=== PATIENT | female | born 1970 | race Two or more races ===

== ENCOUNTER 2020-07-31 08:31 | Outpatient (REF) | payer BC, OTHER, SELFPAY ==
--- NOTE | 2020-07-31 | US_ITS ---
EXAMINATION: US ABDOMEN LIMITED CLINICAL INFORMATION: Elevated liver function tests. COMPARISON: Previous CT of the abdomen and pelvis most recent April 2020 TECHNIQUE: Real-time imaging of the right upper quadrant abdominal viscera. FINDINGS: PANCREAS: Normal. LIVER: Normal. The liver is normal in size. The liver contour is normal. Liver echotexture is increased. No focal hepatic lesion. There is no intrahepatic biliary duct dilatation seen. GALLBLADDER: The gallbladder has been removed. COMMON BILE DUCT: Normal in caliber measuring 0.5 cm in diameter. RIGHT KIDNEY: Normal. No hydronephrosis. No renal calculi or focal parenchymal lesions. The kidney measures 12.4 cm in maximum dimension. FREE FLUID: None. US/US abdomen limited IMPRESSION: Echogenic liver suggestive of fatty infiltration.
== END 2020-07-31 08:32 | disposition home or self-care (01) ==
LOC: HO.US 08:31
PROVIDERS: Visit Provider Nurse Practitioner Family
DX: R74.8 Abnormal levels of other serum enzymes (principal)
CPT/HCPCS: 76705

== ENCOUNTER 2020-09-25 10:46 | Outpatient (REF) | payer BC, OTHER, SELFPAY ==
--- NOTE | 2020-09-25 10:57 | XR_ITS ---
EXAMINATION: XR HAND, RIGHT CLINICAL INFORMATION: Pain COMPARISON: None TECHNIQUE: PA, lateral, and oblique views of the right hand. FINDINGS: The bones and soft tissues are normal. No fracture. Alignment is anatomic. Joint spaces are maintained. No erosions or soft tissue calcifications. XR/XR hand RT 2V IMPRESSION: Normal right hand.
== END 2020-09-25 10:47 | disposition home or self-care (01) ==
LOC: HO.XRAY 10:46
PROVIDERS: PCP Nurse Practitioner Family; Visit Provider Registered Nurse
DX: M79.644 Pain in right finger(s) (principal); M79.89 Other specified soft tissue disorders
CPT/HCPCS: 73120

== ENCOUNTER 2021-02-20 13:13 | Outpatient (REF) | payer OTHER, SELFPAY ==
--- NOTE | ~2021-02-20 | XR_ITS ---
EXAMINATION: XR ANKLE, LEFT CLINICAL INFORMATION: Effusion. Left ankle pain and swelling for 4 weeks. COMPARISON: None TECHNIQUE: AP, lateral, and mortise views of the left ankle. FINDINGS: There is no evidence of acute fracture or dislocation of the left ankle. Left ankle mortise intact. No left ankle effusion is appreciated. There is some soft tissue swelling seen about the dorsum of the ankle. Calcaneal spurs are seen sites of insertion of Achilles and plantar tendons. XR/XR ankle LT min 3V IMPRESSION: No significant bony abnormality of the left ankle identified. Calcaneal spurs. Soft tissue swelling.
--- NOTE | ~2021-02-20 | US_ITS ---
EXAMINATION: US VENOUS ULTRASOUND WITH DOPPLER LOWER EXTREMITY, LEFT CLINICAL INFORMATION: This is a 50-year-old female with left leg pain and swelling. COMPARISON: None TECHNIQUE: Ultrasound of the deep veins is performed from the hip to the calf with compression sonography and color and pulse Doppler assessment. Spectral analysis with color-flow imaging is performed. FINDINGS: There is normal venous compression and respiratory variation and augmented flow. The visualized common femoral vein, superficial femoral vein, profunda femoral vein, popliteal vein, and the trifurcation region shows no evidence of deep venous thrombosis. There is no significant popliteal fossa cyst. If the patient's symptoms persist, followup ultrasound in 5 days 7 days might be of value to exclude proximal propagation from a non-visualized calf vein. US/US venous duplex LE IMPRESSION: No DVT demonstrated in the left lower extremity.
[2021-02-20 14:27] LABS: Anion Gap 13 (12-20); Blood Urea Nitrogen 14 mg/dL (9-16); Calcium 10.1 mg/dL (8.4-10.2); Carbon Dioxide 28 mmol/L (22-29); Chloride 103 mmol/L (96-108); Estimated Glomerular Filt Rate > 60; Glucose Random 109 mg/dL (60-115); Potassium 4.6 mmol/L (3.3-5.1); Rheumatoid Factor < 15.0 IU/mL (<15.0); Sodium 139 mmol/L (135-145)
[2021-02-20 14:43] LABS: Erythrocyte Sedimentation Rate 36 MM/HR (0-20)
[2021-02-20 14:49] LABS: TSH reflex Free T4 1.95 uIU/mL (0.32-4.0)
[2021-02-22 21:26] LABS: Cyclic Citrullinated Peptide <16 UNITS
== END 2021-02-20 13:14 | disposition home or self-care (01) ==
LOC: HO.US 13:13
PROVIDERS: PCP Nurse Practitioner Family; Visit Provider Nurse Practitioner Family
DX: M25.472 Effusion, left ankle (principal); M79.605 Pain in left leg; M79.89 Other specified soft tissue disorders; M79.644 Pain in right finger(s)
CPT/HCPCS: 36415; 73610; 80048; 82550; 84443; 85652; 86140; 86200; 86431; 93971

== ENCOUNTER 2021-03-14 15:05 | Outpatient (REF) | payer OTHER, SELFPAY ==
--- NOTE | ~2021-03-14 | US_ITS ---
EXAMINATION: US EXTREMITY NONVASCULAR, ANKLE CLINICAL INFORMATION: Soft tissue swelling dorsum left ankle for multiple weeks. COMPARISON: Duplex ultrasound 02/20/2021 left lower extremity and ankle radiographs 02/20/2021. TECHNIQUE: Ultrasound of the ankle was performed. FINDINGS: No abnormality is seen. No masses are identified. No effusion is detected. No abnormal fluid collection seen. US/US extremity nonvascular IMPRESSION: No abnormality is seen.
== END 2021-03-14 15:06 | disposition home or self-care (01) ==
LOC: HO.US 15:05
PROVIDERS: PCP Nurse Practitioner Family; Visit Provider Nurse Practitioner Family
DX: M25.472 Effusion, left ankle (principal)
CPT/HCPCS: 76882

== ENCOUNTER 2021-04-29 11:30 | Emergency (ER) | payer OTHER, SELFPAY ==
[2021-04-29 12:07] VITALS: BP 135/78; PULSE 81; RESP 16; TEMP 36.1; O2SAT 100; BMI 38.2
--- NOTE | 2021-04-29 12:54 | ED_ITS ---
HPI - Nausea/Vomiting/Diarrhea General Chief complaint: Nausea/Vomiting/Diarrhea Stated complaint: diarrhea Time Seen by Provider: 04/29/21 12:42 Source: patient Mode of arrival: ambulatory Limitations: no limitations History of Present Illness HPI Narrative: patient with diarrhea for 2 weeks. No recent travel, no recent antibiotic use. Patient has a cholecystectomy in the past and BTL. She is not in Healthcare and is not exposed to Cdiff. No history of CDiff, no MRSA. MD elicited complaint: diarrhea Onset (ago): week(s) Description of diarrhea: watery Pain consistency: intermittent Quality: cramping Exacerbating factors: eating Associated symptoms: fever/chills and weakness Related Data Allergies Allergy/AdvReac Type Severity Reaction Status Date / Time No Known Allergies Allergy Unverified 06/21/20 17:24 [No Known Allergies*] Review of Systems Constitutional: Constitutional: Reports no additional constitutional complaint s Eyes: Eyes: Reports no additional eye complaints ENT: Denies dizziness Cardiovascular: Cardiovascular: Reports no additional cardiovascular complaints Respiratory: Respiratory: Reports as per HPI Gastrointestinal: Gastrointestinal: Reports no additional gastrointestinal complaints Genitourinary: Genitourinary: Reports no additional female genitourinary complaints Musculoskeletal: Musculoskeletal: Reports no additional musculoskeletal complaints Integumentary/Breasts: Skin/Breast: Denies rash Neurologic: Reports system reviewed and no additional complaints, except as documented, Denies dizziness and Denies Sensory deficit (Neuro) Psychiatric: Psychiatric: Denies anxiety [facility] Past Medical History Medical History Anemia HTN (hypertension) Migraine Social History Social History Advance Directives: No Advance Directives Information Provided: No Physical Exam Vital Signs: Vital Signs: Last Vital Signs Temp 97.9 F 04/29/21 15:08 Pulse 70 04/29/21 15:08 Resp 16 04/29/21 15:08 BP 119/68 04/29/21 15:08 Pulse Ox 100 04/29/21 15:08 Body Mass Index 38.2 Const: General: healthy appearing Nutritional Appearance: overweight Orientation/consciousness: oriented to person and patient oriented x3 Limitations: no limitations HENMT: Head: Yes normal to inspection Ears: external ears normal General nose exam: Normal external nose present Mouth: Normal oral and palatal mucosa present and oropharynx normal Throat: Yes posterior oropharynx normal Eyes: General: appearance normal, both eyes and all related structures Neck: Other: supple Neck: Yes normal visual inspection Chest: Chest palpation & inspection: normal inspection of the chest Resp: Auscultation: clear to auscultation bilaterally Cardio: Jugular venous distension: no JVD Rate: regular rate Rhythm: regular rhythm Heart sounds: S1 normal heart sound present and S2 normal heart sound present GI: Inspection: Yes normal to inspection Palpation (GI): Soft to palpation, nontender and No hepatosplenomegaly present Auscultation: normal bowel sounds : General: Yes no CVA tenderness Back/Spine/Pelvis: Back: no CVA tenderness Skin: General skin exam: no rashes or lesions noted Neuro: General: oriented to person and patient oriented x3 Cranial nerves: Yes CN's II-XII intact bilaterally Motor exam (neuro): 5/5 motor strength present throughout Sensory Exam: No Sensory deficit (Neuro) Extrem: General: Yes normal to inspection Psych: Appearance: grossly normal Course Reevaluation(s) Reevaluation #1: abdomen soft, no guarding or rebound. No diarrhea in ED despite taking orals will dc home with stool speciment slips Time: 18:03 MDM - Nausea/Vomiting/Diarrhea Lab Data Result diagrams: 04/29/21 13:38 04/29/21 13:38 Labs: Lab Results 04/29/21 04/29/21 04/29/21 Range/Units 13:38 13:38 16:17 WBC 7.4 (4.8-10.8) X10*3/uL RBC 4.00 L (4.20-5.50) X10*6/uL Hgb 11.6 L (12.0-16.0) g/dl Hct 35.9 L (37-47) % MCV 89.8 (80-98) fL MCH 29.0 (27.0-33.0) pg MCHC 32.3 (31.0-35.0) g/dl RDW 12.7 (11.0-16.0) % Plt Count 298 (160-400) X10*3/uL MPV 9.7 (9.4-12.3) fL Immature Gran % (Auto) 0.5 H (0.0-0.4) % Neut % (Auto) 63.1 (45-73) % Lymph % (Auto) 27.0 (20-40) % [place] % (Auto) 6.5 (2-11) % Eos % (Auto) 2.6 (0-4) % Baso % (Auto) 0.3 (0-2) % Lymph # (Auto) 2.0 (1.2-4.9) X10*3/uL [place] # (Auto) 0.5 (0.1-1.2) X10*3/uL Eos # (Auto) 0.2 (0.0-0.4) X10*3/uL Baso # (Auto) 0.0 (0.0-0.2) X10*3/uL Abs Immat Gran (auto) 0.04 H (0.00-0.03) X10*3/uL Absolute Neuts (auto) 4.7 (2.0-8.3) X10*3/uL Absolute Nucleated RBC 0.000 (0.0-0.012) X10*3/uL Nucleated RBC % (auto) 0.0 (0.0-0.2) /100WBC Sodium 139 (135-145) mmol/L Potassium 4.0 (3.3-5.1) mmol/L Chloride 105 (96-108) mmol/L Carbon Dioxide 26 (22-29) mmol/L Anion Gap 12 (12-20) BUN 13 (9-16) mg/dL Creatinine 0.85 (0.5-1.4) mg/dL Estim Creat Clear Calc 92.6 Estimated GFR > 60 Random Glucose 103 (60-115) mg/dL Calcium 9.3 D (8.4-10.2) mg/dL Total Bilirubin 0.3 (0.0-1.0) mg/dL Direct Bilirubin 0.2 (0.0-0.5) mg/dL AST 60 H (5-31) U/L ALT 137 H (0-31) U/L Alkaline Phosphatase 65 (39-117) U/L Total Protein 6.8 (6.5-8.0) g/dL Albumin 4.3 (3.5-5.0) g/dL Lipase 19 (8-78) U/L Urine Color YELLOW Urine Appearance CLEAR Urine pH 5.5 (5.0-8.0) Ur Specific [place] >= 1.030 H (1.005-1.025) Urine Protein NEG (NEG-TRACE) MG/DL Urine Glucose (UA) NEG (NEG) MG/DL Urine Ketones 5 (NEG) MG/DL Urine Blood NEG (NEG) Urine Nitrite NEG (NEG) Ur Leukocyte Esterase NEG (NEG) Discharge Plan Discharge Clinical Impression: Gastroenteritis Patient Disposition: Home, Self-Care Instructions: Gastroenteritis (ED)
[2021-04-29] MEDS: 0.9 % Sodium Chloride 1,000 ML 999 ML IVCONT ×2 (13:39→15:08)
[2021-04-29 13:42] LABS: MANUAL DIFF FLAG NO
[2021-04-29 13:48] LABS: Basophils Percent Auto 0.3 % (0-2); Eosinophils Absolute Auto 0.2 X10*3/uL (0.0-0.4); Eosinophils Percent Auto 2.6 % (0-4); Hematocrit 35.9 % (37-47); Hemoglobin 11.6 g/dl (12.0-16.0); Imm Gran Abs Auto 0.04 X10*3/uL (0.00-0.03); Imm Gran Pct Auto 0.5 % (0.0-0.4); Mean Corpuscular HGB Conc 32.3 g/dl (31.0-35.0); Mean Corpuscular Volume 89.8 fL (80-98); Mean Platelet Volume 9.7 fL (9.4-12.3); Monocytes Absolute Auto 0.5 X10*3/uL (0.1-1.2); Monocytes Percent Auto 6.5 % (2-11); Neutrophils Absolute Auto 4.7 X10*3/uL (2.0-8.3); Neutrophils Percent Auto 63.1 % (45-73); Platelet Count 298 X10*3/uL (160-400); Red Cell Distribution Width 12.7 % (11.0-16.0); White Blood Count 7.4 X10*3/uL (4.8-10.8)
[2021-04-29 14:25] LABS: Alanine Aminotransferase 137 U/L (0-31); Albumin Level 4.3 g/dL (3.5-5.0); Alkaline Phosphatase 65 U/L (39-117); Anion Gap 12 (12-20); Aspartate Amino Transferase 60 U/L (5-31); Bilirubin Direct 0.2 mg/dL (0.0-0.5); Bilirubin Total 0.3 mg/dL (0.0-1.0); Blood Urea Nitrogen 13 mg/dL (9-16); Calcium 9.3 mg/dL (8.4-10.2); Carbon Dioxide 26 mmol/L (22-29); Chloride 105 mmol/L (96-108); Creatinine Clr Calc Pharmacy 92.6; Estimated Glomerular Filt Rate > 60; Glucose Random 103 mg/dL (60-115); Lipase 19 U/L (8-78); Sodium 139 mmol/L (135-145); Total Protein 6.8 g/dL (6.5-8.0)
[2021-04-29 15:08] VITALS: BP 119/68; PULSE 70; RESP 16; TEMP 36.6; O2SAT 100
[2021-04-29 16:27] LABS: Glucose Urine UA NEG (NEG); Leukocyte Esterase Urine NEG (NEG); Nitrite Urine NEG (NEG); PH 5.5 (5.0-8.0); Specific Gravity - Urine >= 1.030 (1.005-1.025); Urine Blood NEG (NEG); Urine Ketones 5 MG/DL (NEG); Urine Protein NEG (NEG-TRACE)
[2021-04-29 16:28] LABS: Appearance Urine CLEAR; Color Urine YELLOW
[2021-04-29 18:14] VITALS: BP 112/67; PULSE 88; RESP 14; TEMP 36.8; O2SAT 100
[2021-04-29 19:28] LABS: CDiff Gene PCR NEGATIVE (Negative)
== END 2021-04-29 18:47 | disposition home or self-care (01) ==
PROVIDERS: Emergency Provider Emergency Medicine
DX: K52.9 Noninfective gastroenteritis and colitis, unspecified (principal); I10 Essential (primary) hypertension; Z90.49 Acquired absence of other specified parts of digestive tract
CPT/HCPCS: 36415; 80048; 80076; 81003; 83690; 85025; 87045; 87046; 87329; 87493; 96360; 96361; 99284

== ENCOUNTER 2021-08-07 16:18 | Emergency (ER) | payer MEDICAID, SELFPAY ==
[2021-08-07 16:27] VITALS: BP 142/75; PULSE 79; RESP 18; TEMP 36.6; O2SAT 100; BMI 38.2
--- NOTE | 2021-08-07 17:15 | ED_ITS ---
HPI - Back Pain/Injury General Chief Complaint: Extremity Injury, Lower Stated Complaint: left sided abd pain Time Seen by Provider: 08/07/21 17:06 Source: patient Mode of arrival: ambulatory Limitations: no limitations History of Present Illness HPI Narrative: Patient with history of chronic back pain overweight complaining of increasing low back pain radiating to left leg for last few weeks seen her PCP plan to see physical therapist no recent trauma no abdominal pain no nausea no vomiting taking Tylenol/Motrin for pain complaining for increased pain now Related Data Previous Rx's Medication Instructions Recorded cyclobenzaprine 10 mg tablet 10 mg PO Q8H #20 tab 08/07/21 oxycodone-acetaminophen 5 mg-325 1 tab PO Q6H PRN #20 tab 08/07/21 mg tablet (Percocet) Allergies Allergy/AdvReac Type Severity Reaction Status Date / Time No Known Allergies Allergy Unverified 06/21/20 17:24 [No Known Allergies*] Review of Systems Review of Systems: Yes all other systems are reviewed and are negative [facility] Past Medical History Medical History Anemia HTN (hypertension) Migraine Physical Exam Vital Signs: Vital Signs: Last Vital Signs Temp 98 F 08/07/21 16:27 Pulse 79 08/07/21 16:27 Resp 18 08/07/21 16:27 BP 142/75 H 08/07/21 16:27 Pulse Ox 100 08/07/21 16:27 Body Mass Index 38.2 Appearance: Alert. Oriented X3. No acute distress. Obese Eyes: No pallor or icterus ENT: Pharynx normal. Oral Mucosa moist Neck: Normal inspection. Neck supple. CVS: Normal heart rate and rhythm. Pulses normal. Respiratory: No respiratory distress. Equal air entry bilateral, no wheezing/rales/rhonchi Abdomen: Soft and nontender. Bowel sounds are present, no mass palpable, no CVA tenderness Skin: Skin warm and dry. Normal skin color. Normal skin turgor. Back: Diffuse tenderness lower spine SLR negative bilateral neurovascular intact Extremities: No lower extremity edema. No calf tenderness Neuro: Oriented X 3. No motor deficit. No sensory deficit Discharge Plan Discharge Clinical Impression: Low back pain radiating down leg Patient Disposition: Home, Self-Care Instructions: Back Pain (ED) Additional Instructions: Rest at home Take pain medication and muscle relaxants as advised Prescriptions: New cyclobenzaprine 10 mg tablet 10 mg PO Q8H Qty: 20 RF: 0 oxycodone-acetaminophen [Percocet] 5-325 mg tablet 1 tab PO Q6H PRN (Reason: pain) Qty: 20 RF: 0
[2021-08-07] MEDS: Ketorolac Tromethamine 60 MG/2 ML VIAL IM (17:47)
[2021-08-07] MEDS: oxyCODONE HCl Immed Release 5 MG TABLET PO (18:06)
== END 2021-08-07 18:11 | disposition home or self-care (01) ==
LOC: HO.ED 17:23
PROVIDERS: Emergency Provider Internal Medicine; PCP Nurse Practitioner Primary Care
DX: M54.50 Low back pain, unspecified (principal); I10 Essential (primary) hypertension
CPT/HCPCS: 96372; 99283; 99284; J1885

== ENCOUNTER 2021-08-21 14:50 | Outpatient (REF) | payer MEDICAID, SELFPAY ==
--- NOTE | ~2021-08-21 | MM_ITS ---
EXAMINATION: MM SCREENING DIGITAL BREAST TOMOSYNTHESIS, BILATERAL CLINICAL INFORMATION: Screening. Asymptomatic. The lifetime risk of breast cancer based on the Tyrer-Cuzick Model is 10%. COMPARISON: Mammography: 04/15/2016 (baseline) TECHNIQUE: Digital breast tomosynthesis is performed in both the craniocaudal and mediolateral oblique views along with computer-aided detection (CAD). Synthesized 2D images are generated from the tomosynthesis. FINDINGS: The breasts are heterogeneously dense, which may obscure small masses (ACR BI-RADS breast composition Category c). There are no significant masses, abnormal calcifications, or other abnormalities. Breast tissue composition borders on average fibroglandular. The axilla and skin contours are unremarkable. MM/MM tomosynthesis screening BI IMPRESSION: No mammographic evidence of malignancy. ASSESSMENT: BI-RADS 1: Negative RECOMMENDATION: Routine annual mammography screening. This patient's information was entered into a reminder system with a target due date for their next mammogram.
== END 2021-08-21 14:51 | disposition home or self-care (01) ==
LOC: HO.MAMMO 14:50
PROVIDERS: Visit Provider Nurse Practitioner Primary Care
DX: Z12.31 Encounter for screening mammogram for malignant neoplasm of breast (principal)
CPT/HCPCS: 77063; 77067

== ENCOUNTER 2021-09-25 10:00 | Outpatient (RCR) | payer MEDICAID, SELFPAY | END 2021-09-25 11:24 | disposition home or self-care (01) | LOC: HO.PT 10:00 | PROVIDERS: PCP Nurse Practitioner Family; Visit Provider Nurse Practitioner Family | DX: M54.50 Low back pain, unspecified (principal) | CPT/HCPCS: 97110; 97140; 97161 ==

== ENCOUNTER → 2021-09-30 13:19 | Outpatient (BNVA) | payer MEDICAID, SELFPAY | PROVIDERS: PCP Nurse Practitioner Primary Care; Visit Provider Surgery Vascular Surgery | DX: I83.11 Varicose veins of right lower extremity with inflammation (principal) | CPT/HCPCS: 99202 ==

== ENCOUNTER 2021-10-17 10:34 | Outpatient (REF) | payer MEDICAID, SELFPAY ==
--- NOTE | ~2021-10-17 | US_ITS ---
EXAMINATION: RIGHT AND LEFT LOWER EXTREMITY VENOUS ULTRASOUND (REFLUX EXAM) CLINICAL INDICATION: Varicose veins of right lower extremity with inflammation. COMPARISON: 02/20/2021 TECHNIQUE: Color flow triplex imaging and compression Doppler was performed to evaluate both the deep and the superficial systems bilaterally. To evaluate the superficial system, the examination was performed in the upright position. Color-flow Doppler ultrasound and compression ultrasound were utilized. In addition, maneuvers were utilized to demonstrate reflux. FINDINGS: 1. DEEP VENOUS ULTRASOUND OF THE RIGHT LOWER EXTREMITY: Respiratory variation, normal compression and augmented flow are noted in the right common femoral vein as well as the right popliteal vein and there is no evidence of deep venous thrombosis at these locations. There is no evidence of reflux in the deep system in either the common femoral vein or the popliteal vein. There is no evidence of a Gilliland's cyst. No popliteal artery aneurysm. 2. SUPERFICIAL ULTRASOUND WITH DOPPLER OF RIGHT LOWER EXTREMITY: The right great saphenous vein at the saphenofemoral junction measures 7 mm, at the midthigh 3 mm, gifox-mla-jwuw 3 mm, ixqgv-clz-cuxx 2 mm, at midcalf 2 mm and at the ankle measures 1 mm. There is reflux noted up to approximately 2.8 seconds at the level just below the knee and 3 seconds in the midcalf. The right small saphenous vein measures 4 mm and shows reflux in the midcalf up to 2.5 seconds. 3. DEEP VENOUS ULTRASOUND OF THE LEFT LOWER EXTREMITY: Respiratory variation, normal compression and augmented flow are noted in the left common femoral vein as well as the left popliteal vein and there is no evidence of deep venous thrombosis at these locations. There is no evidence of reflux in the deep system in either the common femoral vein or the popliteal vein. There is no evidence of a Gilliland's cyst. 4. SUPERFICIAL ULTRASOUND WITH DOPPLER OF LEFT LOWER EXTREMITY: Left great saphenous vein at the saphenofemoral junction measures 6 mm, at the midthigh 3 mm, lijfw-lku-xoeq 3 mm, dicmt-thp-lqsn 2 mm, at midcalf 2 mm and at the ankle measures 2 mm. There is no reflux demonstrated in the left great saphenous vein. The left small saphenous vein measures 3 mm and shows no reflux. US/US venous duplex LE BI IMPRESSION: 1. No evidence of reflux or thrombus in the common femoral veins or popliteal veins bilaterally. 2. No evidence of venous insufficiency within the left lower extremity. 3. There is reflux noted with venous insufficiency within the right lower extremity at the level just below the knee and within the midcalf. No insufficiency was identified at the saphenofemoral junction. There is also noted to be some insufficiency within the small saphenous vein within the midcalf. No varicosities larger than 3 mm were identified.
== END 2021-10-17 10:35 | disposition home or self-care (01) ==
LOC: HO.US 10:34
PROVIDERS: Visit Provider Surgery Vascular Surgery
DX: I83.11 Varicose veins of right lower extremity with inflammation (principal)
CPT/HCPCS: 93970

== ENCOUNTER → 2021-10-29 11:01 | Outpatient (BNVA) | payer MEDICAID, SELFPAY | PROVIDERS: PCP Nurse Practitioner Primary Care; Visit Provider Surgery Vascular Surgery | DX: I83.11 Varicose veins of right lower extremity with inflammation (principal) | CPT/HCPCS: 99212 ==

== ENCOUNTER → 2022-01-24 09:16 | Outpatient (BNVA) | payer MEDICAID, SELFPAY | PROVIDERS: PCP Nurse Practitioner Primary Care; Visit Provider Nurse Practitioner Family | DX: M54.16 Radiculopathy, lumbar region (principal); M47.816 Spondylosis without myelopathy or radiculopathy, lumbar region; Q76.49 Other congenital malformations of spine, not associated with scoliosis | CPT/HCPCS: 99202 ==

== ENCOUNTER 2022-02-06 15:45 | Outpatient (REF) | payer MEDICAID, SELFPAY ==
--- NOTE | ~2022-02-06 | MR_ITS ---
EXAMINATION: MR LUMBAR SPINE WITHOUT CONTRAST CLINICAL INFORMATION: 51-year-old with low back pain, left leg pain and left foot numbness. COMPARISON: None TECHNIQUE: MRI of the lumbar spine was obtained using routine sequences without contrast. FINDINGS: Coronal Alignment: Very slight lower lumbar levocurvature noted on the belt loop maker view, which is nonspecific and could be positional or related to muscle spasm. Sagittal Alignment: Normal. Lumbosacral Junction: Transitional anatomy with lowest lumbar-like segment labeled as L5, which is partially sacralized on the left. Vertebral Bodies: Normal height. Disc Spaces and Endplates: Lsyj-vl-qitpqcpn disc space height loss asymmetric to the right at L4-L5 with intradiscal degenerative signal changes and a Schmorl's node along the superior endplate of L5 with minor spondylosis. Otherwise intervertebral disc space heights are well-maintained. There is disc desiccation at L3-L4 with minor spondylosis. Spinal Canal: Mildly prominent epidural fat seen throughout the lumbar canal with slight ventral lateral distortion of the thecal sac at L3 and L4 and a relatively small thecal sac at L5-S1. Bone Marrow: There are type II degenerative marrow signal changes along the endplates posteriorly at L4-L5. There is a nonspecific T1 hypo-/T2 hyperintense focus in the L2 vertebral body adjacent to the superior endplate asymmetric to the right, which measures 1.3 cm and appears slightly lobulated or loculated. Retrospective review of the lumbar spine on a previous CT of the abdomen from 2018 reveals a findings suggesting that this is most likely a lipid poor benign vertebral hemangioma. Otherwise, bone marrow signal intensity appears unremarkable. Conus Medullaris: Terminates at L1. Morphology and signal is normal. Intradural Nerve Roots: Within normal limits. L5-S1: Transitional level. No significant disc bulge or herniation and no significant DJD, canal or neuroforaminal stenosis. L4-L5: Broad-based central extruded disc herniation with slight caudal migration, with flattening of the ventral dural sac superimposed on diffuse disc bulging asymmetric to the right with encroachment on the neural foramina, right more than left. Ligamentum flavum thickening with gqxg-lu-yzbuhwsf facet arthropathy noted, with marked crowding of the subarticular zones bilaterally encroaching on the traversing L5 nerve roots. Mild central spinal canal stenosis is noted. There is mild left and moderate right-sided neural foraminal narrowing without definite exiting neural impingement. Central radial annular fissure also noted at this level associated with the above-described disc herniation. L3-L4: Broad-based left subarticular to foraminal/extra foraminal disc protrusion noted and broad-based right foraminal/extra foraminal disc protrusion also noted, with rcje-br-veepjbgo bilateral neural foraminal stenosis, with mild encroachment on the exiting L3 nerve roots bilaterally. No significant spinal canal stenosis. L2-L3: Normal disc contour. No facet arthrosis, canal or neuroforaminal stenosis. L1-L2: Normal disc contour. No facet arthrosis, canal or neuroforaminal stenosis. Paraspinal/Retroperitoneal: The paravertebral soft tissues are unremarkable. MR/MR lumbar spine wo con IMPRESSION: 1. Discogenic degenerative changes primarily at L4-L5 and to a lesser degree at L3-L4 as described above with transitional lumbosacral anatomy. 2. Broad-based central extruded disc herniation at L4-L5 with diffuse disc bulging asymmetric to the right, with facet arthropathy and marked bilateral subarticular recess stenosis with probable impingement on the traversing L5 nerve roots bilaterally and mild central spinal canal stenosis. Moderate right and mild left-sided neural foraminal stenosis at this level. 3. Posterolateral disc protrusions noted bilaterally at L3-L4 with nimj-ie-tskvpblz bilateral neural foraminal compromise, with encroachment on the exiting L3 nerve roots bilaterally.
== END 2022-02-06 15:46 | disposition home or self-care (01) ==
LOC: HO.MRI 15:45
PROVIDERS: Visit Provider Nurse Practitioner Family
DX: M54.16 Radiculopathy, lumbar region (principal); Q76.49 Other congenital malformations of spine, not associated with scoliosis
CPT/HCPCS: 72148

== ENCOUNTER 2022-03-11 08:34 | Outpatient (REF) | payer MEDICAID, SELFPAY ==
--- NOTE | ~2022-03-11 | CT_ITS ---
EXAMINATION: CT ABDOMEN WITHOUT CONTRAST CLINICAL INFORMATION: Abdominal pain, flank pain. History of hydronephrosis. COMPARISON: Ultrasound abdomen 07/31/2020. TECHNIQUE: Contiguous axial thin section helical images of the abdomen were performed without contrast. The data set was reformatted in the coronal and sagittal planes and reviewed on an independent workstation. This CT examination was performed using dose optimization techniques as appropriate, variously including the following: *Automated exposure control *Adjustment of mA and/or kV according to patient size (this includes techniques or standardized protocols for targeted exams where dose is matched to indication/reason for exam; i.e. extremities or head) *Use of iterative reconstruction technique DLP: 455 mGy-cm FINDINGS: LUNG BASES: The lung bases are clear. The heart size is normal. LIVER, GALLBLADDER, BILIARY TREE: The liver is diffusely attenuated but normal size and hepatic contour. There is no focal lesion or intrahepatic ductal dilatation. The gallbladder has been surgically removed. PANCREAS: The pancreas is homogeneous in density, normal size and shape. No focal lesion seen. SPLEEN: The spleen is normal size and normal density. ADRENAL GLANDS AND KIDNEYS: The adrenal glands are symmetrical and normal. Both kidneys are normal size, shape and position. There are no radiopaque renal calculi or hydronephrosis. BOWEL LOOPS: There is scattered stool, gas and oral contrast seen throughout the colon without distention. Oral contrast-filled small bowel loops are normal caliber. LYMPH NODES: Normal. VASCULAR: Unremarkable. BONES: No lytic or sclerotic process seen. There is mild ventral spondylosis of lower dorsal spine. CT/CT abdomen wo con IMPRESSION: Diffuse hepatic steatosis without focal lesion. Cholecystectomy changes. No radiopaque urolith or hydroureteronephrosis. Fleischner guidelines were followed.
[2022-03-11] MEDS: Barium Sulfate Oral (Berry) 450 ML ORAL.SUSP 900 ML PO (10:27)
== END 2022-03-11 08:35 | disposition home or self-care (01) ==
LOC: HO.CT 08:34
PROVIDERS: Visit Provider Nurse Practitioner Primary Care
DX: R10.9 Unspecified abdominal pain (principal)
CPT/HCPCS: 74150

== ENCOUNTER → 2022-05-01 15:13 | Outpatient (REF) | payer MEDICAID, SELFPAY | LOC: HO.CARD 15:13 | PROVIDERS: Visit Provider Internal Medicine | DX: R07.2 Precordial pain (principal); R00.2 Palpitations; I10 Essential (primary) hypertension; E66.01 Morbid (severe) obesity due to excess calories | CPT/HCPCS: 93005; 99202 ==

== ENCOUNTER 2022-05-13 14:43 | Outpatient (REF) | payer MEDICAID, SELFPAY ==
[2022-05-14 15:12] LABS: H Pylori Breath Test Positive (Negative)
== END 2022-05-13 14:44 | disposition home or self-care (01) ==
LOC: HO.LNP 14:43
PROVIDERS: Visit Provider Nurse Practitioner Family
DX: K58.2 Mixed irritable bowel syndrome (principal); K21.9 Gastro-esophageal reflux disease without esophagitis
CPT/HCPCS: 83013; 99202; 99212

== ENCOUNTER 2022-06-11 06:16 | Outpatient (REF) | payer MEDICAID, SELFPAY ==
--- NOTE | ~2022-06-11 | FL_ITS ---
EXAMINATION: XR FLUOROSCOPY WITH IMAGES CLINICAL INFORMATION: M53.9 - Dorsopathy, unspecified COMPARISON: MR lumbar spine 02/06/2022 TECHNIQUE: Fluoroscopy performed by Dr. Jeffry Jean-Baptiste. Fluoroscopy time: 0.1 minutes. Cumulative Dose: 3.90 mGy. DAP: 0.432 Gy-cm2. Images: 2. FINDINGS: There is a spinal needle at the L4-L5 interlaminar space. Contrast is seen in the epidural space. No visible vascular communication. FL/FL guidance in treatment room IMPRESSION: Fluoroscopy for pain management procedure.
== END 2022-06-11 06:17 | disposition home or self-care (01) ==
LOC: HO.RADIR 06:16
PROVIDERS: Visit Provider Internal Medicine
DX: M54.16 Radiculopathy, lumbar region (principal); M53.9 Dorsopathy, unspecified
CPT/HCPCS: 62323; J1040

== ENCOUNTER → 2022-06-16 09:24 | Outpatient (REF) | payer MEDICAID, SELFPAY ==
--- NOTE | 2022-06-16 09:31 | CA_ITS ---
Acquisition Time: 2022-06-16 10:24:10 Total Exercise Time: 00:06:49 Test Indications: CHEST PAIN Medications: LISINOPRIL HCTZ PROPRANLOL Protocol: NEGRITO Max HR: 157 BPM 92% of Pred: 170 BPM Max BP: 140/080 mmHG Max Work Load: 8.2 METS Exercise stress test with exercise 6 min 49 sec of Negrito protocol, achieving 92% MPHR, with 1/10 mid chest pressure at baseline which increased to 2/10 with exercise, with mild sob, with rare PVC, with normotensive response to exercise, without EKG changes meeting criteria for ischemia. In later recovery there are mild T wave inversions V3-V6 which are different from baseline EKG. Her chest pressure returned to 1/10 with rest. Test reviewed with Dr Taylor. will order an exercise nuclear stress test for further evaluation. Referred By: Hector Hagen Overread By: CARLA DAVIES
--- NOTE | 2022-06-16 09:31 | ECG_ITS ---
Hook-up date: 2022-06-16 12:59:00 Duration: 23:32:00 Test Indications: PALPITATIONS Medications: [id number] QRS complexes 54 Ventricular ectopics which represent <1 % of total QRS comp. * Supraventricular ectopics which represent % of total QRS comp. * Paced QRS complexs which represent % of total QRS comp. VENTRICULAR ECTOPY 54 Isolated 0 Bigeminal Cycles 0 Couplets 0 Runs 0 Beats in Runs * Beats LONGEST at * BPM at :: -- * Beats FASTEST at * BPM at :: -- SUPRAVENTRICULAR ECTOPY * Isolated * Couplets * Runs * Beats in Runs * Beats LONGEST at * BPM at :: -- * Beats FASTEST at * BPM at :: -- HEART RATES 49 MIN at 04:10:30 2022-06-17 80 AVG 137 MAX at 13:00:14 2022-06-16 LONGEST RR 1.2640 secs at 04:10:27 2022-06-17 S-T LEVELS Channel 1 - 128 mm at 12:59:00 2022-06-16 - 128 mm at 12:59:00 2022-06-16 Channel 2 - 128 mm at 12:59:00 2022-06-16 - 128 mm at 12:59:00 2022-06-16 Channel 3 - 128 mm at 03:21:81 -- - 128 mm at 03:21:81 Underlying rhythm is sinus; Average ventricular rate 80/min; range 49-137/min; Very rare ventricular ectopy; No sustained arrhythmias; Patient diary not available for review. Referred By: Dean Parker Overread By: DEAN PARKER
== END ==
LOC: HO.CARD 09:24
PROVIDERS: Visit Provider Internal Medicine
DX: R07.2 Precordial pain (principal); R00.2 Palpitations
CPT/HCPCS: 93017; 93226

== ENCOUNTER → 2022-06-19 14:59 | Outpatient (REF) | payer MEDICAID, SELFPAY ==
--- NOTE | 2022-06-19 15:01 | CA_ITS ---
Transthoracic Echocardiogram Patient (Last, First, Middle): Alisha Proctor, Gender: Female Date of : 1970 Age: 51 Procedure Date: 06/19/2022 Procedure Type: Transthoracic Echocardiogram Location: OP Height: 162.56 cm Weight: 99.79 kg BSA: 2.04 m2 Heart Rate: bpm BP: 120 / 82 mmHg [place] Lead: TO Referring MD: Hector Hagen MD Process Inspector: Juve Taylor MD Symptoms: R07.2 - Precordial pain Study Quality: Technically Difficult/Contrast ECG Rhythm: Sinus Conclusions: - Essentially normal study Findings Procedure Information Contrast agent, definity, is being given per protocol without apparent complications. The quality of the study was technically difficult. Left Ventricle Normal left ventricular size, thickness, and systolic function. The visually estimated ejection fraction is between 60-65%. Spectral Doppler is indicative of a normal filling pattern. Right Ventricle Normal right ventricular cavity size and systolic function. Atria The left atrium is normal in size. Interatrial shunt cannot be excluded. The right atrium was not well visualized. Aortic Valve The aortic valve structure and function is likely normal. There is mild aortic valve stenosis. There is no aortic valve regurgitation. Mitral Valve Likely normal mitral valve structure and function. There is trace mitral valve regurgitation. There is no mitral valve stenosis. Pulmonic Valve The pulmonic valve was not well visualized. Tricuspid Valve Likely normal tricuspid valve structure and function. There is trace tricuspid valve regurgitation. The right ventricular systolic pressure is normal. The right ventricular systolic pressure is 34 mmHg. Normal right atrial pressure. There is no evidence of pulmonary hypertension. Great Vessels All visible segments of the aorta are normal in size. The pulmonary artery was not well visualized. Venous The inferior vena cava is normal in size and collapses greater than 50% with inspiration. Pericardium/Pleural There is no evidence of pericardial effusion. Prior Study Comparison No prior study available for comparison. Measurements 2D Linear Measurements IVSd: 0.91 0.6-0.9/0.6-1.0 cm LVIDd: 3.82 3.9-5.3/4.2-5.9 cm LVIDd Index: 1.87 2.4-3.2/2.2-3.1 cm/m2 LVIDs: 2.36 2.0-3.6 cm LVPWd: 0.87 0.7-1.1 cm LA Diam: 3.40 2.7-3.8/3.0-4.0 cm LAIDs Index: 1.67 1.5-2.3 cm/m2 LV Mass: 292.67 67-162/88-224 g LV Mass Index: 143.46 43-95/49-115 g/m2 LVOT Diam: 2.00 3.0+(-)1.3 cm 2D Systolic Function EF 4C: 55.60 >55% Mitral Valve MV Pk E: 0.68 MV PK A: 0.71 MV Decel Time: 166.00 E/A: 1.00 E'Lateral: 10.40 E'Medial: 5.66 E/E' Med: 12.00 E/E' Lat: 6.50 PHT: 49.00 MVA PHT: 4.49 Decel Burt: 4.08 Aortic Valve AoV Pk Adam: 1.54 AoV Mn Adam: 1.03 AoV VTI: 0.24 AoV Pk Grad: 9.00 Aov Mn Grad: 5.00 TYRESE Cont.VTI: 2.36 LVOT LVOT Pk Adam: 1.12 LVOT Mn Adam: 0.71 LVOT VTI: 0.18 LVOT Pk Grad: 5.00 LVOT Mn Grad: 2.00 LVOT Diam: 2.00 LVOT Area: 3.14 Diastolic Function MV Pk E: 0.68 MV Pk A: 0.71 E/A: 1.00 E'Medial: 5.66 E/E' Med: 12.00 E' Laterial: 10.40 E/E' Lat: 6.50 Right Ventricle TAPSE (mm): 16.50 TVS' Adam: 14.00 Tricuspid Valve TR Pk Adam: 2.54 TR Pk Grad: 26.00 RA Press: 8.00 RVSP: 34.00 Great Vessels Aorta Sinus of Valsalva: 3.16 2.0-3.[address] Ridge: 2.77 1.7-3.4 cm Updated in Other Vendor System with Status of Final Juve Taylor MD electronically signed on 06/19/2022 5:18:06 PM with status of Final
== END ==
LOC: HO.CARD 14:59
PROVIDERS: Visit Provider Internal Medicine
DX: R07.2 Precordial pain (principal)
CPT/HCPCS: 93306; Q9957

== ENCOUNTER → 2022-06-25 08:30 | Outpatient (REF) | payer MEDICAID, SELFPAY ==
--- NOTE | ~2022-06-25 | NM_ITS ---
Exercise Myocardial perfusion study Indication: Precordial chest pain abnormal EKG to evaluate for myocardial ischemia Technique: The patient was brought in for an exercise perfusion study on 06/25/2022. Patient performed exercise as per Sridhar protocol and was injected 35 mCi of sestamibi was given intravenously one target HR was achieved. Images were obtained using the SPECT gamma camera interlaced with the gating device. Images were obtained in supine position. Resting perfusion study was performed on 06/26/2022. Patient was administered 35 mCi of sestamibi intravenously at rest. Images were then obtained in supine position. Images obtained with and without CT attenuation. Total DLP 149 mGy-cm. Images were processed with the software and compared side to side in short axis, horizontal long axis and vertical long axis views. Findings: The stress perfusion study showed non attenuated images show normal uptake of radiotracer in all segments of LV myocardium. Attenuation corrected images show minimal thinning of the distal septum and anterior wall of the LV myocardium without any clear defect.. The gated study shows normal LV systolic function with calculated LVEF of greater than 70%. LV cavity is normal in size. The gated study shows normal systolic wall thickening and contraction of all segments. There is no transient ischemic dilation. Resting study shows nontender images show normal uptake of radiotracer in all segments of LV myocardium. Gating at rest reveals normal systolic wall motion with ejection fraction at 55%. The findings are consistent with likely normal myocardial perfusion. NM/NM theodore perf SPECT rest & str Impression: 1. Normal myocardial perfusion 2. Gated LVEF is 65% 3. Transient ischemic dilatation not present Stress EKG is equivocal for ischemia
--- NOTE | 2022-06-25 08:33 | CA_ITS ---
Acquisition Time: 2022-06-25 08:35:15 Total Exercise Time: 00:05:16 Test Indications: CHEST PAIN Medications: LISNOPRIL PROPRANOLOL HCTZ Protocol: NEGRITO Max HR: 153 BPM 90% of Pred: 170 BPM Max BP: 148/080 mmHG Max Work Load: 7.0 METS Exercise stress test with exercise 5 min 16 sec of Negrito protocol, achieving 90% MPHR, with mild sob, 4/10 left chest pressure, without arrythmia, with normotensive response to exercise, without EKG changes meeting criteria for ischemia. In recovery her chest pressure resolved after 3 min of rest. Nuclear images pending. Test reviewed with Dr Hagen Referred By: Nataly Huynh Overread By: NATAYL HUYNH
== END ==
LOC: HO.CARD 08:30
PROVIDERS: Visit Provider Nurse Practitioner Family
DX: R07.2 Precordial pain (principal); R94.31 Abnormal electrocardiogram [ECG] [EKG]
CPT/HCPCS: 78452; 93017; A9500

== ENCOUNTER → 2022-07-15 15:24 | Outpatient (BNVA) | payer MEDICAID, SELFPAY | PROVIDERS: PCP Nurse Practitioner Primary Care; Referring Provider Nurse Practitioner Primary Care; Visit Provider Nurse Practitioner Family | DX: Z01.818 Encounter for other preprocedural examination (principal); K59.00 Constipation, unspecified; K21.9 Gastro-esophageal reflux disease without esophagitis; A04.8 Other specified bacterial intestinal infections; K58.2 Mixed irritable bowel syndrome | CPT/HCPCS: 99212 ==

== ENCOUNTER → 2022-08-06 13:50 | Outpatient (BNVA) | payer MEDICAID, SELFPAY | PROVIDERS: PCP Nurse Practitioner Primary Care; Referring Provider Nurse Practitioner Primary Care; Visit Provider Nurse Practitioner Family | DX: R07.2 Precordial pain (principal); R00.2 Palpitations; I10 Essential (primary) hypertension; E66.9 Obesity, unspecified; Z68.37 Body mass index [BMI] 37.0-37.9, adult | CPT/HCPCS: 99212 ==

== ENCOUNTER → 2022-10-10 10:40 | Day surgery (SDC) | payer MEDICAID, SELFPAY ==
[2022-10-07 13:54] VITALS: BMI 37.9
--- NOTE | 2022-10-09 13:45 | P.CONAN_ITS ---
HPI - Anesthesia Eval Consult details Narrative: Cx'd DOS d/t fever 51yo F for Upper Endoscopy and Colonoscopy Cardiac testing (for atypical CP and htn) preop nml, routine cardiology f/u only [facility] Active Problems Active Problems: All Active Problems (Updated 07/25/22 @ 20:51 by Ceci Warren [facility]) Helicobacter pylori (H. pylori) (Acute) Abnormal ECG during exercise stress test (Acute) Primary hypertension (Acute) Morbid obesity (Acute) Heart palpitations (Acute) Precordial chest pain (Acute) Multilevel degenerative disc disease (Acute) Sacralization of lumbar vertebra (Acute) Spondylosis of lumbar spine (Acute) Lumbar radiculitis (Acute) Varicose veins of right lower extremity with inflammation (Acute) Past Medical History Medical History (Updated 07/25/22 @ 20:51 by Ceci Warren [facility]) Anemia Helicobacter pylori (H. pylori) HTN (hypertension) Migraine Morbid obesity Family History Family History Father Heart disease Mother Heart disease Surgical History Surgical History History of cholecystectomy Social History Social History Patient Tobacco Use Status: Former Tobacco user Use of substances other than those prescribed or required for medical reasons: Yes Substance Use Type Other:: smoking Substance Use Frequency: Weekly Are you DNR?: No Advance Directives: No Advance Directives Information Provided: Yes Meds Allergies Allergy/AdvReac Type Severity Reaction Status Date / Time No Known Allergies Allergy Verified 08/06/22 13:53 [No Known Allergies*] Home Medications Medication Instructions Recorded Confirmed Last Taken Type cholecalciferol (vitamin D3) 50 50 mcg PO QAM 01/24/22 05/01/22 Unknown History mcg (2,000 unit) tablet ferrous sulfate 325 mg (65 mg 325 mg PO 01/24/22 05/01/22 Unknown History iron) tablet (FeroSul) hydrochlorothiazide 12.5 mg tablet 12.5 mg PO QAM 01/24/22 05/01/22 Unknown History lisinopril 40 mg tablet 40 mg PO BEDTIME 01/24/22 05/01/22 Unknown History cetirizine 10 mg tablet 10 mg PO DAILY PRN 07/01/22 07/28/22 Unknown History fluticasone propionate 50 1 - 2 spray intranasal DAILY PRN 04/04/22 05/01/22 Unknown History mcg/actuation nasal spray,suspension nortriptyline 50 mg capsule 50 mg PO BEDTIME 04/04/22 05/01/22 Unknown History propranolol 80 mg tablet 80 mg PO .QD 05/01/22 05/01/22 Unknown History cyclobenzaprine 5 mg tablet 5 mg PO PRN pain 05/13/22 Unknown History lidocaine 5 % topical patch 0 patch topical 05/13/22 Unknown History (Lidoderm) Exam Exam Date and Time: October 09, 2022 1345 Height,Weight and Vital Signs: Height 5 ft 4 in Weight 100.199 kg Narrative Narrative: EKG 04/2022 sinus rhythm at 95/Min; nonspecific ST-T changes; normal GA/QTc ECHO 06/2022 Conclusions: - Essentially normal study ? ? NM theodore perf SPECT rest & str 06/2022 Impression: ? 1.? Normal myocardial perfusion 2.? Gated LVEF is 65% 3. Transient ischemic dilatation not present ? Stress EKG is equivocal for ischemia Assessment and Plan Assessment Anesthesia Assessment: Chart Reviewed
--- NOTE | 2022-10-10 11:23 | MHC.SHP ---
Pre-Procedural Eval Section A Date of Service: 10/11/22 The patient is an INPATIENT: No The History & Physical has been completed within 30 days and I have reviewed it.: No Section B Chief Complaint: reflux disease,screening Details of Present Illness: screen, GERD, H Pylori infection Relevant Family History (Specify if Yes): No Relevant Social History: Tobacco Use ( former smoker) Present Medications: see Short Stay Collaborative assessment Medical History: Significant History (Anemia Helicobacter pylori (H. pylori) HTN (hypertension) Migraine Morbid obesity) History of Previous Operations: Relevant previous surgery/procedure and date(s) (History of cholecystectomy) Allergies: Allergies Allergy/AdvReac Type Severity Reaction Status Date / Time No Known Allergies Allergy Verified 08/06/22 13:53 [No Known Allergies*] Plan Diagnosis/Plan: Change (procedure was cancelled by anesthesia due to fever of a 100 F, cough and sore throat) I have reviewed the history and physical and performed a pertinent physical examination on my patient. No changes have occurred unless specified. Time Spent With Patient Time: Total time managing care of this patient today ____ minutes.
--- NOTE | 2022-10-10 11:34 | PC.NURSE ---
md. Huertas and md. Pacheco to bedside with interpreter for the deaf Jony and discussion was had with patient to cancel her procedure today re-symptoms 100.2 temp and headache, etc... patient confirmed understanding left short Stay and ambulated to meet with .
== END ==
PROVIDERS: PCP Nurse Practitioner Primary Care; Visit Provider Internal Medicine Gastroenterology
DX: Z12.11 Encounter for screening for malignant neoplasm of colon (principal); Z53.09 Procedure and treatment not carried out because of other contraindication; R50.9 Fever, unspecified; R51.9 Headache, unspecified

== ENCOUNTER 2022-12-22 09:54 | Day surgery (SDC) | payer MEDICAID, SELFPAY ==
[2022-12-17 09:10] VITALS: BMI 37.9
--- NOTE | 2022-12-19 12:55 | P.CONAN_ITS ---
Documented by User: Karly Leslie NP 12/19/22 12:56 HPI - Anesthesia Eval Consult details Narrative: 52yo F for Upper Endoscopy and Colonoscopy Cardiac testing (for atypical CP and htn) preop nml, routine cardiology f/u only [facility] Active Problems Active Problems: All Active Problems (Updated 07/25/22 @ 20:51 by Ceci Warren [facility]) Varicose veins of right lower extremity with inflammation (Acute) Lumbar radiculitis (Acute) Spondylosis of lumbar spine (Acute) Sacralization of lumbar vertebra (Acute) Multilevel degenerative disc disease (Acute) Precordial chest pain (Acute) Heart palpitations (Acute) Primary hypertension (Acute) Abnormal ECG during exercise stress test (Acute) Helicobacter pylori (H. pylori) (Acute) Morbid obesity (Acute) Past Medical History Medical History (Updated 07/25/22 @ 20:51 by Ceci Warren [facility]) Anemia Helicobacter pylori (H. pylori) HTN (hypertension) Migraine Morbid obesity Family History Family History Father Heart disease Mother Heart disease Surgical History Surgical History (Updated 12/17/22 @ 09:12 by Cherry Douglas RN) History of cholecystectomy Hx of cystoscopy Hx of hysterectomy Social History Social History Patient Tobacco Use Status: Former Tobacco user Use of substances other than those prescribed or required for medical reasons: No Are you DNR?: No Advance Directives: No Advance Directives Information Provided: Yes Recently lost weight without trying: No How much weight loss: 14-23 pounds Nutrition Risks: No Nutritional Risk Meds Allergies Allergy/AdvReac Type Severity Reaction Status Date / Time No Known Allergies Allergy Verified 08/06/22 13:53 [No Known Allergies*] Home Medications Medication Instructions Recorded Confirmed Last Taken Type cholecalciferol (vitamin D3) 50 50 mcg PO QAM 01/24/22 12/17/22 Unknown History mcg (2,000 unit) tablet ferrous sulfate 325 mg (65 mg 325 mg PO DAILY 01/24/22 12/17/22 Unknown History iron) tablet (FeroSul) hydrochlorothiazide 12.5 mg tablet 12.5 mg PO QAM 01/24/22 12/17/22 Unknown History lisinopril 40 mg tablet 40 mg PO BEDTIME 01/24/22 12/17/22 Unknown History cetirizine 10 mg tablet 10 mg PO DAILY PRN Allergy Symptoms 04/04/22 12/17/22 Unknown History fluticasone propionate 50 1 - 2 spray intranasal DAILY PRN 04/04/22 12/17/22 Unknown History mcg/actuation nasal Nasal Congestion spray,suspension nortriptyline 50 mg capsule 50 mg PO BEDTIME 04/04/22 12/17/22 Unknown History propranolol 80 mg tablet 80 mg PO DAILY 05/01/22 12/17/22 12/22/22 History cyclobenzaprine 5 mg tablet 5 mg PO TID PRN pain 05/13/22 12/17/22 Unknown History lidocaine 5 % topical patch 1 patch topical DAILY 05/13/22 12/17/22 Unknown History (Lidoderm) Exam Exam Date and Time: December 19, 2022 1255 Height,Weight and Vital Signs: Height 5 ft 4 in Weight 100.244 kg Assessment and Plan Assessment Anesthesia Assessment: Chart Reviewed Documented by User: Reva Blanco MD 12/22/22 12:09 HPI - Anesthesia Eval Consult details Narrative: 52yo F for Upper Endoscopy and Colonoscopy screening Cardiac testing (for atypical CP and htn) preop nml, routine cardiology f/u only [facility] Past Medical History Medical History (Updated 07/25/22 @ 20:51 by LIDIA Forbes-) Anemia Helicobacter pylori (H. pylori) HTN (hypertension) Migraine Morbid obesity Family History Family History Father Heart disease Mother Heart disease Family history of problems with anesthesia: No Surgical History Surgical History (Updated 12/17/22 @ 09:12 by Cherry Douglas RN) History of cholecystectomy Hx of cystoscopy Hx of hysterectomy History of Problems with Anesthesia: No Social History Social History Patient Tobacco Use Status: Former Tobacco user Use of substances other than those prescribed or required for medical reasons: No Are you DNR?: No Advance Directives: No Advance Directives Information Provided: Yes Recently lost weight without trying: No How much weight loss: 14-23 pounds Nutrition Risks: No Nutritional Risk Meds Allergies Allergy/AdvReac Type Severity Reaction Status Date / Time No Known Allergies Allergy Verified 08/06/22 13:53 [No Known Allergies*] Home Medications Medication Instructions Recorded Confirmed Last Taken Type cholecalciferol (vitamin D3) 50 50 mcg PO QAM 01/24/22 12/17/22 Unknown History mcg (2,000 unit) tablet ferrous sulfate 325 mg (65 mg 325 mg PO DAILY 01/24/22 12/17/22 Unknown History iron) tablet (FeroSul) hydrochlorothiazide 12.5 mg tablet 12.5 mg PO QAM 01/24/22 12/17/22 Unknown History lisinopril 40 mg tablet 40 mg PO BEDTIME 01/24/22 12/17/22 Unknown History cetirizine 10 mg tablet 10 mg PO DAILY PRN Allergy Symptoms 04/04/22 12/17/22 Unknown History fluticasone propionate 50 1 - 2 spray intranasal DAILY PRN 04/04/22 12/17/22 Unknown History mcg/actuation nasal Nasal Congestion spray,suspension nortriptyline 50 mg capsule 50 mg PO BEDTIME 04/04/22 12/17/22 Unknown History propranolol 80 mg tablet 80 mg PO DAILY 05/01/22 12/17/22 12/22/22 History cyclobenzaprine 5 mg tablet 5 mg PO TID PRN pain 05/13/22 12/17/22 Unknown History lidocaine 5 % topical patch 1 patch topical DAILY 05/13/22 12/17/22 Unknown History (Lidoderm) Exam Airway Mallampati Class: II TM Dist: >3cm Neck ROM: Full Loose/Missing/Broken Teeth: Yes and Lower (M) Heart: rr Lungs: tcta Assessment and Plan Final Anesthetic Review Family History of Problems with Anesthesia: No History of Problems with Anesthesia: No NPO: Yes ASA Class: II Final Preanesthetic Review: No Changes in Pt Med Stat, Meds/Allgs Chart Reviewed, Consent Obtained/Reviewed and Anes Risks/Benef Reviewed Patient Risk: Low Procedure Risk: Low Anesthetic Plan Anesthetic Plan: MAC: Disposition: Standard PACU
[2022-12-22 10:43] VITALS: BMI 36.8
[2022-12-22 10:48] VITALS: BP 122/67; PULSE 86; RESP 16; TEMP 36.3; O2SAT 98
[2022-12-22] MEDS: Lactated Ringers 1,000 ML 100 ML IVCONT (11:11)
--- NOTE | 2022-12-22 11:17 | MHC.SHP ---
Pre-Procedural Eval Section A Date of Service: 12/22/22 The patient is an INPATIENT: No The History & Physical has been completed within 30 days and I have reviewed it.: No Section B Chief Complaint: reflux disease,screening Details of Present Illness: screening, GERD Relevant Family History (Specify if Yes): No Relevant Social History: Tobacco Use ( former smoker) Present Medications: see Short Stay Collaborative assessment Medical History: Significant History (Anemia Helicobacter pylori (H. pylori) HTN (hypertension) Migraine Morbid obesity) History of Previous Operations: Relevant previous surgery/procedure and date(s) ( status post cholecystectomy, history of hysterectomy) Allergies: Allergies Allergy/AdvReac Type Severity Reaction Status Date / Time No Known Allergies Allergy Verified 08/06/22 13:53 [No Known Allergies*] Review of Systems Sugical H&P ROS: Negative: Constitution, Cardiovascular and Respiratory and Yes, Specify: Gastrointestinal (GERD) Exam Surgical H&P Exam: Normal: Heart, Normal: Lungs, Normal: Extremities and Normal: Abdomen Plan Diagnosis/Plan: Unchanged I have reviewed the history and physical and performed a pertinent physical examination on my patient. No changes have occurred unless specified. Time Spent With Patient Time: Total time managing care of this patient today ____ minutes.
--- NOTE | 2022-12-22 11:26 | P.BOP_ITS ---
Brief Operative Note Date of Service: 12/22/22 Pre-op diagnosis: colon cancer screening (1st colonoscopy) GERD Post-op diagnosis: other ( gastritis, gastric ulcer, GERD, colon polyps, diverticulosis, hemorrhoids) Procedure: FLEXIBLE TRANSORAL UPPER GASTROINTESTINAL ENDOSCOPY WITH BIOPSIES AND COLONOSCOPY TILL CECUM WITH BIOPSIES AND SNARE POLYPECTOMY Surgeon: Kuldeep Pacheco MD Anesthesia: MAC Was an Passenger Locomotive Engineer used for this Procedure?: Yes Passenger Locomotive Engineer: Treva Alberto Estimated blood loss (mL): 1 Pathology: other ( A: small bowel to rule out celiac B: Gastric antrum R/O H: pylori C: gastric ulcer / nodule BXS D: colon polyp transverse colon ER sigmoid colon polyp) Condition: stable Disposition: PACU
--- NOTE | 2022-12-22 11:27 | W.PM.OPN ---
Operative Note Operative Note Date of Service: 12/22/22 Narrative: Pre-op diagnosis: colon cancer screening (1st colonoscopy) GERD Post-op diagnosis:?other ( gastritis, gastric ulcer, GERD, colon polyps, diverticulosis, hemorrhoids) Surgeon: Kuldeep Pacheco MD Anesthesia:?MAC FLEXIBLE TRANSORAL UPPER GASTROINTESTINAL ENDOSCOPY WITH BIOPSIES AND COLONOSCOPY TILL CECUM WITH BIOPSIES AND SNARE POLYPECTOMY UPPER ENDOSCOPY Consent: Indications for the procedure and potential complications of bleeding, perforation, reaction to medications and missed diagnosis were discussed with the patient with the help of a [place] speech language pathology assistant and informed consent was obtained. Instrument: Olympus GIF H 190 mid size upper endoscope Monitoring: Vital signs and clinical assessment, continuous EKG monitoring, Pulse oximetry, Carbon Dioxide monitoring and blood pressure monitoring were done throughout the procedure. Procedure: The patient was placed in the left lateral decubitis position and pre-procedure medications were administered and a bite block was placed. The endoscope was inserted into the mouth and advanced under direct vision to the third part of duodenum. A careful inspection was made as the upper endoscope was withdrawn including a retroflexed examination of the proximal stomach; Findings and interventions are described below. Findings: Larynx: Normal Esophagus: GE junction at 35 cms. No esophagitis or Collado's. Stomach: A 3 cms x 4 cms area of friable and nodular appearing mucosa covered with white exudate in the gastric body along the greater curvature - multiple biopsies were obtained. Moderate gastric erythema. Biopsies were obtained. Grade 2 flap valve on retroflexed examination of the cardia. Duodenum: Normal bulb and descending duodenum. Biopsies were obtained from 3rd part of duodenum to check for celiac sprue. Intervention: Biopsies as noted above COLONOSCOPY PROCEDURE NOTE Consent: Indications for the procedure and potential complications of bleeding, perforation, reaction to medications and missed diagnosis were discussed with the patient and informed consent was obtained. Instrument: Olympus PCF H 190 L variable stiffness pediatric colonoscope Monitoring: Vital signs and clinical assessment, intermittent blood pressure monitoring, continuous EKG monitoring, Pulse oximetry and Carbon Dioxide monitoring were done throughout the procedure. Colon withdrawl time was 25 minutes. Procedure: The patient was placed in the left lateral decubitis position and pre-procedure medications were administered. After a digital rectal examination of the ano-rectum, the video colonoscope was inserted into the rectum and advanced through the colon to the cecum. The colonoscope was slowly withdrawn in a retrograde panoramic fashion and the colon mucosa was carefully examined including a retroflexed view of the rectum. Findings and interventions are described below. Procedure Difficulty: : Without difficulty Findings: Terminal Ileum: Not evaluated Cecum: Normal Ascending Colon: Normal Transverse Colon: Two 5-6 diminutive appearing polyps - removed with a cold biopsy Descending Colon: moderate diverticulosis Sigmoid Colon: A 10 mm sessile polyp at 18 cms - removed with a hot snare. Moderate diverticulosis Rectum: Normal Ano-rectum: Moderate internal hemorrhoids Colon preparation: Good after some irrigation Impression and Post Procedure Diagnosis: Endoscopy Findings: STOMACH: A 3 cms x 4 cms area of friable and nodular appearing mucosa covered with white exudate in the gastric body along the greater curvature - multiple biopsies were obtained. Moderate gastric erythema. Biopsies were obtained. DUODENUM: Normal - biopsied to check for celiac sprue Colonoscopy Findings: Three small to medium sized polyps removed Moderate diverticulosis seen in the left colon Moderate hemorrhoids on retroflexed exam. Plan: Await pathology results Continue Pantoprazole 40 mg daily. Patient has an appointment on 01/05/23 in the GI Clinic with Ceci Warren FNP-BC. Repeat Colonoscopy interval based on path results - in 3-5 years if polyps are adenomatous and 10 years if polyps are hyperplastic. Above findings were reviewed with the patient and PUD, colon polyps and diverticulosis handouts were given in the discharge area Of note - pt denied use of aspirin or NSAIDS.
[2022-12-22 12:33] VITALS: BP 86/51; PULSE 70; RESP 16; TEMP 36.1; O2SAT 95
[2022-12-22 12:48] VITALS: BP 106/61; PULSE 70; RESP 16; O2SAT 99
[2022-12-22 13:01] VITALS: BP 108/54; PULSE 69; RESP 16; O2SAT 99
[2022-12-22 13:15] VITALS: BP 106/60; PULSE 69; RESP 16; TEMP 36.2; O2SAT 100
== END 2022-12-22 13:32 | disposition home or self-care (01) ==
PROVIDERS: PCP Nurse Practitioner Primary Care; Visit Provider Internal Medicine Gastroenterology
PROC: (CPT 45385; principal; 2022-12-22 11:00)
DX: Z12.11 Encounter for screening for malignant neoplasm of colon (principal); D12.3 Benign neoplasm of transverse colon; D12.5 Benign neoplasm of sigmoid colon; K57.30 Diverticulosis of large intestine without perforation or abscess without bleeding; K64.8 Other hemorrhoids; K58.2 Mixed irritable bowel syndrome; K21.9 Gastro-esophageal reflux disease without esophagitis; K29.50 Unspecified chronic gastritis without bleeding; A04.8 Other specified bacterial intestinal infections; K25.9 Gastric ulcer, unspecified as acute or chronic, without hemorrhage or perforation; D64.9 Anemia, unspecified; I10 Essential (primary) hypertension; G43.909 Migraine, unspecified, not intractable, without status migrainosus; E66.01 Morbid (severe) obesity due to excess calories; Z68.37 Body mass index [BMI] 37.0-37.9, adult; Z79.51 Long term (current) use of inhaled steroids; Z79.899 Other long term (current) drug therapy; Z87.891 Personal history of nicotine dependence; Z90.49 Acquired absence of other specified parts of digestive tract
CPT/HCPCS: 45385; 45380; 43239; 88305; 88342

== ENCOUNTER → 2023-01-05 13:21 | Outpatient (BNVA) | payer MEDICAID, SELFPAY | PROVIDERS: PCP Nurse Practitioner Primary Care; Visit Provider Nurse Practitioner Family | DX: K21.9 Gastro-esophageal reflux disease without esophagitis (principal); K58.2 Mixed irritable bowel syndrome; D36.9 Benign neoplasm, unspecified site; Z98.890 Other specified postprocedural states | CPT/HCPCS: 99212 ==

== ENCOUNTER → 2023-02-10 13:38 | Outpatient (BNVA) | payer MEDICAID, SELFPAY | PROVIDERS: PCP Nurse Practitioner Primary Care; Visit Provider Nurse Practitioner Family | DX: K21.9 Gastro-esophageal reflux disease without esophagitis (principal); K59.01 Slow transit constipation; K58.1 Irritable bowel syndrome with constipation; Z90.49 Acquired absence of other specified parts of digestive tract | CPT/HCPCS: 99212 ==

== ENCOUNTER 2023-05-26 13:59 | Outpatient (REF) | payer MEDICAID, SELFPAY ==
[2023-05-26 15:32] LABS: Hematocrit 38.7 % (37.0-47.0); Hemoglobin 12.3 g/dl (12.0-16.0); Mean Corpuscular HGB Conc 31.8 g/dl (31.0-35.0); Mean Corpuscular Hemoglobin 28.5 pg (27.0-33.0); Mean Corpuscular Volume 89.6 fL (80.0-98.0); Mean Platelet Volume 10.1 fL (9.4-12.3); Platelet Count 335 X10*3/uL (160-400); Red Blood Count 4.32 X10*6/uL (4.20-5.50); Red Cell Distribution Width 12.8 % (11.0-16.0); White Blood Count 9.4 X10*3/uL (4.8-10.8)
[2023-05-26 15:38] LABS: INTERNATIONAL NORM RATIO 0.9 (0.9-1.1); Prothrombin Time 11.4 SEC (11.1-13.3)
[2023-05-26 17:09] LABS: Alanine Aminotransferase 198 U/L (0-31); Albumin Level 4.5 g/dL (3.5-5.0); Alkaline Phosphatase 106 U/L (39-117); Aspartate Amino Transferase 101 U/L (5-31); Bilirubin Direct 0.1 mg/dL (0.0-0.5); Bilirubin Total 0.3 mg/dL (0.0-1.0); Total Protein 7.6 g/dL (6.5-8.0)
== END 2023-05-26 14:00 | disposition home or self-care (01) ==
LOC: HO.LAB 13:59
PROVIDERS: PCP Nurse Practitioner Primary Care; Visit Provider Nurse Practitioner Family
DX: K21.9 Gastro-esophageal reflux disease without esophagitis (principal); R10.9 Unspecified abdominal pain; R74.8 Abnormal levels of other serum enzymes; R74.01 Elevation of levels of liver transaminase levels; K59.01 Slow transit constipation; K58.2 Mixed irritable bowel syndrome
CPT/HCPCS: 36415; 80076; 85027; 85610; 99214

== ENCOUNTER 2023-05-26 13:59 | Outpatient (AMB) | payer MEDICAID, SELFPAY ==
[2023-05-26 14:15] VITALS: BP 132/79; PULSE 101; BMI 38.2
--- NOTE | 2023-05-26 14:15 | A.OFFVIS_ITS ---
Intake Vital Signs 05/26/23 14:15 Height 5 ft 4 in Weight 222 lb 10.67 oz BMI 38.2 BP 132/79 Blood Pressure Location Lt brachial Position Sitting Pulse 101 H Intake Visit Reasons: r/s from april appointment Intake Note: Alisha presents in office as a est.patient for a f/u pt r/s appt from April PT CC: pt reports having diarrhea, bloating, abdominal pain , some rectal bleeding( haemorrhoids) pt denies any other GI Issues Restoration Officer Required: Yes Restoration Officer Language: Iraqi Accompanied by: Self / Same As Patient Allergies No Known Allergies [No Known Allergies*] Allergy (Verified 05/26/23 14:15) HPI r/s from april appointment HPI Details LAST VISIT: GERD (gastroesophageal reflux disease) Continue current therapy with pantoprazole and famotidine. Discussed with patient avoiding dietary triggers and like I snacking. Staying upright for minimal 3 hours after meals discussed with patient. IBS (irritable bowel syndrome) Patient reports postprandial abdominal bloating specially with food like wheat certain fruits like apples, milk. Discussed low FODMAP diet. List of food to avoid as well as list of food recommended given to patient. Constipation History of constipation. Will have patient start Linzess, await for PA. Patient will call us if Linzess will not be effective. I will start her on 145 mcg to begin with. I will see patient 2 months, sooner on as needed basis. Patient is agreeable to this plan and verbalizes understanding of instructions. She was given the opportunity to ask questions and all questions answered. ? Thank you for allowing me to participate in her care Plan Medications New linaclotide (Linzess) 145 mcg PO DAILY 90 caps 3RF K59.04 TODAY'S VISIT Patient is here today for follow-up. Patient reports that she started taking Linzess and had severe diarrhea. Patient states that the diarrhea was so severe that she had to stop week after started taking the medication. Patient reports rectal bleed with diarrhea. Patient has started taking Citrucel and reports that her stools are better. Patient is taking Senokot on as needed basis. Patient reports that her symptoms of acid reflux are suppressed with pantoprazole. Patient states that she is taking famotidine at bedtime. Patient reports occasional postprandial abdominal bloating. Patient states that she will get random bruising on her arms and her hands. Patient states that she was told that she has a inflamed liver history of elevated liver enzymes. No known family history of liver disease PFS Medical History (Updated 05/26/23 @ 15:19 by Ceci Warren [facility]) Anemia Helicobacter pylori (H. pylori) HTN (hypertension) Migraine Morbid obesity Transaminitis Surgical History History of cholecystectomy History of esophagogastroduodenoscopy (EGD) Hx of colonoscopy Hx of cystoscopy Hx of hysterectomy Family History Father Heart disease Mother Heart disease Social History Patient Tobacco Use Status: Former Tobacco user Review of Systems Const Denies weight gain and Denies weight loss ENT Reports no additional complaints, Denies dysphagia and Denies odynophagia Card Reports no additional complaints Resp Reports no additional complaints GI Denies abdominal pain, Denies belching, Denies melena, Denies bloating, Denies dysphagia, Denies excessive flatus, Denies dyspepsia, Denies heartburn, Denies diarrhea, Reports loose stools, Denies nausea, Denies odynophagia and Denies vomiting Reports no additional complaints Musc Reports no additional complaints Neuro Reports no additional complaints Psych Reports no additional complaints Endo Reports no additional complaints Physical Exam Vital Signs: Last Vital Signs Pulse 101 H 05/26/23 14:15 BP 132/79 05/26/23 14:15 BMI result Body Mass Index 38.2 Const General: healthy appearing, no acute distress and well developed Nutritional Appearance: obese Orientation/consciousness: patient oriented x3 HEENT Head: Yes normal to inspection, Yes normocephalic and Yes atraumatic Face and sinus: Yes normal facial exam Mouth: Normal oral and palatal mucosa present Throat: Yes posterior oropharynx normal, Yes tonsils normal and Yes uvula midline Eyes General: appearance normal, both eyes and all related structures Neck Neck: Yes normal visual inspection, Yes full ROM and Yes trachea midline Thyroid: Thyroid normal Resp Effort & Inspection: normal respiratory effort, able to speak in complete sentences, no tracheal deviation and symmetric chest movement Auscultation: clear to auscultation bilaterally Cardio Rate: regular rate Heart sounds: S1 normal heart sound present and S2 normal heart sound present GI Inspection: Yes normal to inspection, No distended and Yes obesity Palpation (GI): Soft to palpation, not firm, nontender and No hepatosplenomegaly present Auscultation: normal bowel sounds General: Yes no CVA tenderness Back/Spine/Pelvis Back: no CVA tenderness Skin General skin exam: elasticity normal, turgor normal and dry skin Neuro General: patient oriented x3 Psych Appearance: grossly normal Mental Status: mental status grossly normal Speech and movement: Normal speech and movement present Affect: normal affect Assessment & Plan Assessment & Plan (1) GERD (gastroesophageal reflux disease): Code(s): K21.9 - Gastro-esophageal reflux disease without esophagitis Qualifiers: Esophagitis presence: esophagitis presence not specified Qualified Code(s): K21.9 - Gastro-esophageal reflux disease without esophagitis Plan: Continue pantoprazole every morning half an hour before breakfast and famotidine at bedtime. History of gastric ulcer found on upper endoscopy in December. Patient will go for upper endoscopy to re-evaluate (2) IBS (irritable bowel syndrome): Code(s): K58.9 - Irritable bowel syndrome without diarrhea Qualifiers: Irritable bowel syndrome type: with both diarrhea and constipation Qualified Code(s): K58.2 - Mixed irritable bowel syndrome Plan: Continue avoiding dietary triggers. Patient was encouraged to increase fluid intake and activity to promote better bowel motility. Low FODMAP diet discussed with patient. (3) Constipation: Code(s): K59.00 - Constipation, unspecified Qualifiers: Constipation type: slow transit constipation Qualified Code(s): K59.01 - Slow transit constipation Plan: Continue Citrucel in the morning and Senokot at bedtime. (4) Transaminitis: Code(s): R74.01 - Elevation of levels of liver transaminase levels Plan: History of elevated liver enzymes. Will repeat blood work today. Patient will be sent for ultrasound. I will see her after upper endoscopy, sooner on as needed basis. Patient is agreeable to this plan and verbalizes understanding of instructions. She was given the opportunity to ask questions and all questions answered. Thank you for allowing me to participate in her care Orders: Orders Liver Panel Today R10.9 - Unspecified abdominal pain US abdomen limited Today R79.89 - Other specified abnormal findings of blood chemistry Complete Blood Count no Diff Today K21.9 - Gastro-esophageal reflux disease without esophagitis Prothrombin Time INR Today R74.8 - Abnormal levels of other serum enzymes Medications: Discontinued linaclotide (Linzess) Discontinued Reason: Patient no longer taking 145 mcg PO DAILY 90 caps 3RF K59.04 - Chronic idiopathic constipation Coding Level of Care Code Est Pt Level 4 (40581) Diagnoses GERD (gastroesophageal reflux disease) K21.9 Esophagitis presence: esophagitis presence not specified IBS (irritable bowel syndrome) K58.2 Irritable bowel syndrome type: with both diarrhea and constipation Constipation K59.01 Constipation type: slow transit constipation Transaminitis R74.01 Time Spent (min) 35 Comment 20 minutes spent with patient and additional 15 minutes spent reviewing her records
== END 2023-05-26 15:12 | disposition home or self-care (01) ==
PROVIDERS: PCP Nurse Practitioner Primary Care; Visit Provider Nurse Practitioner Family
DX: K21.9 Gastro-esophageal reflux disease without esophagitis (principal); K58.2 Mixed irritable bowel syndrome; K59.01 Slow transit constipation; R74.01 Elevation of levels of liver transaminase levels
CPT/HCPCS: 99214

== ENCOUNTER 2023-06-02 11:59 | Outpatient (REF) | payer MEDICAID, SELFPAY ==
[2023-06-02 14:11] LABS: Estimated Average Glucose 111 mg/dL; Hemoglobin A1c % 5.5 % (<6.0)
[2023-06-02 14:31] LABS: Iron 85 mcg/dL (30-160); Percent Iron Saturation 32 % (15-50); Total Iron Binding Capacity 268 mcg/dL (228-428); Unsaturated Iron Binding 183 ug/dL
[2023-06-02 15:34] LABS: Gamma Glutamyl Transpeptidase 165 U/L (7-33)
[2023-06-02 15:47] LABS: Ferritin 1950 ng/mL (10-250)
[2023-06-03 08:14] LABS: HBS Num1 323.38 mIU/mL (0-7.99); HIV AB/AG Nonreactive (Nonreactive); HIV Num 1 0.05 S/CO (0.00-0.99); Hepatitis A Antibody IgM 0.25 Index (0-0.79); Hepatitis B Core Antibody Nonreactive (Nonreactive); Hepatitis B Surface Antigen Negative (Negative); ~HepC Num1 0.05 S/CO (0.00-0.79); ~Hepatitis A Antibody IgM Nonreactive (Nonreactive); ~Hepatitis B Surface Antibody REACTIVE (Nonreactive); ~Hepatitis C Antibody Nonreactive (Nonreactive)
[2023-06-04 12:58] LABS: Alpha Fetoprotein 2.8 ng/mL
[2023-06-05 00:43] LABS: Alpha 1 Anti-trypsin 152 mg/dL (83-199); Ceruloplasmin 36 mg/dL (18-53)
[2023-06-05 11:29] LABS: Mitochondrial Antibodies NEGATIVE (NEGATIVE)
[2023-06-07 22:53] LABS: Smooth Muscle Antibody <20 U (<20)
[2023-06-08 14:20] LABS: Liver Kidney Microsomal Ab <=20.0 U (<=20.0)
== END 2023-06-02 12:00 | disposition home or self-care (01) ==
LOC: HO.LAB 11:59
PROVIDERS: Visit Provider Nurse Practitioner Family
DX: R79.89 Other specified abnormal findings of blood chemistry (principal); R74.8 Abnormal levels of other serum enzymes; R74.01 Elevation of levels of liver transaminase levels; D64.9 Anemia, unspecified; E11.9 Type 2 diabetes mellitus without complications; Z86.19 Personal history of other infectious and parasitic diseases
CPT/HCPCS: 36415; 82103; 82105; 82390; 82728; 82977; 83036; 83540; 86015; 86255; 86256; 86376; 86704; 86706; 86709; 86803; 87340; 87389

== ENCOUNTER 2023-06-05 13:42 | Outpatient (REF) | payer MEDICAID, SELFPAY | END 2023-06-05 13:43 | disposition home or self-care (01) | LOC: HO.LAB 13:42 | PROVIDERS: PCP Nurse Practitioner Primary Care; Visit Provider Nurse Practitioner Family | DX: R79.89 Other specified abnormal findings of blood chemistry (principal) | CPT/HCPCS: 36415; 81256 ==

== ENCOUNTER 2023-06-18 08:23 | Outpatient (REF) | payer MEDICAID, SELFPAY ==
--- NOTE | ~2023-06-18 | US_ITS ---
EXAMINATION: US ABDOMEN LIMITED CLINICAL INFORMATION: Other specified abnormal findings of blood chemistry. COMPARISON: CT abdomen 03/11/2022. Ultrasound abdomen limited 07/31/2020. Renal ultrasound 04/02/2018. TECHNIQUE: Real-time imaging of the right upper quadrant abdominal viscera. FINDINGS: Region the pancreas is within normal limits. Distal body and tail are not seen. No free fluid in the area. The liver is overall increased echogenicity. The entire liver is not seen due to decreased penetrability of the beam. No obvious ductal dilatation. Status post cholecystectomy. Common duct is 6 mm within normal limits. The right kidney is 12.3 cm. No hydronephrosis or stone is seen. US/US abdomen limited IMPRESSION: Liver is overall increased echogenicity. The entire liver is not adequately imaged. Findings may well be consistent with fatty change. No free fluid is seen. Patient is status post cholecystectomy.
== END 2023-06-18 08:24 | disposition home or self-care (01) ==
LOC: HO.US 08:23
PROVIDERS: PCP Nurse Practitioner Primary Care; Visit Provider Nurse Practitioner Family
DX: R79.89 Other specified abnormal findings of blood chemistry (principal)
CPT/HCPCS: 76705

== ENCOUNTER 2023-06-22 15:15 | Emergency (ER) | payer MEDICAID, SELFPAY ==
--- NOTE | ~2023-06-22 | CT_ITS ---
EXAMINATION: CT ABDOMEN AND PELVIS WITHOUT CONTRAST CLINICAL INFORMATION: Right flank pain, hematuria COMPARISON: CT abdomen 03/11/2022 TECHNIQUE: Multidetector volumetric imaging was performed from the superior aspect of the liver through the pubic symphysis. Sagittal and coronal reformatted images were obtained on the technologist's workstation. This CT examination was performed using dose optimization techniques as appropriate, variously including the following: *Automated exposure control *Adjustment of mA and/or kV according to patient size (this includes techniques or standardized protocols for targeted exams where dose is matched to indication/reason for exam; i.e. extremities or head) *Use of iterative reconstruction technique DLP: 961 mGy-cm FINDINGS: LUNG BASES: Mild bibasilar dependent changes. No pleural effusion. LIVER, GALLBLADDER, AND BILIARY TREE: Diffuse low-attenuation liver suggesting hepatic steatosis. No focal lesions. No biliary duct dilatation. Status postcholecystectomy. CBD caliber is within normal limits, status postcholecystectomy. PANCREAS: Unremarkable. No acute inflammatory changes seen. SPLEEN: Unremarkable. ADRENAL GLANDS: Unremarkable. KIDNEYS AND URETERS: The kidneys are normal in size, shape, and attenuation. No hydronephrosis, hydroureter. No radiopaque calculi are seen in the kidneys or ureter. No perinephric stranding. BLADDER: Unremarkable. No radiopaque calculi in the bladder. GASTROINTESTINAL TRACT: No evidence of small or large bowel obstruction. Stomach is nondistended. No colonic wall thickening or pericolonic inflammatory changes seen. The visualized appendix appears unremarkable. The distal tip extends to the region of the adnexa, and is partially obscured.. No free fluid. No free air. ABDOMINAL WALL: No significant hernia is appreciated. LYMPH NODES: No adenopathy seen. VASCULAR: Normal caliber aorta. PELVIC VISCERA: The uterus is not clearly identified, correlate with surgical history. There is a 3.7 cm fluid density cyst in the left side of the pelvis, which could reflect an adnexal cyst versus ovarian cyst. Correlate with surgical history. OSSEOUS STRUCTURES: Multilevel degenerative changes spine. CT/CT abdomen pelvis wo IV con IMPRESSION: No evidence of radiopaque renal or ureteral calculi. No evidence of hydronephrosis. Hepatic steatosis. Status postcholecystectomy. Visualized appendix appears unremarkable. The distal tip is obscured by the right adnexal structures. Uterus is not identified. Left adnexal 3.7 cm fluid attenuation cystic focus, which could represent an adnexal cyst versus ovarian cyst. Recommend further characterization with follow-up ultrasound. Fleischner guidelines were followed.
[2023-06-22 16:09] VITALS: BP 132/80; PULSE 96; RESP 18; TEMP 37.2; O2SAT 98; BMI 37.8
--- NOTE | 2023-06-22 16:09 | ED.GENADULT ---
HPI - General Adult General Chief complaint: Urogenital-Female Stated complaint: fever, nausea Time Seen by Provider: 06/22/23 20:43 Source: patient Mode of arrival: ambulatory Limitations: no limitations History of Present Illness HPI narrative: Patient comes to the emergency room complaining of right lower quadrant pain, hematuria and dysuria. Patient states she has been symptomatic for 3 days. Patient denies nausea vomiting or diarrhea, no fever or chills. Related Data Home Medications Medication Instructions Recorded Confirmed cholecalciferol (vitamin D3) 50 50 mcg PO QAM 01/24/22 12/17/22 mcg (2,000 unit) tablet ferrous sulfate 325 mg (65 mg 325 mg PO DAILY 01/24/22 12/17/22 iron) tablet (FeroSul) hydrochlorothiazide 12.5 mg tablet 12.5 mg PO QAM 01/24/22 12/17/22 lisinopril 40 mg tablet 40 mg PO BEDTIME 01/24/22 12/17/22 cetirizine 10 mg tablet 10 mg PO DAILY PRN Allergy Symptoms 04/04/22 12/17/22 fluticasone propionate 50 1 - 2 spray intranasal DAILY PRN 04/04/22 12/17/22 mcg/actuation nasal Nasal Congestion spray,suspension nortriptyline 50 mg capsule 50 mg PO BEDTIME 04/04/22 12/17/22 propranolol 80 mg tablet 80 mg PO DAILY 05/01/22 12/17/22 cyclobenzaprine 5 mg tablet 5 mg PO TID PRN pain 05/13/22 12/17/22 lidocaine 5 % topical patch 1 patch topical DAILY 05/13/22 12/17/22 (Lidoderm) Previous Rx's Medication Instructions Recorded tizanidine 2 mg tablet 2 mg PO BID PRN muscle spasticity 04/04/22 #28 tabs methylcellulose (laxative) 500 mg 500 mg PO DAILY #90 tabs 07/15/22 tablet (Citrucel) docusate sodium 100 mg capsule 100 mg PO BEDTIME #90 caps 01/05/23 famotidine 40 mg tablet 40 mg PO BEDTIME #90 tabs 01/05/23 pantoprazole 40 mg tablet,delayed 40 mg PO DAILY #90 tabs 01/05/23 release sennosides 8.6 mg tablet (Natural 8.6 mg PO BEDTIME constipation #90 01/05/23 Senna Laxative) tabs levofloxacin 500 mg tablet 500 mg PO DAILY #9 tabs 06/22/23 phenazopyridine 100 mg tablet 100 mg PO TID 6 doses #6 tabs 06/22/23 Allergies Allergy/AdvReac Type Severity Reaction Status Date / Time No Known Allergies Allergy Verified 06/22/23 16:09 [No Known Allergies*] Review of Systems Review of Systems: Constitutional : No Weight loss, No Fever, No Chills, No Night Sweats, No Fatigue, No Malaise ENT/Mouth : No Hearing loss, No Ear Pain, No Nasal Congestion, No Sinus Pain, No Hoarseness, No sore throat, No Rhinorrhea, No Swallowing Difficulty Eyes: No Eye Pain, No Swelling, No Redness, No Foreign Body, No Discharge, No Vision Changes Cardiovascular : No Chest Pain, No SOB, No Dyspnea on Exertion, No Orthopnea, No Edema, No Palpitations Respiratory : No Cough, No Sputum, No Wheezing, No Smoke Exposure, No Dyspnea Gastrointestinal : No Nausea, No Vomiting, No Diarrhea, No Constipation, No abdominal Pain, No Hematochezia, No Melena Genitourinary : Complaining of dysuria, frequency and hematuria, No Urinary Incontinence, No Urgency, complaining of right-sided Flank Pain, No Urinary Flow Changes, No Hesitancy Musculoskeletal : No joint pain, No Myalgias, No Joint Swelling Skin : No Skin Lesions, No rash Neuro : No Weakness, No Numbness, No Paresthesias, No Loss of Consciousness, No Dizziness, No Headache Psych : No Anxiety/Panic, No Depression, No SI/HI/AH/VH, No Social Issues, Heme/Lymph: No Bruising, No Bleeding,No Lymphadenopathy Endocrine : No Polyuria, No Polydipsia, No Temperature Intolerance [facility] Past Medical History Medical History (Updated 06/22/23 @ 20:55 by Sandra Raman MD) Transaminitis Helicobacter pylori (H. pylori) Morbid obesity Migraine Anemia HTN (hypertension) Surgical History History of esophagogastroduodenoscopy (EGD) Hx of colonoscopy Hx of cystoscopy Hx of hysterectomy History of cholecystectomy Family History Family History Father Heart disease Mother Heart disease Social History Social History Alcohol intake: never Patient Tobacco Use Status: Former Tobacco user Smoked in Last 30 Days: No Use of substances other than those prescribed or required for medical reasons: No Advance Directives: No Advance Directives Information Provided: Yes Physical Exam ED Vital Signs: Vital Signs - 24 hr 06/22/23 16:09 06/22/23 20:05 Temperature 99.0 F 97.3 F Pulse Rate 96 89 Respiratory Rate 18 17 Blood Pressure 132/80 109/69 Pulse Oximetry 98 99 Oxygen Delivery Method Room Air Room Air BMI result Body Mass Index 37.8 Const Other: Appearance: Alert. Oriented X3. No acute distress. Eyes: Pupils equal, round and reactive to light. ENT: Pharynx normal. Neck: Normal inspection. Neck supple. No lymph nodes noted. No crepitus CVS: Normal heart rate and rhythm. Pulses normal. Normal S1 and S2 Respiratory: No respiratory distress. Breath sounds normal. No Wheezing. No rales Abdomen: Soft and nontender. No rigidity. No distention. no significant pain on palpation, no CVA tenderness Skin: Skin warm and dry. Normal skin color. Normal skin turgor. Extremities: No lower extremity edema. No Lacerations. No Rash Neuro: Oriented X 3. No motor deficit. No sensory deficit. Moving all extremities. No slurred speech. CN 2 through 12 grossly intact Psych: calm, cooperative, normal affect Course Course Course Narrative: RME - 52 yo Yoruba speaking female with hx cholecystectomy, H. pylori, HTN, migraines, anemia who presents to the ER for evaluation of right sided abdominal pain, nausea, and low grade fever that started 3 days ago. She developed in her urine yesterday. No history of kidney stones. Plan: lab workup, UA, CT scan abd/pelvis Medical Decision Making Medical Decision Making [facility] Narrative: -my interpretation of CT scan: No ureterolithiasis -my interpretation of labs: White blood cell count 13, elevated to UTI, chemistry unremarkable, patient does have a UTI -clinically, given that the patient is that she has flank pain on the right, patient has pyelonephritis. Sepsis and suspected. -patient was given the 1st dose of Levaquin in the emergency room. -if findings with the patient, patient has left ovarian cyst, patient does not have any symptoms, patient instructed to follow-up with her primary care physician. Differential Diagnosis Differential Diagnoses: The differential diagnosis associated with the presentation includes (UTI, pyelonephritis, urolithiasis, renal colic) Admission/Observation Consideration of admission/observation: Escalation of care including admission/observation considered (When patient arrived, complaining of flank pain and dysuria, admission was considered) Lab Data MDM Lab Attestation statement: I reviewed the patient's lab results. 06/22/23 16:49 06/22/23 16:49 Labs: Lab Results 06/22/23 06/22/23 Range/Units 16:49 20:01 WBC 13.0 H (4.8-10.8) X10*3/uL RBC 4.61 (4.20-5.50) X10*6/uL Hgb 13.1 (12.0-16.0) g/dl Hct 40.9 (37.0-47.0) % MCV 88.7 (80.0-98.0) fL MCH 28.4 (27.0-33.0) pg MCHC 32.0 (31.0-35.0) g/dl RDW 12.7 (11.0-16.0) % Plt Count 377 (160-400) X10*3/uL MPV 10.3 (9.4-12.3) fL Immature Gran % (Auto) 0.6 H (0.0-0.4) % Neut % (Auto) 68.1 (45-73) % Lymph % (Auto) 23.1 (20-40) % [place] % (Auto) 5.5 (2-11) % Eos % (Auto) 2.2 (0-4) % Baso % (Auto) 0.5 (0-2) % Lymph # (Auto) 3.0 (1.2-4.9) X10*3/uL [place] # (Auto) 0.7 (0.1-1.2) X10*3/uL Eos # (Auto) 0.3 (0.0-0.4) X10*3/uL Baso # (Auto) 0.1 (0.0-0.2) X10*3/uL Abs Immat Gran (auto) 0.08 H (0.00-0.03) X10*3/uL Absolute Neuts (auto) 8.9 H (2.0-8.3) x10*3/uL Absolute Nucleated RBC 0.000 (0.0-0.012) X10*3/uL Nucleated RBC % (auto) 0.0 (0.0-0.2) /100WBC Sodium 137 (135-145) mmol/L Potassium 4.5 (3.3-5.1) mmol/L Chloride 101 (96-108) mmol/L Carbon Dioxide 26 (22-29) mmol/L Anion Gap 15 (12-20) BUN 15 (9-16) mg/dL Creatinine 0.91 (0.5-1.4) mg/dL Estim Creat Clear Calc 84.0 Estimated GFR > 60 Random Glucose 110 (60-115) mg/dL Calcium 10.8 H D (8.4-10.2) mg/dL Magnesium 2.2 (1.6-2.6) mg/dL Total Bilirubin 0.5 (0.0-1.0) mg/dL Direct Bilirubin 0.2 (0.0-0.5) mg/dL AST 49 H (5-31) U/L ALT 144 H (0-31) U/L Alkaline Phosphatase 111 (39-117) U/L Total Protein 8.2 H (6.5-8.0) g/dL Albumin 4.6 (3.5-5.0) g/dL Urine Color Yellow Urine Appearance Cloudy Urine pH 5.5 (5.0-9.0) Ur Specific [place] >= 1.030 H (1.005-1.025) Urine Protein 100 (2+) H (Neg-Trace) mg/dL Urine Glucose (UA) Negative (Negative) mg/dL Urine Ketones 15 (Negative) mg/dL Urine Blood Moderate (2+) H (Negative) Urine Nitrite Positive H (Negative) Ur Leukocyte Esterase Moderate (2+) H (Negative) Urine RBC 6-10 H (0-2) /HPF Urine WBC >50 H (0-5) /HPF Ur Squamous Epith Cells 3-5 (0-2) /HPF Urine Bacteria 4+ (None Seen) Hyaline Casts 3-5 (0-2) /LPF Independent Interpretation I performed an independent interpretation of an: CT Scan Radiology Impression Discussion of test interpretation with radiology: I have reviewed the radiologist's reading. Radiologist Impression: FINDINGS: LUNG BASES: Mild bibasilar dependent changes. No pleural effusion. LIVER, GALLBLADDER, AND BILIARY TREE: Diffuse low-attenuation liver suggesting hepatic steatosis. No focal lesions. No biliary duct dilatation. Status postcholecystectomy. CBD caliber is within normal limits, status postcholecystectomy. PANCREAS: Unremarkable. No acute inflammatory changes seen. SPLEEN: Unremarkable. ADRENAL GLANDS: Unremarkable. KIDNEYS AND URETERS: The kidneys are normal in size, shape, and attenuation. No hydronephrosis, hydroureter. No radiopaque calculi are seen in the kidneys or ureter. No perinephric stranding. BLADDER: Unremarkable. No radiopaque calculi in the bladder. GASTROINTESTINAL TRACT: No evidence of small or large bowel obstruction. Stomach is nondistended. No colonic wall thickening or pericolonic inflammatory changes seen. The visualized appendix appears unremarkable. The distal tip extends to the region of the adnexa, and is partially obscured.. No free fluid. No free air. ABDOMINAL WALL: No significant hernia is appreciated. LYMPH NODES: No adenopathy seen. VASCULAR: Normal caliber aorta. PELVIC VISCERA: The uterus is not clearly identified, correlate with surgical history. There is a 3.7 cm fluid density cyst in the left side of the pelvis, which could reflect an adnexal cyst versus ovarian cyst. Correlate with surgical history. OSSEOUS STRUCTURES: Multilevel degenerative changes spine. CT/CT abdomen pelvis wo IV con IMPRESSION: No evidence of radiopaque renal or ureteral calculi. No evidence of hydronephrosis. Hepatic steatosis. Status postcholecystectomy. Visualized appendix appears unremarkable. The distal tip is obscured by the right adnexal structures. Uterus is not identified. Left adnexal 3.7 cm fluid attenuation cystic focus, which could represent an adnexal cyst versus ovarian cyst. Recommend further characterization with follow-up ultrasound. Fleischner guidelines were followed. Critical Care Time Critical Care Time Critical Care Time: Yes Total Critical Care Time: 60 Attestation: I have personally provided critical care time. Time includes review of lab data, radiology results, discussion with consultants, and monitoring for potential decompensation. Intervention performed as documented. Discharge Plan Discharge Clinical Impression: Pyelonephritis Patient Disposition: Home, Self-Care Instructions: Kidney Infection (ED) Additional Instructions: One of her medications will make the urine looked very orange/red. Once you stop taking the medication, the color of your urine will become normal again. Please follow-up with your primary care physician tomorrow. If you have any worsening or new symptoms, please return to the emergency room or call 911 Prescriptions: New levofloxacin 500 mg tablet 500 mg PO DAILY Qty: 9 0RF phenazopyridine 100 mg tablet 100 mg PO TID Qty: 6 0RF No Action cholecalciferol (vitamin D3) 50 mcg (2,000 unit) tablet 50 mcg PO QAM hydrochlorothiazide 12.5 mg tablet 12.5 mg PO QAM lisinopril 40 mg tablet 40 mg PO BEDTIME ferrous sulfate [FeroSul] 325 mg (65 mg iron) tablet 325 mg PO DAILY propranolol 80 mg tablet 80 mg PO DAILY cyclobenzaprine 5 mg tablet 5 mg PO TID PRN (Reason: pain) lidocaine [Lidoderm] 5 % adhesive patch,medicated 1 patch topical DAILY nortriptyline 50 mg capsule 50 mg PO BEDTIME fluticasone propionate 50 mcg/actuation spray,suspension 1 - 2 spray intranasal DAILY PRN (Reason: Nasal Congestion) cetirizine 10 mg tablet 10 mg PO DAILY PRN (Reason: Allergy Symptoms) tizanidine 2 mg tablet 2 mg PO BID PRN (Reason: muscle spasticity) Qty: 28 0RF Citrucel 500 mg tablet 500 mg PO DAILY Qty: 90 2RF Rx Instructions: take it with full glass of water docusate sodium 100 mg capsule 100 mg PO BEDTIME Qty: 90 3RF sennosides [Natural Senna Laxative] 8.6 mg tablet 8.6 mg PO BEDTIME Qty: 90 3RF pantoprazole 40 mg tablet,delayed release (DR/EC) 40 mg PO DAILY Qty: 90 2RF Rx Instructions: take one tablet half an hour before breakfast famotidine 40 mg tablet 40 mg PO BEDTIME Qty: 90 3RF
[2023-06-22 16:59] LABS: MANUAL DIFF FLAG NO
[2023-06-22 17:12] LABS: Basophils Absolute Auto 0.1 X10*3/uL (0.0-0.2); Basophils Percent Auto 0.5 % (0-2); Eosinophils Absolute Auto 0.3 X10*3/uL (0.0-0.4); Eosinophils Percent Auto 2.2 % (0-4); Hematocrit 40.9 % (37.0-47.0); Hemoglobin 13.1 g/dl (12.0-16.0); Imm Gran Abs Auto 0.08 X10*3/uL (0.00-0.03); Imm Gran Pct Auto 0.6 % (0.0-0.4); Lymphocytes Percent Auto 23.1 % (20-40); Mean Corpuscular Hemoglobin 28.4 pg (27.0-33.0); Mean Corpuscular Volume 88.7 fL (80.0-98.0); Mean Platelet Volume 10.3 fL (9.4-12.3); Monocytes Absolute Auto 0.7 X10*3/uL (0.1-1.2); Monocytes Percent Auto 5.5 % (2-11); Neutrophils Absolute Auto 8.9 x10*3/uL (2.0-8.3); Neutrophils Percent Auto 68.1 % (45-73); Platelet Count 377 X10*3/uL (160-400); Red Blood Count 4.61 X10*6/uL (4.20-5.50); Red Cell Distribution Width 12.7 % (11.0-16.0)
[2023-06-22 17:22] LABS: Alanine Aminotransferase 144 U/L (0-31); Albumin Level 4.6 g/dL (3.5-5.0); Alkaline Phosphatase 111 U/L (39-117); Anion Gap 15 (12-20); Aspartate Amino Transferase 49 U/L (5-31); Bilirubin Direct 0.2 mg/dL (0.0-0.5); Bilirubin Total 0.5 mg/dL (0.0-1.0); Blood Urea Nitrogen 15 mg/dL (9-16); Calcium 10.8 mg/dL (8.4-10.2); Carbon Dioxide 26 mmol/L (22-29); Chloride 101 mmol/L (96-108); Estimated Glomerular Filt Rate > 60; Glucose Random 110 mg/dL (60-115); Magnesium 2.2 mg/dL (1.6-2.6); Potassium 4.5 mmol/L (3.3-5.1); Sodium 137 mmol/L (135-145); Total Protein 8.2 g/dL (6.5-8.0)
[2023-06-22 20:05] VITALS: BP 109/69; PULSE 89; RESP 17; TEMP 36.3; O2SAT 99
[2023-06-22 20:12] LABS: Appearance Urine Cloudy; Color Urine Yellow; Glucose Urine UA Negative (Negative); Leukocyte Esterase Urine Moderate (2+) (Negative); Nitrite Urine Positive (Negative); PH 5.5 (5.0-9.0); Specific Gravity - Urine >= 1.030 (1.005-1.025); UMIC TRIGGER UACC YES; Urine Blood Moderate (2+) (Negative); Urine Ketones 15 mg/dL (Negative); Urine Protein 100 (2+) mg/dL (Neg-Trace)
[2023-06-22 20:22] LABS: Bacteria Urine 4+ (None Seen); UACC Culture Trigger YES; WBC Urine >50 /HPF (0-5)
[2023-06-22] MEDS: Phenazopyridine HCL 100 MG TABLET PO (21:09)
[2023-06-22] MEDS: levoFLOXacin 500 MG TABLET PO (21:09)
== END 2023-06-22 21:12 | disposition home or self-care (01) ==
PROVIDERS: Physician Assistant; Emergency Provider Emergency Medicine
DX: N12 Tubulo-interstitial nephritis, not specified as acute or chronic (principal); R50.9 Fever, unspecified; R10.31 Right lower quadrant pain; R11.2 Nausea with vomiting, unspecified; Z79.899 Other long term (current) drug therapy
CPT/HCPCS: 36415; 74176; 80048; 80076; 81001; 83735; 85025; 87086; 87088; 87186; 99284

== ENCOUNTER 2023-08-14 09:53 | Day surgery (SDC) | payer MEDICAID, SELFPAY ==
[2023-08-12 15:05] VITALS: BMI 38.2
--- NOTE | 2023-08-13 12:11 | P.CONAN_ITS ---
Documented by User: Karly Leslie NP 08/13/23 12:14 HPI - Anesthesia Eval Consult details Narrative: 52yo F for Upper Endoscopy PMFSH Active Problems Active Problems: All Active Problems (Updated 06/23/23 @ 00:01 by Background Cheikh) Transaminitis (Acute) Varicose veins of right lower extremity with inflammation (Acute) Lumbar radiculitis (Acute) Spondylosis of lumbar spine (Acute) Sacralization of lumbar vertebra (Acute) Multilevel degenerative disc disease (Acute) Precordial chest pain (Acute) Heart palpitations (Acute) Primary hypertension (Acute) Abnormal ECG during exercise stress test (Acute) Helicobacter pylori (H. pylori) (Acute) Morbid obesity (Acute) Past Medical History Medical History (Updated 06/23/23 @ 00:01 by Background Cheikh) Transaminitis Helicobacter pylori (H. pylori) Morbid obesity Migraine Anemia HTN (hypertension) Family History Family History Father Heart disease Mother Heart disease Family history of problems with anesthesia: No Surgical History Surgical History History of esophagogastroduodenoscopy (EGD) Hx of colonoscopy Hx of cystoscopy Hx of hysterectomy History of cholecystectomy History of Problems with Anesthesia: No Social History Social History Alcohol intake: never Patient Tobacco Use Status: Former Tobacco user Advance Directives: No Advance Directives Information Provided: Yes Meds Allergies Allergy/AdvReac Type Severity Reaction Status Date / Time No Known Allergies Allergy Verified 06/22/23 16:09 [No Known Allergies*] Home Medications Medication Instructions Recorded Confirmed Last Taken Type cholecalciferol (vitamin D3) 50 50 mcg PO QAM 01/24/22 12/17/22 08/14/23 09:00 History mcg (2,000 unit) tablet ferrous sulfate 325 mg (65 mg 325 mg PO DAILY 01/24/22 12/17/22 08/14/23 09:00 History iron) tablet (FeroSul) hydrochlorothiazide 12.5 mg tablet 12.5 mg PO QAM 01/24/22 12/17/22 Unknown History lisinopril 40 mg tablet 40 mg PO BEDTIME 01/24/22 12/17/22 08/13/23 09:00 History cetirizine 10 mg tablet 10 mg PO DAILY PRN Allergy Symptoms 04/04/22 12/17/22 Unknown History fluticasone propionate 50 1 - 2 spray intranasal DAILY PRN 04/04/22 12/17/22 Unknown History mcg/actuation nasal Nasal Congestion spray,suspension nortriptyline 50 mg capsule 50 mg PO BEDTIME 04/04/22 12/17/22 Unknown History propranolol 80 mg tablet 80 mg PO DAILY 05/01/22 12/17/22 08/14/23 09:00 History cyclobenzaprine 5 mg tablet 5 mg PO TID PRN pain 05/13/22 12/17/22 Unknown History lidocaine 5 % topical patch 1 patch topical DAILY 05/13/22 12/17/22 Unknown History (Lidoderm) Exam Exam Date and Time: August 13, 2023 1211 Height,Weight and Vital Signs: Height 5 ft 4 in Weight 101 kg Pertinent Lab Results Pertinent Lab Results: Laboratory Tests 06/22/23 16:49 WBC 13.0 H Hgb 13.1 Hct 40.9 Plt Count 377 Sodium 137 Potassium 4.5 Chloride 101 Carbon Dioxide 26 BUN 15 Creatinine 0.91 Narrative Narrative: ECHO 2021 Conclusions: - Essentially normal study NM theodore perf SPECT rest & str 2021 Impression: 1. Normal myocardial perfusion 2. Gated LVEF is 65% 3. Transient ischemic dilatation not present Stress EKG is equivocal for ischemia US abdomen limited 06/2023 IMPRESSION: Liver is overall increased echogenicity. The entire liver is not adequately imaged. Findings may well be consistent with fatty change. No free fluid is seen. Patient is status post cholecystectomy. Assessment and Plan Assessment Anesthesia Assessment: Chart Reviewed Final Anesthetic Review Family History of Problems with Anesthesia: No History of Problems with Anesthesia: No Documented by User: Jaycee Huertas MD 08/14/23 10:47 [facility] Past Medical History Medical History (Updated 06/23/23 @ 00:01 by Charmaine Salamanca) Transaminitis Helicobacter pylori (H. pylori) Morbid obesity Migraine Anemia HTN (hypertension) Family History Family History Father Heart disease Mother Heart disease Surgical History Surgical History History of esophagogastroduodenoscopy (EGD) Hx of colonoscopy Hx of cystoscopy Hx of hysterectomy History of cholecystectomy Social History Social History Alcohol intake: never Patient Tobacco Use Status: Former Tobacco user Advance Directives: No Advance Directives Information Provided: Yes Meds Allergies Allergy/AdvReac Type Severity Reaction Status Date / Time No Known Allergies Allergy Verified 06/22/23 16:09 [No Known Allergies*] Home Medications Medication Instructions Recorded Confirmed Last Taken Type cholecalciferol (vitamin D3) 50 50 mcg PO QAM 01/24/22 12/17/22 08/14/23 09:00 History mcg (2,000 unit) tablet ferrous sulfate 325 mg (65 mg 325 mg PO DAILY 01/24/22 12/17/22 08/14/23 09:00 History iron) tablet (FeroSul) hydrochlorothiazide 12.5 mg tablet 12.5 mg PO QAM 01/24/22 12/17/22 Unknown History lisinopril 40 mg tablet 40 mg PO BEDTIME 01/24/22 12/17/22 08/13/23 09:00 History cetirizine 10 mg tablet 10 mg PO DAILY PRN Allergy Symptoms 04/04/22 12/17/22 Unknown History fluticasone propionate 50 1 - 2 spray intranasal DAILY PRN 04/04/22 12/17/22 Unknown History mcg/actuation nasal Nasal Congestion spray,suspension nortriptyline 50 mg capsule 50 mg PO BEDTIME 04/04/22 12/17/22 Unknown History propranolol 80 mg tablet 80 mg PO DAILY 05/01/22 12/17/22 08/14/23 09:00 History cyclobenzaprine 5 mg tablet 5 mg PO TID PRN pain 05/13/22 12/17/22 Unknown History lidocaine 5 % topical patch 1 patch topical DAILY 05/13/22 12/17/22 Unknown History (Lidoderm) Exam Airway Mallampati Class: II TM Dist: >3cm Neck ROM: Full Heart: rrr Lungs: cta Assessment and Plan Assessment Anesthesia Assessment: Anesthesia Plan Discussed Final Anesthetic Review NPO: Yes ASA Class: III Final Preanesthetic Review: No Changes in Pt Med Stat, Meds/Allgs Chart Reviewed and Consent Obtained/Reviewed Patient Risk: Intermediate Procedure Risk: Intermediate Anesthetic Plan Anesthetic Plan: MAC: Disposition: Standard PACU
--- NOTE | 2023-08-14 10:17 | MHC.SHP ---
Pre-Procedural Eval Section A Date of Service: 08/14/23 The patient is an INPATIENT: No The History & Physical has been completed within 30 days and I have reviewed it.: No Section B Chief Complaint: GERD, abdominal bloating Relevant Family History (Specify if Yes): No Relevant Social History: Tobacco Use (former smoker) Present Medications: see Short Stay Collaborative assessment Medical History: Significant History (Anemia Helicobacter pylori (H. pylori) HTN (hypertension) Migraine Morbid obesity Transaminitis) History of Previous Operations: Relevant previous surgery/procedure and date(s) (History of cholecystectomy History of esophagogastroduodenoscopy (EGD) Hx of colonoscopy Hx of cystoscopy Hx of hysterectomy) Allergies: Allergies Allergy/AdvReac Type Severity Reaction Status Date / Time No Known Allergies Allergy Verified 06/22/23 16:09 [No Known Allergies*] Review of Systems Sugical H&P ROS: Negative: Constitution, Cardiovascular, Respiratory and Gastrointestinal Exam Surgical H&P Exam: Normal: Heart, Normal: Lungs, Normal: Extremities and Normal: Abdomen Plan Diagnosis/Plan: Unchanged I have reviewed the history and physical and performed a pertinent physical examination on my patient. No changes have occurred unless specified. Time Spent With Patient Time: Total time managing care of this patient today ____ minutes.
[2023-08-14 10:40] VITALS: BP 125/80; PULSE 62; RESP 20; TEMP 36.4; O2SAT 97
[2023-08-14] MEDS: Lactated Ringers 1,000 ML 100 ML IVCONT (11:01)
--- NOTE | 2023-08-14 11:03 | W.PM.OPN ---
Operative Note Operative Note Date of Service: 08/14/23 Narrative: FLEXIBLE TRANSORAL UPPER GASTROINTESTINAL ENDOSCOPY WITH BIOPSIES Pre-op diagnosis: GERD, post prandial abdominal bloating Post-op diagnosis: GERD, Gastritis Endoscopist:? Kuldeep Pacheco MD Anesthesia:?MAC Consent: Indications for the procedure and potential complications of bleeding, perforation, reaction to medications and missed diagnosis were discussed with the patient and informed consent was obtained. Instrument: Olympus GIF H 190 mid size upper endoscope Monitoring: Vital signs and clinical assessment, continuous EKG monitoring, Pulse oximetry, Carbon Dioxide monitoring and blood pressure monitoring were done throughout the procedure. Procedure: The patient was placed in the left lateral decubitis position and pre-procedure medications were administered and a bite block was placed. The endoscope was inserted into the mouth and advanced under direct vision to the third part of duodenum. A careful inspection was made as the upper endoscope was withdrawn including a retroflexed examination of the proximal stomach; Findings and interventions are described below. Findings: Larynx: Normal Esophagus: GE junction at 35 cms. No esophagitis or Collado's. Stomach: A 6 cms x 4 cms area of friable and nodular appearing mucosa covered with white exudate in the gastric body along the greater curvature - multiple biopsies were obtained. Moderate gastric erythema. Grade 2 flap valve on retroflexed examination of the cardia. Duodenum: Normal bulb and descending duodenum. Intervention: Biopsies as noted above Impression and Post Procedure Diagnosis: Endoscopy Findings: STOMACH: A 6 cms x 4 cms area of friable and nodular appearing mucosa covered with white exudate in the gastric body along the greater curvature Plan: Await pathology results Patient has an appointment on 08/25/23 in the GI Clinic with Ceci Warren FNP-BC. Above findings were reviewed with the patient and Peptic Ulcer Disease handout was given in the discharge area. Patient was advised to increase Pantoprazole to 40 mg twice daily. BIOPSIES SHOWED: Gastric ulcer, biopsy: Superficial fragments of hyperplastic gastric mucosa with minimal chronic active gastritis and pigmented crystalline material in the lamina propria consistent with inorganic (non-heme) iron; negative for H pylori, intestinal metaplasia and dysplasia. Comment: The inorganic iron may be causing the mucosal injury or exacerbating an existing process. Switching the patient to an alternative iron preparation may be therapeutic
[2023-08-14 11:31] VITALS: BP 90/40; PULSE 66; RESP 16; TEMP 36.2; O2SAT 93
[2023-08-14 11:46] VITALS: BP 107/56; PULSE 61; RESP 16; O2SAT 99
[2023-08-14 12:00] VITALS: BP 113/60; PULSE 62; RESP 16; O2SAT 99
[2023-08-14 12:15] VITALS: BP 123/64; PULSE 58; RESP 18; TEMP 36.1; O2SAT 100
== END 2023-08-14 12:45 | disposition home or self-care (01) ==
PROVIDERS: PCP Nurse Practitioner Primary Care; Visit Provider Internal Medicine Gastroenterology
PROC: 0DJ08ZZ Inspection of Upper Intestinal Tract, Via Natural or Artificial Opening Endoscopic (ICD-10-PCS; CPT 43235; principal; 2023-08-14 12:00)
DX: K25.9 Gastric ulcer, unspecified as acute or chronic, without hemorrhage or perforation (principal); K29.50 Unspecified chronic gastritis without bleeding; K21.9 Gastro-esophageal reflux disease without esophagitis; K58.2 Mixed irritable bowel syndrome; K59.01 Slow transit constipation; R74.01 Elevation of levels of liver transaminase levels; I10 Essential (primary) hypertension; D64.9 Anemia, unspecified; E66.9 Obesity, unspecified; Z68.38 Body mass index [BMI] 38.0-38.9, adult; Z90.710 Acquired absence of both cervix and uterus; Z90.49 Acquired absence of other specified parts of digestive tract; Z87.891 Personal history of nicotine dependence; Z79.899 Other long term (current) drug therapy
CPT/HCPCS: 43239; 88305; 88313; 88342; J2250; J2704

== ENCOUNTER → 2023-08-14 09:53 | Outpatient (BNV) | payer MEDICAID, SELFPAY | PROVIDERS: PCP Nurse Practitioner Primary Care; Visit Provider Internal Medicine Gastroenterology | DX: K21.9 Gastro-esophageal reflux disease without esophagitis (principal); K29.70 Gastritis, unspecified, without bleeding | CPT/HCPCS: 99499 ==

== ENCOUNTER 2023-08-20 14:24 | Outpatient (AMB) | payer MEDICAID, SELFPAY ==
[2023-08-20 14:32] VITALS: BP 100/70; PULSE 74; O2SAT 100; BMI 38.8
--- NOTE | 2023-08-20 14:32 | HO.NEPHOV ---
HPI HPI Comments History of Present Illness Details Middle aged woman is here for follow up for HTN PFSH Medical History Transaminitis Helicobacter pylori (H. pylori) Morbid obesity Migraine Anemia HTN (hypertension) Surgical History History of esophagogastroduodenoscopy (EGD) Hx of colonoscopy Hx of cystoscopy Hx of hysterectomy History of cholecystectomy Family History Father Heart disease Mother Heart disease Social History Alcohol intake: never Patient Tobacco Use Status: Former Tobacco user Vital Signs 08/20/23 14:32 Height 5 ft 4 in Weight 226 lb 2 oz BMI 38.8 BP 100/70 Blood Pressure Location Lt brachial Position Sitting Pulse 74 Pulse Source Pulse Oximeter Pulse Oximetry (%) 100 Oxygen Delivery Method Room Air Intake Medication List - Last Reconciled 08/20/23 by Jonah Victoria MD acetaminophen (Tylenol) 650 mg PO Q6H PRN cetirizine 10 mg PO DAILY PRN cholecalciferol (vitamin D3) 50 mcg PO QAM cyclobenzaprine 5 mg PO TID PRN docusate sodium 100 mg PO BEDTIME famotidine 40 mg PO BEDTIME ferrous sulfate (FeroSul) 325 mg PO DAILY fluticasone propionate 50 mcg/actuation 1 - 2 sprays intranasal DAILY PRN levofloxacin 500 mg PO DAILY lidocaine 5% (Lidoderm) 1 patch topical DAILY lisinopril 40 mg PO BEDTIME methylcellulose (laxative) (Citrucel) 500 mg PO DAILY nortriptyline 50 mg PO BEDTIME pantoprazole 40 mg PO DAILY phenazopyridine 100 mg PO TID 6 doses propranolol 80 mg PO DAILY sennosides (Natural Senna Laxative) 8.6 mg PO BEDTIME tizanidine 2 mg PO BID PRN Physical Exam Vital Signs: Last Vital Signs Pulse 74 08/20/23 14:32 BP 100/70 08/20/23 14:32 Pulse Ox 100 08/20/23 14:32 Oxygen Delivery Method Room Air 08/20/23 14:32 BMI result Body Mass Index 38.8 Results Reviewed Results Reviewed: Results reviewed Serum creatinine 0.9 No significant proteinuria Assessment & Plan Assessment & Plan (1) Primary hypertension: Code(s): I10 - Essential (primary) hypertension Plan 52-year-old woman with well-controlled hypertension. Renal function normal. No significant proteinuria. Goal is to maintain blood pressures in 130/80 Continue with current dose of lisinopril Increase to stay on low-sodium diet. No changes were made. Coding Level of Care Code Est Pt Level 3 (47023) Diagnoses Primary hypertension I10
== END 2023-08-20 15:00 | disposition home or self-care (01) ==
PROVIDERS: PCP Nurse Practitioner Primary Care; Visit Provider Internal Medicine Hypertension Specialist
DX: I10 Essential (primary) hypertension (principal)
CPT/HCPCS: 99213

== ENCOUNTER → 2023-08-20 14:24 | Outpatient (BNVA) | payer MEDICAID, SELFPAY | PROVIDERS: PCP Nurse Practitioner Primary Care; Visit Provider Internal Medicine Hypertension Specialist | DX: I10 Essential (primary) hypertension (principal) | CPT/HCPCS: 99212 ==

== ENCOUNTER 2023-08-25 12:26 | Outpatient (AMB) | payer MEDICAID, SELFPAY ==
--- NOTE | 2023-08-25 12:37 | A.OFFVIS_ITS ---
Intake Vital Signs 08/25/23 12:39 Height 5 ft 4 in Weight 224 lb 13.944 oz BMI 38.6 BP 135/80 Blood Pressure Location Rt brachial Position Sitting Pulse 67 Intake Visit Reasons: S/p egd Junior Intake Note: Alisha presents in the office as a follow up EGD. CC: She states that she gets pains in the stomach every day. She states when she eats is when they get the worst and it happens at night sometimes. Allergies No Known Allergies [No Known Allergies*] Allergy (Verified 08/25/23 12:39) HPI S/p egd Junior HPI Details LAST VISIT GERD (gastroesophageal reflux disease) Continue pantoprazole every morning half an hour before breakfast and famotidine at bedtime. History of gastric ulcer found on upper endoscopy in December. Patient will go for upper endoscopy to re-evaluate IBS (irritable bowel syndrome) Continue avoiding dietary triggers. Patient was encouraged to increase fluid intake and activity to promote better bowel motility. Low FODMAP diet discussed with patient. Constipation Continue Citrucel in the morning and Senokot at bedtime. Transaminitis History of elevated liver enzymes. Will repeat blood work today. Patient will be sent for ultrasound. I will see her after upper endoscopy, sooner on as needed basis. Patient is agreeable to this plan and verbalizes understanding of instructions. She was given the opportunity to ask questions and all questions answered. ? Thank you for allowing me to participate in her care Plan Orders Orders Liver Panel Today R10.9 - Unspecified abdominal pain US abdomen limited Today R79.89 - Other specified abnormal findings of blood chemistry Complete Blood Count no Diff Today K21.9 - Gastro-esophageal reflux disease without esophagitis Prothrombin Time INR Today R74.8 - Abnormal levels of other serum enzymes Medications Discontinued linaclotide (Linzess) Discontinued Reason: Patient no longer taking 145 mcg PO DAILY 90 caps 3RF K59.04 - Chronic idiopathic constipation UPPER ENDOSCOPY: Findings: Larynx: Normal Esophagus: GE junction at 35 cms. No esophagitis or Collado's. Stomach: A 6 cms x 4 cms area of friable and nodular appearing mucosa covered with white exudate in the gastric body along the greater curvature - multiple biopsies were obtained. Moderate gastric erythema. Grade 2 flap valve on retroflexed examination of the cardia. Duodenum: Normal bulb and descending duodenum. Intervention: Biopsies as noted above Impression and Post Procedure Diagnosis: Plan: Above findings were reviewed with the patient and Peptic Ulcer Disease handout was given in the discharge area. Patient was advised to increase Pantoprazole to 40 mg twice daily PATHOLOGY Diagnosis Gastric ulcer, biopsy: Superficial fragments of hyperplastic gastric mucosa with minimal chronic active gastritis and pigmented crystalline material in the lamina propria consistent with inorganic (non-heme) iron; negative for H pylori, intestinal metaplasia and dysplasia. Comment: The inorganic iron may be causing the mucosal injury or exacerbating an existing process. Switching the patient to an alternative iron preparation may be therapeutic TODAY'S VISIT Patient is here today for follow-up and to discuss upper endoscopy results. Patient denies any adverse effects from the procedure or anesthesia. Patient reports that she continues to have postprandial epigastric discomfort specially after eating. Patient reports that she has been taking her pantoprazole every morning and famotidine at night time. Patient states that her symptoms are worse in the evening. Patient denies eating late at night. Tried changing her diet. Denies any nausea or vomiting. Upper endoscopy results discussed with patient as mentioned above. Biopsy results reviewed and discussed with patient as well. Patient reports that she is moving her bowels well, takes Colace and senna. Denies melena, hematochezia, unintentional weight loss or ribbon like stools. [facility] Medical History (Updated 09/18/23 @ 20:17 by Ceci Warren, [facility]) Helicobacter pylori (H. pylori) Transaminitis Morbid obesity Migraine Anemia HTN (hypertension) Surgical History History of esophagogastroduodenoscopy (EGD) Hx of colonoscopy Hx of cystoscopy Hx of hysterectomy History of cholecystectomy Family History Father Heart disease Mother Heart disease Social History Alcohol intake: never Patient Tobacco Use Status: Former Tobacco user Review of Systems Const Denies weight gain and Denies weight loss ENT Reports no additional complaints, Denies dysphagia and Denies odynophagia Card Reports no additional complaints Resp Reports no additional complaints GI Reports abdominal pain (Epigastric), Denies belching, Denies melena, Denies bloating, Denies change in bowel habits, Denies dysphagia, Denies excessive flatus, Reports dyspepsia, Reports heartburn, Denies diarrhea, Denies loose stools, Denies nausea, Denies odynophagia and Denies vomiting Reports no additional complaints Musc Reports no additional complaints Neuro Reports no additional complaints Psych Reports no additional complaints Endo Reports no additional complaints Physical Exam Vital Signs: Last Vital Signs Pulse 67 08/25/23 12:39 BP 135/80 08/25/23 12:39 BMI result Body Mass Index 38.6 Const General: healthy appearing, no acute distress and well developed Nutritional Appearance: obese Orientation/consciousness: patient oriented x3 HEENT Head: Yes normal to inspection, Yes normocephalic and Yes atraumatic Neck Neck: Yes normal visual inspection, Yes full ROM and Yes trachea midline Resp Effort & Inspection: normal respiratory effort, able to speak in complete sentences, no tracheal deviation and symmetric chest movement Auscultation: clear to auscultation bilaterally Cardio Rate: regular rate GI Inspection: Yes normal to inspection, No distended and Yes obesity Palpation (GI): Soft to palpation, not firm, nontender and No hepatosplenomegaly present Auscultation: normal bowel sounds General: Yes no CVA tenderness Back/Spine/Pelvis Back: no CVA tenderness Skin General skin exam: elasticity normal, turgor normal and dry skin Neuro General: patient oriented x3 Psych Appearance: grossly normal Mental Status: mental status grossly normal Assessment & Plan Assessment & Plan (1) Transaminitis: Code(s): R74.01 - Elevation of levels of liver transaminase levels (2) GERD (gastroesophageal reflux disease): Code(s): K21.9 - Gastro-esophageal reflux disease without esophagitis Qualifiers: Esophagitis presence: without esophagitis Qualified Code(s): K21.9 - Gastro-esophageal reflux disease without esophagitis (3) IBS (irritable bowel syndrome): Code(s): K58.9 - Irritable bowel syndrome without diarrhea Qualifiers: Irritable bowel syndrome type: without diarrhea Qualified Code(s): K58.9 - Irritable bowel syndrome without diarrhea (4) Constipation: Code(s): K59.00 - Constipation, unspecified Qualifiers: Constipation type: slow transit constipation Qualified Code(s): K59.01 - Slow transit constipation (5) Gastritis: Code(s): K29.70 - Gastritis, unspecified, without bleeding Qualifiers: Gastritis type: superficial Chronicity: chronic Gastritis bleeding: without bleeding Qualified Code(s): K29.30 - Chronic superficial gastritis without bleeding Plan Will increase pantoprazole to twice a day. Patient postop famotidine at night time and will start her on sucralfate. Patient was also encouraged to avoid dietary triggers and take night snacking. Staying upright for minimum 3 hours after meals discussed with patient. Continue taking senna and Colace to help her with moving her bowels. Patient was also encouraged to increase fluid intake and activity to promote better bowel motility. Patient was encouraged to try to lose weight. Patient is not taking iron any longer. I will see patient in 2 months, sooner on as needed basis. Patient is agreeable to this plan and verbalizes understanding of instructions. She was given the opportunity to ask questions and all questions answered. Thank you for allowing me to participate in her care Medications: New sucralfate 1 g PO BEDTIME 30 tabs 4RF R19.7 - Diarrhea, unspecified Changed From pantoprazole take one tablet half an hour before breakfast 40 mg PO DAILY 90 tabs 2RF K21.9 - Gastro-esophageal reflux disease without esophagitis To pantoprazole take one tablet half an hour before breakfast 40 mg PO BID 180 tabs 2RF K21.9 - Gastro-esophageal reflux disease without esophagitis Discontinued famotidine Discontinued Reason: Doctor's Order 40 mg PO BEDTIME 90 tabs 3RF K21.9 - Gastro-esophageal reflux disease without esophagitis Coding Level of Care Code Est Pt Level 3 (70586) Diagnoses Transaminitis R74.01 Gastroesophageal reflux disease without esophagitis K21.9 Esophagitis presence: without esophagitis Irritable bowel syndrome without diarrhea K58.9 Irritable bowel syndrome type: without diarrhea Slow transit constipation K59.01 Constipation type: slow transit constipation Chronic superficial gastritis without bleeding K29.30 Gastritis type: superficial Chronicity: chronic Gastritis bleeding: without bleeding Time Spent (min) 30 Comment 20 minutes spent with patient and additional 10 minutes spent reviewing her records
[2023-08-25 12:39] VITALS: BP 135/80; PULSE 67; BMI 38.6
== END 2023-08-25 13:08 | disposition home or self-care (01) ==
PROVIDERS: PCP Nurse Practitioner Primary Care; Visit Provider Nurse Practitioner Family
DX: R74.01 Elevation of levels of liver transaminase levels (principal); K21.9 Gastro-esophageal reflux disease without esophagitis; K58.9 Irritable bowel syndrome, unspecified; K59.01 Slow transit constipation; K29.30 Chronic superficial gastritis without bleeding
CPT/HCPCS: 99213

== ENCOUNTER → 2023-08-25 12:26 | Outpatient (BNVA) | payer MEDICAID, SELFPAY | PROVIDERS: PCP Nurse Practitioner Primary Care; Visit Provider Nurse Practitioner Family | DX: R74.01 Elevation of levels of liver transaminase levels (principal); K21.9 Gastro-esophageal reflux disease without esophagitis; K58.9 Irritable bowel syndrome, unspecified; K59.01 Slow transit constipation; K29.30 Chronic superficial gastritis without bleeding | CPT/HCPCS: 99212 ==

== ENCOUNTER 2023-09-30 11:34 | Outpatient (REF) | payer MEDICAID, SELFPAY ==
[2023-09-30 14:18] LABS: Estimated Average Glucose 114 mg/dL; Hemoglobin A1c % 5.6 % (<6.0)
[2023-09-30 14:56] LABS: Creatinine Urine 135.31 mg/dL; Microalbum/Creatinine Ratio Ur 5.9 ug/mg cr (<30)
[2023-09-30 16:12] LABS: Cholesterol 287 mg/dL (<200); HDL Cholesterol 52 mg/dL (>40); LDL Cholesterol Calculated 203 mg/dL (<100); Triglycerides 164 mg/dL (<150)
== END 2023-09-30 11:35 | disposition home or self-care (01) ==
LOC: HO.HHCL 11:34
PROVIDERS: Visit Provider Nurse Practitioner Primary Care
DX: I10 Essential (primary) hypertension (principal); R74.8 Abnormal levels of other serum enzymes; Z13.220 Encounter for screening for lipoid disorders
CPT/HCPCS: 36415; 80061; 82043; 82570; 83036

== ENCOUNTER 2023-10-21 12:53 | Outpatient (AMB) | payer MEDICAID, SELFPAY ==
--- NOTE | 2023-10-21 13:05 | A.OFFVIS_ITS ---
Intake Vital Signs 10/21/23 13:06 Height 5 ft 4 in Weight 220 lb 7.396 oz BMI 37.8 BP 110/73 Blood Pressure Location Lt brachial Position Sitting Pulse 84 Intake Visit Reasons: 2 mnth follow up Intake Note: Alisha presents in the office as a 2 month follow up. CC: She is not having any concerns at this time. Popped Corn Oven Attendant Required: No Allergies No Known Allergies [No Known Allergies*] Allergy (Verified 10/21/23 13:07) HPI 2 mnth follow up HPI Details LAST VISIT: Transaminitis GERD (gastroesophageal reflux disease) IBS (irritable bowel syndrome) Constipation Gastritis Plan Will increase pantoprazole to twice a day. Patient postop famotidine at night time and will start her on sucralfate. Patient was also encouraged to avoid dietary triggers and take night snacking. Staying upright for minimum 3 hours after meals discussed with patient. Continue taking senna and Colace to help her with moving her bowels. Patient was also encouraged to increase fluid intake and activity to promote better bowel motility. Patient was encouraged to try to lose weight. Patient is not taking iron any longer. I will see patient in 2 months, sooner on as needed basis. Patient is agreeable to this plan and verbalizes understanding of instructions. She was given the opportunity to ask questions and all questions answered. ? Thank you for allowing me to participate in her care Medications New sucralfate 1 g PO BEDTIME 30 tabs 4RF R19.7 Changed Changed From pantoprazole take one tablet half an hour before breakfast 40 mg PO DAILY 90 tabs 2RF K21.9 Changed To pantoprazole take one tablet half an hour before breakfast 40 mg PO BID 180 tabs 2RF K21.9 Discontinued famotidine Discontinued Reason: Doctor's Order 40 mg PO BEDTIME 90 tabs 3RF K21.9 TODAY'S VISIT Patient is here today for follow-up. Patient reports that she has been feeling better. Patient is taking pantoprazole twice a day and occasionally sucralfate at bedtime. Her symptoms are suppressed for the most part. Patient reports that she has been taking Colace and senna. She takes [id number] fiber supplement. Denies any dyspepsia, dysphagia or odynophagia. Denies any melena, hematochezia, unintentional weight loss or ribbon like stools. Patient reports that she has not lost any weight. Denies any abdominal pain or discomfort. Denies any GI concerning symptoms. History of transaminitis. Patient admits to be eating sometimes late at night. Patient admits to be eating food that are high in fat and calories. [facility] Medical History Helicobacter pylori (H. pylori) Transaminitis Morbid obesity Migraine Anemia HTN (hypertension) Surgical History History of esophagogastroduodenoscopy (EGD) Hx of colonoscopy Hx of cystoscopy Hx of hysterectomy History of cholecystectomy Family History Father Heart disease Mother Heart disease Social History Alcohol intake: never Patient Tobacco Use Status: Former Tobacco user Review of Systems Const Denies weight gain and Denies weight loss ENT Reports no additional complaints, Denies dysphagia and Denies odynophagia Card Reports no additional complaints Resp Reports no additional complaints GI Denies abdominal pain, Denies belching, Denies melena, Denies bloating, Denies change in bowel habits, Denies dysphagia, Denies excessive flatus, Denies dyspepsia, Reports heartburn, Denies diarrhea, Denies loose stools, Denies nausea, Denies odynophagia and Denies vomiting Reports no additional complaints Musc Reports no additional complaints Neuro Reports no additional complaints Psych Reports no additional complaints Endo Reports no additional complaints Physical Exam Vital Signs: Last Vital Signs Pulse 84 10/21/23 13:06 BP 110/73 10/21/23 13:06 BMI result Body Mass Index 37.8 Const General: healthy appearing, no acute distress and well developed Nutritional Appearance: well nourished Orientation/consciousness: patient oriented x3 Resp Effort & Inspection: normal respiratory effort, able to speak in complete sentences, no tracheal deviation and symmetric chest movement Auscultation: clear to auscultation bilaterally Cardio Rate: regular rate GI Inspection: Yes normal to inspection and No distended Palpation (GI): Soft to palpation, not firm, nontender and No hepatosplenomegaly present Auscultation: normal bowel sounds General: Yes no CVA tenderness Back/Spine/Pelvis Back: no CVA tenderness Skin General skin exam: elasticity normal, turgor normal and dry skin Neuro General: patient oriented x3 Psych Appearance: grossly normal Mental Status: mental status grossly normal Assessment & Plan Assessment & Plan (1) Transaminitis: Code(s): R74.01 - Elevation of levels of liver transaminase levels (2) GERD (gastroesophageal reflux disease): Code(s): K21.9 - Gastro-esophageal reflux disease without esophagitis Qualifiers: Esophagitis presence: esophagitis presence not specified Qualified Code(s): K21.9 - Gastro-esophageal reflux disease without esophagitis (3) IBS (irritable bowel syndrome): Code(s): K58.9 - Irritable bowel syndrome without diarrhea Qualifiers: Irritable bowel syndrome type: without diarrhea Qualified Code(s): K58.9 - Irritable bowel syndrome without diarrhea (4) Constipation: Code(s): K59.00 - Constipation, unspecified Qualifiers: Constipation type: slow transit constipation Qualified Code(s): K59.01 - Slow transit constipation (5) Gastritis: Code(s): K29.70 - Gastritis, unspecified, without bleeding Qualifiers: Gastritis type: superficial Chronicity: chronic Gastritis bleeding: without bleeding Qualified Code(s): K29.30 - Chronic 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 Patient was encouraged to eat smaller meals and more often. Avoid definite eating late at night. Staying upright for minimum 3 hours after meals discussed with patient. Patient will increase fluid intake and activity to promote better bowel motility. Weight loss encouraged as well. Try low fat food. Staying away from fat and high-protein diet encouraged. Increase Senokot 2 tablets at bedtime. Continue stool softeners. Will send patient to check liver panel, check liver fibrosis panel. I will see patient in 8 weeks, sooner on as needed basis. Patient is agreeable to this plan and verbalizes understanding of instructions. She was given the opportunity to ask questions and all questions answered. Thank you for allowing me to participate in her care Orders: Orders Liver Fibrosis Pnl Today R74.8 - Abnormal levels of other serum enzymes Liver Panel Today R74.01 - Elevation of levels of liver transaminase levels Medications: Changed From sennosides (Natural Senna Laxative) 8.6 mg PO BEDTIME 90 tabs 3RF constipation K59.00 - Constipation, unspecified To sennosides (Natural Senna Laxative) 17.2 mg (2 x 8.6 mg) PO BEDTIME 180 tabs 3RF constipation K59.00 - Constipation, unspecified Coding Level of Care Code Est Pt Level 4 (03511) Diagnoses Transaminitis R74.01 Gastroesophageal reflux disease, unspecified whether esophagitis present K21.9 Esophagitis presence: esophagitis presence not specified Irritable bowel syndrome without diarrhea K58.9 Irritable bowel syndrome type: without diarrhea Slow transit constipation K59.01 Constipation type: slow transit constipation Chronic superficial gastritis without bleeding K29.30 Gastritis type: superficial Chronicity: chronic Gastritis bleeding: without bleeding Time Spent (min) 35 Comment 20 minutes spent with patient and additional 15 minutes spent reviewing her records
[2023-10-21 13:06] VITALS: BP 110/73; PULSE 84; BMI 37.8
== END 2023-10-21 13:48 | disposition home or self-care (01) ==
PROVIDERS: PCP Nurse Practitioner Primary Care; Visit Provider Nurse Practitioner Family
DX: R74.01 Elevation of levels of liver transaminase levels (principal); K21.9 Gastro-esophageal reflux disease without esophagitis; K58.9 Irritable bowel syndrome, unspecified; K59.01 Slow transit constipation; K29.30 Chronic superficial gastritis without bleeding
CPT/HCPCS: 99214

== ENCOUNTER 2023-10-21 12:53 | Outpatient (REF) | payer MEDICAID, SELFPAY ==
[2023-10-21 14:42] LABS: Alanine Aminotransferase 147 U/L (0-31); Albumin Level 4.5 g/dL (3.5-5.0); Alkaline Phosphatase 117 U/L (39-117); Aspartate Amino Transferase 74 U/L (5-31); Bilirubin Direct 0.1 mg/dL (0.0-0.5); Bilirubin Total 0.4 mg/dL (0.0-1.0); Total Protein 7.9 g/dL (6.5-8.0)
[2023-10-28 09:39] LABS: FIB-ALT 131 U/L (6-29); FIB-Alpha-2-Macroglobulin 173 mg/dL (106-279); FIB-Apolipoprotein A1 156 mg/dL (101-198); FIB-GGT 64 U/L (3-70); FIB-Haptoglobin 312 mg/dL (43-212); FIB-Total Bilirubin 0.4 mg/dL (0.2-1.2); Liver Fibrosis Stage F0; Nec Inflam Act Grade A2-A3
== END 2023-10-21 12:54 | disposition home or self-care (01) ==
LOC: HO.LAB 12:53
PROVIDERS: PCP Nurse Practitioner Primary Care; Visit Provider Nurse Practitioner Family
DX: R74.8 Abnormal levels of other serum enzymes (principal); K21.9 Gastro-esophageal reflux disease without esophagitis; K58.1 Irritable bowel syndrome with constipation; K29.30 Chronic superficial gastritis without bleeding; K59.01 Slow transit constipation; R74.01 Elevation of levels of liver transaminase levels
CPT/HCPCS: 36415; 80076; 81596; 99212

== ENCOUNTER 2023-11-11 13:03 | Outpatient (REF) | payer MEDICAID, SELFPAY ==
[2023-11-11 14:47] LABS: MANUAL DIFF FLAG NO
[2023-11-11 15:11] LABS: Appearance Urine Clear; Color Urine Yellow; Glucose Urine UA Negative (Negative); Leukocyte Esterase Urine Negative (Negative); Nitrite Urine Negative (Negative); PH 5.5 (5.0-9.0); Specific Gravity - Urine >= 1.030 (1.005-1.025); Urine Blood Negative (Negative); Urine Ketones Negative (Negative); Urine Protein Negative (Neg-Trace)
[2023-11-11 15:13] LABS: Basophils Percent Auto 0.5 % (0-2); Eosinophils Absolute Auto 0.3 X10*3/uL (0.0-0.4); Eosinophils Percent Auto 3.5 % (0-4); Hematocrit 38.2 % (37.0-47.0); Hemoglobin 12.3 g/dl (12.0-16.0); Imm Gran Abs Auto 0.07 X10*3/uL (0.00-0.03); Imm Gran Pct Auto 0.8 % (0.0-0.4); Lymphocytes Absolute Auto 2.6 X10*3/uL (1.2-4.9); Lymphocytes Percent Auto 30.1 % (20-40); Mean Corpuscular HGB Conc 32.2 g/dl (31.0-35.0); Mean Corpuscular Hemoglobin 27.9 pg (27.0-33.0); Mean Corpuscular Volume 86.6 fL (80.0-98.0); Mean Platelet Volume 10.4 fL (9.4-12.3); Monocytes Absolute Auto 0.6 X10*3/uL (0.1-1.2); Monocytes Percent Auto 6.8 % (2-11); Neutrophils Percent Auto 58.3 % (45-73); Platelet Count 318 X10*3/uL (160-400); Red Blood Count 4.41 X10*6/uL (4.20-5.50); Red Cell Distribution Width 13.2 % (11.0-16.0); White Blood Count 8.5 X10*3/uL (4.8-10.8)
[2023-11-11 15:15] LABS: Prothrombin Time 11.8 SEC (11.1-13.3)
[2023-11-11 15:45] LABS: Alanine Aminotransferase 124 U/L (0-31); Albumin Level 4.5 g/dL (3.5-5.0); Alkaline Phosphatase 122 U/L (39-117); Anion Gap 11 (12-20); Aspartate Amino Transferase 56 U/L (5-31); Bilirubin Direct 0.2 mg/dL (0.0-0.5); Bilirubin Total 0.4 mg/dL (0.0-1.0); Blood Urea Nitrogen 19 mg/dL (9-16); Calcium 9.9 mg/dL (8.4-10.2); Carbon Dioxide 29 mmol/L (22-29); Chloride 103 mmol/L (96-108); Estimated Glomerular Filt Rate > 60; Glucose Random 95 mg/dL (60-115); Potassium 3.5 mmol/L (3.3-5.1); Sodium 139 mmol/L (135-145); Total Protein 7.6 g/dL (6.5-8.0)
[2023-11-11 15:45] LABS: Creatinine Urine 145.71 mg/dL; Protein/Creatinine Ratio, Ur 0.08 (<0.2); Total Protein Urine Random 11 mg/dL (<12)
[2023-11-12 08:09] LABS: HBS Num1 263.35 mIU/mL (0-7.99); HBsAGNum1 0.51 S/CO (0.00-0.99); Hepatitis B Core Antibody Nonreactive (Nonreactive); Hepatitis B Surface Antigen Negative (Negative); ~Hepatitis B Surface Antibody REACTIVE (Nonreactive)
[2023-11-12 11:47] LABS: Complement C3 146 mg/dL (83-193)
[2023-11-12 18:24] LABS: Anti DNA DS Antibody <1 IU/mL; Anti Glomerular Basement Memb <1.0 AI; Myeloperoxidase Antibody <1.0 AI; Proteinase 3 PR3 Antibodies <1.0 AI
[2023-11-13 15:08] LABS: IgA 184 mg/dL (47-310); IgG 1006 mg/dL (600-1640); IgM 138 mg/dL (50-300)
[2023-11-15 10:04] LABS: Anti Nuclear Antibody Screen NEGATIVE (NEGATIVE)
[2023-11-21 20:39] LABS: Phospholipase A2 IgG ELISA <4 RU/mL; Phospholipase A2 IgG IFA NEGATIVE (NEGATIVE)
== END 2023-11-11 13:04 | disposition home or self-care (01) ==
LOC: HO.LAB 13:03
PROVIDERS: PCP Nurse Practitioner Primary Care; Visit Provider Internal Medicine Nephrology
DX: I10 Essential (primary) hypertension (principal); R80.9 Proteinuria, unspecified; R25.2 Cramp and spasm; R74.01 Elevation of levels of liver transaminase levels; E78.2 Mixed hyperlipidemia
CPT/HCPCS: 36415; 80048; 80076; 81003; 82570; 82784; 83520; 84156; 85025; 85610; 86021; 86038; 86160; 86225; 86255; 86334; 86704; 86706; 87340; 99212

== ENCOUNTER 2023-11-11 13:03 | Outpatient (AMB) | payer MEDICAID, SELFPAY ==
--- NOTE | 2023-11-11 13:31 | HO.NEPHOV ---
HPI HPI Comments History of Present Illness Details I had the privilege of seeing Alisha in follow-up for hypertension with a history of questionable proteinuria and microscopic hematuria. She is 52 years of age who has no H/O diabetes mellitus but has history of hypertension for long time. She denies history of retinopathy, neuropathy or LVH . She does not have any nausea, vomiting, diarrhea, shortness of breath, proximal nocturnal dyspnea, orthopnea, pedal edema, hematuria, renal stones, coronary artery disease, congestive heart failure, carotid stenosis, peripheral arterial disease, renal artery stenosis, new bone or back pain. She never had any history of high serum calcium. She denies any history of hepatitis or HIV. She does not get any recurrent sore throat, epistaxis, hemoptysis, photosensitivity, skin rashes. She has no sensorineural hearing deficits. Her renal functions are normal [facility] Medical History (Updated 11/12/23 @ 13:22 by Jimmy Castañeda MD) Helicobacter pylori (H. pylori) Transaminitis Morbid obesity Migraine Anemia HTN (hypertension) Surgical History History of esophagogastroduodenoscopy (EGD) Hx of colonoscopy Hx of cystoscopy Hx of hysterectomy History of cholecystectomy Family History Father Heart disease Mother Heart disease Social History Alcohol intake: never Patient Tobacco Use Status: Former Tobacco user Vital Signs 11/11/23 13:32 Height 5 ft 4 in Weight 222 lb 4 oz BMI 38.1 BP 110/72 Blood Pressure Location Lt brachial Position Sitting Pulse 82 Pulse Source Pulse Oximeter Pulse Oximetry (%) 98 Oxygen Delivery Method Room Air Physical Exam Vital Signs: Last Vital Signs Pulse 82 11/11/23 13:32 BP 110/72 11/11/23 13:32 Pulse Ox 98 11/11/23 13:32 Oxygen Delivery Method Room Air 11/11/23 13:32 BMI result Body Mass Index 38.1 Const General: comfortable and no acute distress Orientation/consciousness: patient oriented x3 HEENT Head: Yes normocephalic Mouth: Normal oral and palatal mucosa present Eyes EOM: EOMs intact bilaterally Neck Neck: Yes supple Resp Auscultation: clear to auscultation bilaterally Cardio Jugular venous distension: no JVD Rate: regular rate GI Palpation (GI): Soft to palpation Auscultation: normal bowel sounds General: Yes no CVA tenderness Back/Spine/Pelvis Back: no CVA tenderness Skin General skin exam: no rashes or lesions noted Neuro General: patient oriented x3 and moves all extremities Extrem General: Yes no pedal edema Assessment & Plan Assessment & Plan (1) HTN (hypertension): Code(s): I10 - Essential (primary) hypertension Qualifiers: Hypertension type: primary hypertension Qualified Code(s): I10 - Essential (primary) hypertension Plan Receipt has longstanding hypertension. She is on propranolol and lisinopril. She needs to lose weight. She has history of questionable microscopic hematuria and proteinuria. I have ordered 24 urine for protein, urine protein creatinine ratio as well as urinalysis along with further workup. If she has intermittent microscopic hematuria as well as proteinuria, she may be having IgA nephropathy. If she has proteinuria, she will need renal biopsy. Otherwise she clearly needs to lose some significant weight. I did change any medications at this visit but spent most of the time discussing about etiologies, investigations and management strategies. All questions answered follow-up given Orders: Orders Protein Creatinine Ratio, Ur 11/11/23 I10 - Essential (primary) hypertension, R80.9 - Proteinuria, unspecified Protein, 24 Hr Urine Group 11/11/23 I10 - Essential (primary) hypertension, R80.9 - Proteinuria, unspecified UA and rflx microscopic 11/11/23 I10 - Essential (primary) hypertension, R80.9 - Proteinuria, unspecified Immunofixation Pnl, Serum 11/11/23 I10 - Essential (primary) hypertension, R80.9 - Proteinuria, unspecified Anti DNA DS Antibody 11/11/23 I10 - Essential (primary) hypertension, R80.9 - Proteinuria, unspecified Phospholipase A2 Receptor Pnl 11/11/23 I10 - Essential (primary) hypertension, R80.9 - Proteinuria, unspecified Hepatitis B Surface Antigen 11/11/23 I10 - Essential (primary) hypertension, R80.9 - Proteinuria, unspecified Hepatitis B Core Antibody 11/11/23 I10 - Essential (primary) hypertension, R80.9 - Proteinuria, unspecified Complete Blood Count Auto Diff 11/11/23 I10 - Essential (primary) hypertension, R80.9 - Proteinuria, unspecified Prothrombin Time INR 11/11/23 I10 - Essential (primary) hypertension, R80.9 - Proteinuria, unspecified ISABELLA Reflex Titer and Pattern 11/11/23 I10 - Essential (primary) hypertension, R80.9 - Proteinuria, unspecified Myeloperoxidase Antibody 11/11/23 I10 - Essential (primary) hypertension, R80.9 - Proteinuria, unspecified Proteinase 3 PR3 Antibodies 11/11/23 I10 - Essential (primary) hypertension, R80.9 - Proteinuria, unspecified Anti Glomerular Basement Memb 11/11/23 I10 - Essential (primary) hypertension, R80.9 - Proteinuria, unspecified Complement C3 11/11/23 I10 - Essential (primary) hypertension, R80.9 - Proteinuria, unspecified Complement C4 11/11/23 I10 - Essential (primary) hypertension, R80.9 - Proteinuria, unspecified Hepatitis B Surface Antibody 11/11/23 I10 - Essential (primary) hypertension, R80.9 - Proteinuria, unspecified Coding Level of Care Code Est Pt Level 4 (65338) Diagnoses Primary hypertension I10 Hypertension type: primary hypertension Results Reviewed Nephrology Results: Hgb 12.3 g/dl (12.0-16.0) 11/11/23 WBC 8.5 X10*3/uL (4.8-10.8) 11/11/23 Plt Count 318 X10*3/uL (160-400) 11/11/23 Sodium 139 mmol/L (135-145) 11/11/23 Potassium 3.5 mmol/L (3.3-5.1) 11/11/23 Chloride 103 mmol/L (96-108) 11/11/23 Carbon Dioxide 29 mmol/L (22-29) 11/11/23 BUN 19 mg/dL (9-16) H 11/11/23 Creatinine 0.83 mg/dL (0.5-1.4) 11/11/23 Calcium 9.9 mg/dL (8.4-10.2) 11/11/23 Urine Protein Negative mg/dL (Neg-Trace) 11/11/23 Urine Creatinine 145.71 mg/dL 11/11/23 Protein/Creatinin Ratio 0.08 (<0.2) 11/11/23
[2023-11-11 13:32] VITALS: BP 110/72; PULSE 82; O2SAT 98; BMI 38.1
== END 2023-11-11 14:07 | disposition home or self-care (01) ==
PROVIDERS: PCP Nurse Practitioner Primary Care; Referring Provider Nurse Practitioner Primary Care; Visit Provider Internal Medicine Nephrology
DX: I10 Essential (primary) hypertension (principal)
CPT/HCPCS: 99214

== ENCOUNTER 2023-11-13 13:50 | Outpatient (REF) | payer MEDICAID, SELFPAY ==
--- NOTE | ~2023-11-13 | US_ITS ---
EXAMINATION: US PELVIS COMPLETE CLINICAL INFORMATION: Left ovarian cyst COMPARISON: CT abdomen pelvis 06/22/2023, 10/26/2017 TECHNIQUE: Transabdominal and transvaginal imaging was performed. FINDINGS: Status post supracervical hysterectomy. Nabothian cyst in the cervical stump. The right ovary measures 2.2 x 0.8 x 1.7 cm for a volume of 1.6 mL. The left measures 6.3 x 4.2 x 3.9 cm for a volume of 62.3 mL. The right ovary is remarkable for a 1.3 cm benign simple cyst, no follow-up imaging recommended. The left ovary is remarkable for a 4.2 cm probable cyst, previously 4.2 cm in 2018. There is no pelvic free fluid. US/US pelvic and transvaginal IMPRESSION: 1. Status post supracervical hysterectomy. 2. The left ovary is remarkable for a 4.2 cm nonneoplastic cyst or benign cystic neoplasm able from 2018. Recommend gynecology consult with follow-up imaging if clinically warranted.. 3. The right ovary is remarkable for a 1.3 cm benign simple cyst, no follow-up imaging recommended.
[2023-11-13 15:13] LABS: Creatinine, mg/dL 102.73; Protein mg/dL < 7 mg/dL
[2023-11-13 15:40] LABS: Creatinine, 24Hr Urine 1.8 G/Day (1.0-2.0); Protein 24 Hr Urine < 124 mg/Day (<150); Total Volume 24 Hour Urine 1775 mL
== END 2023-11-13 13:51 | disposition home or self-care (01) ==
LOC: HO.US 13:50
PROVIDERS: Internal Medicine Nephrology; PCP Nurse Practitioner Primary Care; Visit Provider Nurse Practitioner Primary Care
DX: N83.202 Unspecified ovarian cyst, left side (principal); I10 Essential (primary) hypertension; R80.9 Proteinuria, unspecified
CPT/HCPCS: 76830; 76856; 84156

== ENCOUNTER 2023-11-16 13:38 | Outpatient (REF) | payer MEDICAID, SELFPAY ==
--- NOTE | ~2023-11-16 | MM_ITS ---
EXAMINATION: MM SCREENING DIGITAL BREAST TOMOSYNTHESIS, BILATERAL CLINICAL INFORMATION: Screening. Asymptomatic. COMPARISON: Mammography: This study is compared with prior exams dating back to 2016. TECHNIQUE: Digital breast tomosynthesis is performed in both the craniocaudal and mediolateral oblique views along with computer-aided detection (CAD). Synthesized 2D images are generated from the tomosynthesis. FINDINGS: There are scattered areas of fibroglandular density (ACR BI-RADS breast composition Category b). There are no significant masses, abnormal calcifications, or other abnormalities. MM/MM tomosynthesis screening BI IMPRESSION: No mammographic evidence of malignancy. ASSESSMENT: BI-RADS BI-RADS 1 - Negative RECOMMENDATION: Routine annual mammography screening. 1 year F/U This examination should not preclude the clinical evaluation of a suspicious palpable abnormality. This patient's information was entered into a reminder system with a target due date for their next mammogram.
== END 2023-11-16 13:39 | disposition home or self-care (01) ==
LOC: HO.MAMMO 13:38
PROVIDERS: PCP Nurse Practitioner Primary Care; Visit Provider Nurse Practitioner Primary Care
DX: Z12.31 Encounter for screening mammogram for malignant neoplasm of breast (principal)
CPT/HCPCS: 77063; 77067

== ENCOUNTER → 2023-11-16 14:00 | Outpatient (BNV) | payer MEDICAID, SELFPAY | PROVIDERS: PCP Nurse Practitioner Primary Care; Visit Provider Radiology Diagnostic Radiology | DX: Z12.31 Encounter for screening mammogram for malignant neoplasm of breast (principal) | CPT/HCPCS: 77063; 77067 ==

== ENCOUNTER 2023-12-09 13:52 | Outpatient (AMB) | payer MEDICAID, SELFPAY ==
--- NOTE | 2023-12-09 13:36 | HO.NEPHOV_ITS ---
HPI HPI Comments History of Present Illness Details I had the privilege of seeing Alisha in follow-up for hypertension. She is 52 years of age who has no H/O diabetes mellitus but has history of hypertension for long time. She denies history of retinopathy, neuropathy or LVH . She does not have any nausea, vomiting, diarrhea, shortness of breath, proximal nocturnal dyspnea, orthopnea, pedal edema, hematuria, renal stones, coronary artery disease, congestive heart failure, carotid stenosis, peripheral arterial disease, renal artery stenosis, new bone or back pain. She never had any history of high serum calcium. She denies any history of hepatitis or HIV. She does not get any recurrent sore throat, epistaxis, hemoptysis, photosensitivity, skin rashes. She has no sensorineural hearing deficits. Her renal functions are normal [facility] Medical History (Updated 11/12/23 @ 13:22 by Jimmy Castañeda MD) Helicobacter pylori (H. pylori) Transaminitis Morbid obesity Migraine Anemia HTN (hypertension) Surgical History History of esophagogastroduodenoscopy (EGD) Hx of colonoscopy Hx of cystoscopy Hx of hysterectomy History of cholecystectomy Family History Father Heart disease Mother Heart disease Social History Alcohol intake: never Patient Tobacco Use Status: Former Tobacco user Vital Signs 12/09/23 13:57 Height 5 ft 4 in Weight 225 lb 2 oz BMI 38.6 BP 102/64 Blood Pressure Location Rt brachial Position Sitting Pulse 71 Pulse Source Pulse Oximeter Pulse Oximetry (%) 100 Oxygen Delivery Method Room Air Physical Exam Const General: comfortable and no acute distress Orientation/consciousness: patient oriented x3 HEENT Head: Yes normocephalic Mouth: Normal oral and palatal mucosa present Eyes EOM: EOMs intact bilaterally Neck Neck: Yes supple Resp Auscultation: clear to auscultation bilaterally Cardio Jugular venous distension: no JVD Rate: regular rate GI Palpation (GI): Soft to palpation Auscultation: normal bowel sounds General: Yes no CVA tenderness Back/Spine/Pelvis Back: no CVA tenderness Skin General skin exam: no rashes or lesions noted Neuro General: patient oriented x3 and moves all extremities Extrem General: Yes no pedal edema Assessment & Plan Assessment & Plan (1) HTN (hypertension): Code(s): I10 - Essential (primary) hypertension Qualifiers: Hypertension type: primary hypertension Qualified Code(s): I10 - Essential (primary) hypertension Plan Receipt has longstanding hypertension. She is on propranolol and lisinopril. She needs to lose weight. She has no microscopic hematuria and proteinuria. Her 24 urine for protein, urine protein creatinine ratio as well as urinalysis were normal. She clearly needs to lose some significant weight. I did change any medications at this visit but spent most of the time discussing about etiologies, investigations and management strategies. All questions answered follow-up given Orders: Orders Electrolytes Today I10 - Essential (primary) hypertension Blood Urea Nitrogen Today I10 - Essential (primary) hypertension Creatinine Today I10 - Essential (primary) hypertension Protein Creatinine Ratio, Ur Today I10 - Essential (primary) hypertension UA and rflx microscopic Today I10 - Essential (primary) hypertension Coding Level of Care Code Est Pt Level 3 (81077) Diagnoses Primary hypertension I10 Hypertension type: primary hypertension Results Reviewed Nephrology Results: Hgb 12.3 g/dl (12.0-16.0) 11/11/23 WBC 8.5 X10*3/uL (4.8-10.8) 11/11/23 Plt Count 318 X10*3/uL (160-400) 11/11/23 Sodium 139 mmol/L (135-145) 11/11/23 Potassium 3.5 mmol/L (3.3-5.1) 11/11/23 Chloride 103 mmol/L (96-108) 11/11/23 Carbon Dioxide 29 mmol/L (22-29) 11/11/23 BUN 19 mg/dL (9-16) H 11/11/23 Creatinine 0.83 mg/dL (0.5-1.4) 11/11/23 Calcium 9.9 mg/dL (8.4-10.2) 11/11/23 Urine Protein Negative mg/dL (Neg-Trace) 11/11/23 Urine Creatinine 145.71 mg/dL 11/11/23 Protein/Creatinin Ratio 0.08 (<0.2) 11/11/23
[2023-12-09 13:57] VITALS: BP 102/64; PULSE 71; O2SAT 100; BMI 38.6
== END 2023-12-09 14:09 | disposition home or self-care (01) ==
PROVIDERS: PCP Nurse Practitioner Primary Care; Visit Provider Internal Medicine Nephrology
DX: I10 Essential (primary) hypertension (principal)
CPT/HCPCS: 99213

== ENCOUNTER → 2023-12-09 13:52 | Outpatient (BNVA) | payer MEDICAID, SELFPAY | PROVIDERS: PCP Nurse Practitioner Primary Care; Visit Provider Internal Medicine Nephrology | DX: I10 Essential (primary) hypertension (principal) | CPT/HCPCS: 99212 ==

== ENCOUNTER 2024-02-11 16:12 | Outpatient (REF) | payer MEDICAID, SELFPAY ==
[2024-02-11 16:32] LABS: Appearance Urine Cloudy; Color Urine Yellow; Glucose Urine UA Negative (Negative); Leukocyte Esterase Urine Negative (Negative); Nitrite Urine Negative (Negative); PH 5.5 (5.0-9.0); Specific Gravity - Urine >= 1.030 (1.005-1.025); Urine Blood Negative (Negative); Urine Ketones Negative (Negative); Urine Protein Negative (Neg-Trace)
[2024-02-11 16:39] LABS: Bacteria Urine 2+ (None Seen); Hyaline Casts Urine 0-2 /LPF (0-2); RBC Urine 0-2 /HPF (0-2); Squamous Epithelial Cell Urine >20 /HPF (0-2); WBC Urine 0-5 /HPF (0-5)
== END 2024-02-11 16:13 | disposition home or self-care (01) ==
LOC: HO.HHCLNP 16:12
PROVIDERS: Visit Provider Nurse Practitioner Primary Care
DX: R10.30 Lower abdominal pain, unspecified (principal)
CPT/HCPCS: 81001

== ENCOUNTER 2024-08-12 14:39 | Outpatient (AMB) | payer MEDICAID, SELFPAY ==
--- NOTE | 2024-08-12 15:05 | HO.NEPHOV_ITS ---
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 She is 53 years of age who has no H/O diabetes mellitus but has history of hypertension for long time. She denies history of retinopathy, neuropathy or LVH . She does not have any nausea, vomiting, diarrhea, shortness of breath, proximal nocturnal dyspnea, orthopnea, pedal edema, hematuria, renal stones, coronary artery disease, congestive heart failure, carotid stenosis, peripheral arterial disease, renal artery stenosis, new bone or back pain. She never had any history of high serum calcium. She denies any history of hepatitis or HIV. She does not get any recurrent sore throat, epistaxis, hemoptysis, photosensitivity, skin rashes. She has no sensorineural hearing deficits. Her renal functions are normal . She feels she has intermittent breathing difficulty without any specific complaint. [facility] Medical History (Updated 08/12/24 @ 15:30 by Jimmy Castañeda MD) Helicobacter pylori (H. pylori) Transaminitis Morbid obesity Migraine Anemia HTN (hypertension) Surgical History History of esophagogastroduodenoscopy (EGD) Hx of colonoscopy Hx of cystoscopy Hx of hysterectomy History of cholecystectomy Family History Father Heart disease Mother Heart disease Social History Alcohol intake: never Patient Tobacco Use Status: Former Tobacco user Review of Systems Const All systems reviewed & are unremarkable except as noted in HPI and below Physical Exam Vital Signs: Last Vital Signs Pulse 91 08/12/24 15:08 BP 110/80 08/12/24 15:08 Pulse Ox 99 08/12/24 15:08 Oxygen Delivery Method Room Air 08/12/24 15:08 BMI result Body Mass Index 39.5 Const General: comfortable and no acute distress Orientation/consciousness: patient oriented x3 HEENT Head: Yes normocephalic Mouth: Normal oral and palatal mucosa present Eyes EOM: EOMs intact bilaterally Neck Neck: Yes supple Resp Auscultation: clear to auscultation bilaterally Cardio Jugular venous distension: no JVD Rate: regular rate GI Palpation (GI): Soft to palpation Auscultation: normal bowel sounds General: Yes no CVA tenderness Back/Spine/Pelvis Back: no CVA tenderness Skin General skin exam: no rashes or lesions noted Neuro General: patient oriented x3 and moves all extremities Extrem General: Yes no pedal edema Results Reviewed Nephrology Results: Hgb 12.3 g/dl (12.0-16.0) 11/11/23 WBC 8.5 X10*3/uL (4.8-10.8) 11/11/23 Plt Count 318 X10*3/uL (160-400) 11/11/23 Sodium 139 mmol/L (135-145) 11/11/23 Potassium 3.5 mmol/L (3.3-5.1) 11/11/23 Chloride 103 mmol/L (96-108) 11/11/23 Carbon Dioxide 29 mmol/L (22-29) 11/11/23 BUN 19 mg/dL (9-16) H 11/11/23 Creatinine 0.83 mg/dL (0.5-1.4) 11/11/23 Calcium 9.9 mg/dL (8.4-10.2) 11/11/23 Urine Protein Negative mg/dL (Neg-Trace) 02/11/24 Urine Creatinine 145.71 mg/dL 11/11/23 Protein/Creatinin Ratio 0.08 (<0.2) 11/11/23 Assessment & Plan Assessment & Plan (1) HTN (hypertension): Code(s): I10 - Essential (primary) hypertension Category: Medical Qualifiers: Hypertension type: primary hypertension Qualified Code(s): I10 - Essential (primary) hypertension Plan: Alisha has longstanding hypertension. She is on propranolol and lisinopril. She needs to lose weight. She has no microscopic hematuria and proteinuria. Her 24 urine for protein, urine protein creatinine ratio as well as urinalysis were normal. She clearly needs to lose some significant weight. I did not change any medications. Referred her to [facility] for pulmonary evaluation. All questions answered .follow-up given Orders: Referrals Pulmonology Referral I10 - Essential (primary) hypertension, R06.02 - Shortness of breath Coding Level of Care Code Est Pt Level 4 (84049) Diagnoses Primary hypertension I10 Hypertension type: primary hypertension
[2024-08-12 15:08] VITALS: BP 110/80; PULSE 91; O2SAT 99; BMI 39.5
== END 2024-08-12 15:35 | disposition home or self-care (01) ==
PROVIDERS: PCP Nurse Practitioner Primary Care; Visit Provider Internal Medicine Nephrology
DX: I10 Essential (primary) hypertension (principal)
CPT/HCPCS: 99214

== ENCOUNTER → 2024-08-12 14:39 | Outpatient (BNVA) | payer MEDICAID, SELFPAY | PROVIDERS: PCP Nurse Practitioner Primary Care; Visit Provider Internal Medicine Nephrology | DX: I10 Essential (primary) hypertension (principal) | CPT/HCPCS: 99212 ==

== ENCOUNTER 2024-08-18 16:47 | Emergency (ER) | payer MEDICAID, SELFPAY ==
--- NOTE | ~2024-08-18 | XR_ITS ---
EXAMINATION: XR CHEST CLINICAL INFORMATION: Palpitations COMPARISON: 06/01/2018 TECHNIQUE: Frontal view of the chest was obtained. FINDINGS: No significant abnormality is noted involving the heart, lungs, mediastinum, bony thorax or soft tissues. XR/XR chest 1V IMPRESSION: Unremarkable examination. Electronically signed by: Reinaldo Joshua MD 08/18/2024 06:07 PM [facility]
--- NOTE | ~2024-08-18 | CT_ITS ---
EXAMINATION: CTA CHEST CLINICAL INFORMATION: Shortness of breath, tachycardia, dyspnea, elevated heart rate EXAMINATION: CT ANGIOGRAM OF THE CHEST WITH AND WITHOUT CONTRAST (CT PULMONARY ANGIOGRAM FOR PE) CLINICAL INFORMATION: shortness of breath, tachycardia COMPARISON: Chest radiograph 06/01/2018 TECHNIQUE: Prior to contrast administration, noncontrast localization images were obtained. Subsequently, multidetector volumetric imaging was performed from the thoracic inlet to the pubic symphysis through the chest, abdomen, and pelvis following the administration of 85 mL Omnipaque 350 intravenous contrast. No contrast reaction reported Sagittal, coronal, and MIP oblique sagittal (through the chest only) reformatted images were obtained on the CT workstation, uploaded to PACS, and reviewed. This CT examination was performed using dose optimization techniques as appropriate, variously including the following: *Automated exposure control *Adjustment of mA and/or kV according to patient size (this includes techniques or standardized protocols for targeted exams where dose is matched to indication/reason for exam; i.e. extremities or head) *Use of iterative reconstruction technique Total exam dose-length product: 369 mGy-cm FINDINGS: QUALITY OF STUDY/CONTRAST BOLUS: Satisfactory. PULMONARY ARTERIES: No central or segmental pulmonary emboli. CORONARY ARTERY CALCIUM: None seen THORACIC AORTA: No aneurysm or dissection. LUNG: No focal consolidation, nodules or masses. PLEURA: No pleural effusion or pneumothorax. MEDIASTINUM: Normal heart size. No pericardial effusion. No hilar or mediastinal lymphadenopathy. No evidence of septal bowing or right heart strain. CHEST WALL/AXILLA: No axillary or internal mammary lymphadenopathy. OSSEOUS STRUCTURES: No acute or suspicious osseous abnormality. VISUALIZED ABDOMEN: No significant findings in the upper abdomen. Surgical clips are present in the gallbladder fossa. CT/CT angio chest PE protocol IMPRESSION: No evidence of pulmonary emboli. VTE: negative. Fleischner guidelines were followed. Electronically signed by: Reinaldo Joshua MD 08/18/2024 11:18 PM [facility]
[2024-08-18 16:51] VITALS: BP 151/85; PULSE 138; RESP 20; TEMP 36.3; O2SAT 100; BMI 37.8
--- NOTE | 2024-08-18 16:53 | ED_ITS ---
HPI - Arrhythmia/Palpitations General Chief Complaint: Chest Pain Stated Complaint: ? 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 She reports associated chest tightness with taking a deep breath pain She denies any fevers, chills. She reports that she was on propranolol for tachycardia. She states that her primary doctor moved out of the area and her new primary would not feel it stating they could not see it in the records. ? Denies any history of DVT, recent plane travel. She denies any sick contacts pain The patient does endorse a headache She has no legs while Related Data Home Medications ?Medication ?Instructions ?Recorded ?Confirmed cholecalciferol (vitamin D3) 50 50 mcg PO QAM 01/24/22 08/20/23 mcg (2,000 unit) tablet lisinopril 40 mg tablet 40 mg PO BEDTIME 01/24/22 08/20/23 cetirizine 10 mg tablet 10 mg PO DAILY PRN Allergy Symptoms 04/04/22 08/20/23 fluticasone propionate 50 1 - 2 spray intranasal DAILY PRN 04/04/22 08/20/23 mcg/actuation nasal Nasal Congestion spray,suspension nortriptyline 50 mg capsule 50 mg PO BEDTIME 04/04/22 08/20/23 propranolol 80 mg tablet 80 mg PO DAILY 05/01/22 08/20/23 cyclobenzaprine 5 mg tablet 5 mg PO TID PRN pain 05/13/22 08/20/23 lidocaine 5 % topical patch 1 patch topical DAILY 05/13/22 08/20/23 (Lidoderm) acetaminophen 325 mg capsule 650 mg PO Q6H PRN 08/20/23 08/20/23 (Tylenol) ferrous sulfate 325 mg (65 mg 325 mg PO 08/12/24 iron) tablet (FeroSul) Previous Rx's ?Medication ?Instructions ?Recorded tizanidine 2 mg tablet 2 mg PO BID PRN muscle spasticity 04/04/22 #28 tabs methylcellulose (laxative) 500 mg 500 mg PO DAILY #90 tabs 07/15/22 tablet (Citrucel) pantoprazole 40 mg tablet,delayed 40 mg PO BID #180 tabs 08/25/23 release sennosides 8.6 mg tablet (Natural 17.2 mg (2 x 8.6 mg) PO BEDTIME 10/21/23 Senna Laxative) constipation #180 tabs docusate sodium 100 mg capsule 100 mg PO BEDTIME #90 caps 02/11/24 sucralfate 1 gram tablet 1 g PO BEDTIME #30 tabs 05/31/24 propranolol 80 mg tablet 80 mg PO BID #60 tabs 08/18/24 Allergies Allergy/AdvReac Type Severity Reaction Status Date / Time No Known Allergies Allergy Verified 08/18/24 16:53 [No Known Allergies*] Review of Systems 2 Constitutional: Constitutional: Denies body ache(s), Denies chills, Denies fever(s) and Reports headache(s) Eyes: Eyes: Denies blurry vision ENT: Denies vertigo, Denies dizziness, Denies dry mouth and Reports headache(s) Cardiovascular: Cardiovascular: Reports chest pain, Denies syncope, Reports rapid heart rate, Reports palpitations and Reports dyspnea Respiratory: Respiratory: Denies cough and Reports dyspnea Gastrointestinal: Gastrointestinal: Denies abdominal pain, Denies nausea and Denies vomiting Musculoskeletal: Musculoskeletal: Denies back pain Integumentary/Breasts: Skin/Breast: Denies rash Neurologic: Denies vertigo, Denies dizziness, Denies syncope and Reports headache(s) Psychiatric: Psychiatric: Denies anxiety Endocrine: Endocrine: Reports palpitations [facility], [facility] Past Medical History Medical History (Updated 08/18/24 @ 23:25 by Garry Mills) Helicobacter pylori (H. pylori) Transaminitis Morbid obesity Migraine Anemia HTN (hypertension) Surgical History History of esophagogastroduodenoscopy (EGD) Hx of colonoscopy Hx of cystoscopy Hx of hysterectomy History of cholecystectomy Family History Family History Father Heart disease Mother Heart disease Social History Social History Alcohol intake: never Patient Tobacco Use Status: Former Tobacco user Smoked in Last 30 Days: No Use of substances other than those prescribed or required for medical reasons: No Advance Directives: No Advance Directives Information Provided: Yes Patient : No Physical Exam 2 Vital Signs: Vital Signs: Last Vital Signs Temp 98.6 F 08/18/24 21:46 Pulse 130 H 08/18/24 21:46 Resp 17 08/18/24 21:46 BP 110/63 08/18/24 21:46 Pulse Ox 100 08/18/24 21:46 O2 Del Method Room Air 08/18/24 21:46 BMI result Body Mass Index 37.8 Const: General: healthy appearing, comfortable, no acute distress, alert and awake Nutritional Appearance: well nourished Orientation/consciousness: p atient oriented x3 HEENT: Head: Yes normocephalic and Yes atraumatic Eyes: Eyelids: Yes eyelids normal Conjunctivae: conjunctivae normal S clerae: sclerae normal Corneas: corneas normal Pupils: Equal, round and reactive pupils present EOM: EOMs intact bilaterally Neck: Neck: Yes full ROM Resp: Effort & Inspection: normal respiratory effort, able to speak in complete sentences, no audible wheezes and not labored Auscultation: clear to auscultation bilaterally Cardio: Rate: tachycardic Rhythm: regular rhythm GI: Inspection: No distended Palpation (GI): Soft to palpation, not firm, nontender, no guarding and not rigid Skin: General skin exam: elasticity normal Neuro: General: patient oriented x3 Cranial nerves: Yes Equal, round and reactive pupils present and Yes Bilaterally intact EOM present Cognition (Neuro): normal cognition Course Course Course Narrative: This is a Rapid Medical Exam performed in triage by Ronit Guardado PA-C. Full HPI, ROS and PE to be performed by primary ED provider. 53-year-old female with past medical history migraines, anemia, HTN, obesity, presenting to the ED c/o palpitations, chest pressure, headache, and increased nerves/shaky x yesterday. Admits to issue at pharmacy with Propanolol & has not taken x3 days PE: Tachycardic to 140, talking in complete sentences. No respiratory distress Plan: EKG, labs, CXR, viral studies Medications Administered Discontinued Medications Generic Name Dose Route Start Last Admin Trade Name Freq PRN Reason Stop Dose Admin Iohexol 75 ml 08/18/24 23:00 08/18/24 23:01 Iohexol 350 Mg/Ml 100 Ml Infus..Btl IV 08/18/24 23:01 75 ml ONCE ONE Administration Medical Decision Making Medical Decision Making [facility] Narrative: 53-year-old female with past medical history as documented above presents for evaluation of multiple complaints including palpitations, shortness of breath, chest tightness and headache. Her heart rate is 130, unclear etiology at this time. She is not hypoxic or hypotensive. She is afebrile, no suspicion for sepsis at this time. The patient's labs have no significant acute abnormalities. She has no leukocytosis or left shift history is show a transaminitis which is chronic. The patient does have an elevated glucose of 174. There is no elevated anion gap and her CO2 is within normal limits. No evidence of DKA. Troponin, BNP are within normal limits. For CT angiography to rule out PE given the patient's marked tachycardia even while lying still Differential Diagnosis Differential Diagnoses: The differential diagnosis associated with the presentation includes Sinus tachycardia Dehydration KRYSTLE PE Arrhythmia AFib Lab Data [facility] Lab Attestation statement: I reviewed the patient's lab results. See above 08/18/24 17:07 08/18/24 17:08 Labs: Lab Results 08/18/24 08/18/24 Range/Units 17:07 17:08 WBC 10.7 (4.8-10.8) X10*3/uL RBC 4.42 (4.20-5.50) X10*6/uL Hgb 12.6 (12.0-16.0) g/dl Hct 38.5 (37.0-47.0) % MCV 87.1 (80.0-98.0) fL MCH 28.5 (27.0-33.0) pg MCHC 32.7 (31.0-35.0) g/dl RDW 13.1 (11.0-16.0) % Plt Count 358 (160-400) X10*3/uL MPV 10.0 (9.4-12.3) fL Immature Gran % (Auto) 0.6 H (0.0-0.4) % Neut % (Auto) 57.5 (45-73) % Lymph % (Auto) 34.3 (20-40) % Ferry % (Auto) 4.9 (2-11) % Eos % (Auto) 2.2 (0-4) % Baso % (Auto) 0.5 (0-2) % Lymph # (Auto) 3.7 (1.2-4.9) X10*3/uL Ferry # (Auto) 0.5 (0.1-1.2) X10*3/uL Eos # (Auto) 0.2 (0.0-0.4) X10*3/uL Baso # (Auto) 0.1 (0.0-0.2) X10*3/uL Abs Immat Gran (auto) 0.06 H (0.00-0.03) X10*3/uL Absolute Neuts (auto) 6.1 (2.0-8.3) x10*3/uL Absolute Nucleated RBC 0.000 (0.0-0.012) X10*3/uL Nucleated RBC % (auto) 0.0 (0.0-0.2) /100WBC PT 11.5 (10.9-12.4) SEC INR 1.0 (0.9-1.1) Sodium 137 (135-145) mmol/L Potassium 3.4 (3.3-5.1) mmol/L Chloride 99 (96-108) mmol/L Carbon Dioxide 28 (22-29) mmol/L Anion Gap 13 (12-20) BUN 17 H (9-16) mg/dL Creatinine 0.92 (0.5-1.4) mg/dL Estim Creat Clear Calc 82.1 Estimated GFR > 60 Random Glucose 174 H (60-115) mg/dL Calcium 9.9 (8.4-10.2) mg/dL Magnesium 1.9 (1.6-2.6) mg/dL Total Bilirubin 0.4 (0.0-1.0) mg/dL Direct Bilirubin 0.2 (0.0-0.5) mg/dL AST 56 H (5-31) U/L ALT 163 H (0-31) U/L Alkaline Phosphatase 135 H (39-117) U/L Troponin I High Sens < 2.7 (<3.5-17.0) ng/L B-Natriuretic Peptide < 10 (<100) pg/mL Total Protein 7.7 (6.5-8.0) g/dL Albumin 4.6 (3.5-5.0) g/dL TSH 1.52 (0.32-4.0) uIU/mL Influenza Type A (PCR) NEGATIVE (Negative) Influenza Type B (PCR) NEGATIVE (Negative) RSV RNA Qual (PCR) NEGATIVE (Negative) SARS-CoV-2 RNA (RT-PCR) NEGATIVE (Negative) Independent Interpretation I performed an independent interpretation of an: EKG Interpretation: Sinus tachycardia with a rate of [address] segment elevation IN, nondiagnostic EKG Radiology Impression Discussion of test interpretation with radiology: I have reviewed the radiologist's reading. Radiologist Impression: FINDINGS: QUALITY OF STUDY/CONTRAST BOLUS: Satisfactory. PULMONARY ARTERIES: No central or segmental pulmonary emboli. CORONARY ARTERY CALCIUM: None seen THORACIC AORTA: No aneurysm or dissection. LUNG: No focal consolidation, nodules or masses. PLEURA: No pleural effusion or pneumothorax. MEDIASTINUM: Normal heart size. No pericardial effusion. No hilar or mediastinal lymphadenopathy. No evidence of septal bowing or right heart strain. CHEST WALL/AXILLA: No axillary or internal mammary lymphadenopathy. OSSEOUS STRUCTURES: No acute or suspicious osseous abnormality. VISUALIZED ABDOMEN: No significant findings in the upper abdomen. Surgical clips are present in the gallbladder fossa. CT/CT angio chest PE protocol IMPRESSION: No evidence of pulmonary emboli. VTE: negative. Fleischner guidelines were followed. Electronically signed by: Reinaldo Joshua MD 08/18/2024 11:18 PM [facility] Discharge Plan Discharge Clinical Impression: Tachycardia Patient Disposition: Home, Self-Care Instructions: Tachycardia (ED) Additional Instructions: Your workup in the ER today was reassuring. This includes your blood work, EKG, CT scan of your chest. Your palpitations are likely related to your heart rate being fast which is likely due to not being on your propranolol. I gave you a dose of propranolol and I will refill your prescription Follow-up with your chain maker Return for new or worsening symptoms Prescriptions: New propranolol 80 mg tablet 80 mg PO BID Qty: 60 0RF No Action docusate sodium 100 mg capsule 100 mg PO BEDTIME Qty: 90 3RF sucralfate 1 gram tablet 1 g PO BEDTIME Qty: 30 4RF cholecalciferol (vitamin D3) 50 mcg (2,000 unit) tablet 50 mcg PO QAM lisinopril 40 mg tablet 40 mg PO BEDTIME propranolol 80 mg tablet 80 mg PO DAILY cyclobenzaprine 5 mg tablet 5 mg PO TID PRN (Reason: pain) lidocaine [Lidoderm] 5 % adhesive patch,medicated 1 patch topical DAILY nortriptyline 50 mg capsule 50 mg PO BEDTIME fluticasone propionate 50 mcg/actuation spray,suspension 1 - 2 spray intranasal DAILY PRN (Reason: Nasal Congestion) cetirizine 10 mg tablet 10 mg PO DAILY PRN (Reason: Allergy Symptoms) tizanidine 2 mg tablet 2 mg PO BID PRN (Reason: muscle spasticity) Qty: 28 0RF Citrucel 500 mg tablet 500 mg PO DAILY Qty: 90 2RF Rx Instructions: take it with full glass of water pantoprazole 40 mg tablet,delayed release (DR/EC) 40 mg PO BID Qty: 180 2RF Rx Instructions: take one tablet half an hour before breakfast acetaminophen [Tylenol] 325 mg capsule 650 mg PO Q6H PRN sennosides [Natural Senna Laxative] 8.6 mg tablet 17.2 mg PO BEDTIME Qty: 180 3RF ferrous sulfate [FeroSul] 325 mg (65 mg iron) tablet 325 mg PO Print Language: Japanese
[2024-08-18 17:13] LABS: MANUAL DIFF FLAG NO
[2024-08-18 17:26] LABS: Prothrombin Time 11.5 SEC (10.9-12.4)
[2024-08-18 17:27] LABS: Basophils Absolute Auto 0.1 X10*3/uL (0.0-0.2); Basophils Percent Auto 0.5 % (0-2); Eosinophils Absolute Auto 0.2 X10*3/uL (0.0-0.4); Eosinophils Percent Auto 2.2 % (0-4); Hematocrit 38.5 % (37.0-47.0); Hemoglobin 12.6 g/dl (12.0-16.0); Imm Gran Abs Auto 0.06 X10*3/uL (0.00-0.03); Imm Gran Pct Auto 0.6 % (0.0-0.4); Lymphocytes Absolute Auto 3.7 X10*3/uL (1.2-4.9); Lymphocytes Percent Auto 34.3 % (20-40); Mean Corpuscular HGB Conc 32.7 g/dl (31.0-35.0); Mean Corpuscular Hemoglobin 28.5 pg (27.0-33.0); Mean Corpuscular Volume 87.1 fL (80.0-98.0); Monocytes Absolute Auto 0.5 X10*3/uL (0.1-1.2); Monocytes Percent Auto 4.9 % (2-11); Neutrophils Absolute Auto 6.1 x10*3/uL (2.0-8.3); Neutrophils Percent Auto 57.5 % (45-73); Platelet Count 358 X10*3/uL (160-400); Red Blood Count 4.42 X10*6/uL (4.20-5.50); Red Cell Distribution Width 13.1 % (11.0-16.0); White Blood Count 10.7 X10*3/uL (4.8-10.8)
[2024-08-18 17:45] LABS: B Type Natriuretic Peptide < 10 pg/mL (<100)
[2024-08-18 17:47] LABS: Alanine Aminotransferase 163 U/L (0-31); Albumin Level 4.6 g/dL (3.5-5.0); Alkaline Phosphatase 135 U/L (39-117); Anion Gap 13 (12-20); Aspartate Amino Transferase 56 U/L (5-31); Bilirubin Direct 0.2 mg/dL (0.0-0.5); Bilirubin Total 0.4 mg/dL (0.0-1.0); Blood Urea Nitrogen 17 mg/dL (9-16); Calcium 9.9 mg/dL (8.4-10.2); Carbon Dioxide 28 mmol/L (22-29); Chloride 99 mmol/L (96-108); Creatinine Clr Calc Pharmacy 82.1; Estimated Glomerular Filt Rate > 60; Glucose Random 174 mg/dL (60-115); Magnesium 1.9 mg/dL (1.6-2.6); Potassium 3.4 mmol/L (3.3-5.1); Sodium 137 mmol/L (135-145); Total Protein 7.7 g/dL (6.5-8.0)
[2024-08-18 17:51] LABS: Troponin-I High Sensitivity < 2.7 ng/L (<3.5-17.0)
[2024-08-18 17:52] LABS: Influenza A PCR NEGATIVE (Negative); Influenza B PCR NEGATIVE (Negative); Resp Syncy Virus RNA Qual PCR NEGATIVE (Negative); SARS COV2 PCR INHOUSE NEGATIVE (Negative)
[2024-08-18 18:02] LABS: TSH reflex Free T4 1.52 uIU/mL (0.32-4.0)
[2024-08-18 19:53] VITALS: BP 131/76; PULSE 136; RESP 25; TEMP 36.9; O2SAT 100
[2024-08-18 21:46] VITALS: BP 110/63; PULSE 130; RESP 17; TEMP 37; O2SAT 100
[2024-08-18] MEDS: iohexoL 350 MG/ML 100 ML INFUS..BTL 75 ML IV (23:01)
[2024-08-18 23:54] VITALS: BP 110/63; PULSE 125
[2024-08-18] MEDS: Propranolol HCL 40 MG TABLET 80 MG PO (23:54)
[2024-08-19 00:06] VITALS: BP 110/63; PULSE 125; RESP 16; TEMP 37; O2SAT 100
== END 2024-08-19 00:07 | disposition home or self-care (01) ==
PROVIDERS: Physician Assistant; Emergency Provider Emergency Medicine; PCP Nurse Practitioner Primary Care
DX: R00.0 Tachycardia, unspecified (principal); I49.9 Cardiac arrhythmia, unspecified; R51.9 Headache, unspecified; I10 Essential (primary) hypertension; R06.02 Shortness of breath; Z79.899 Other long term (current) drug therapy; Z03.818 Encounter for observation for suspected exposure to other biological agents ruled out
CPT/HCPCS: 0241U; 36415; 71045; 71275; 80048; 80076; 83735; 83880; 84443; 84484; 85025; 85610; 99284; Q9967

== ENCOUNTER 2024-08-29 09:01 | Outpatient (AMB) | payer MEDICAID, SELFPAY ==
--- NOTE | 2024-08-29 09:02 | MHC.OFFVIS ---
Vital Signs 08/29/24 09:03 Height 5 ft 4 in Weight 230 lb 6.129 oz BMI 39.5 BP 112/78 Blood Pressure Location Lt brachial Position Sitting Pulse 76 Pulse Source Pulse Oximeter Pulse Oximetry (%) 98 Oxygen Delivery Method Room Air Intake Visit Reasons: Shortness of breath Allergies No Known Allergies [No Known Allergies*] Allergy (Verified 08/29/24 09:09) HPI HPI Shortness of breath: Details: Alisha is a pleasant 53 year old female, never smoker, with underlying HTN and anemia. She was referred for pulmonary evaluation by nephrology. She reports worsening dyspnea on exertion over the last three months, occasionally at rest. She also reports a dry cough with moderate exertion. Denies BLE edema or orthopnea. She denies wheezing or chest tightness. She denies h/o asthma. She endorses seasonal allergies, using zyrtec PRN and nasal spray with good effect. She also reports paroxsymal nocturnal dyspnea, insomnia, nonrestorative sleep, and daytime fatigue. Denies prior sleep study. She denies any occupational exposures. She is unsure of any pertinent family history. She reports second hand smoke exposure. [facility] Medical History (Updated 08/29/24 @ 09:28 by Sandra Stone NP) Helicobacter pylori (H. pylori) Transaminitis Morbid obesity Migraine Anemia HTN (hypertension) Surgical History History of esophagogastroduodenoscopy (EGD) Hx of colonoscopy Hx of cystoscopy Hx of hysterectomy History of cholecystectomy Family History Father Heart disease Mother Heart disease Social History Alcohol intake: never Patient Tobacco Use Status: Never used Tobacco Review of Systems Const Denies chills, Denies excessive sweating, Denies fever(s), Denies headache(s) and Denies night sweats Eyes Denies dry eyes, Denies irritation and Denies itchy eyes ENT Reports Normal hearing present, Denies headache(s), Denies nasal congestion, Denies nasal discharge, Denies post nasal drip and Denies sore throat Card Denies chest pain, Denies chest pain at rest, Denies chest pain with activity, Denies claudication, Denies leg edema and Denies orthopnea Resp Denies chest congestion, Denies excessive phlegm production, Denies pain on inspiration, Denies pain with cough, Denies stridor and Denies wheezing Musc Denies myalgias Neuro Reports Normal hearing present and Denies headache(s) Endo Denies excessive sweating Angel/Lymph Denies lymphadenopathy Aller/Immun Denies itchy eyes, Denies seasonal rhinorrhea and Denies wheezing Physical Exam Const General: cooperative, healthy appearing, comfortable, no acute distress, well developed and alert Nutritional Appearance: obese Orientation/consciousness: patient oriented x3 Limitations: no limitations HEENT Head: Yes normal to inspection, Yes normocephalic and Yes atraumatic Ears: hearing grossly normal bilaterally and external ears normal Eyes General: appearance normal, both eyes and all related structures Eyelids: Yes eyelids normal Sclerae: sclerae normal EOM: EOMs intact bilaterally Neck Neck: Yes normal visual inspection and Yes no lymphadenopathy Lymphatic: no lymphadenopathy noted Chest Chest palpation & inspection: normal inspection of the chest Resp Effort & Inspection: normal respiratory effort, able to speak in complete sentences, no audible wheezes, no cough, no stridor, not tachypneic, no tripod positioning and no use of accessory muscles Auscultation: clear to auscultation bilaterally Cardio Jugular venous distension: no JVD Rate: regular rate Rhythm: regular rhythm Skin Other: warm, dry General skin exam: no rashes or lesions noted Neuro General: patient oriented x3 Cranial nerves: Yes Normal hearing present Cognition (Neuro): normal cognition Gait exam (Neuro): Normal gait present Extrem General: Yes normal to inspection, Yes capillary refill normal, Yes no clubbing, cyanosis or edema and Yes no pedal edema Psych Appearance: grossly normal and well kempt Speech and movement: Normal speech and movement present and Clear speech present Affect: normal affect Attitude: cooperative Thought process: Normal thought process present Thought content: Normal thought content present Insight: Good insight present (Psych) Judgement: Good judgement present (Psych) Results Reviewed Results Reviewed: [address] [address] [address] Scan Report Signed Patient: Alisha Proctor MR#: [id number] : 1970 Acct:[id number] Age/Sex: 53 / F ADM Date: 08/18/24 Loc: HO.ED Attending Dr: Ordering Physician: Garry Mills Date of Service: 08/18/24 Procedure(s): CT angio chest PE protocol Accession Number(s): [id number] cc: Garry Mills; MYESHA TRACY NP~ EXAMINATION: CTA CHEST CLINICAL INFORMATION: Shortness of breath, tachycardia, dyspnea, elevated heart rate EXAMINATION: CT ANGIOGRAM OF THE CHEST WITH AND WITHOUT CONTRAST (CT PULMONARY ANGIOGRAM FOR PE) CLINICAL INFORMATION: shortness of breath, tachycardia COMPARISON: Chest radiograph 06/01/2018 TECHNIQUE: Prior to contrast administration, noncontrast localization images were obtained. Subsequently, multidetector volumetric imaging was performed from the thoracic inlet to the pubic symphysis through the chest, abdomen, and pelvis following the administration of 85 mL Omnipaque 350 intravenous contrast. No contrast reaction reported Sagittal, coronal, and MIP oblique sagittal (through the chest only) reformatted images were obtained on the CT workstation, uploaded to PACS, and reviewed. This CT examination was performed using dose optimization techniques as appropriate, variously including the following: *Automated exposure control *Adjustment of mA and/or kV according to patient size (this includes techniques or standardized protocols for targeted exams where dose is matched to indication/reason for exam; i.e. extremities or head) *Use of iterative reconstruction technique Total exam dose-length product: 369 mGy-cm FINDINGS: QUALITY OF STUDY/CONTRAST BOLUS: Satisfactory. PULMONARY ARTERIES: No central or segmental pulmonary emboli. CORONARY ARTERY CALCIUM: None seen THORACIC AORTA: No aneurysm or dissection. LUNG: No focal consolidation, nodules or masses. PLEURA: No pleural effusion or pneumothorax. MEDIASTINUM: Normal heart size. No pericardial effusion. No hilar or mediastinal lymphadenopathy. No evidence of septal bowing or right heart strain. CHEST WALL/AXILLA: No axillary or internal mammary lymphadenopathy. OSSEOUS STRUCTURES: No acute or suspicious osseous abnormality. VISUALIZED ABDOMEN: No significant findings in the upper abdomen. Surgical clips are present in the gallbladder fossa. CT/CT angio chest PE protocol IMPRESSION: No evidence of pulmonary emboli. VTE: negative. Fleischner guidelines were followed. Electronically signed by: Reinaldo Joshua MD 08/18/2024 11:18 PM [facility] Dictated By: Reinaldo Joshua MD Signed By: <Electronically signed by Reinaldo Joshua MD in OV> 08/18/248 DD/ 06 TD/TT: 08/18/242306 Railway Head Tender: ADEN Assessment & Plan Assessment & Plan (1) Shortness of breath: Code(s): R06.02 - Shortness of breath Category: Medical (2) Paroxysmal nocturnal dyspnea: Code(s): R06.00 - Dyspnea, unspecified Category: Medical (3) Non-restorative sleep: Code(s): G47.8 - Other sleep disorders Category: Medical Plan Alisha was referred for pulmonary evaluation for ongoing dyspnea. She has a h/o anemia, however last labs WNL. Recent CTA unremarkable. Will send for PFT to assess for an obstructive component contributing to symptoms. She did have an echo in 2021 which revealed LVEF 60-65% and RVSP 34. If PFT unremarkable, would consider repeating echo to assess for pulmonary hypertension. Patient also with symptoms suggestive of АНДРЕЙ, will send for home sleeo study. All questions were answered and patient is in agreement of plan. Will follow up to review results or sooner if needed. Orders: Orders RT home sleep study Today G47.8 - Other sleep disorders, R06.00 - Dyspnea, unspecified PFT pulmonary function test Today R06.02 - Shortness of breath Coding Level of Care Code New Pt Level 4 (43623) Diagnoses Shortness of breath R06.02 Paroxysmal nocturnal dyspnea R06.00 Non-restorative sleep G47.8
[2024-08-29 09:03] VITALS: BP 112/78; PULSE 76; O2SAT 98; BMI 39.5
== END 2024-08-29 09:28 | disposition home or self-care (01) ==
PROVIDERS: PCP Nurse Practitioner Primary Care; Referring Provider Internal Medicine Nephrology; Visit Provider Nurse Practitioner Family
DX: R06.02 Shortness of breath (principal); G47.8 Other sleep disorders
CPT/HCPCS: 99214

== ENCOUNTER → 2024-08-29 09:01 | Outpatient (BNVA) | payer MEDICAID, SELFPAY | PROVIDERS: PCP Nurse Practitioner Primary Care; Referring Provider Internal Medicine Nephrology; Visit Provider Nurse Practitioner Family | DX: R06.00 Dyspnea, unspecified (principal); R06.02 Shortness of breath; I10 Essential (primary) hypertension; G47.8 Other sleep disorders | CPT/HCPCS: 99212 ==

== ENCOUNTER 2024-10-18 13:57 | Outpatient (REF) | payer MEDICAID, SELFPAY ==
--- NOTE | 2024-10-18 14:05 | PFT_ITS ---
Flows: FEV1: 113 % of predicted at 3.03 L FVC: 101 % of predicted at 3.42 L FEV1/FVC: 89 % Bronchodilator response: Absent Volumes: Total lung capacity: 91 % of predicted at 4.71 L Residual volume: 82 % of predicted at 1.29 L Slow vital capacity: 94 % of predicted at 3.43 L Expiratory reserve volume: 0 % of predicted at 0 L Diffusion capacity: Normal Impression: No obstructive or restrictive ventilatory defect. No bronchodilator response. Decreased expiratory reserve volume suggests extrathoracic restriction likely secondary to abdominal obesity. MTDD
== END 2024-10-18 13:58 | disposition home or self-care (01) ==
LOC: HO.RESP 13:57
PROVIDERS: PCP Nurse Practitioner Primary Care; Visit Provider Nurse Practitioner Family
DX: R06.02 Shortness of breath (principal); R06.00 Dyspnea, unspecified; G47.8 Other sleep disorders; G47.33 Obstructive sleep apnea (adult) (pediatric)
CPT/HCPCS: 94010; 94640; 94727; 94729; 95806

== ENCOUNTER → 2024-10-18 14:05 | Outpatient (BNV) | payer MEDICAID, SELFPAY | PROVIDERS: PCP Nurse Practitioner Primary Care; Visit Provider Internal Medicine Pulmonary Disease | DX: R06.02 Shortness of breath (principal) | CPT/HCPCS: 94060; 94727; 94729 ==

== ENCOUNTER 2024-12-07 14:28 | Outpatient (REF) | payer MEDICAID, SELFPAY ==
[2024-12-07 15:55] LABS: Anion Gap 11 (12-20); Blood Urea Nitrogen 12 mg/dL (9-16); Carbon Dioxide 28 mmol/L (22-29); Chloride 109 mmol/L (96-108); Estimated Glomerular Filt Rate > 60; Potassium 4.4 mmol/L (3.3-5.1); Sodium 144 mmol/L (135-145)
--- OUTSIDE RECORDS SUMMARY | 2024-12-07 18:17 | XMS_ITS | Encounter Summary ---
Author Organization [employer] Address [address] [facility] [address] [place] [address] Care Team Providers Care Business Account Manager Name Role Phone Kathy Jang Primary Care Provider [phone] Reason for Visit * Reason Onset Date Comments Med Refill 10/01/2023 Encounter Details Date Type Department Care Team ([facility] st Contact Info) Description 10/01/2023 Refill [facility] [address] [place] [address] Kathy Jang ANP [address] [place] [address] Seasonal allergies Social History Tobacco Use Types Packs/Day Years Used Date Smoking Tobacco: Never Smokeless Tobacco: Never Alcohol Use Standard Drinks/Week Comments Not Currently 0 (1 standard drink = 0.6 oz pur e alcohol) Depression Answer Date Recorded Patient Health Questionnaire-9 Score 0 06/25/2023 Housing Stability Answer Date Recorded What is your housing situation today? I have dina mccormick 08/10/[address] you li ve. Do you have problems with any of the following? None of the above 08/10/2023 Food Insecurity Answer Date Recorded Within the past 12 months, y ou worried that your food would run out before you got money to buy more: Never True 08/10/2023 Within the past 12 months,th e food you bought just didn't last and you didn't have enough money to get more: Never True 03/2023 Transportation Answer Date Recorded In the past 12 months, has l ack of transportation kept you from medical appts, meetings, work or from getting things needed for daily living? No 08/10/2023 Utilities Answer Date Recorded In the past 12 months, has t he electric, gas, oil or water company threatened to shut off services in your home? No 08/10/2023 Depression Answer Date Recorded Patient Health Questionnaire-2 Score 0 06/25/2023 Comments Unknown Sex and Gender Information Value Date Recorded Sex Assigned at Female 08/04/2022 10:18 AM EDT Legal Sex Female 10:18 AM EDT Gender Identity Female 06/23/2023 3:55 PM EDT Sexual Orientation Choose not to disclose 2021 10:18 AM EDT documented as of this encounter Plan of Treatment Upcoming Encounters Date Type Department Care Team (Late st Contact Info) Description 12/20/2024 2:15 PM EDT Office Visit [facility] [address] [place] [id number] Kathy Jang ANP [address] [place] [address] documented as of this encounter Visit Diagnoses Diagnosis Seasonal allergies Allergic rhinitis, cause unspecified documented in this encounter Additional Health Concerns Assessment Noted Time PHQ-9 Depression Total Score: 0 06/25/20 23 2:19 PM EDT documented as of this encounter Care Teams Business Account Manager Relationship Specialty Start Date End Date Kathy Jang ANP [address] [place] [id number] PCP - General Family Medicine 05/29/21 documented as of this encounter
--- OUTSIDE RECORDS SUMMARY | 2024-12-07 18:17 | XMS_ITS | Encounter Summary ---
Author Organization [employer] Address [address] [place] [address] Care Team Providers Care Tassel Snipper Name Role Phone Kathy Jang Primary Care Provider [phone] Reason for Visit * Reason Onset Date Comments Med Refill 09/01/2023 Encounter Details Date Type Department Care Team (Late st Contact Info) Description 09/01/2023 Refill [facility] [address] [place] [address] Kathy Jang ANP [address] [place] [address] Iron deficiency anemia, unspecified iron deficiency anemia type Social History Tobacco Use Types Packs/Day Years [...] Description 12/20/2024 2:15 PM EDT Office Visit [facility] [address] [place] [address] Kathy Jang ANP [address] [place] [address] documented as of this encounter Visit Diagnoses Diagnosis Iron deficiency anemia, unspecified iron deficiency anemia type documented in this encounter Additional Health Concerns Assessment Noted Time PHQ-9 Depression Total Score: 0 06/25/20 23 2:19 PM EDT documented as of this encounter Care Teams Tassel Snipper Relationship Specialty Start Date End Date Kathy Jang ANP [address] [place] [id number] PCP - General Family Medicine 05/29/21 documented as of this encounter
--- OUTSIDE RECORDS SUMMARY | 2024-12-07 18:17 | XMS_ITS | Encounter Summary ---
Author Organization [employer] Address [address] 7t [place] [address] Care Team Providers Care Holter Technician Name Role Phone Kathy Jang Primary Care Provider [phone] Reason for Visit * Reason Onset Date Comments Med Refill 10/01/2023 Encounter Details Date Type Department Care Team (Late st Contact Info) Description 10/01/2023 Refill [facility] [address] [place] [address] Kathy Jang ANP [address] [place] [address] Iron deficiency anemia, unspecified iron deficiency anemia [...] Description 12/20/2024 2:15 PM EDT Office Visit [facility] [address] [place] [address] Kathy Jang ANP [address] [place] [address] documented as of this encounter Visit Diagnoses Diagnosis Iron deficiency anemia, unspecified iron deficiency anemia type documented in this encounter Additional Health Concerns Assessment Noted Time PHQ-9 Depression Total Score: 0 06/25/20 23 2:19 PM EDT documented as of this encounter Care Teams Holter Technician Relationship Specialty Start Date End Date Kathy Jang ANP [address] [place] [phone] PCP - General Family Medicine 05/29/21 documented as of this encounter
--- OUTSIDE RECORDS SUMMARY | 2024-12-07 18:17 | XMS_ITS | Clinical Summary ---
Author Organization [facility] Address [address] [place] [address] Care Team Providers Care Barrel Cooper Name Role Phone Misael Napier SQL SERVER ARCHITECT-C Primary Care Provider Unavailable Allergies No known active allergies Medications ergocalciferol (VITAMIN D-2) 1.25 MG (61686 UT) capsule Take 1 capsule by mouth [...] Additional history exists Insurance [place] Care Teams Barrel Cooper Relationship Specialty Start Date End Date Misael Napier FNP-C PCP - General Nurse Practitioner 02/13/21
--- OUTSIDE RECORDS SUMMARY | 2024-12-07 18:17 | XMS_ITS | Encounter Summary ---
Author Organization [facility] [facility] Address [address] [place] [address] 7t [place] [address] Care Team Providers Care Health And Safety Manager Name Role Phone Kathy Jang Primary Care Provider [phone] Encounter Details Date Type Department Care Team (Late st Contact Info) Description 01/02/2023 Orders Only [facility] MED & PEDS [address] [place] [address] Alyson Bautista LPN Social History Tobacco Use Types Packs/Day Years Used Date Smoking Tobacco: Never Assessed Comments Unknown Sex and Gender Information Value [...] Description 12/20/2024 2:15 PM EDT Office Visit [facility] MEDICINE [address] [place] [address] Kathy Jang ANP [address] [place] [address] documented as of this encounter Visit Diagnoses Not on filedocumented in this encounter Care Teams Health And Safety Manager Relationship Specialty Start Date End Date Kathy Jang ANP [address] [place] [address] PCP - General Family Medicine 05/29/21 documented as of this encounter
--- OUTSIDE RECORDS SUMMARY | 2024-12-07 18:17 | XMS_ITS | Clinical Summary ---
Author Organization [employer] Address [address] [place] [address] 7t [place] [address] Care Team Providers Care Brand Representative Name Role Phone Myesha Tracy SURINDER Primary Care Provider [phone] Allergies Active Allergy Reactions Criticality Noted Date Comments Hydrocodone 01/27/2019 Other reaction(s): nausea, blurry vision, headache Medications hydroCHLOROthiazi de (HYDRODiuril) 12.5 MG tabletIndications :Benign essential HTN TAKE 1 TABLET BY MOUTH EVERY MORNING 90 tablet 3 4 Active cholecalciferol (Vitamin D-3) 50 MCG (1999 UT) tabletIndications :Vitamin D deficiency TAKE 1 TABLET BY MOUTH EVERY MORNING 90 tablet 3 4 Active lidocaine (Lidoderm) 5 % patchIndications: Rib pain Apply 1 patch topically Once per day. APPLY 1 PATCH TOPICALLY TO SKIN, LEAVE ON FOR 12 HOURS AND OFF FOR 12 HOURS DIRECTED, as needed for pain 30 patch 5 4 Active cetirizine (ZyrTEC) 10 MG tabletIndications :Seasonal allergies TAKE 1 TABLET BY MOUTH EVERY DAY NEEDED FOR ALLERGIES 90 tablet 1 4 Active ferrous sulfate (FeroSul) 325 (65 Fe) MG tabletIndications :Iron deficiency anemia, unspecified iron deficiency anemia type Take 1 tablet (325 mg) by mouth Once daily. 90 tablet 4 Active lisinopril 40 MG tabletIndications :Essential hypertension Take 1 tablet (40 mg) by mouth Once daily. 90 tablet 4 Active Active Problems Problem Noted Date Diagnosed Date Status post hysterectomy 11/06/2023 Overview (11/06/2023): D/t fibroma BARKER (nonalcoholic steatohepatitis) 11/06/2023 High cholesterol 11/06/2023 Overview (02/11/2024): Images from the original note were not included. Seen by endo at [facility] 12/21/23 (sent d/t very elevated LDL in context of elevated LFTs, not a candidate for statin). 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 07/23/2015 Mixed anxiety and depressive disorder 07/23/2015 Visual impairment 07/23/2015 Encounters Date Type Department Care Team Description 09/19/2024 3:00 PM EST Office Visit [facility] [address] [place] [address] Myesha Tracy ANP Diarrhea, unspecified type (Primary Dx); Encounter for immunization; BARKER (nonalcoholic steatohepatitis); Essential hypertension 09/19/2024 Travel 09/09/2024 Patient Outreach [facility] [address] [place] [phone] Myesha Tracy ANP Pre-visit Planning ([facility] screening was completed on 05/31/2024) from Last 3 Months Immunizations Name Administration Dates Next Due Hep A, Adult 06/05/2021,10/01/2015 Hep B, adult 09/04/2016,11/30/2015,10/01/2015 INFLUENZA INJECTABLE QUADRIV ALANT CCIIV4 MDCK Multi-dose vial 07/22/2019 Influenza Injectable Quadriv alant Preservative Free IIV4 MDCK 09/30/2023,07/13/2020 Influenza injectable quadriv alent IIV4 with preservative 08/05/2018,09/16/2017,09/04/2016,2014 Influenza injectable quadriv alent preservative free 09/23/2021,07/21/2019 Influenza, IIV3, injectable 08/10/2014 Influenza, seasonal, injecta ble, preservative free 09/19/2024 Pfizer Covid-19 Vaccine 12+ 08/12/2024, Tdap 07/23/2015 Zoster, Recombinant 05/09/2022,02/13/2022 Social History Tobacco Use Types Packs/Day Years Used Date Smoking Tobacco: Never Passive Smoke Exposure: Never Smokeless Tobacco: Never Tobacco Cessation:Counseling Given: Not Answered Alcohol Use Standard Drinks/Week Comments Not Currently 0 (1 standard drink = 0.6 oz pur e alcohol) Depression Answer Date Recorded Patient Health Questionnaire-9 Score 11 09/19/2024 Patient Health Questionnaire-9 Score 11 09/19/2024 Last PHQ-9: Questionnaire Data Not on file 1 11/20/2023 Housing Stability Answer Date Recorded What is [...] from getting things needed for daily living? Yes, it has kept me from medical appointments or getting medications. 05/31/2024 Utilities Answer Date Recorded In the past 12 months, has t he electric, gas, oil or water company threatened to shut off services in your home? No 08/10/2023 Depression Answer Date Recorded Patient Health Questionnaire-2 Score 3 09/19/2024 Internet Access Answer Date Recorded Internet Access Q1 Yes 06/06/2024 Internet Access Q2 Not on file 06/06/2024 Comments Unknown Sex and Gender Information Value Date Recorded Sex Assigned at Female 08/04/2022 10:18 AM EDT Legal Sex Female 10:18 AM EDT Gender Identity Female 06/23/2023 3:55 PM EDT Sexual Orientation Choose not to disclose 2021 10:18 AM EDT Last Filed Vital Signs Vital Sign Reading Time Taken Comments Blood Pressure 138/66 09/19/2024 3:06 PM EST Pulse 91 09/19/2024 3:06 PM EST Temperature 36.3 ??C (97.4 ??F) 09/19/2024 3:06 PM ES T Respiratory Rate 14 09/19/2024 3:06 PM EST Oxygen Saturation 99% 09/19/2024 3:06 PM EST Inhaled Oxygen Concentration - - Weight 104 kg (228 lb 9.6 oz) 09/19/2024 3:06 PM EST Height 162.6 cm (5' 4 ) 02/11/2024 1:09 PM EDT Body Mass Index 39.24 02/11/2024 1:09 PM EDT Plan of Treatment Upcoming Encounters Date Type Department Care Team (Late st Contact Info) Description 12/20/2024 2:15 PM EDT Office Visit [facility] [address] [place], [place] [phone] Myesha Tracy ANP [address] [place], [place] [phone] Health Maintenance Due Date Last Done Comments CT Colonography 1971 FIT DNA/Cologuard 1971 FIT 1971 FOBT 1970 HIV Screening 1970 Sigmoidoscopy 1970 Family Planning (PISQ) 12/09/1986 Hepatitis C Screening 12/09/1989 Pap Smear 12/09/1992 Cervical Cancer Screening 12/09/2001 HPV/Cotest 12/09/2001 Pneumococcal Vaccine: 50+ Years (1 of 1 - PCV) 12/09/2021 Depression Monitoring (PHQ-9) 03/20/2025 09/19/2024, 09/19/2024 SDOH Screening 05/31/2025 05/31/2024 DTaP/Tdap/Td Vaccines (2 - Td or Tdap) 07/23/2025 07/23/2015 Alcohol/Substance Use Screening 09/19/2025 09/19/2024 Depression Screening 09/19/2025 09/19/2024, 09/19/20 24 Tobacco Screening 09/19/2025 09/19/2024 Mammogram 11/16/2025 11/16/2023, 08/21/2021 Colonoscopy 12/22/2025 12/22/2022 Colorectal Cancer Screening 12/22/2025 Lipid Panel 09/30/2028 09/30/2023, 06/15/2020 RSV Patients and Patients Aged 60 years or older (1 - 1-dose 75+ series) 12/09/2046 Hepatitis B Vaccines Completed 09/04/2016, 11/30/2015, 10/01/2015 Hepatitis A Vaccines Completed 06/05/2021, 10/01/20 15 Zoster Vaccines Completed 05/09/2022, 02/13/2022 COVID-19 Vaccine Completed 08/12/2024, 11/2023, 05/09/2022, Additional history exists Influenza Vaccine Completed 09/19/2024, , 09/23/2021, Additional history exists HIB Vaccines Aged Out No longer eligi ble based on patient's age to complete this topic HPV Vaccines Aged Out No longer eligi ble based on patient's age to complete this topic IPV Vaccines Aged Out No longer eligi ble based on patient's age to complete this topic Meningococcal Vaccine Aged Out No chey gaby eligible based on patient's age to complete this topic RSV under 20 months Aged Out No longe r eligible based on patient's age to complete this topic Rotavirus Vaccines Aged Out No longer eligible based on patient's age to complete this topic Procedures Procedure Name Priority Date/Time Associated Diagnosis Comments CREATININE, SERUM Routine 12/07/2024 3:1 7 PM EST UREA NITROGEN (BUN) Routine 12/07/2024 3 :17 PM EST ELECTROLYTE PANEL Routine 12/07/2024 3:1 7 PM EST BI MAMMOGRAM SCREENING TOMOSYNTHESIS BILATERAL Routine 11/16/2023 2:00 PM EST LIPID PANEL, STANDARD Routine 09/30/2023 11:56 AM EST Screening, lipid HM COLONOSCOPY Routine 12/22/2022 from Last 3 Months or Most Recently Relevant to Health Maintenance Results * Creatinine, Serum (12/07/2024 3:17 PM EST) Creatinine, Serum 0.77 0.5 - 1.4 mg/dL [facility] Estimated Glomerular Filt Rate >60 [facility] Comment:Chronic Kidney Disea se: Estimated GFR < 60 mL/min/1.73s2Sturkc Kidney Disease: Estimated GFR < 15 mL/min/1.73m2 12/07/2024 3:17 PM EST 12/07/2024 3:17 PM EST Generic External Data Provider LAB BLOOD ORDERAB LES Final Result Performing Organization Address [facility]/ZIP Co de Phone Number [facility] [address] [place] [phone] * BUN (Blood Urea Nitrogen) (12/07/2024 3:17 PM EST) Urea Nitrogen (BUN) 12 9 - 16 mg/dL [facility] 12/07/2024 3:17 PM EST 12/07/2024 3:17 PM EST Generic External Data Provider LAB BLOOD ORDERAB LES Final Result Performing Organization Address City[facility]/ZIP Co de Phone Number [facility] [address] [place] [phone] * (ABNORMAL) Electrolyte Panel (12/07/2024 3:17 PM EST) Sodium 144 135 - 145 mmol/L [facility] Potassium 4.4 3.3 - 5.1 mmol/L [facility] Chloride 109(H) 96 - 108 mmol/L [facility] Carbon Dioxide 28 22 - 29 mmol/L [facility] Anion Gap 11(L) 12 - 20 [facility] 12/07/2024 3:17 PM EST 12/07/2024 3:17 PM EST us Generic External Data Provider LAB BLOOD ORDERAB LES Final Result [facility] [address] [place] [address] [phone] * BI Mammogram Screening Tomosynthesis Bilateral (11/16/2023 2:00 PM EST) Anatomical Region Laterality Modality Breast Bilateral Mammography 11/16/2023 2:00 PM EST Narrative 12/03/2023 7:55 PM EST ? [facility] ? [address] ?[place] [address] ? Mammography Report ? Signed ? Patient: Jack Caqumeredith,Alisha ?MR#: ?? [id number] ? : 1970 ?Acct:[id number] ? Age/Sex: 52 / F ?ADM Date: 11/16/23 ? Loc: HO.MAMMO ? Attending Dr: Myesha Tracy CANDY CATCHER ? Ordering Physician: MYESHA TRACY NP ?Results: 1Negative ? Date of Service: 11/16/23 ?Follow Up: 1 Year From Orig ?? inal Mammogram ? Procedure(s): MM tomosynthesis screening BI ?? Accession Number(s): [id number] ? cc: ROSSANA,MYESHA GIL ? EXAMINATION: ?? MM SCREENING DIGITAL BREAST TOMOSYNTHESIS, BILATERAL ? CLINICAL INFORMATION: ? Screening. Asymptomatic. ? COMPARISON: ?? Mammography: This study is compared with prior exams dating back to ?? 2015. ? TECHNIQUE: ?? Digital breast tomosynthesis is performed in both the craniocaudal and ?? mediolateral oblique views along with computer-aided detection (CAD). ?? Synthesized 2D images are generated from the tomosynthesis. ? FINDINGS: ?? There are scattered areas of fibroglandular density (ACR BI-RADS breast ?? composition Category b). ? There are no significant masses, abnormal calcifications, or other ?? abnormalities. ? MM/MM tomosynthesis screening BI ?? IMPRESSION: ?? No mammographic evidence of malignancy. ? ASSESSMENT: ? BI-RADS BI-RADS 1 - Negative ? RECOMMENDATION: ?? Routine annual mammography screening. ? 1 year F/U ? This examination should not preclude the clinical evaluation of a ?? suspicious palpable abnormality. ? This patient's information was entered into a reminder system with a ?? target due date for their next mammogram. ? Dictated By: ?Cherrie Paez MD ? Signed By: ?<Electronically signed by Cherrie Paez MD in OV> ? 12/03/23 1951 ? DD/ 1400 ? TD/TT: ? Wire Lather: ? Procedure Note Donchinoter, Image - 12/03/2023 [facility] [address] [place] [address] Mammography Report Signed Patient: Alisha Proctor#: [id number] : 1970Acct:[id number] Age/Sex: 52 / FADM Date: 11/16/23 Loc: [facility] Attending Dr: Myesha Tracy NP Ordering Physician: MYESHA TRACYesults: 1Negative Date of Service: 11/16/23Follow Up: 1 Year From Orig inal Mammogram Procedure(s): MM tomosynthesis screening BI Accession Number(s): [id number] cc: TRACY,MYESHA CANDY CATCHER EXAMINATION: MM SCREENING DIGITAL BREAST TOMOSYNTHESIS, BILATERAL CLINICAL INFORMATION: Screening. Asymptomatic. COMPARISON: Mammography: This study is compared with prior exams dating back to 2016. TECHNIQUE: Digital breast tomosynthesis is performed in both the craniocaudal and mediolateral oblique views along with computer-aided detection (CAD). Synthesized 2D images are generated from the tomosynthesis. FINDINGS: There are scattered areas of fibroglandular density (ACR BI-RADS breast composition Category b). There are no significant masses, abnormal calcifications, or other abnormalities. MM/MM tomosynthesis screening BI IMPRESSION: No mammographic evidence of malignancy. ASSESSMENT: BI-RADS BI-RADS 1 - Negative RECOMMENDATION: Routine annual mammography screening. 1 year F/U This examination should not preclude the clinical evaluation of a suspicious palpable abnormality. This patient's information was entered into a reminder system with a target due date for their next mammogram. Dictated By: Cherrie Paez MD Signed By: <Electronically signed by Cherrie Paez MD in OV> 12/03/231950 DD/ 1400 TD/TT: Wire Lather: Myesha Tracy ANP IMG BI PROCEDURES Final Result * (ABNORMAL) Lipid Panel, Standard (09/30/2023 11:56 AM EST) Triglycerides 164(H) <150 mg/dL [facility] Comment:Desirable Triglyceri de: less than 150 mg/dLBorderline High Triglyceride 150-199 mg/dLHigh Triglyceride: 200-499 mg/dLVery High Triglyceride: greater than or equal to 5OO mg/dL Cholesterol 287(H) <200 mg/dL [facility] Comment:Desirable Cholestero l: less than 200 mg/dLBorderline High Cholesterol: 200-239 mg/dLHigh Cholesterol: greater than 239 mg/dL LDL Cholesterol Calculated 203(H) <100 mg/dL [facility] Comment:Desirable LDL: less than 100 mg/dLNear Optimal/Above Optimal LDL: 110- 129 mg/dLBorderline High LDL: 130-159 mg/dLHigh LDL: 160-189 mg/dLVery High LDL: greater than or equal to 190 mg/dL HDL Cholesterol 52 >40 mg/dL [facility] Comment:Desirable HDL: great er than 40 mg/dL Note: This HDL assay may give artificially low results in patients with liver disease. Blood Venous blood specimen / Unknown 09/30/2023 11:56 AM EST 09/30/2023 1:39 PM EST us Myesha CADENA LAB BLOOD ORDERABLES Final Resul t [facility] [address] [place] [phone] * (ABNORMAL) Colonoscopy (12/22/2022) Colonoscopy Abnormal(A ) Normal us Kuldeep Pacheco MD HEALTH MAINTENANCE Final Result from Last 3 Months or Most Recently Relevant to Health Maintenance [place] [address] [place] [address] [id number] [facility] Care Teams Brand Representative Relationship Specialty Start Date End Date Myesha Tracy ANP [address] [place] [address] PCP - General Family Medicine 05/29/21
--- OUTSIDE RECORDS SUMMARY | 2024-12-07 18:17 | XMS_ITS | Encounter Summary ---
Author Organization [employer] Address [address] [facility] 7t [place] [address] Care Team Providers Care Sr Technical Sales Consultant Name Role Phone Kathy Jang Primary Care Provider [phone] Reason for Visit * Reason Onset Date Comments Med Refill 10/27/2023 Encounter Details Date Type Department Care Team ([facility] st Contact Info) Description 10/27/2023 Refill [facility] [address] [place] [address] Kathy Jang ANP [address] [place] [address] Vitamin D deficiency; Seasonal allergies Social History Tobacco Use Types [...] 12/20/2024 2:15 PM EDT Office Visit [facility] [address] [place] [phone] Kathy Jang ANP [address] [place] [address] documented as of this encounter Visit Diagnoses Diagnosis Vitamin D deficiency Seasonal allergies Allergic rhinitis, cause unspecified documented in this encounter Additional Health Concerns Assessment Noted Time PHQ-9 Depression Total Score: 0 06/25/20 23 2:19 PM EDT documented as of this encounter Care Teams Sr Technical Sales Consultant Relationship Specialty Start Date End Date Kathy Jang ANP [address] [place] [phone] PCP - General Family Medicine 05/29/21 documented as of this encounter
--- OUTSIDE RECORDS SUMMARY | 2024-12-07 18:17 | XMS_ITS | Encounter Summary ---
Author Organization [employer] [facility] Address [address] [place] [address] 7t [place] [address] Care Team Providers Care Tool Analyst Name Role Phone Kathy Jang Primary Care Provider [phone] Encounter Details Date Type Department Care Team (Late st Contact Info) Description 11/04/2022 Orders Only [facility] [address] [place] [address] Alyson Bautista LPN Social History Tobacco Use [...] Description 12/20/2024 2:15 PM EDT Office Visit [facility] [address] [place] [address] Kathy Jang ANP [address] [place] [address] documented as of this encounter Visit Diagnoses Not on filedocumented in this encounter Care Teams Tool Analyst Relationship Specialty Start Date End Date Kathy Jang ANP [address] [place] [address] PCP - General Family Medicine 05/29/21 documented as of this encounter
--- OUTSIDE RECORDS SUMMARY | 2024-12-07 18:17 | XMS_ITS | Encounter Summary ---
Author Organization [employer] Address [address] [facility] 7t [place] [address] Care Team Providers Care Payroll Accounting Manager Name Role Phone Kathy Jang Primary Care Provider Reason for Visit * Reason Onset Date Comments Med Refill 09/01/2023 Encounter Details Date Type Department Care Team ([facility] st Contact Info) Description 09/01/2023 Refill [facility] [address] [place] [address] Kathy Jang ANP [address] [place] [address] Seasonal allergies Social History Tobacco Use Types [...] Description 12/20/2024 2:15 PM EDT Office Visit [facility] [address] [place] [phone] Kathy Jang ANP [address] [place] [address] documented as of this encounter Visit Diagnoses Diagnosis Seasonal allergies Allergic rhinitis, cause unspecified documented in this encounter Additional Health Concerns Assessment Noted Time PHQ-9 Depression Total Score: 0 06/25/20 23 2:19 PM EDT documented as of this encounter Care Teams Payroll Accounting Manager Relationship Specialty Start Date End Date Kathy Jang ANP [address] [place] [phone] PCP - General Family Medicine 05/29/21 documented as of this encounter
--- OUTSIDE RECORDS SUMMARY | 2024-12-07 18:17 | XMS_ITS | Encounter Summary ---
Author Organization [facility] Address [address] [place] [address] [address]t [place] [address] Care Team Providers Care Assurance Sourcing Manager Name Role Phone Kathy Jang Primary Care Provider [phone] Encounter Details Date Type Department Care Team (Late st Contact Info) Description 12/01/2022 Orders Only [facility]ED[facility] [address] [place] [address] Alyson Bautista LPN Social History Tobacco Use [...] Description 12/20/2024 2:15 PM EDT Office Visit [facility] [address] [place] [address] Kathy Jang ANP [address] [place] [address] documented as of this encounter Visit Diagnoses Not on filedocumented in this encounter Care Teams Assurance Sourcing Manager Relationship Specialty Start Date End Date Kathy Jang ANP [address] [place] [address] PCP - General Family Medicine 05/29/21 documented as of this encounter
== END 2024-12-07 14:29 | disposition home or self-care (01) ==
LOC: HO.LAB 14:28
PROVIDERS: PCP Nurse Practitioner Primary Care; Visit Provider Internal Medicine Nephrology
DX: I10 Essential (primary) hypertension (principal); R30.0 Dysuria
CPT/HCPCS: 36415; 80051; 82565; 84520; 87086; 99212

== ENCOUNTER 2024-12-07 14:28 | Outpatient (AMB) | payer MEDICAID, SELFPAY ==
--- NOTE | 2024-12-07 14:31 | HO.NEPHOV ---
Vital Signs 12/07/24 14:35 Height 5 ft 4 in Weight 224 lb 6 oz BMI 38.5 BP 124/70 Blood Pressure Location Rt brachial Position Sitting Pulse 79 Pulse Source Pulse Oximeter Pulse Oximetry (%) 98 Oxygen Delivery Method Room Air Intake Visit Reasons: Per MD 3 mo fu-Conf Tumbler Dyeing Machine Operator Required: Yes Tumbler Dyeing Machine Operator Language: Grass Cutter Services: Tumbler Dyeing Machine Operator Present Tumbler Dyeing Machine Operator Name: Riley [id number] Accompanied by: Self / Same As Patient Allergies No Known Allergies [No Known Allergies*] Allergy (Verified 12/07/24 14:32) HPI Comments Details: Alisha was seen in follow-up for hypertension. She is 53 years of age who has no H/O diabetes mellitus but has history of hypertension for long time. She denies history of retinopathy, neuropathy or LVH . She does not have any nausea, vomiting, diarrhea, shortness of breath, proximal nocturnal dyspnea, orthopnea, pedal edema, hematuria, renal stones, coronary artery disease, congestive heart failure, carotid stenosis, peripheral arterial disease, renal artery stenosis, new bone or back pain. She never had any history of high serum calcium. She denies any history of hepatitis or HIV. She does not get any recurrent sore throat, epistaxis, hemoptysis, photosensitivity, skin rashes. She has no sensorineural hearing deficits. Her renal functions are normal . She has been having intermittent fever with occasional nausea and intermittent urinary symptoms. [facility] Medical History (Updated 12/07/24 @ 14:42 by Jimmy Castañeda MD) Helicobacter pylori (H. pylori) Transaminitis Morbid obesity Migraine Anemia HTN (hypertension) Surgical History History of esophagogastroduodenoscopy (EGD) Hx of colonoscopy Hx of cystoscopy Hx of hysterectomy History of cholecystectomy Family History Father Heart disease Mother Heart disease Social History Alcohol intake: never Patient Tobacco Use Status: Never used Tobacco Review of Systems Const All systems reviewed & are unremarkable except as noted in HPI and below Physical Exam Vital Signs: Last Vital Signs Pulse 79 12/07/24 14:35 BP 124/70 12/07/24 14:35 Pulse Ox 98 12/07/24 14:35 Oxygen Delivery Method Room Air 12/07/24 14:35 BMI result Body Mass Index 38.5 Const General: comfortable and no acute distress Orientation/consciousness: patient oriented x3 HEENT Head: Yes normocephalic Mouth: Normal oral and palatal mucosa present Eyes EOM: EOMs intact bilaterally Neck Neck: Yes supple Resp Auscultation: clear to auscultation bilaterally Cardio Jugular venous distension: no JVD Rate: regular rate GI Palpation (GI): Soft to palpation Auscultation: normal bowel sounds General: Yes no CVA tenderness Back/Spine/Pelvis Back: no CVA tenderness Skin General skin exam: no rashes or lesions noted Neuro General: patient oriented x3 and moves all extremities Extrem General: Yes no pedal edema Results Reviewed Nephrology Results: Hgb 12.6 g/dl (12.0-16.0) 08/18/24 WBC 10.7 X10*3/uL (4.8-10.8) 08/18/24 Plt Count 358 X10*3/uL (160-400) 08/18/24 Sodium 137 mmol/L (135-145) 08/18/24 Potassium 3.4 mmol/L (3.3-5.1) 08/18/24 Chloride 99 mmol/L (96-108) 08/18/24 Carbon Dioxide 28 mmol/L (22-29) 08/18/24 BUN 17 mg/dL (9-16) H 08/18/24 Creatinine 0.92 mg/dL (0.5-1.4) 08/18/24 Calcium 9.9 mg/dL (8.4-10.2) 08/18/24 Urine Protein Negative mg/dL (Neg-Trace) 02/11/24 Assessment & Plan Assessment & Plan (1) HTN (hypertension): Code(s): I10 - Essential (primary) hypertension Category: Medical Qualifiers: Hypertension type: primary hypertension Qualified Code(s): I10 - Essential (primary) hypertension (2) Dysuria: Code(s): R30.0 - Dysuria Category: Medical Plan Alisha has longstanding hypertension. She is on propranolol and lisinopril. She has no microscopic hematuria and proteinuria. Her 24 urine for protein, urine protein creatinine ratio as well as urinalysis were normal. She clearly needs to lose some significant weight. I ordered urine for culture today but did not change any medications. All questions answered .follow-up given Orders: Orders Creatinine Today I10 - Essential (primary) hypertension, R30.0 - Dysuria Electrolytes Today I10 - Essential (primary) hypertension, R30.0 - Dysuria Blood Urea Nitrogen Today I10 - Essential (primary) hypertension, R30.0 - Dysuria Urine Culture Today I10 - Essential (primary) hypertension, R30.0 - Dysuria Coding Level of Care Code Est Pt Level 4 (33713) Diagnoses Primary hypertension I10 Hypertension type: primary hypertension Dysuria R30.0
[2024-12-07 14:35] VITALS: BP 124/70; PULSE 79; O2SAT 98; BMI 38.5
--- OUTSIDE RECORDS SUMMARY | 2024-12-07 17:26 | XMS_ITS | Clinical Summary ---
Author Organization [facility] Facility Address [address] [place] [id number] Care Team Providers Care Human Performance Technologist Name Role Phone Misael Napier LODE MINER BLASTING-C Primary Care Provider Unavailable Allergies No known active allergies Medications ergocalciferol (VITAMIN D-2) 1.25 MG (14576 UT) capsule Take 1 capsule by mouth 1 (one) time each day Active ferrous sulfate 325 (65 Fe) MG EC tablet Take 1 tablet by mouth 1 (one) time each day Active Ibuprofen 200 MG capsule Take 1 capsule by mouth 1 (one) time each day Active lisinopril (PRINIVIL,ZESTR IL) 20 MG tablet Take 1 tablet by mouth 1 (one) time each day Active naproxen (NAPROSYN) 500 MG tablet Take 1 tablet by mouth 1 (one) time each day Active SUMAtriptan (Imitrex) 25 MG tablet Take 1 tablet (25 mg total) by mouth 2 (two) times a day 60 tablet 5 11/26/2020 Active hydroCHLOROthia zide (HYDRODIURIL) 12.5 MG tablet Take 12.5 mg by mouth 1 (one) time each day Active acetaminophen (TYLENOL) 500 MG tablet Take by mouth every 6 (six) hours if needed for mild pain Active cetirizine (ZyrTEC) 10 MG tablet Take 10 mg by mouth 1 (one) time each day Active propranolol (INDERAL) 80 MG tablet TAKE 1 TABLET BY MOUTH TWICE DAILY IN THE MORNING AND AT BEDTIME 120 tablet 3 10/08/2023 Active nortriptyline (PAMELOR) 50 MG capsule TAKE 1 CAPSULE BY MOUTH AT BEDTIME 30 capsule 5 03/10/2024 Active Active Problems Problem Noted Date Diagnosed Date Blood in urine 02/12/2021 Essential hypertension 02/12/2021 Insomnia 02/12/2021 Migraine 02/12/2021 Proteinuria 02/12/2021 Family History Medical History Relation Comments Cancer Father brain Heart disease Father Hypertension Father Cancer Mother Heart disease Mother Hypertension Mother Relation Status Comments Father Mother Alive Social History Tobacco Use Types Packs/Day Years Used Date Smoking Tobacco: Never Smokeless Tobacco: Never Alcohol Use Standard Drinks/Week Comments No 0 (1 standard drink = 0.6 oz pur e alcohol) Comments Unknown Sex and Gender Information Value Date Recorded Sex Assigned at Not on file Legal Sex Female 4:56 PM EST Gender Identity Not on file Sexual Orientation Not on file Last Filed Vital Signs Vital Sign Reading Time Taken Comments Blood Pressure 122/70 02/13/2021 4:01 PM EDT Pulse 75 02/13/2021 4:01 PM EDT Temperature - - Respiratory Rate - - Oxygen Saturation 99% 02/13/2021 4:01 PM EDT Inhaled Oxygen Concentration - - Weight 103 kg (227 lb 12.8 oz) 02/13/2021 4:01 P M EDT Height 162.6 cm (5' 4 ) 10/21/2019 12:00 PM EST Body Mass Index 39.1 10/21/2019 12:00 PM EST Plan of Treatment Health Maintenance Due Date Last Done Comments Breast Cancer Screening 1970 Pneumococcal Vaccine: Pediat rics (0 to 5 Years) and At-Risk Patients (6 to 64 Years) (1 of 2 - PCV) 12/09/1977 Hepatitis B Vaccine (1 of 3 - 19+ 3-dose series) 12/09/1990 09/04/2016, 11/30/2015, 10/01/2015 Colorectal Cancer Screening: Annual FOBT 12/09/2020 Colorectal Cancer Screening: Colonoscopy 12/09/2020 Colorectal Cancer Screening: Sigmoidoscopy 12/09/2020 Influenza Vaccine Completed 09/19/2024, , 09/23/2021, Additional history exists Insurance [place]ICAID [place]ID [place] Care Teams Human Performance Technologist Relationship Specialty Start Date End Date Misael Napier FNP-C PCP - General Nurse Practitioner 02/13/21
== END 2024-12-07 14:49 | disposition home or self-care (01) ==
PROVIDERS: PCP Nurse Practitioner Primary Care; Visit Provider Internal Medicine Nephrology
DX: I10 Essential (primary) hypertension (principal); R30.0 Dysuria
CPT/HCPCS: 99214

== ENCOUNTER 2024-12-08 13:24 | Outpatient (REF) | payer MEDICAID, SELFPAY ==
--- NOTE | ~2024-12-08 | XR_ITS ---
EXAMINATION: XR KNEE, RIGHT CLINICAL INFORMATION: bilateral knee pain COMPARISON: None available. TECHNIQUE: Three views of the right knee. FINDINGS: There is mild loss of medial and patellofemoral compartment joint space. No periarticular spurring. No acute fracture, dislocation, loose bodies or joint effusion. XR/XR knee RT 3V IMPRESSION: Mild DJD medial and patellofemoral compartment. Electronically signed by: Shubham Macedo MD 12/08/2024 02:16 PM ASHLEY
--- NOTE | ~2024-12-08 | XR_ITS ---
EXAMINATION: XR HAND, RIGHT CLINICAL INFORMATION: tenderness right mcp ring finger COMPARISON: None available. TECHNIQUE: PA, lateral, and oblique views of the right hand. FINDINGS: There is mild loss of PIP and DIP joint space with periarticular spurring. There is no visible acute fracture or dislocation. No juxta-articular osteopenia The soft tissues are normal. XR/XR hand RT min 3V IMPRESSION: Mild osteoarthritic changes of PIP and DIP joint suspected. Electronically signed by: Shubham Macedo MD 12/08/2024 02:14 PM ASHLEY
--- NOTE | ~2024-12-08 | XR_ITS ---
EXAMINATION: XR KNEE, LEFT CLINICAL INFORMATION: bilateral knee pain COMPARISON: None available. TECHNIQUE: 3 views of the left knee. FINDINGS: No fracture or joint effusion. Alignment is anatomic. Joint spaces are maintained. No abnormal soft tissue calcification. XR/XR knee LT 3V IMPRESSION: Unremarkable left knee. Electronically signed by: Shubham Macedo MD 12/08/2024 02:13 PM [facility]
--- OUTSIDE RECORDS SUMMARY | 2024-12-08 16:17 | XMS_ITS | Encounter Summary ---
Author Organization [employer] Address [address] [facility] 7t [place] [address] Care Team Providers Care Nutrition Services Assistant Name Role Phone Kathy Jang Primary Care Provider [phone] Reason for Visit * Reason Onset Date Comments Med Refill 12/08/2024 Encounter Details Date Type Department Care Team ([facility] st Contact Info) Description 12/08/2024 Refill [facility] [address] [place] [address] Kathy Jang ANP [address] [place] [address] Social History Tobacco Use Types Packs/Day Years Used Date Smoking Tobacco: Never Passive Smoke Exposure: Never Smokeless Tobacco: Never Alcohol Use Standard [...] 12/20/2024 2:15 PM EDT Office Visit [facility] [address] [place] [address] Kathy Jang ANP [address] [place] [address] documented as of this encounter Visit Diagnoses Not on filedocumented in this encounter Additional Health Concerns Assessment Noted Time PHQ-9 Depression Total Score: 11 024 3:55 PM EST documented as of this encounter Care Teams Nutrition Services Assistant Relationship Specialty Start Date End Date Kathy Jang ANP [address] [place] [phone] PCP - General Family Medicine 05/29/21 documented as of this encounter
--- OUTSIDE RECORDS SUMMARY | 2024-12-08 16:17 | XMS_ITS | Encounter Summary ---
Author Organization [employer] Address [address] [facility] 7t [place] [address] Care Team Providers Care Skin Drier Name Role Phone Kathy Jang Primary Care Provider Reason for Visit * Reason Onset Date Comments Med Refill 09/01/2023 Encounter Details Date Type Department Care Team (Late st Contact Info) Description 09/01/2023 Refill [facility] MED & PEDS [address] [place] [address] Kathy Jang ANP [address] [place] [address] Iron deficiency anemia, unspecified iron deficiency anemia [...] Description 12/20/2024 2:15 PM EDT Office Visit [facility] [address] [place] [address] Kathy Jang ANP [address] [place] [address] documented as of this encounter Visit Diagnoses Diagnosis Iron deficiency anemia, unspecified iron deficiency anemia type documented in this encounter Additional Health Concerns Assessment Noted Time PHQ-9 Depression Total Score: 0 06/25/20 23 2:19 PM EDT documented as of this encounter Care Teams Skin Drier Relationship Specialty Start Date End Date Kathy Jang ANP [address] [place] [address] PCP - General Family Medicine 05/29/21 documented as of this encounter
--- OUTSIDE RECORDS SUMMARY | 2024-12-08 16:17 | XMS_ITS | Encounter Summary ---
Author Organization [facility] Address [address] [place] [address] 7t [place] [address] Care Team Providers Care Food And Nutrition Teacher Name Role Phone Kathy Jang Primary Care Provider [phone] Encounter Details Date Type Department Care Team (Late st Contact Info) Description 12/01/[address] [facility] MED & PEDS [address] [place] [address] Alyson Bautista LPN Social History Tobacco Use [...] Description 12/20/2024 2:15 PM EDT Office Visit [facility] [address] [place] [address] Kathy Jang ANP [address] [place] [address] documented as of this encounter Visit Diagnoses Not on filedocumented in this encounter Care Teams Food And Nutrition Teacher Relationship Specialty Start Date End Date Kathy Jang ANP [address] [place] [address] PCP - General Family Medicine 05/29/21 documented as of this encounter
--- OUTSIDE RECORDS SUMMARY | 2024-12-08 16:17 | XMS_ITS | Encounter Summary ---
Author Organization [employer] Address [address] [facility] 7t [place] [address] Care Team Providers Care Halfway House Counselor Name Role Phone Kathy Jang Primary Care Provider [phone] Reason for Visit * Reason Onset Date Comments Med Refill 12/08/2024 Encounter Details Date Type Department Care Team (Late st Contact Info) Description 12/08/2024 Refill [facility] MEDICINE [address] [place] [address] Kathy Jang ANP [address] [place] [address] Benign essential HTN; Vitamin D deficiency; Seasonal allergies; Iron deficiency anemia, unspecified iron deficiency anemia type; Essential hypertension Social History Tobacco Use Types Packs/Day Years [...] Description 12/20/2024 2:15 PM EDT Office Visit [facility] MEDICINE [address] [place] [address] Kathy Jang ANP [address] [place] [address] documented as of this encounter Visit Diagnoses Diagnosis Benign essential HTN Vitamin D deficiency Seasonal allergies Allergic rhinitis, cause unspecified Iron deficiency anemia, unspecified iron deficiency anemia type Essential hypertension Unspecified essential hypertension documented in this encounter Additional Health Concerns Assessment Noted Time PHQ-9 Depression Total Score: 11 024 3:55 PM EST documented as of this encounter Care Teams Halfway House Counselor Relationship Specialty Start Date End Date Kathy Jang ANP [address] [place] [address] PCP - General Family Medicine 05/29/21 documented as of this encounter
--- OUTSIDE RECORDS SUMMARY | 2024-12-08 16:17 | XMS_ITS | Encounter Summary ---
Author Organization [employer] Address [address] [facility] 7t [place] [address] Care Team Providers Care As400 Operator Name Role Phone Kathy Jang Primary Care Provider [phone] Reason for Visit * Reason Onset Date Comments Med Refill 09/01/2023 Encounter Details Date Type Department Care Team ([facility] st Contact Info) Description 09/01/2023 Refill [facility] MEDICINE [address] [place] [address] Kathy Jang ANP [address] [place] [address] Seasonal allergies Social History Tobacco Use Types [...] Description 12/20/2024 2:15 PM EDT Office Visit [facility] MEDICINE [address] [place] [address] Kathy Jang ANP [address] [place] [address] documented as of this encounter Visit Diagnoses Diagnosis Seasonal allergies Allergic rhinitis, cause unspecified documented in this encounter Additional Health Concerns Assessment Noted Time PHQ-9 Depression Total Score: 0 06/25/20 23 2:19 PM EDT documented as of this encounter Care Teams As400 Operator Relationship Specialty Start Date End Date Kathy Jang ANP [address] [place] [address] PCP - General Family Medicine 05/29/21 documented as of this encounter
--- OUTSIDE RECORDS SUMMARY | 2024-12-08 16:17 | XMS_ITS | Encounter Summary ---
Author Organization [employer] Address [address] [place] [address] 7t [place] [address] Care Team Providers Care Central Supply Technician Name Role Phone Jang Kathy CADENA Primary Care Provider [phone] Reason for Referral * Consultation (Routine) - Pending Review Specialty Diagnoses / Procedures Referred By Caroline mirza Referred To Contact Hand Surgery Diagnoses Joint pain in fingers of right hand Annia Quintero MD [address] [place], [place] Phone: tel: fax: Referral ID Status Reason Start Date Expiration Date Visits Requested Visits Authorized [id number] Pending Review Specialty Services Required 12/08/2024 12/08/2025 1 1 * Consultation (Routine) - Pending Review Specialty Diagnoses / Procedures Referred By Caroline mirza Referred To Contact Physical Therapy Diagnoses Pain in both knees, unspecified chronicity Annia Quintero MD [address] [place] [address] Phone: tel: fax: Referral ID Status Reason Start Date Expiration Date Visits Requested Visits Authorized [id number] Pending Review Specialty Services Required 12/08/2024 12/08/2025 1 1 Encounter Details Date Type Department Care Team (Late st Contact Info) Description 12/08/2024 1:00 PM EST Office Visit [facility] [address] [place] [address] Annia Quintero MD [address] [place] [address] Joint pain in fingers of right hand (Primary Dx); Pain in both knees, unspecified chronicity; Encounter for immunization Social History Tobacco Use Types Packs/Day Years [...] AM EDT documented as of this encounter Last Filed Vital Signs Vital Sign Reading Time Taken Comments Blood Pressure 135/81 12/08/2024 12:46 PM EST Pulse 64 12/08/2024 12:46 PM EST Temperature 36.6 ??C (97.9 ??F) 12/08/2024 12:[address] Respiratory Rate 17 12/08/2024 12:46 PM EST Oxygen Saturation 99% 12/08/2024 12:46 PM EST Inhaled Oxygen Concentration - - Weight 103 kg (226 lb) 12/08/2024 12:46 PM EST Height - - Body Mass Index 38.79 02/11/2024 1:09 PM EDT documented in this encounter Progress Notes * Adelaidaalexia Zaida - 12/08/2024 1:00 PM EST Subjective Patient ID: Alisha Santiago is a 53 y.o. female with past medical history of hypertension, metabolic dysfunction-associated steatotic liver disease, elevated cholesterol, migraines, and anxiety/depression who presents to walk in clinic for joint pain in fingers and knees. Pt reports last year she had tendinitis in her hands, and the past month she has had joint pain in bilateral knees and pain to her right pinky and ring finger. She notes the pain is worse at night and in the morning. Pt reports pain in knees are in the front and back and she has occasional clicking. Review of Systems Constitutional: Negative for fever and unexpected weight change. Respiratory: Negative for shortness of breath. Cardiovascular: Negative for chest pain. Gastrointestinal: Negative for abdominal pain. Genitourinary: Negative for difficulty urinating. Musculoskeletal: Joint pain Objective Visit Vitals BP 135/81 (BP Location: Right arm, Patient Position: Sitting, BP Cuff Size: Large adult) Pulse 64 Temp 97.9 ??F (36.6 ??C) (Temporal) Resp 17 Body mass index is 38.79 kg/m??. Physical Exam Constitutional: Appearance: Normal appearance. Cardiovascular: Rate and Rhythm: Normal rate and regular rhythm. Heart sounds: Normal heart sounds. Pulmonary: Effort: Pulmonary effort is normal. Breath sounds: Normal breath sounds. Musculoskeletal: Right hand: Tenderness (ring finger MCP) present. No swelling (or redness). Right knee: No effusion. Normal range of motion. Left knee: No effusion. Normal range of motion. Neurological: General: No focal deficit present. Mental Status: She is alert. Psychiatric: Behavior: Behavior normal. Problem List Items Addressed This Visit Joint pain in fingers of right hand - Primary Tenderness to right hand 4th and 5th digit at MCP. -prescribednaproxen (Naprosyn) 500 MG -ordered XR of right hand. -referred to hand surgeon. Relevant Medications naproxen (Naprosyn) 500 MG tablet Other Relevant Orders Referral to Hand Surgery XR Hand 3+ Views Right Pain in both knees Pain in bilateral knees >1 month. No effusion or decreased ROM on exam. -prescribed naproxen (Naprosyn) 500 MG -ordered XR of bilateral knees. -referred to PT. Relevant Medications naproxen (Naprosyn) 500 MG tablet Other Relevant Orders XR Knee 3 Views Right XR Hand 3+ Views Right Referral to Physical Therapy XR Knee 3 Views Right XR Knee 3 Views Left Other Visit Diagnoses Encounter for immunization Relevant Orders MMR VACCINE 12 mo + (Completed) -No evidence of acute disease process. Suspect multiple joint pains, unknown etiology. Symptoms mild. -Will treat with naproxen, ordered xrays and referred to specialists. -ER precautions discussed. -Seek medical attention for worsening symptoms. I, Festus Cerda, am serving as a scribe to document services personally performed by Dr. Heredia, based on the patient's response to questions by provider and providers statements to me. documented in this encounter Miscellaneous Notes * Assessment & Plan Note - Festus Cerda - 12/08/2024 1:11 PM ESTAssociated Problem(s): Pain in both knees Pain in bilateral knees >1 month. No effusion or decreased ROM on exam. -prescribed naproxen (Naprosyn) 500 MG -ordered XR of bilateral knees. -referred to PT. * Assessment & Plan Note - Festus Cerda - 12/08/2024 1:09 PM ESTAssociated Problem(s): Joint pain in fingers of right hand Tenderness to right hand 4th and 5th digit at MCP. -prescribednaproxen (Naprosyn) 500 MG -ordered XR of right hand. -referred to hand surgeon. documented in this encounter Plan of Treatment Upcoming Encounters Date Type Department Care Team (Late st Contact Info) Description 12/20/2024 2:15 PM EDT Office Visit [facility] [address] [place] [address] Kathy Jang ANP [address] [place] [address] Scheduled Referrals Name Type Priority Associated Diagnoses Orde r Schedule Referral to Physical Therapy Outpatient Referral Routine Pain in both knees, unspecified chronicity Expected: 12/08/2024 (Approximate), Expires: 12/08/2025 Referral to Hand Surgery Outpatient Referral Routine Joint pain in fingers of right hand Expected: 12/08/2024 (Approximate), Expires: 12/08/2025 documented as of this encounter Procedures Procedure Name Priority Date/Time Associated Diagnosis Comments XR KNEE 3 VIEWS RIGHT Routine 12/08/2024 1:24 PM EST Pain in both knees, unspecified chronicity XR KNEE 3 VIEWS LEFT Routine 12/08/2024 1:24 PM EST Pain in both knees, unspecified chronicity XR HAND 3+ VIEWS RIGHT Routine 12/08/2024 1:24 PM EST Joint pain in fingers of right hand documented in this encounter Results * XR Hand 3+ Views Right (12/08/2024 1:24 PM EST) Anatomical Region Laterality Modality Upper Extremities, Hand Right [facility] 12/08/2024 1:24 PM EST Narrative 12/08/2024 2:17 PM EST ?[place] [facility] ?[address] ?[place] [address] ?XRay Report ? Signed ? Patient: Jack Caquias,Alisha ?MR#: ?? [id number] ? : 1970 ?Acct:[id number] ? Age/Sex: 53 / F ?ADM Date: 12/08/24 ? Loc: HO.HHCX ? Attending Dr: Annia Quintero MD ? Ordering Physician: Annia Quintero MD ?? Date of Service: 12/08/24 ?? Procedure(s): XR hand RT min 3V ?? Accession Number(s): [id number] ? cc: Annia Quintero MD ? EXAMINATION: ?? XR HAND, RIGHT ? CLINICAL INFORMATION: ?? tenderness right mcp ring finger ? COMPARISON: ?? None available. ? TECHNIQUE: ?? PA, lateral, and oblique views of the right hand. ? FINDINGS: ?? There is mild loss of PIP and DIP joint space with periarticular ?? spurring. There is no visible acute fracture or dislocation. No ?? juxta-articular osteopenia The soft tissues are normal. ? XR/XR hand RT min 3V ?? IMPRESSION: ?? Mild osteoarthritic changes of PIP and DIP joint suspected. ? Electronically signed by: ??Shubham Macedo MD ??12/08/2024 02:14 PM EST RP ? Dictated By: ?Shubham Macedo MD ? Signed By: ?<Electronically signed by Shubham Macedo MD in OV> ?12/08/24 1414 ? DD/ 1324 ? TD/TT: 12/08/24 1355 ? Superintendent Meter Tests: MSM ? Procedure Note Angel Bailey - 12/08/[address] [address] XRay Report Signed Patient: Alisha rPoctor#: [id number] : 1970Acct:[id number] Age/Sex: 53 / FADM Date: 12/08/24 Loc: HO.HHCX Attending Dr: Annia Quintero MD Ordering Physician: Annia Quintero MD Date of Service: 12/08/24 Procedure(s): XR hand RT min 3V Accession Number(s): [id number] cc: Annia Quintero MD EXAMINATION: XR HAND, RIGHT CLINICAL INFORMATION: tenderness right mcp ring finger COMPARISON: None available. TECHNIQUE: PA, lateral, and oblique views of the right hand. FINDINGS: There is mild loss of PIP and DIP joint space with periarticular spurring. There is no visible acute fracture or dislocation. No juxta-articular osteopenia The soft tissues are normal. XR/XR hand RT min 3V IMPRESSION: Mild osteoarthritic changes of PIP and DIP joint suspected. Electronically signed by: Shubham Macedo MD 12/08/2024 02:14 PM EST RP Dictated By: Shubham Macedo MD Signed By: <Electronically signed by Shubham Macedo MD in OV> 12/08/24 1414 DD/ 1324 TD/TT: 12/08/24 1355 Superintendent Meter Tests: [facility] Annia Quintero MD IMG XR PROCEDURES Final Re sult * XR Knee 3 Views Left (12/08/2024 1:24 PM EST) Anatomical Region Laterality Modality Lower Extremities, Knee Left Radiogra phic Imaging 12/08/2024 1:24 PM EST Narrative 12/08/2024 2:16 PM EST ?[facility] ?[address] ?[place] [address] ?XRay Report ? Signed ? Patient: Jack Caquias,Alisha ?MR#: ?? [id number] ? : 1970 ?Acct:[id number] ? Age/Sex: 53 / F ?ADM Date: 03//25 ? Loc: HO.HHCX ? Attending Dr: Annia Quintero MD ? Ordering Physician: Annia Quintero MD ?? Date of Service: 12/08/24 ?? Procedure(s): XR knee LT 3V ?? Accession Number(s): [id number] ? cc: Annia Quintero MD ? EXAMINATION: ?? XR KNEE, LEFT ? CLINICAL INFORMATION: ?? bilateral knee pain ? COMPARISON: ?? None available. ? TECHNIQUE: ?? 3 views of the left knee. ? FINDINGS: ?? No fracture or joint effusion. Alignment is anatomic. Joint spaces are ?? maintained. No abnormal soft tissue calcification. ? XR/XR knee LT 3V ?? IMPRESSION: ?? Unremarkable left knee. ? Electronically signed by: ??Shubham Macedo MD ??12/08/2024 02:13 PM EST RP ? Dictated By: ?Shubham Macedo MD ? Signed By: ?<Electronically signed by Shubham Macedo MD in OV> ?12/08/24 1413 ? DD/ 1324 ? TD/TT: 12/08/24 1355 ? Superintendent Meter Tests: MSM ? Procedure Note Donmanisha, Image - 12/08/[address] [address] XRay Report Signed Patient: Alisha ProctorMR#: [id number] : 1970Acct:[id number] Age/Sex: 53 / FADM Date: 12/08/24 Loc: HO.HHCX Attending Dr: Annia Quintero MD Ordering Physician: Annia Quintero MD Date of Service: 12/08/24 Procedure(s): XR knee LT 3V Accession Number(s): [id number] cc: Annia Quintero MD EXAMINATION: XR KNEE, LEFT CLINICAL INFORMATION: bilateral knee pain COMPARISON: None available. TECHNIQUE: 3 views of the left knee. FINDINGS: No fracture or joint effusion. Alignment is anatomic. Joint spaces are maintained. No abnormal soft tissue calcification. XR/XR knee LT 3V IMPRESSION: Unremarkable left knee. Electronically signed by: Shubham Macedo MD 12/08/2024 02:13 PM EST Dictated By: Shubham Macedo MD Signed By: <Electronically signed by Shubham Macedo MD in OV> 12/08/24 1413 DD/ 1324 TD/TT: 12/08/24 1355 Superintendent Meter Tests: MSM us Annia Quintero MD IMG XR PROCEDURES Final Re sult * XR Knee 3 Views Right (12/08/2024 1:24 PM EST) Anatomical Region Laterality Modality Lower Extremities, Knee Right Radiogra phic Imaging 12/08/2024 1:24 PM EST Narrative 12/08/2024 2:19 PM EST ?[facility] ?[address] ?[place] [address] ?XRay Report ? Signed ? Patient: Jack Caquias,Alisha ?MR#: ?? [id number] ? : 1970 ?Acct:[id number] ? Age/Sex: 53 / F ?ADM Date: 12/08/24 ? Loc: HO.HHCX ? Attending Dr: Annia Quintero MD ? Ordering Physician: Annia Quintero MD ?? Date of Service: 12/08/24 ?? Procedure(s): XR knee RT 3V ?? Accession Number(s): [id number] ? cc: Annia Quintero MD ? EXAMINATION: ?? XR KNEE, RIGHT ? CLINICAL INFORMATION: ?? bilateral knee pain ? COMPARISON: ?? None available. ? TECHNIQUE: ?? Three views of the right knee. ? FINDINGS: ?? There is mild loss of medial and patellofemoral compartment joint ?? space. No periarticular spurring. No acute fracture, dislocation, loose ?? bodies or joint effusion. ? XR/XR knee RT 3V ?? IMPRESSION: ?? Mild DJD medial and patellofemoral compartment. ? Electronically signed by: ??Shubham Macedo MD ??12/08/2024 02:16 PM EST RP ? Dictated By: ?Hellen,Shubham S MD ? Signed By: ?<Electronically signed by Shubham S Hellen, MD in OV> ?12/08/24 1416 ? DD/ 1324 ? TD/TT: 12/08/24 4575 ? Superintendent Meter Tests: MSM ? Procedure Note Angel Bailey - 12/08/2024 [facility] [address] [facility] [place] [address] XRay Report Signed Patient: Jack Maciel Saenz#: [id number] : 1970Acct:[id number] Age/Sex: 53 / FADM Date: 12/08/24 Loc: HO.HHCX Attending Dr: Annia Quintero MD Ordering Physician: Annia Quintero MD Date of Service: 12/08/24 Procedure(s): XR knee RT 3V Accession Number(s): [id number] cc: Annia Quintero MD EXAMINATION: XR KNEE, RIGHT CLINICAL INFORMATION: bilateral knee pain COMPARISON: None available. TECHNIQUE: Three views of the right knee. FINDINGS: There is mild loss of medial and patellofemoral compartment joint space. No periarticular spurring. No acute fracture, dislocation, loose bodies or joint effusion. XR/XR knee RT 3V IMPRESSION: Mild DJD medial and patellofemoral compartment. Electronically signed by: Shubham Macedo MD 12/08/2024 02:16 PM EST Dictated By: Shubham Macedo MD Signed By: <Electronically signed by Shubham Macedo MD in OV> 12/08/24 1416 DD/ 1324 TD/TT: 12/08/24 1355 Superintendent Meter Tests: [facility] Annia Quintero MD IMG XR PROCEDURES Final Re sult documented in this encounter Visit Diagnoses Diagnosis Joint pain in fingers of right hand- Primary Pain in both knees, unspecified chronicity Encounter for immunization documented in this encounter Additional Health Concerns Assessment Noted Time PHQ-9 Depression Total Score: 11 024 3:55 PM EST documented as of this encounter Care Teams Central Supply Technician Relationship Specialty Start Date End Date Kathy Jang ANP [address] [place] [address] PCP - General Family Medicine 05/29/21 documented as of this encounter
--- OUTSIDE RECORDS SUMMARY | 2024-12-08 16:17 | XMS_ITS | Encounter Summary ---
Author Organization [employer] Address [address] [facility] 7t [place] [address] Care Team Providers Care Pharmacy General Manager Name Role Phone Kathy Jang Primary Care Provider [phone] Reason for Visit * Reason Onset Date Comments Med Refill 10/27/2023 Encounter Details Date Type Department Care Team ([facility] st Contact Info) Description 10/27/2023 Refill [facility] MEDICINE [address] [place] [address] Kathy Jang ANP [address] [place] [address] Vitamin D deficiency; Seasonal allergies Social History [...] Description 12/20/2024 2:15 PM EDT Office Visit [facility] MEDICINE [address] [place] [address] Kathy Jang ANP [address] [place] [address] documented as of this encounter Visit Diagnoses Diagnosis Vitamin D deficiency Seasonal allergies Allergic rhinitis, cause unspecified documented in this encounter Additional Health Concerns Assessment Noted Time PHQ-9 Depression Total Score: 0 06/25/20 23 2:19 PM EDT documented as of this encounter Care Teams Pharmacy General Manager Relationship Specialty Start Date End Date Kathy Jang ANP [address] [place] [address] PCP - General Family Medicine 05/29/21 documented as of this encounter
--- OUTSIDE RECORDS SUMMARY | 2024-12-08 16:17 | XMS_ITS | Encounter Summary ---
Author Organization [employer] Address [address] [facility] [address] 7t [place] [address] Care Team Providers Care Machine Feed Operator Name Role Phone Kathy Jang Primary Care Provider [phone] Reason for Visit * Reason Onset Date Comments Med Refill 10/01/2023 Encounter Details Date Type Department Care Team (Late st Contact Info) Description 10/01/2023 Refill [facility] MED & PEDS [address] [place] [address] Kathy Jang ANP [address] [place] [address] Iron deficiency anemia, unspecified iron deficiency anemia [...] PM EDT Office Visit [facility] MEDICINE [address] [place] [address] Kathy Jang ANP [address] [place] [address] documented as of this encounter Visit Diagnoses Diagnosis Iron deficiency anemia, unspecified iron deficiency anemia type documented in this encounter Additional Health Concerns Assessment Noted Time PHQ-9 Depression Total Score: 0 06/25/20 23 2:19 PM EDT documented as of this encounter Care Teams Machine Feed Operator Relationship Specialty Start Date End Date Kathy Jang ANP [address] [place] [address] PCP - General Family Medicine 05/29/21 documented as of this encounter
--- OUTSIDE RECORDS SUMMARY | 2024-12-08 16:17 | XMS_ITS | Encounter Summary ---
Author Organization [employer] [facility] Address [address] [place] [address] 7t [place] [address] Care Team Providers Care Soldering Inspector Name Role Phone Kathy Jang Primary Care Provider Encounter Details Date Type Department Care Team (Late st Contact Info) Description 11/04/2022 Orders Only [facility] [address] [place] [address] Alyson Bautista LPN Social History Tobacco Use [...] 12/20/2024 2:15 PM EDT Office Visit [facility] MEDICINE [address] [place] [address] Kathy Jang ANP [address] [place] [address] documented as of this encounter Visit Diagnoses Not on filedocumented in this encounter Care Teams Soldering Inspector Relationship Specialty Start Date End Date Kathy Jang ANP [address] [place] [address] PCP - General Family Medicine 05/29/21 documented as of this encounter
--- OUTSIDE RECORDS SUMMARY | 2024-12-08 16:17 | XMS_ITS | Encounter Summary ---
Author Organization [employer] [facility] Address [address] [place] [address] 7t [place] [address] Care Team Providers Care Stove Polisher Name Role Phone Kathy Jang Primary Care Provider [phone] Encounter Details Date Type Department Care Team (Late st Contact Info) Description 01/02/2023 Orders Only [facility] [address] [place] [address] Alyson Bautista LPN Social History Tobacco Use [...] Description 12/20/2024 2:15 PM EDT Office Visit [facility] [address] [place] [address] Kathy Jang ANP [address] [place] [address] documented as of this encounter Visit Diagnoses Not on filedocumented in this encounter Care Teams Stove Polisher Relationship Specialty Start Date End Date Kathy Jang ANP [address] [place] [address] PCP - General Family Medicine 05/29/21 documented as of this encounter
--- OUTSIDE RECORDS SUMMARY | 2024-12-08 16:17 | XMS_ITS | Encounter Summary ---
Author Organization [employer] Address [address] [facility] 7t [place] [address] Care Team Providers Care Sales Counselor Name Role Phone Kathy Jang Primary Care Provider [phone] Reason for Visit * Reason Onset Date Comments Med Refill 10/01/2023 Encounter Details Date Type Department Care Team ([facility] st Contact Info) Description 10/01/2023 Refill [facility] [address] [place] [address] Kathy Jang ANP [address] [place] [address] Seasonal allergies Social History Tobacco Use Types [...] Description 12/20/2024 2:15 PM EDT Office Visit [facility] [address] [place] [phone] Kathy Jang ANP [address] [place] [address] documented as of this encounter Visit Diagnoses Diagnosis Seasonal allergies Allergic rhinitis, cause unspecified documented in this encounter Additional Health Concerns Assessment Noted Time PHQ-9 Depression Total Score: 0 06/25/20 23 2:19 PM EDT documented as of this encounter Care Teams Sales Counselor Relationship Specialty Start Date End Date Kathy Jang ANP [address] [place] [phone] PCP - General Family Medicine 05/29/21 documented as of this encounter
--- OUTSIDE RECORDS SUMMARY | 2024-12-08 16:17 | XMS_ITS | Clinical Summary ---
Author Organization [facility] Address [address] [place] [address] Care Team Providers Care Nuclear Process Engineer Name Role Phone Misael Napier MANAGER RADIATION-C Primary Care Provider Unavailable Allergies No known active allergies Medications ergocalciferol (VITAMIN D-2) 1.25 MG (84667 UT) capsule Take 1 capsule by mouth [...] 09/23/2021, Additional history exists Insurance MEDICAID [place] * Guarantor: Alisha Proctor Account Type Relation to Patient Date of Phone Billing Address Personal/Family Self [phone] [place] [id number] MEDICAID [place] * Guarantor: Alisha Proctor Account Type Relation to Patient Date of Phone Billing Address Personal/Family Self [phone] [place] [id number] Care Teams Nuclear Process Engineer Relationship Specialty Start Date End Date Misael Napier FNP-C PCP - General Nurse Practitioner 02/13/21
--- OUTSIDE RECORDS SUMMARY | 2024-12-08 16:18 | XMS_ITS | Clinical Summary ---
Author Organization [employer] Address [address] [place] [address] 7t [place] [address] Care Team Providers Care Proof Technician Helper Name Role Phone Suhail Myesha CADENA Primary Care Provider [phone] Allergies Active Allergy Reactions Criticality Noted Date Comments Hydrocodone 01/27/2019 Other reaction(s): nausea, blurry vision, headache Medications lidocaine (Lidoderm) 5 % patchIndication s:Rib pain Apply 1 patch topically Once per day. APPLY 1 PATCH TOPICALLY TO SKIN, LEAVE ON FOR 12 HOURS AND OFF FOR 12 HOURS DIRECTED, as needed for pain 30 patch 5 08/15/20 24 Active cetirizine (ZyrTEC) 10 MG tabletIndicatio ns:Seasonal allergies TAKE 1 TABLET BY MOUTH EVERY DAY NEEDED FOR ALLERGIES 90 tablet 1 08/15/20 24 Active hydroCHLOROthia zide 12.5 MG tabletIndicatio ns:Benign essential HTN Take 1 tablet (12.5 mg) by mouth in the morning. 90 tablet 3 12/09/19 25 Active cholecalciferol VITAMIN D (Vitamin D-3) 50 MCG (2000 UT) tabletIndicatio ns:Vitamin D deficiency Take 1 tablet (50 mcg) by mouth in the morning. 90 tablet 12/09/19 25 Active ferrous sulfate (FeroSul) 325 (65 Fe) MG tabletIndicatio ns:Iron deficiency anemia, unspecified iron deficiency anemia type Take 1 tablet (325 mg) by mouth Once daily. 90 tablet 12/09/19 25 Active lisinopril 40 MG tabletIndicatio ns:Essential hypertension Take 1 tablet (40 mg) by mouth Once daily. 90 tablet 12/09/19 25 Active naproxen (Naprosyn) 500 MG tabletIndicatio ns:Joint pain in fingers of right hand,Pain in both knees, unspecified chronicity Take 1 tablet (500 mg) by mouth with breakfast and with evening meal. 20 tablet 12/09/19 25 026 Active hydroCHLOROthia zide (HYDRODiuril) 12.5 MG tabletIndicatio ns:Benign essential HTN TAKE 1 TABLET BY MOUTH EVERY MORNING 90 tablet 3 12/07/19 24 025 Discontinued(Re order (will not trigger notification to Pharmacy)) cholecalciferol (Vitamin D-3) 50 MCG (2000 UT) tabletIndicatio ns:Vitamin D deficiency TAKE 1 TABLET BY MOUTH EVERY MORNING 90 tablet 3 12/07/19 24 025 Discontinued(Re order (will not trigger notification to Pharmacy)) ferrous sulfate (FeroSul) 325 (65 Fe) MG tabletIndicatio ns:Iron deficiency anemia, unspecified iron deficiency anemia type Take 1 tablet (325 mg) by mouth Once daily. 90 tablet 08/15/20 24 025 Discontinued(Re order (will not trigger notification to Pharmacy)) lisinopril 40 MG tabletIndicatio ns:Essential hypertension Take 1 tablet (40 mg) by mouth Once daily. 90 tablet 08/15/20 24 025 Discontinued(Re order (will not trigger notification to Pharmacy)) Active Problems Problem Noted Date Diagnosed Date Joint pain in fingers of right hand 12/08/2024 Assessment & Plan (12/08/2024 1:10 PM EST): Tenderness to right hand 4th and 5th digit at MCP. -prescribednaproxen (Naprosyn) 500 MG -ordered XR of right hand. -referred to hand surgeon. Pain in both knees 12/08/2024 Assessment & Plan (12/08/2024 1:12 PM EST): Pain in bilateral knees >1 month. No effusion or decreased ROM on exam. -prescribed naproxen (Naprosyn) 500 MG -ordered XR of bilateral knees. -referred to PT. Status post hysterectomy 11/06/2023 Overview (11/06/2023): D/t fibroma BARKER (nonalcoholic steatohepatitis) 11/06/2023 High cholesterol 11/06/2023 Overview (02/11/2024): Images from the original note were not included. Seen by greg at [facility] 12/21/23 (sent d/t very elevated LDL [...] Encounters Date Type Department Care Team Description 12/08/2024 1:00 PM EST Office Visit [facility] [address] [place] [phone] Annia Quintero MD Joint pain in fingers of right hand (Primary Dx); Pain in both knees, unspecified chronicity; Encounter for immunization 12/08/2024 Refill [facility] [address] [place] [address] Myesha Tracy ANP 12/08/2024 Refill [facility] [address] [place] [phone] Myesha Tracy ANP Benign essential HTN; Vitamin D deficiency; Seasonal allergies; Iron deficiency anemia, unspecified iron deficiency anemia type; Essential hypertension 09/19/2024 3:00 PM EST Office Visit [facility] [address] [place] [address] Myesha Tracy ANP Diarrhea, unspecified type (Primary Dx); Encounter for immunization; BARKER (nonalcoholic steatohepatitis); Essential hypertension 09/19/2024 Travel 09/09/2024 Patient Outreach [facility] [address] [place] [phone] Tracy, Myesha, ANP Pre-visit Planning (SDOH screening was completed on 05/31/2024) from Last [...] Influenza, seasonal, injecta ble, preservative free 09/19/2024 MMR 12/08/2024 Pfizer Covid-19 Vaccine 12+ 08/12/2024, Tdap 07/23/2015 [...] (226 lb) 12/08/2024 12:46 PM EST Height 162.6 cm (5' 4 ) 02/11/2024 1:09 PM EDT Body Mass Index 38.79 02/11/2024 1:09 PM EDT Plan of Treatment Upcoming Encounters Date Type Department Care Team (Late st Contact Info) Description 12/20/2024 2:15 PM EDT Office Visit [facility] [address] [place] [address] Myesha Tracy ANP [address] [place] [address] Health Maintenance Due Date Last Done Comments [...] Name Priority Date/Time Associated Diagnosis Comments XR HAND 3+ VIEWS RIGHT Routine 1:24 PM EST Joint pain in fingers of right hand XR KNEE 3 VIEWS LEFT Routine 12/08/2024 1:24 PM EST Pain in both knees, unspecified chronicity XR KNEE 3 VIEWS RIGHT Routine 12/08/2024 1:24 PM EST Pain in both knees, unspecified chronicity CREATININE, SERUM Routine 12/07/2024 3:1 7 PM EST UREA NITROGEN (BUN) Routine 12/07/2024 3 :17 PM EST ELECTROLYTE PANEL Routine 12/07/2024 3:1 7 PM EST CULTURE, URINE, ROUTINE Routine 12/07/2024 3:15 PM EST BI MAMMOGRAM SCREENING TOMOSYNTHESIS BILATERAL Routine 11/16/2023 2:00 PM EST LIPID PANEL, STANDARD Routine 09/30/2023 11:56 AM EST Screening, lipid HM COLONOSCOPY Routine 12/22/2022 from Last 3 Months or Most Recently Relevant to Health Maintenance Results * XR Knee 3 Views Right (12/08/2024 1:24 PM EST) Anatomical Region Laterality Modality Lower Extremities, Knee Right [facility] 12/08/2024 1:24 PM EST Narrative 12/08/2024 2:19 PM EST ?[facility] ?[address] ?[place] [address] ?XRay Report ? Signed ? Patient: Jack Caquias,Alisha ?MR#: ?? [id number] ? : 1970 ?Acct:[id number] ? Age/Sex: 53 / F ?ADM Date: 03/06/25 ? Loc: HO.HHCX ? Attending Dr: Annia Quintero MD ? Ordering Physician: Annia Quintero MD ?? Date of Service: 12/08/24 ?? Procedure(s): XR knee RT 3V ?? Accession Number(s): [id number] ? cc: Annia Quintero MD ? EXAMINATION: [...] 02:16 PM EST RP ? Dictated By: ?Shubham Macedo MD ? Signed By: ?<Electronically signed by Shubham Macedo MD in OV> ?12/08/24 1416 ? DD/ 1324 ? TD/TT: 12/08/24 1355 ? Tourist Guide: MSM ? Procedure Note Donagustohugorubenter, Image - 12/08/[address] [address] XRay Report Signed Patient: Alisha ProctorMR#: [id number] : 1970Acct:[id number] Age/Sex: 53 / FADM Date: 12/08/24 [facility] Dr: Annia Quintero MD Ordering Physician: Annia Quintero MD Date of Service: 12/08/24 Procedure(s): XR knee RT 3V Accession Number(s): [id number] cc: Annia Quintero MD EXAMINATION: XR KNEE, RIGHT CLINICAL INFORMATION: bilateral knee pain COMPARISON: None available. TECHNIQUE: Three views of the right knee. FINDINGS: There is mild loss of medial and patellofemoral compartment joint space. No periarticular spurring. No acute fracture, dislocation, loose bodies or joint effusion. XR/XR knee RT 3V IMPRESSION: Mild DJD medial and patellofemoral compartment. Electronically signed by: Shubham Hellen MD 12/08/2024 02:16 PM EST RP Dictated By: Shubham Macedo MD Signed By: <Electronically signed by Shubham Macedo MD in OV> 12/08/24 1416 DD/ 1324 TD/TT: 12/08/24 1355 Tourist Guide: MSM us Annia Quintero MD IMG XR PROCEDURES Final Re sult * XR Knee 3 Views Left (12/08/2024 1:24 PM EST) Anatomical Region Laterality Modality Lower Extremities, Knee Left Radiogra phic Imaging 12/08/2024 1:24 PM EST Narrative 12/08/2024 2:16 PM EST ?[facility] ?[address] ?[place] [address] ?XRay Report ? Signed ? Patient: Jack Caquias,Alisha ?MR#: ?? [id number] ? : 1970 ?Acct:[id number] ? Age/Sex: 53 / F ?ADM Date: 12/08/24 ? Loc: HO.HHCX ? Attending Dr: Annia Quintero MD ? Ordering Physician: Annia Quintero MD ?? Date of Service: 12/08/24 ?? Procedure(s): XR knee LT 3V ?? Accession Number(s): [id number] ? cc: Annia Quintero MD ? EXAMINATION: [...] DD/ 1324 ? TD/TT: 12/08/24 1355 ? Tourist Guide: MSM ? Procedure Note Donmanisha, Image - 12/08/2024 [facility] [address] [place] [address] XRay Report Signed Patient: Alisha ProctorMR#: [id number] : 1970Acct:[id number] Age/Sex: 53 / FADM Date: 12/08/24 Loc: HO.HHCX Attending Dr: Annia Quintero MD Ordering Physician: Annia Quintero MD Date of Service: 12/08/24 Procedure(s): XR knee LT 3V Accession Number(s): [id number] cc: Annia Quintero MD EXAMINATION: XR KNEE, [...] 12/08/24 1413 DD/ 1324 TD/TT: 12/08/24 1355 Tourist Guide: MSM Annia Quintero MD IMG XR PROCEDURES Final Re sult * XR Hand 3+ Views Right (12/08/2024 1:24 PM EST) Anatomical Region Laterality Modality Upper Extremities, Hand Right Radiogra phic Imaging 12/08/2024 1:24 PM EST Narrative 12/08/2024 2:17 PM EST ?[facility] ?[address] ?[place] [address] ?XRay Report ? Signed ? Patient: Jack Caquias,Alisha ?MR#: ?? [id number] ? : 1970 ?Acct:[id number] ? Age/Sex: 53 / F ?ADM Date: 12/08/24 ? Loc: HO.HHCX ? Attending Dr: Annia Quintero MD ? Ordering Physician: Annia Quintero MD ?? Date of Service: 12/08/24 ?? Procedure(s): XR hand RT min 3V ?? Accession Number(s): [id number] ? cc: Annia Quintero MD ? EXAMINATION: [...] DD/ 1324 ? TD/TT: 12/08/24 1355 ? Tourist Guide: MSM ? Procedure Note Lynn, Image - 12/08/[address] [address] XRay Report Signed Patient: Alisha Proctor#: [id number] : 1970Acct:[id number] Age/Sex: 53 / FADM Date: 12/08/24 Loc: HO.HHCX Attending Dr: Annia Qunitero MD Ordering Physician: Annia Quintero MD Date of Service: 12/08/24 Procedure(s): XR hand RT min 3V Accession Number(s): [id number] cc: Annia Quintero MD EXAMINATION: XR HAND, [...] 12/08/24 1414 DD/ 1324 TD/TT: 12/08/24 1355 Tourist Guide: WILMER us Annia Quintero MD IMG XR PROCEDURES Final Re sult * Creatinine, Serum (12/07/2024 3:17 PM EST) Creatinine, Serum 0.77 0.5 - 1.4 mg/dL [facility] Estimated Glomerular Filt Rate >60 [facility] Comment:Chronic Kidney Disea se: Estimated GFR < 60 mL/min/1.66b7Avwafb Kidney Disease: Estimated GFR < 15 mL/min/1.73m2 12/07/2024 3:17 PM EST 12/07/2024 3:17 PM EST us Generic External Data Provider LAB BLOOD ORDERAB LES Final Result [facility] [address] [place] [phone] * BUN (Blood Urea Nitrogen) (12/07/2024 3:17 PM EST) Urea Nitrogen (BUN) 12 9 - 16 mg/dL [facility] 12/07/2024 3:17 PM EST 12/07/2024 3:17 PM EST us Generic External Data Provider LAB BLOOD ORDERAB LES Final Result Performing Organization Address [facility] de Phone Number [facility] [address] [place] [address] [phone] * (ABNORMAL) Electrolyte Panel (12/07/2024 3:17 PM EST) Sodium 144 135 - 145 mmol/L [facility] Potassium 4.4 3.3 - 5.1 mmol/L [facility] Chloride 109(H) 96 - 108 mmol/L [facility] Carbon Dioxide 28 22 - 29 mmol/L [facility] Anion Gap 11(L) 12 - 20 [facility] 12/07/2024 3:17 PM EST 12/07/2024 3:17 PM EST us Generic External Data Provider LAB BLOOD ORDERAB LES Final Result Performing Organization Address [facility] de Phone Number [facility] [address] [place] [address] [phone] * BI Mammogram Screening Tomosynthesis Bilateral (11/16/2023 2:00 PM EST) Anatomical Region Laterality Modality Breast Bilateral Mammography 11/16/2023 2:00 PM EST Narrative 12/03/2023 7:55 PM EST ? [facility] [place] ? [address] [facility] ?[place] [address] ? Mammography Report ? Signed ? Patient: Jack Caquias,Alisha ?MR#: ?? [id number] ? : 1970 ?Acct:[id number] ? Age/Sex: 52 / F ?ADM Date: 02/12/24 ? Loc: HO.MAMMO ? Attending Dr: Myesha Tracy HISTOLOGY AIDE ? Ordering Physician: MYESHA TRACY NP ?Results: 1Negative ? Date of Service: 11/16/23 ?Follow Up: 1 Year From Orig ?? inal Mammogram ? Procedure(s): MM tomosynthesis screening BI ?? Accession Number(s): [id number] ? cc: MYESHA TRACY NP ? EXAMINATION: ?? MM SCREENING DIGITAL BREAST [...] 1950 ? DD/ 1400 ? TD/TT: ? Tourist Guide: ? Procedure Note Donotuseinterpreter, Image - [facility]03[facility] [address] [place] [address] Mammography Report Signed Patient: Alisha ProctorMR#: [id number] : 1970Acct:[id number] Age/Sex: 52 / FADM Date: 11/16/23 Loc: HO.MAMMO Attending Dr: Myesha Tracy HISTOLOGY AIDE Ordering Physician: MYESHA TRACY NPResults: 1Negative Date of Service: 11/16/23Follow Up: 1 Year From Orig inal Mammogram Procedure(s): MM tomosynthesis screening BI Accession Number(s): [id number] cc: MYESHA TRACY NP EXAMINATION: MM SCREENING DIGITAL BREAST TOMOSYNTHESIS, BILATERAL [...] MD in OV> 12/03/231950 DD/ 1400 TD/TT: Tourist Guide: Myesha Tracy ANP IMG BI PROCEDURES Final Result * (ABNORMAL) Lipid Panel, Standard (09/30/2023 11:56 AM EST) Triglycerides 164(H) <150 mg/dL [facility] Comment:Desirable Triglyceri de: less than 150 mg/dLBorderline High Triglyceride 150-199 mg/dLHigh Triglyceride: 200-499 mg/dLVery High Triglyceride: greater than or equal to 5OO mg/dL Cholesterol 287(H) <200 mg/dL [facility] Comment:Desirable Cholestero l: less than 200 mg/dLBorderline High Cholesterol: 200-239 mg/dLHigh Cholesterol: greater than 239 mg/dL LDL Cholesterol Calculated 203(H) <100 mg/dL [facility] Comment:Desirable LDL: less than 100 mg/dLNear Optimal/Above Optimal LDL: 110- 129 mg/dLBorderline High LDL: 130-159 mg/dLHigh LDL: 160-189 mg/dLVery High LDL: greater than or equal to 190 mg/dL HDL Cholesterol 52 >40 mg/dL [facility] Comment:Desirable HDL: great er than 40 mg/dL Note: This HDL assay may give artificially low results in patients with liver disease. Blood Venous blood specimen / Unknown 09/30/2023 11:56 AM EST 09/30/2023 1:39 PM EST Myesha CADENA LAB BLOOD ORDERABLES Final Resul t [facility] [address] [place] [phone] * (ABNORMAL) Hm Colonoscopy (12/22/2022) Colonoscopy Abnormal(A ) Normal Kuldeep Pacheco MD HEALTH MAINTENANCE Final Result from Last 3 Months or Most Recently Relevant to Health Maintenance [place] [address] [place] [address] C3 HSN FULL Care Teams Proof Technician Helper Relationship Specialty Start Date End Date Myesha Tracy ANP [address] [place] [phone] PCP - General Family Medicine 05/29/21
== END 2024-12-08 13:25 | disposition home or self-care (01) ==
LOC: HO.HHCX 13:24
PROVIDERS: Visit Provider Family Medicine
DX: M25.561 Pain in right knee (principal); M25.562 Pain in left knee; M25.541 Pain in joints of right hand
CPT/HCPCS: 73130; 73562

== ENCOUNTER → 2024-12-08 13:24 | Outpatient (BNV) | payer MEDICAID, SELFPAY | PROVIDERS: Visit Provider Radiology Diagnostic Radiology | DX: M19.041 Primary osteoarthritis, right hand (principal); M17.11 Unilateral primary osteoarthritis, right knee; M25.562 Pain in left knee | CPT/HCPCS: 73130; 73562 ==

== ENCOUNTER 2024-12-12 02:47 | Emergency (ER) | payer MEDICAID, SELFPAY ==
[2024-12-12 02:59] VITALS: BP 86/71; PULSE 71; RESP 20; TEMP 36.4; O2SAT 99; BMI 38.8
[2024-12-12 03:24] LABS: MANUAL DIFF FLAG NO
[2024-12-12 03:25] LABS: Basophils Absolute Auto 0.1 X10*3/uL (0.0-0.2); Basophils Percent Auto 0.4 % (0-2); Eosinophils Absolute Auto 0.5 X10*3/uL (0.0-0.4); Eosinophils Percent Auto 3.5 % (0-4); Hemoglobin 12.8 g/dl (12.0-16.0); Imm Gran Abs Auto 0.07 X10*3/uL (0.00-0.03); Imm Gran Pct Auto 0.5 % (0.0-0.4); Lymphocytes Absolute Auto 3.4 X10*3/uL (1.2-4.9); Lymphocytes Percent Auto 25.2 % (20-40); Mean Corpuscular Hemoglobin 28.1 pg (27.0-33.0); Mean Corpuscular Volume 87.9 fL (80.0-98.0); Mean Platelet Volume 10.3 fL (9.4-12.3); Monocytes Absolute Auto 0.9 X10*3/uL (0.1-1.2); Monocytes Percent Auto 6.6 % (2-11); Neutrophils Absolute Auto 8.6 x10*3/uL (2.0-8.3); Neutrophils Percent Auto 63.8 % (45-73); Platelet Count 331 X10*3/uL (160-400); Red Blood Count 4.55 X10*6/uL (4.20-5.50); Red Cell Distribution Width 13.4 % (11.0-16.0); White Blood Count 13.5 X10*3/uL (4.8-10.8)
[2024-12-12 03:27] VITALS: BP 159/85
[2024-12-12 03:29] LABS: Appearance Urine Clear; Color Urine Yellow; Glucose Urine UA Negative (Negative); Leukocyte Esterase Urine Negative (Negative); Nitrite Urine Negative (Negative); Specific Gravity - Urine >= 1.030 (1.005-1.025); Urine Blood Negative (Negative); Urine Ketones Trace mg/dL (Negative); Urine Protein Negative (Neg-Trace)
[2024-12-12 03:40] LABS: Alanine Aminotransferase 81 U/L (0-31); Albumin Level 4.5 g/dL (3.5-5.0); Alkaline Phosphatase 97 U/L (39-117); Anion Gap 14 (12-20); Aspartate Amino Transferase 35 U/L (5-31); Bilirubin Direct < 0.2 mg/dL (0.0-0.5); Bilirubin Total 0.2 mg/dL (0.0-1.0); Blood Urea Nitrogen 26 mg/dL (9-16); Calcium 10.1 mg/dL (8.4-10.2); Carbon Dioxide 21 mmol/L (22-29); Chloride 113 mmol/L (96-108); Creatinine Clr Calc Pharmacy 71.5; Estimated Glomerular Filt Rate 54; Glucose Random 121 mg/dL (60-115); Lipase 33 U/L (8-78); Potassium 4.5 mmol/L (3.3-5.1); Sodium 143 mmol/L (135-145); Total Protein 8.1 g/dL (6.5-8.0)
--- NOTE | 2024-12-12 04:04 | ED.ABDPAIN ---
HPI - Abdominal Pain General Chief Complaint: Abdominal Pain Stated Complaint: abdominal pain Time Seen by Provider: 12/12/24 04:03 Source: patient Mode of arrival: ambulatory Limitations: no limitations History of Present Illness ED Provider: HPI narrative: Patient with gastro reflux disease with nonbleeding ulcer in endoscopy done in 2022 supposed to take Protonix twice a day but taking only once took ibuprofen for knee pain last week comes here for similar pain in epigastric area which got worse in last 2 days with nausea vomited only once no diarrhea patient is status post cholecystectomy been followed by solar energy systems designer no black stools Related Data Home Medications ?Medication ?Instructions ?Recorded ?Confirmed cholecalciferol (vitamin D3) 50 50 mcg PO QAM 01/24/22 08/20/23 mcg (2,000 unit) tablet lisinopril 40 mg tablet 40 mg PO BEDTIME 01/24/22 08/20/23 cetirizine 10 mg tablet 10 mg PO DAILY PRN Allergy Symptoms 04/04/22 08/20/23 nortriptyline 50 mg capsule 50 mg PO BEDTIME 04/04/22 08/20/23 acetaminophen 325 mg capsule 650 mg PO Q6H PRN 08/20/23 08/20/23 (Tylenol) ferrous sulfate 325 mg (65 mg 325 mg PO BID 12/07/24 iron) tablet (FeroSul) hydrochlorothiazide 12.5 mg tablet 12.5 mg PO DAILY 12/07/24 Previous Rx's ?Medication ?Instructions ?Recorded methylcellulose (laxative) 500 mg 500 mg PO DAILY #90 tabs 07/15/22 tablet (Citrucel) sucralfate 1 gram tablet 1 g PO BEDTIME #30 tabs 05/31/24 pantoprazole 40 mg tablet,delayed 40 mg PO BID #180 tabs 10/06/24 release sennosides 8.6 mg tablet (senna) 17.2 mg (2 x 8.6 mg) PO BEDTIME 11/07/24 for constipation #180 tabs propranolol 80 mg tablet 80 mg PO BID #60 tabs 11/30/24 pantoprazole 40 mg tablet,delayed 40 mg PO BID #60 tabs 12/12/24 release (Protonix) sucralfate 1 gram tablet 1 g PO TID #90 tabs 12/12/24 tramadol 50 mg tablet 50 mg PO TID PRN pain #20 tabs 12/12/24 Allergies Allergy/AdvReac Type Severity Reaction Status Date / Time No Known Allergies Allergy Verified 12/12/24 03:02 [No Known Allergies*] Review of Systems Review of Systems Yes all other systems are reviewed and are negative [facility] Past Medical History Medical History Helicobacter pylori (H. pylori) Transaminitis Morbid obesity Migraine Anemia HTN (hypertension) Surgical History History of esophagogastroduodenoscopy (EGD) Hx of colonoscopy Hx of cystoscopy Hx of hysterectomy History of cholecystectomy Family History Family History Father Heart disease Mother Heart disease Social History Social History Alcohol intake: never Patient Tobacco Use Status: Never used Tobacco Smoked in Last 30 Days: No Use of substances other than those prescribed or required for medical reasons: No Advance Directives: No Advance Directives Information Provided: Yes Physical Exam ED Vital Signs: Vital Signs - 24 hr 12/12/24 02:59 12/12/24 03:27 12/12/24 05:41 Temperature 97.6 F 98.2 F Pulse Rate 71 73 Respiratory Rate 20 16 Blood Pressure 86/71 L 159/85 H 137/72 Pulse Oximetry 99 97 Oxygen Delivery Method Room Air Room Air BMI result Body Mass Index 38.8 Appearance: Alert. Oriented X3. No acute distress. Eyes: PERRLA, No Nystagmus ENT: Pharynx normal. Oral Mucosa moist Neck: Normal inspection. Neck supple. CVS: Normal heart rate and rhythm. Pulses normal. Respiratory: No respiratory distress. Equal air entry bilateral, no wheezing/rales/rhonchi Abdomen: Soft and mild epigastric tenderness. Bowel sounds are present, no mass palpable, no CVA tenderness Skin: Skin warm and dry. Normal skin color. Normal skin turgor. Extremities: No lower extremity edema. No calf tenderness Neuro: Oriented X 3. No motor deficit. No sensory deficit.No cerebellar signs , cranial nerves II-XII intact Medical Decision Making Medical Decision Making MDM Narrative: Patient with chronic gastritis with history of nonbleeding ulcer endoscopy in 2022 on Protonix supposed to take twice a day but taking only once tablets a day took some ibuprofen last week comes here with epigastric pain no melena H&H stable patient advised to stop ibuprofen and increased dose of Protonix twice a day and follow with solar energy systems designer for further evaluation Differential Diagnosis Differential Diagnoses: The differential diagnosis associated with the presentation includes Gastritis/hiatal hernia/H pylori/pancreatitis/UTI Lab Data MDM Lab Attestation statement: I reviewed the patient's lab results. 12/12/24 03:20 12/12/24 03:20 Labs: Lab Results 12/12/24 12/12/24 Range/Units 03:20 03:24 WBC 13.5 H (4.8-10.8) X10*3/uL RBC 4.55 (4.20-5.50) X10*6/uL Hgb 12.8 (12.0-16.0) g/dl Hct 40.0 (37.0-47.0) % MCV 87.9 (80.0-98.0) fL MCH 28.1 (27.0-33.0) pg MCHC 32.0 (31.0-35.0) g/dl RDW 13.4 (11.0-16.0) % Plt Count 331 (160-400) X10*3/uL MPV 10.3 (9.4-12.3) fL Immature Gran % (Auto) 0.5 H (0.0-0.4) % Neut % (Auto) 63.8 (45-73) % Lymph % (Auto) 25.2 (20-40) % [place] % (Auto) 6.6 (2-11) % Eos % (Auto) 3.5 (0-4) % Baso % (Auto) 0.4 (0-2) % Lymph # (Auto) 3.4 (1.2-4.9) X10*3/uL [place] # (Auto) 0.9 (0.1-1.2) X10*3/uL Eos # (Auto) 0.5 H (0.0-0.4) X10*3/uL Baso # (Auto) 0.1 (0.0-0.2) X10*3/uL Abs Immat Gran (auto) 0.07 H (0.00-0.03) X10*3/uL Absolute Neuts (auto) 8.6 H (2.0-8.3) x10*3/uL Absolute Nucleated RBC 0.000 (0.0-0.012) X10*3/uL Nucleated RBC % (auto) 0.0 (0.0-0.2) /100WBC Sodium 143 (135-145) mmol/L Potassium 4.5 (3.3-5.1) mmol/L Chloride 113 H (96-108) mmol/L Carbon Dioxide 21 L (22-29) mmol/L Anion Gap 14 (12-20) BUN 26 H (9-16) mg/dL Creatinine 1.06 (0.5-1.4) mg/dL Estim Creat Clear Calc 71.5 Estimated GFR 54 Random Glucose 121 H (60-115) mg/dL Calcium 10.1 (8.4-10.2) mg/dL Total Bilirubin 0.2 (0.0-1.0) mg/dL Direct Bilirubin < 0.2 (0.0-0.5) mg/dL AST 35 H (5-31) U/L ALT 81 H (0-31) U/L Alkaline Phosphatase 97 (39-117) U/L Total Protein 8.1 H (6.5-8.0) g/dL Albumin 4.5 (3.5-5.0) g/dL Lipase 33 (8-78) U/L Urine Color Yellow Urine Appearance Clear Urine pH 5.0 (5.0-9.0) Ur Specific [place] >= 1.030 H (1.005-1.025) Urine Protein Negative (Neg-Trace) mg/dL Urine Glucose (UA) Negative (Negative) mg/dL Urine Ketones Trace (Negative) mg/dL Urine Blood Negative (Negative) Urine Nitrite Negative (Negative) Ur Leukocyte Esterase Negative (Negative) Medications Administered Discontinued Medications Generic Name Dose Route Start Last Admin Trade Name Freq PRN Reason Stop Dose Admin Al Hydroxide/Mg Hydroxide 30 ml 12/12/24 04:14 12/12/24 04:23 Magnesium Hydrox/Alum Hydrox 30 Ml Oral.Susp PO 12/12/24 04:15 30 ml ONCE ONE Administration Lidocaine HCl 15 ml 12/12/24 04:14 12/12/24 04:23 Lidocaine Hcl Viscous 2 % 15 Ml Solution MUCOUS MEM 12/12/24 04:15 15 ml ONCE ONE Administration Discharge Plan Discharge Clinical Impression: Gastritis Patient Disposition: Home, Self-Care Instructions: Gastritis (ED) Additional Instructions: Increase the dose of Protonix to 40 mg twice a day Do not take NSAIDs/ibuprofen/Advil Take sucralfate as prescribed Follow up with the solar energy systems designer Prescriptions: New pantoprazole [Protonix] 40 mg tablet,delayed release (DR/EC) 40 mg PO BID Qty: 60 0RF sucralfate 1 gram tablet 1 g PO TID Qty: 90 0RF tramadol 50 mg tablet 50 mg PO TID PRN (Reason: pain) Qty: 20 0RF No Action sucralfate 1 gram tablet 1 g PO BEDTIME Qty: 30 4RF pantoprazole 40 mg tablet,delayed release (DR/EC) 40 mg PO BID Qty: 180 2RF Rx Instructions: take one tablet half an hour before breakfast sennosides [senna] 8.6 mg tablet 17.2 mg PO BEDTIME Qty: 180 3RF propranolol 80 mg tablet 80 mg PO BID Qty: 60 3RF cholecalciferol (vitamin D3) 50 mcg (2,000 unit) tablet 50 mcg PO QAM lisinopril 40 mg tablet 40 mg PO BEDTIME nortriptyline 50 mg capsule 50 mg PO BEDTIME cetirizine 10 mg tablet 10 mg PO DAILY PRN (Reason: Allergy Symptoms) Citrucel 500 mg tablet 500 mg PO DAILY Qty: 90 2RF Rx Instructions: take it with full glass of water acetaminophen [Tylenol] 325 mg capsule 650 mg PO Q6H PRN ferrous sulfate [FeroSul] 325 mg (65 mg iron) tablet 325 mg PO BID hydrochlorothiazide 12.5 mg tablet 12.5 mg PO DAILY Print Language: Welsh
[2024-12-12] MEDS: Lidocaine HCl Viscous 2 % 15 ML SOLUTION MUCOUS MEM (04:23)
[2024-12-12] MEDS: Magnesium Hydrox/Alum Hydrox 30 ML ORAL.SUSP PO (04:23)
[2024-12-12 05:41] VITALS: BP 137/72; PULSE 73; RESP 16; TEMP 36.8; O2SAT 97
[2024-12-12 06:00] VITALS: BP 137/72; PULSE 73; RESP 16; TEMP 36.8; O2SAT 97
== END 2024-12-12 06:01 | disposition home or self-care (01) ==
PROVIDERS: Emergency Provider Internal Medicine
DX: K29.70 Gastritis, unspecified, without bleeding (principal); R10.13 Epigastric pain; R11.2 Nausea with vomiting, unspecified; I10 Essential (primary) hypertension; D64.9 Anemia, unspecified; Z90.49 Acquired absence of other specified parts of digestive tract
CPT/HCPCS: 36415; 80053; 81003; 82248; 83690; 85025; 99283; 99284

== ENCOUNTER 2024-12-19 15:09 | Outpatient (AMB) | payer MEDICAID, SELFPAY ==
[2024-12-19 15:12] VITALS: BP 118/60; PULSE 83; O2SAT 97; BMI 37.8
--- NOTE | 2024-12-19 15:12 | A.OFFVIS_ITS ---
Vital Signs 12/19/24 15:12 Height 5 ft 4 in Weight 220 lb 7.396 oz BMI 37.8 BP 118/60 Blood Pressure Location Lt brachial Position Sitting Pulse 83 Pulse Source Pulse Oximeter Pulse Oximetry (%) 97 Oxygen Delivery Method Room Air Intake Visit Reasons: Shortness of breath [employer] Lay[employer] Core Feeder Required: Yes [employer] Layup [employer] Core Feeder Services: [employer] Lay[employer] Core Feeder Present [employer] Layup Line Core Feeder Name: Alyson in dept. Materials Scheduler: Materials Scheduler offered & declined Accompanied by: Self / Same As Patient Allergies No Known Allergies [No Known Allergies*] Allergy (Verified 12/12/24 03:02) Medication List - Last Reconciled 12/19/24 by Cat Slade LPN acetaminophen (Tylenol) 650 mg PO Q6H PRN cetirizine 10 mg PO DAILY PRN cholecalciferol (vitamin D3) 50 mcg PO QAM ferrous sulfate (FeroSul) 325 mg PO BID hydrochlorothiazide 12.5 mg PO DAILY lisinopril 40 mg PO BEDTIME methylcellulose (laxative) (Citrucel) 500 mg PO DAILY nortriptyline 50 mg PO BEDTIME pantoprazole (Protonix) 40 mg PO BID pantoprazole 40 mg PO BID propranolol 80 mg PO BID sennosides (senna) 17.2 mg (2 x 8.6 mg) PO BEDTIME sucralfate 1 g PO TID sucralfate 1 g PO BEDTIME tramadol 50 mg PO TID PRN HPI HPI Shortness of breath: Details: Alisha is a pleasant 54 year old female, never smoker, with underlying HTN and anemia. She was initially referred for pulmonary evaluation by nephrology for worsening dyspnea on exertion with occasional dry cough. She continues to report dyspnea with moderate exertion, denies cough, wheezing or chest tightness. She also reported paroxsymal nocturnal dyspnea, insomnia, nonrestorative sleep, and daytime fatigue. Today she presents to review home sleep study and PFT results. [facility] Medical History Helicobacter pylori (H. pylori) Transaminitis Morbid obesity Migraine Anemia HTN (hypertension) Surgical History History of esophagogastroduodenoscopy (EGD) Hx of colonoscopy Hx of cystoscopy Hx of hysterectomy History of cholecystectomy Family History Father Heart disease Mother Heart disease Social History Alcohol intake: never Patient Tobacco Use Status: Never used Tobacco Review of Systems Const Denies chills, Denies excessive sweating, Denies fever(s), Denies headache(s), Denies night sweats and Reports stops breathing during sleep Eyes Denies dry eyes, Denies irritation and Denies itchy eyes ENT Reports Normal hearing present, Denies headache(s), Denies nasal congestion, Denies nasal discharge, Denies post nasal drip and Denies sore throat Card Denies chest pain, Denies chest pain at rest, Denies chest pain with activity, Denies claudication, Denies leg edema, Denies orthopnea and Denies paroxysmal nocturnal dyspnea Resp Denies chest congestion, Denies cough, Denies excessive phlegm production, Denies pain on inspiration, Denies pain with cough, Denies stridor and Denies wheezing Musc Denies myalgias Neuro Reports Normal hearing present and Denies headache(s) Endo Denies excessive sweating Angel/Lymph Denies lymphadenopathy Aller/Immun Denies itchy eyes, Denies seasonal rhinorrhea and Denies wheezing Physical Exam Vital Signs: Last Vital Signs Pulse 83 12/19/24 15:12 BP 118/60 12/19/24 15:12 Pulse Ox 97 12/19/24 15:12 Oxygen Delivery Method Room Air 12/19/24 15:12 BMI result Body Mass Index 37.8 Const General: cooperative, healthy appearing, comfortable, no acute distress, well developed and alert Nutritional Appearance: obese Orientation/consciousness: patient oriented x3 Limitations: no limitations HEENT Head: Yes normal to inspection, Yes normocephalic and Yes atraumatic Ears: hearing grossly normal bilaterally and external ears normal Eyes General: appearance normal, both eyes and all related structures Eyelids: Yes eyelids normal Sclerae: sclerae normal EOM: EOMs intact bilaterally Neck Neck: Yes normal visual inspection and Yes no lymphadenopathy Lymphatic: no lymphadenopathy noted Chest Chest palpation & inspection: normal inspection of the chest Resp Effort & Inspection: normal respiratory effort, able to speak in complete sentences, no audible wheezes, no cough, no stridor, not tachypneic, no tripod positioning and no use of accessory muscles Auscultation: clear to auscultation bilaterally Cardio Jugular venous distension: no JVD Rate: regular rate Rhythm: regular rhythm Skin Other: warm, dry General skin exam: no rashes or lesions noted Neuro General: patient oriented x3 Cranial nerves: Yes Normal hearing present Cognition (Neuro): normal cognition Gait exam (Neuro): Normal gait present Extrem General: Yes normal to inspection, Yes capillary refill normal, Yes no clubbing, cyanosis or edema and Yes no pedal edema Psych Appearance: grossly normal and well kempt Speech and movement: Normal speech and movement present and Clear speech present Affect: normal affect Attitude: cooperative Thought process: Normal thought process present Thought content: Normal thought content present Insight: Good insight present (Psych) Judgement: Good judgement present (Psych) Assessment & Plan Assessment & Plan (1) Shortness of breath: Code(s): R06.02 - Shortness of breath Category: Medical (2) Paroxysmal nocturnal dyspnea: Code(s): R06.00 - Dyspnea, unspecified Category: Medical (3) Non-restorative sleep: Code(s): G47.8 - Other sleep disorders Category: Medical Plan Reviewed home sleep study results which revealed moderate [id number], AHI 17, with mild nocturnal hypoxemia <88% for 23 minutes, lowest 70%. Since patient is quite symptomatic, will start CPAP therapy. Will send in prescription for APAP mode and pressure settings of 6-16 cm with close monitoring for compliance and benefits. Sleep hygiene education reviewed. She is aware if there are any issues with the mask or CPAP machine, she will call the [employer] or our office office. Reviewed PFT which revealed no obstructive or restrictive ventilatory defect. No bronchodilator response. Decreased expiratory reserve volume suggests extrathoracic restriction likely secondary to abdominal obesity. Importance of weight loss discussed. DLCO normal. Will send for echo to assess for cardiac contribution/pulmonary HTN for dyspnea, echo in 2021 which revealed LVEF 60-65% and RVSP 34. All questions were answered and patient is in agreement of plan. Will follow up in 8-12 weeks or sooner if needed. Orders: Orders CA echo transthoracic complete Today R06.02 - Shortness of breath Coding Level of Care Code Est Pt Level 4 (34147) Diagnoses Shortness of breath R06.02 Paroxysmal nocturnal dyspnea R06.00 Non-restorative sleep G47.8
--- OUTSIDE RECORDS SUMMARY | 2024-12-19 17:40 | XMS_ITS | Encounter Summary ---
Author Organization [employer] Address [address] [facility] [address] [place] [address] Care Team Providers Care Therapeutic Recreation Assistant Name Role Phone Kathy Jang Primary Care Provider [phone] Reason for Visit * Reason Onset Date Comments Med Refill 12/09/2024 Encounter Details Date Type Department Care Team (Late st Contact Info) Description 12/09/2024 Refill [facility] [address] [place] [address] Kathy Jang ANP [address] [place] [address] Vitamin D deficiency; Iron deficiency anemia, unspecified iron deficiency anemia [...] Office Visit [facility] [address] [place] [address] Kathy Jang ANP [address] [place] [address] documented as of this encounter Visit Diagnoses Diagnosis Vitamin D deficiency Iron deficiency anemia, unspecified iron deficiency anemia type Essential hypertension Unspecified essential hypertension documented in this encounter Additional Health Concerns Assessment Noted Time PHQ-9 Depression Total Score: 11 024 3:55 PM EST documented as of this encounter Care Teams Therapeutic Recreation Assistant Relationship Specialty Start Date End Date Kathy Jang ANP [address] [place] [address] PCP - General Family Medicine 05/29/21 documented as of this encounter
--- OUTSIDE RECORDS SUMMARY | 2024-12-19 17:40 | XMS_ITS | Encounter Summary ---
Author Organization [employer] Address [address] [place] [address] Care Team Providers Care Spring Tester Name Role Phone Suhail Kathy CADENA Primary Care Provider [phone] Reason for Visit * Reason Onset Date Comments Med Refill 12/09/2024 Encounter Details Date Type Department Care Team (Late st Contact Info) Description 12/09/2024 Refill [facility] [address] [place] [address] Annia Quintero MD [address] [place] [address] Joint pain in fingers of right hand; Pain in both knees, unspecified chronicity Social History Tobacco Use Types Packs/Day Years [...] Description 12/20/2024 2:15 PM EDT Office Visit [facility] [address] [place] [id number] Kathy Jang ANP [address] [place] [address] documented as of this encounter Visit Diagnoses Diagnosis Joint pain in fingers of right hand Pain in both knees, unspecified chronicity documented in this encounter Additional Health Concerns Assessment Noted Time PHQ-9 Depression Total Score: 11 024 3:55 PM EST documented as of this encounter Care Teams Spring Tester Relationship Specialty Start Date End Date Kathy Jang ANP [address] [place] [id number] PCP - General Family Medicine 05/29/21 documented as of this encounter
--- OUTSIDE RECORDS SUMMARY | 2024-12-19 17:40 | XMS_ITS | Encounter Summary ---
Author Organization [employer] Address [address] [facility] [address] [place] [address] Care Team Providers Care Waste Water Or Water Plant Operator Name Role Phone Suhail Kathy CADENA Primary Care Provider [phone] Encounter Details Date Type Department Care Team ([facility] st Contact Info) Description 12/16/2024 Population Health Risk Score [facility] (C3) Department [address] [id number] Provider, Population Health Generic Social History Tobacco Use Types Packs/Day Years [...] Description 12/20/2024 2:15 PM EDT Office Visit [facility] [address] [place] [address] Kathy Jang ANP [address] [place] [address] documented as of this encounter Visit Diagnoses Not on filedocumented in this encounter Additional Health Concerns Assessment Noted Time PHQ-9 Depression Total Score: 11 024 3:55 PM EST documented as of this encounter Care Teams Waste Water Or Water Plant Operator Relationship Specialty Start Date End Date Kathy Jang ANP [address] [place] [id number] PCP - General Family Medicine 05/29/21 documented as of this encounter
--- OUTSIDE RECORDS SUMMARY | 2024-12-19 17:40 | XMS_ITS | Clinical Summary ---
Author Organization [facility] Address [address] [place] [address] Care Team Providers Care Tip Tester Name Role Phone Misael Napier HYDROELECTRIC PLANT ELECTRICAL ENGINEER-C Primary Care Provider Unavailable Allergies No known active allergies Medications ergocalciferol (VITAMIN D-2) 1.25 MG (43164 UT) capsule Take 1 capsule by mouth [...] Additional history exists Insurance [place] Care Teams Tip Tester Relationship Specialty Start Date End Date Misael Napier FNP-C PCP - General Nurse Practitioner 02/13/21
--- OUTSIDE RECORDS SUMMARY | 2024-12-19 17:40 | XMS_ITS | Encounter Summary ---
Author Organization [facility] Address [address] [place] [address] 7[address] [place] [address] Care Team Providers Care Package Sorter Name Role Phone Kathy Jang Primary Care Provider [phone] Encounter Details Date Type Department Care Team (Late st Contact Info) Description 11/04/2022 Orders Only [facility] [address] [place] [address] Alyson Bautista LPN Social History Tobacco Use [...] Description 12/20/2024 2:15 PM EDT Office Visit [facility] [address] [place] [address] Kathy Jang ANP [address] [place] [address] documented as of this encounter Visit Diagnoses Not on filedocumented in this encounter Care Teams Package Sorter Relationship Specialty Start Date End Date Kathy Jang ANP [address] [place] [address] PCP - General Family Medicine 05/29/21 documented as of this encounter
--- OUTSIDE RECORDS SUMMARY | 2024-12-19 17:40 | XMS_ITS | Encounter Summary ---
Author Organization [employer] Address [address] [place] [address] [address] [address] Care Team Providers Care Photographic Specialist Name Role Phone Kathy Jang Primary Care Provider [phone] Reason for Referral * Consultation (Routine) - Authorized Specialty Diagnoses / Procedures Referred By Caroline mirza Referred To Contact Hand Surgery Diagnoses Joint pain in fingers of right hand Annia Quintero MD [address], [place] Phone: tel: fax: [facility] [address] [place] [address] Phone: tel: Referral ID Status Reason Start Date Expiration Date Visits Requested Visits Authorized [id number] Authorized Specialty Services Required 12/08/2024 12/08/2025 6 6 * Consultation (Routine) - Closed Specialty Diagnoses / Procedures Referred By Caroline t Referred To Contact Physical Therapy Diagnoses Pain in both knees, unspecified chronicity Annia Quintero MD [address] [place] [address] Phone: tel: fax: [facility] [address] [place] [address] Phone: tel: fax: Referral ID Status Reason Start Date Expiration Date V isits Requested Visits Authorized [id number] Closed Specialty Services Required 12/08/2024 12/08/2025 20 20 Encounter Details Date Type Department Care Team (Late st Contact Info) Description 12/08/2024 1:00 PM EST Office Visit [facility] [address] [place] [address] Annia Quintero MD [address] [place] [address] Joint pain in fingers of right hand [...] documented in this encounter Progress Notes * Festus Cerda - 12/08/2024 1:00 PM EST Subjective Patient [...] Description 12/20/2024 2:15 PM EDT Office Visit [facility] [address] [place] [address] Kathy Jang ANP [address] [place] [address] Scheduled Referrals Name Type Priority Associated Diagnoses [...] PM EST Narrative 12/08/2024 2:17 PM EST ?[facility] ?[address] ?[place] [address] ?XRay Report ? Signed ? Patient: Jack Caquias,Alisha ?MR#: ?? [id number] ? : 1970 ?Acct:[id number] ? Age/Sex: 53 / F ?ADM Date: 12/08/24 ? Loc: HO.HHCX ? Attending Dr: Annia Quintero MD ? Ordering Physician: Annia Quintero MD ?? Date of Service: 12/08/24 ?? Procedure(s): XR hand RT min 3V ?? Accession Number(s): [id number] ? cc: Annia Quintero MD ? EXAMINATION: [...] 02:14 PM EST RP ? Dictated By: ?Hellen,Shubham S MD ? Signed By: ?<Electronically signed by Shubham S MD Hellen in OV> ?12/08/24 1414 ? DD/ 1324 ? TD/TT: 12/08/24 8975 ? Batch Still Operator: MSM ? Procedure Note Lynn, Angel - 12/08/[address] [address] XRay Report Signed Patient: Alisha Proctor#: [id number] : 1970Acct:[id number] Age/Sex: 53 / FADM Date: 12/08/24 Loc: HO.HHCX Attending Dr: Annia Quintero MD Ordering Physician: Annia Quintero MD Date of Service: 12/08/24 Procedure(s): XR hand RT min 3V Accession Number(s): [id number] cc: Annia Quintero MD EXAMINATION: XR HAND, [...] 12/08/24 1414 DD/ 1324 TD/TT: 12/08/24 1355 Batch Still Operator: [facility] Annia Quintero MD IMG XR PROCEDURES Final Re sult * XR Knee 3 Views Left (12/08/2024 1:24 PM EST) Anatomical Region Laterality Modality Lower Extremities, Knee Left Radiogra phic Imaging 12/08/2024 1:24 PM EST Narrative 12/08/2024 2:16 PM EST ?[facility] ?[address] ?[place] [address] ?XRay Report ? Signed ? Patient: Jack Caquias,Alisha ?MR#: ?? [id number] ? : 1970 ?Acct:[id number] ? Age/Sex: 53 / F ?ADM Date: 03/06/25 ? Loc: HO.HHCX ? Attending Dr: Annia Quintero MD ? Ordering Physician: Annia Quintero MD ?? Date of Service: 12/08/24 ?? Procedure(s): XR knee LT 3V ?? Accession Number(s): [id number] ? cc: Annia Quintero MD ? EXAMINATION: [...] DD/ 1324 ? TD/TT: 12/08/24 1355 ? Batch Still Operator: MSM ? Procedure Note Angel Bailey - 12/08/[address] [address] XRay Report Signed Patient: Alisha ProctorMR#: [id number] : 1970Acct:[id number] Age/Sex: 53 / FADM Date: 12/08/24 Loc: HO.HHCX Attending Dr: Annia Quintero MD Ordering Physician: Annia Quintero MD Date of Service: 12/08/24 Procedure(s): XR knee LT 3V Accession Number(s): [id number] cc: Annia Quintero MD EXAMINATION: XR KNEE, LEFT CLINICAL INFORMATION: bilateral knee pain COMPARISON: None available. TECHNIQUE: 3 views of the left knee. FINDINGS: No fracture or joint effusion. Alignment is anatomic. Joint spaces are maintained. No abnormal soft tissue calcification. XR/XR knee LT 3V IMPRESSION: Unremarkable left knee. Electronically signed by: Shubham Macedo MD 12/08/2024 02:13 PM [facility] Dictated By: Shubham Macedo MD Signed By: <Electronically signed by Shubham Macedo MD in OV> 12/08/24 1413 DD/ 1324 TD/TT: 12/08/24 1355 Batch Still Operator: [facility] Annia Quintero MD IMG XR PROCEDURES Final Re sult * XR Knee 3 Views Right (12/08/2024 1:24 PM EST) Anatomical Region Laterality Modality Lower Extremities, Knee Right Radiogra phic Imaging 12/08/2024 1:24 PM EST Narrative 12/08/2024 2:19 PM EST ?[facility] ?[address] ?[place] [address] ?XRay Report ? Signed ? Patient: Jack Caquias,Alisha ?MR#: ?? [id number] ? : 1970 ?Acct:[id number] ? Age/Sex: 53 / F ?ADM Date: 12/08/24 ? Loc: HO.HHCX ? Attending Dr: Annia Quintero MD ? Ordering Physician: Annia Quintero MD ?? Date of Service: 12/08/24 ?? Procedure(s): XR knee RT 3V ?? Accession Number(s): [id number] ? cc: Annia Quintero MD ? EXAMINATION: [...] patellofemoral compartment. ? Electronically signed by: ??Shubham Hellen MD ??12/08/2024 02:16 PM EST RP ? Dictated By: ?Hellen,Shubham S MD ? Signed By: ?<Electronically signed by Shubham S Hellen, MD in OV> ?12/08/24 1416 ? DD/ 1324 ? TD/TT: 12/08/24 1355 ? Batch Still Operator: MSM ? Procedure Note Donotuseinterpreter, Image - 12/08/2024 [facility] [address] [place] [address] XRay Report Signed Patient: Alisha ProctorMR#: [id number] : 1970Acct:[id number] Age/Sex: 53 / FADM Date: 12/08/24 Loc: HO.HHX Attending Dr: Annia Quintero MD Ordering Physician: Annia Quintero MD Date of Service: 12/08/24 Procedure(s): XR knee RT 3V Accession Number(s): [id number] cc: Annia Quintero MD EXAMINATION: XR KNEE, [...] 12/08/24 1416 DD/ 1324 TD/TT: 12/08/24 1355 Batch Still Operator: [facility] Annia Quintero MD IMG XR PROCEDURES Final Re sult documented in this encounter Visit Diagnoses Diagnosis Joint pain in fingers of right hand- Primary Pain in both knees, unspecified chronicity Encounter for immunization documented in this encounter Additional Health Concerns Assessment Noted Time PHQ-9 Depression Total Score: 11 024 3:55 PM EST documented as of this encounter Care Teams Photographic Specialist Relationship Specialty Start Date End Date Kathy Jang ANP [address] [place] [address] PCP - General Family Medicine 05/29/21 documented as of this encounter
--- OUTSIDE RECORDS SUMMARY | 2024-12-19 17:40 | XMS_ITS | Encounter Summary ---
Author Organization [employer] Address [address] [facility] 7t [place] [address] Care Team Providers Care Process Eng Name Role Phone Kathy Jang Primary Care Provider Reason for Visit * Reason Onset Date Comments Med Refill 10/27/2023 Encounter Details Date Type Department Care Team ([facility] st Contact Info) Description 10/27/2023 Refill [facility] [address] [place] [address] Kathy Jang ANP [address] [place] [address] Vitamin D deficiency; Seasonal allergies Social History [...] Description 12/20/2024 2:15 PM EDT Office Visit [facility] [address] [place] [address] Kathy Jang ANP [address] [place] [address] documented as of this encounter Visit Diagnoses Diagnosis Vitamin D deficiency Seasonal allergies Allergic rhinitis, cause unspecified documented in this encounter Additional Health Concerns Assessment Noted Time PHQ-9 Depression Total Score: 0 06/25/20 23 2:19 PM EDT documented as of this encounter Care Teams Process Eng Relationship Specialty Start Date End Date Kathy Jang ANP [address] [place] [address] PCP - General Family Medicine 05/29/21 documented as of this encounter
--- OUTSIDE RECORDS SUMMARY | 2024-12-19 17:40 | XMS_ITS | Encounter Summary ---
Author Organization [employer] Address [address] 7[address] [place] [address] Care Team Providers Care Equipment Planner Name Role Phone Kathy Jang Primary Care Provider [phone] Reason for Visit * Reason Onset Date Comments Med Refill 10/01/2023 Encounter Details Date Type Department Care Team (Late st Contact Info) Description 10/01/2023 Refill [facility] [address] [place] [address] Kathy Jang ANP [address] [place] [address] Iron deficiency anemia, unspecified iron deficiency anemia [...] Description 12/20/2024 2:15 PM EDT Office Visit [facility] [address] [place] [address] Kathy Jang ANP [address] [place] [address] documented as of this encounter Visit Diagnoses Diagnosis Iron deficiency anemia, unspecified iron deficiency anemia type documented in this encounter Additional Health Concerns Assessment Noted Time PHQ-9 Depression Total Score: 0 06/25/20 23 2:19 PM EDT documented as of this encounter Care Teams Equipment Planner Relationship Specialty Start Date End Date Kathy Jang ANP [address] [place] [address] PCP - General Family Medicine 05/29/21 documented as of this encounter
--- OUTSIDE RECORDS SUMMARY | 2024-12-19 17:40 | XMS_ITS | Encounter Summary ---
Author Organization [employer] Address [address] [facility] 7t [place] [address] Care Team Providers Care End Touching Machine Operator Name Role Phone Kathy Jang Primary Care Provider [phone] Reason for Visit * Reason Onset Date Comments Med Refill 12/08/2024 Encounter Details Date Type Department Care Team ([facility] st Contact Info) Description 12/08/2024 Refill [facility] [address] [place] [address] Kathy Jang ANP [address] [place] [address] Social History Tobacco Use Types Packs/Day Years [...] 2:15 PM EDT Office Visit [facility] [address] [place] [address] Kathy Jang ANP [address] [place] [address] documented as of this encounter Visit Diagnoses Not on filedocumented in this encounter Additional Health Concerns Assessment Noted Time PHQ-9 Depression Total Score: 11 024 3:55 PM EST documented as of this encounter Care Teams End Touching Machine Operator Relationship Specialty Start Date End Date Kathy Jang ANP [address] [place] [address] PCP - General Family Medicine 05/29/21 documented as of this encounter
--- OUTSIDE RECORDS SUMMARY | 2024-12-19 17:40 | XMS_ITS | Encounter Summary ---
Author Organization [employer] Address [address] [facility] 7t [place] [address] Care Team Providers Care Fast Food Shift Lead Name Role Phone Kathy Jang Primary Care Provider [phone] Reason for Visit * Reason Onset Date Comments Med Refill 09/01/2023 Encounter Details Date Type Department Care Team ([facility] st Contact Info) Description 09/01/2023 Refill [facility] [address] [place] [address] Kathy Jang ANP [address] [place] [address] Seasonal allergies Social History Tobacco Use Types [...] 12/20/2024 2:15 PM EDT Office Visit [facility] [address] [place] [address] Kathy Jang ANP [address] [place] [address] documented as of this encounter Visit Diagnoses Diagnosis Seasonal allergies Allergic rhinitis, cause unspecified documented in this encounter Additional Health Concerns Assessment Noted Time PHQ-9 Depression Total Score: 0 06/25/20 23 2:19 PM EDT documented as of this encounter Care Teams Fast Food Shift Lead Relationship Specialty Start Date End Date Kathy Jang ANP [address] [place] [address] PCP - General Family Medicine 05/29/21 documented as of this encounter
--- OUTSIDE RECORDS SUMMARY | 2024-12-19 17:40 | XMS_ITS | Encounter Summary ---
Author Organization [employer] [facility] Address [address] [place] [address] 7t [place] [address] Care Team Providers Care Perinatal Educator Name Role Phone Kathy Jang Primary Care Provider [phone] Encounter Details Date Type Department Care Team (Late st Contact Info) Description 12/01/2022 Orders Only [facility] [address] [place] [address] Alyson Bautista LPN Social History Tobacco Use [...] Description 12/20/2024 2:15 PM EDT Office Visit [facility] [address] [place] [address] Kathy Jang ANP [address] [place] [address] documented as of this encounter Visit Diagnoses Not on filedocumented in this encounter Care Teams Perinatal Educator Relationship Specialty Start Date End Date Kathy Jang ANP [address] [place] [address] PCP - General Family Medicine 05/29/21 documented as of this encounter
--- OUTSIDE RECORDS SUMMARY | 2024-12-19 17:40 | XMS_ITS | Encounter Summary ---
Author Organization [employer] [facility] Address [address] [place] [address] 7t [place] [address] Care Team Providers Care Netbackup Admin Name Role Phone Kathy Jang Primary Care Provider [phone] Encounter Details Date Type Department Care Team (Late st Contact Info) Description 01/02/2023 Orders Only [facility] [address] [place] [address] Alyson Bautista LPN Social History Tobacco Use [...] 12/20/2024 2:15 PM EDT Office Visit [facility] [address] [place] [address] Kathy Jang ANP [address] [place] [address] documented as of this encounter Visit Diagnoses Not on filedocumented in this encounter Care Teams Netbackup Admin Relationship Specialty Start Date End Date Kathy Jang ANP [address] [place] [address] PCP - General Family Medicine 05/29/21 documented as of this encounter
--- OUTSIDE RECORDS SUMMARY | 2024-12-19 17:40 | XMS_ITS | Encounter Summary ---
Author Organization [employer] Address [address] [facility] 7t [place] [address] Care Team Providers Care Communications Controller Name Role Phone Kathy Jang Primary Care Provider [phone] Reason for Visit * Reason Onset Date Comments Med Refill 10/01/2023 Encounter Details Date Type Department Care Team ([facility] st Contact Info) Description 10/01/2023 Refill [facility] [address] [place] [address] Kathy Jang ANP [address] [place] [address] Seasonal allergies Social History Tobacco Use Types [...] Description 12/20/2024 2:15 PM EDT Office Visit [facility] [address] [place] [address] Kathy Jang ANP [address] [place] [address] documented as of this encounter Visit Diagnoses Diagnosis Seasonal allergies Allergic rhinitis, cause unspecified documented in this encounter Additional Health Concerns Assessment Noted Time PHQ-9 Depression Total Score: 0 06/25/20 23 2:19 PM EDT documented as of this encounter Care Teams Communications Controller Relationship Specialty Start Date End Date Kathy Jang ANP [address] [place] [address] PCP - General Family Medicine 05/29/21 documented as of this encounter
--- OUTSIDE RECORDS SUMMARY | 2024-12-19 17:40 | XMS_ITS | Encounter Summary ---
Author Organization [employer] Address [address] 7[address] [place] [address] Care Team Providers Care Workers Compensation Claims Specialist Name Role Phone Kathy Jang Primary Care Provider [phone] Reason for Visit * Reason Onset Date Comments Med Refill 09/01/2023 Encounter Details Date Type Department Care Team (Late st Contact Info) Description 09/01/2023 Refill [facility] [address] [place] [address] Kathy Jang ANP [address] [place] [address] Iron deficiency anemia, unspecified iron deficiency anemia [...] Description 12/20/2024 2:15 PM EDT Office Visit [facility] [address] [place] [address] Kathy Jang ANP [address] [place] [address] documented as of this encounter Visit Diagnoses Diagnosis Iron deficiency anemia, unspecified iron deficiency anemia type documented in this encounter Additional Health Concerns Assessment Noted Time PHQ-9 Depression Total Score: 0 06/25/20 23 2:19 PM EDT documented as of this encounter Care Teams Workers Compensation Claims Specialist Relationship Specialty Start Date End Date Kathy Jang ANP [address] [place] [address] PCP - General Family Medicine 05/29/21 documented as of this encounter
--- OUTSIDE RECORDS SUMMARY | 2024-12-19 17:40 | XMS_ITS | Clinical Summary ---
Author Organization [employer] Address [address] [place] [address] 7[address] [place] [address] Care Team Providers Care Beauty Director Name Role Phone Rossana Myesha CADENA Primary Care Provider [phone] Allergies Active Allergy Reactions Criticality Noted Date [...] were not included. Seen by greg at [facility] 12/21/23 (sent d/t very elevated LDL [...] Encounters Date Type Department Care Team Description 12/16/2024 Population Health Risk Score [facility] ([facility]) Department [address] [phone] Provider, Population Health Generic 12/09/2024 Refill [facility] [address] [place] [address] Myesha Tracy ANP Vitamin D deficiency; Iron deficiency anemia, unspecified iron deficiency anemia type; Essential hypertension 12/09/2024 Refill [facility] [address] [place] [address] Annia Quintero MD Joint pain in fingers of right hand; Pain in both knees, unspecified chronicity 12/08/2024 1:00 PM EST Office Visit [facility] [address] [place] [address] Annia Quintero MD Joint pain in fingers of right hand (Primary Dx); Pain in both knees, unspecified chronicity; Encounter for immunization 12/08/2024 Refill [facility] [address] [place] [address] Myesha Tracy ANP 12/08/2024 Refill [facility] [address] [place] [address] Myesha Tracy ANP Benign essential HTN; Vitamin D deficiency; Seasonal allergies; Iron deficiency anemia, unspecified iron deficiency anemia type; Essential hypertension from Last 3 Months Immunizations Name Administration [...] 2:15 PM EDT Office Visit [facility] [address] [place] [address] Myesha Tracy, ANP [address] [place] [address] Health Maintenance Due Date Last Done Comments CT Colonography 1971 FIT DNA/Cologuard 1971 FIT 1970 FOBT 1970 HIV Screening 1970 Sigmoidoscopy 1970 Hepatitis C Screening 12/09/1989 Pap Smear 12/09/1992 [...] Procedure Name Priority Date/Time Associated Diagnosis Comments URINALYSIS WITH REFLEX MICROSCOPIC Routine 12/12/2024 3:24 AM EDT LIPASE Routine 12/12/2024 3:20 AM EDT HEPATIC FUNCTION PANEL Routine 3:20 AM EDT COMPREHENSIVE METABOLIC PANEL Routine 12/12/2024 3:20 AM EDT CBC WITH AUTO DIFFERENTIAL Routine 12/12/2024 3:20 AM EDT XR HAND 3+ VIEWS RIGHT Routine 1:24 [...] Recently Relevant to Health Maintenance Results * (ABNORMAL) Urinalysis w/reflex microscopic (12/12/2024 3:24 AM EDT) Color Urine Yellow [facility] Appearance Urine Clear [facility] PH 5.0 5.0 - 9.0 [facility] Glucose Urine UA Negative Negative mg/dL [facility] Urine Blood Negative Negative [facility] Specific [place] - Urine >=1.030(H) 1.005 - 1.025 [facility] Urine Protein Negative Neg-Trace mg/dL [facility] Urine Ketones Trace Negative mg/dL [facility] Nitrite Urine Negative Negative [facility] Leukocyte Esterase Urine Negative Negative [facility] 12/12/2024 3:24 AM EDT 12/12/2024 3:27 AM EDT Narrative [facility] - 12/12/2024 3:30 AM EDT [id number], Clean Catch us Generic External Data Provider LAB URINE ORDERAB LES Final Result [facility] [address] [place] [address] [phone] * (ABNORMAL) CBC auto differential (12/12/2024 3:20 AM EDT) [facility] White Blood Count 13.5(H) 4.8 - 10.8 X10*3/uL [facility] Red Blood Count 4.55 4.20 - 5.50 X10*6/uL [facility] Hemoglobin 12.8 12.0 - 16.0 g/dl [facility] Hematocrit 40.0 37.0 - 47.0 % [facility] Mean Corpuscular Volume 87.9 80.0 - 98.0 fL [facility] Mean Corpuscular Hemoglobin 28.1 27.0 - 33.0 pg [facility] Mean Corpuscular HGB Conc 32.0 31.0 - 35.0 g/dl [facility] Red Cell Distribution Width 13.4 11.0 - 16.0 % [facility] Platelet Count 331 160 - 400 X10*3/uL [facility] Mean Platelet Volume 10.3 9.4 - 12.3 fL [facility] Neutrophils Percent Auto 63.8 45 - 73 % [facility] Imm Gran Pct Auto 0.5(H) 0.0 - 0.4 % [facility] Lymphocytes Percent Auto 25.2 20 - 40 % [facility] Monocytes Percent Auto 6.6 2 - 11 % [facility] Eosinophils Percent Auto 3.5 0 - 4 % [facility] Basophils Percent Auto 0.4 0 - 2 % [facility] NRBC Pct Auto 0.0 0.0 - 0.2 /100WBC [facility] Neutrophils Absolute Auto 8.6(H) 2.0 - 8.3 x10*3/uL [facility] Imm Gran Abs Auto 0.07(H) 0.00 - 0.03 X10*3/uL [facility] Lymphocytes Absolute Auto 3.4 1.2 - 4.9 X10*3/uL [facility] Monocytes Absolute Auto 0.9 0.1 - 1.2 X10*3/uL [facility] Eosinophils Absolute Auto 0.5(H) 0.0 - 0.4 X10*3/uL [facility] Basophils Absolute Auto 0.1 0.0 - 0.2 X10*3/uL [facility] NRBC Abs Auto 0.000 0.0 - 0.012 X10*3/uL [facility] 12/12/2024 3:20 AM EDT 12/12/2024 3:22 AM EDT us Generic External Data Provider LAB BLOOD ORDERAB LES Final Result [facility] [address] [place] [phone] * Lipase (12/12/2024 3:20 AM EDT) Lipase 33 8 - 78 U/L [facility] 12/12/2024 3:20 AM EDT 12/12/2024 3:22 AM EDT us Generic External Data Provider LAB BLOOD ORDERAB LES Final Result Performing Organization Address City/[facility]/ZIP Co de Phone Number [facility] [address] [place] [phone] * Hepatic Function Panel (12/12/2024 3:20 AM EDT) Bilirubin, Direct <0.2 0.0 - 0.5 mg/dL [facility] 12/12/2024 3:20 AM EDT 12/12/2024 3:22 AM EDT us Generic External Data Provider LAB BLOOD ORDERAB LES Final Result Performing Organization Address [facility] Co de Phone Number [facility] [address] [place] [phone] * (ABNORMAL) Comprehensive Metabolic Panel (12/12/2024 3:20 AM EDT) Sodium 143 135 - 145 mmol/L [facility] Potassium 4.5 3.3 - 5.1 mmol/L [facility] Chloride 113(H) 96 - 108 mmol/L [facility] Carbon Dioxide 21(L) 22 - 29 mmol/L [facility] Anion Gap 14 12 - 20 [facility] Urea Nitrogen (BUN) 26(H) 9 - 16 mg/dL [facility] Creatinine, Serum 1.06 0.5 - 1.4 mg/dL [facility] Creatinine Clr Calc Pharmacy 71.5 [facility] Comment:Provided height and weight: 162.56 cm,102.5 kg.eGFR (calculated from the MDRD study equation) and eCrCl(calculated from the Cockcroft-Gault equation) are based ondifferent parameters and may not yield comparable results.If eCrCl result is absurd, please check patient'sheight/weight. Estimated Glomerular Filt Rate 54 [facility] Comment:Chronic Kidney Disea se: Estimated GFR < 60 mL/min/1.07h0Feyvas Kidney Disease: Estimated GFR < 15 mL/min/1.73m2 Glucose 121(H) 60 - 115 mg/dL [facility] Calcium 10.1 8.4 - 10.2 mg/dL [facility] Bilirubin, Total 0.2 0.0 - 1.0 mg/dL [facility] Aspartate Amino Transferase 35(H) 5 - 31 U/L [facility] Alanine Aminotransferase 81(H) 0 - 31 U/L [facility] Total Protein 8.1(H) 6.5 - 8.0 g/dL [facility] Albumin Level 4.5 3.5 - 5.0 g/dL [facility] Alkaline Phosphatase 97 39 - 117 U/L [facility] 12/12/2024 3:20 AM EDT 12/12/2024 3:22 AM EDT us Generic External Data Provider LAB BLOOD ORDERAB LES Final Result Performing Organization Address City/State/[facility] Co de Phone Number [facility] [address] [place] [phone] * XR Knee 3 Views Right (12/08/2024 1:24 PM EST) Anatomical Region Laterality Modality Lower Extremities, Knee Right Radiogra phic Imaging 12/08/2024 1:24 PM EST Narrative 12/08/2024 2:19 PM EST ?[facility] ?[address] ?[place] [address] ?XRay Report ? Signed ? Patient: Jack Caquias,Alisha ?MR#: ?? [id number] ? : 1970 ?Acct:[id number] ? Age/Sex: 53 / F ?ADM Date: 03/06/25 ? Loc: HO.HHCX ? Attending Dr: Annia Quintero MD ? Ordering Physician: Annia Quintero MD ?? Date of Service: 12/08/24 ?? Procedure(s): XR knee RT 3V ?? Accession Number(s): [id number] ? cc: Annia Quintero MD ? EXAMINATION: [...] DD/ 1324 ? TD/TT: 12/08/24 1355 ? Trench Digger Helper: MSM ? Procedure Note Lynn, Image - 12/08/[address] [place] [address] [address] XRay Report Signed Patient: Alisha ProctorMR#: [id number] : 1970Acct:[id number] Age/Sex: 53 / FADM Date: 12/08/24 Loc: HO.HHCX Attending Dr: Annia Quintero MD Ordering Physician: Annia Quintero MD Date of Service: 12/08/24 Procedure(s): XR knee RT 3V Accession Number(s): [id number] cc: Annia Quintero MD EXAMINATION: XR KNEE, [...] Shubham Macedo MD 12/08/2024 02:16 PM EST RP Dictated By: Shubham Macedo MD Signed By: <Electronically signed by Shubham Macedo MD in OV> 12/08/24 1416 DD/ 1324 TD/TT: 12/08/24 1355 Trench Digger Helper: WILMER us Annia Quintero MD IMG XR PROCEDURES Final Re sult * XR Knee 3 Views Left (12/08/2024 1:24 PM EST) Anatomical Region Laterality Modality Lower Extremities, Knee Left Radiogra phic Imaging 12/08/2024 1:24 PM EST Narrative 12/08/2024 2:16 PM EST ?[facility] ?[address] ?[place] [address] ?XRay Report ? Signed ? Patient: Jack Caquias,Alisha ?MR#: ?? [id number] ? : 1970 ?Acct:[id number] ? Age/Sex: 53 / F ?ADM Date: 12/08/24 ? Loc: HO.HHCX ? Attending Dr: Annia Quintero MD ? Ordering Physician: Annia Quintero MD ?? Date of Service: 12/08/24 ?? Procedure(s): XR knee LT 3V ?? Accession Number(s): [id number] ? cc: Annia Quintero MD ? EXAMINATION: [...] 02:13 PM EST RP ? Dictated By: ?Hellen,Shubham Zurita MD ? Signed By: ?<Electronically signed by Shubham Macedo MD in OV> ?12/08/24 1413 ? DD/ 1324 ? TD/TT: 12/08/24 4955 ? Trench Digger Helper: MSM ? Procedure Note Donchinoter, Image - 12/08/2024 [facility] [address] [place] [address] XRay Report Signed Patient: Alisha ProctorMR#: [id number] : 1970Acct:[id number] Age/Sex: 53 / FADM Date: 12/08/24 Loc: HO.HHCX Attending Dr: Annia Quintero MD Ordering Physician: Annia Quintero MD Date of Service: 12/08/24 Procedure(s): XR knee LT 3V Accession Number(s): [id number] cc: Annia Quintero MD EXAMINATION: XR KNEE, [...] 12/08/24 1413 DD/ 1324 TD/TT: 12/08/24 1355 Trench Digger Helper: MSM Annia Quintero MD IMG XR PROCEDURES Final Re sult * XR Hand 3+ Views Right (12/08/2024 1:24 PM EST) Anatomical Region Laterality Modality Upper Extremities, Hand Right Radiogra phic Imaging 12/08/2024 1:24 PM EST Narrative 12/08/2024 2:17 PM EST ?[place] [facility] ?[address] ?[place] [address] ?XRay Report ? Signed ? Patient: Jack Caquias,Alisha ?MR#: ?? [id number] ? : 1970 ?Acct:[id number] ? Age/Sex: 53 / F ?ADM Date: 12/08/24 ? Loc: HO.HHCX ? Attending Dr: Annia Quintero MD ? Ordering Physician: Annia Quintero MD ?? Date of Service: 12/08/24 ?? Procedure(s): XR hand RT min 3V ?? Accession Number(s): [id number] ? cc: Annia Quintero MD ? EXAMINATION: [...] DD/ 1324 ? TD/TT: 12/08/24 1355 ? Trench Digger Helper: MSM ? Procedure Note Angel Bailey - 12/08/[address] [place] [address] [address] XRay Report Signed Patient: Alisha Proctor#: [id number] : 1970Acct:[id number] Age/Sex: 53 / FADM Date: 12/08/24 Loc: HO.HHCX Attending Dr: Annia Quintero MD Ordering Physician: Annia Quintero MD Date of Service: 12/08/24 Procedure(s): XR hand RT min 3V Accession Number(s): [id number] cc: Annia Quintero MD EXAMINATION: XR HAND, [...] 12/08/24 1414 DD/ 1324 TD/TT: 12/08/24 1355 Trench Digger Helper: WILMER Annia Quintero MD IMG XR PROCEDURES Final Re sult * Creatinine, Serum (12/07/2024 3:17 PM EST) Creatinine, Serum 0.77 0.5 - 1.4 mg/dL [facility] Estimated Glomerular Filt Rate >60 [facility] Comment:Chronic Kidney Disea se: Estimated GFR < 60 mL/min/1.52b5Nbcltr Kidney Disease: Estimated GFR < 15 mL/min/1.73m2 12/07/2024 3:17 PM EST 12/07/2024 3:17 PM EST us Generic External Data Provider LAB BLOOD ORDERAB LES Final Result [facility] [address] [place] [phone] * BUN (Blood Urea Nitrogen) (12/07/2024 3:17 PM EST) Urea Nitrogen (BUN) 12 9 - 16 mg/dL [facility] 12/07/2024 3:17 PM EST 12/07/2024 3:17 PM EST Generic External Data Provider LAB BLOOD ORDERAB LES Final Result Performing Organization Address [facility] Co de Phone Number [facility] [address] [place] [phone] * (ABNORMAL) Electrolyte Panel (12/07/2024 3:17 PM EST) Sodium 144 135 - 145 mmol/L [facility] Potassium 4.4 3.3 - 5.1 mmol/L [facility] Chloride 109(H) 96 - 108 mmol/L [facility] Carbon Dioxide 28 22 - 29 mmol/L [facility] Anion Gap 11(L) 12 - 20 [facility] 12/07/2024 3:17 PM EST 12/07/2024 3:17 PM EST Generic External Data Provider LAB BLOOD ORDERAB LES Final Result Performing Organization Address [facility] Co de Phone Number [facility] [address] [place] [phone] * Culture, Urine, Routine (12/07/2024 3:15 PM EST) Urine Urine specimen obtained by clean catch procedure / Unknown 12/07/2024 3:15 PM EST 12/07/2024 3:23 PM EST Comment:UACC Narrative [facility] - 12/09/2024 12:09 PM EST Urine Culture Report Result Urine Culture 10,000 to 50,000 cfu/ml Urine Culture Mixed bacterial bruce characteristic of Urine Culture urogenital contamination. Specimen Source: Urine clean catch Generic External Data Provider LAB MICROBIOLOGY - GENERAL ORDERABLES Final Result Performing Organization Address [facility] Co de Phone Number [facility] [address] [place] [phone] * BI Mammogram Screening Tomosynthesis Bilateral (11/16/2023 2:00 PM EST) Anatomical Region Laterality Modality Breast Bilateral Mammography 11/16/2023 2:00 PM EST Narrative 12/03/2023 7:55 PM EST ? [facility] ? [address] ?[place] [address] ? Mammography Report ? Signed ? Patient: Jack Caquias,Alisha ?MR#: ?? [id number] ? : 1970 ?Acct:[id number] ? Age/Sex: 52 / F ?ADM Date: 11/16/23 ? Loc: HO.MAMMO ? Attending Dr: Myesha Tracy ENVIRONMENTAL ADVISER ? Ordering Physician: ROSSANA,MYESHA GIL ?Results: 1Negative ? Date of Service: 11/16/23 ?Follow Up: 1 Year From Orig ?? inal Mammogram ? Procedure(s): MM tomosynthesis screening BI ?? Accession Number(s): [id number] ? cc: ROSSANA,MYESHA GIL ? EXAMINATION: ?? MM SCREENING DIGITAL BREAST TOMOSYNTHESIS, BILATERAL ? CLINICAL INFORMATION: ? Screening. Asymptomatic. ? COMPARISON: ?? Mammography: This study is compared with prior exams dating back to ?? 2016. ? TECHNIQUE: ?? Digital breast tomosynthesis is [...] by Cherrie Paez MD in OV> ? 12/03/231950 ? DD/ 1400 ? TD/TT: ? Trench Digger Helper: ? Procedure Note Donothugointerpreter, Image - 12/03/2023 [facility] [address] [place] [address] Mammography Report Signed Patient: Alisha ProctorMR#: [id number] : 1970Acct:[id number] Age/Sex: 52 / FADM Date: 11/16/23 Loc: HO.MAMMO Attending Dr: Myesha Tracy NP Ordering Physician: MYESHA TRACYesults: 1Negative Date of Service: 11/16/23Follow Up: 1 Year From Orig inal Mammogram Procedure(s): MM tomosynthesis screening BI Accession Number(s): [id number] cc: MYESHA TRACY NP EXAMINATION: MM SCREENING [...] MD in OV> 12/03/231950 DD/ 1400 TD/TT: Trench Digger Helper: us Myesha Tracy ANP IMG BI PROCEDURES Final Result * (ABNORMAL) Lipid Panel, Standard (09/30/2023 11:56 AM EST) Triglycerides 164(H) <150 mg/dL [facility] Comment:Desirable Triglyceri de: less than 150 mg/dLBorderline High Triglyceride 150-199 mg/dLHigh Triglyceride: 200-499 mg/dLVery High Triglyceride: greater than or equal to 5OO mg/dL Cholesterol 287(H) <200 mg/dL [facility] Comment:Desirable Cholestero l: less than 200 mg/dLBorderline High Cholesterol: 200-239 mg/dLHigh Cholesterol: greater than 239 mg/dL LDL Cholesterol Calculated 203(H) <100 mg/dL [facility] Comment:Desirable LDL: less than 100 mg/dLNear Optimal/Above Optimal LDL: 110- 129 mg/dLBorderline High LDL: 130-159 mg/dLHigh LDL: 160-189 mg/dLVery High LDL: greater than or equal to 190 mg/dL HDL Cholesterol 52 >40 mg/dL [facility] Comment:Desirable HDL: great er than 40 mg/dL Note: This HDL assay may give artificially low results in patients with liver disease. Blood Venous blood specimen / Unknown 09/30/2023 11:56 AM EST 09/30/2023 1:39 PM EST us Myesha Tracy ANP LAB BLOOD ORDERABLES Final Resul t [facility] [address] [place] [phone] [phone] * (ABNORMAL) Colonoscopy (12/22/2022) Colonoscopy Abnormal(A ) Normal Kuldeep Pacheco MD HEALTH MAINTENANCE Final Result from Last 3 Months or Most Recently Relevant to Health Maintenance Insurance [facility] C3 HSN FULL Care Teams Beauty Director Relationship Specialty Start Date End Date Myesha Tracy ANP [address] [place] [address] PCP - General Family Medicine 05/29/21
--- OUTSIDE RECORDS SUMMARY | 2024-12-19 17:40 | XMS_ITS | Encounter Summary ---
Author Organization [email or web address] Address [address] [facility] [address] [place] [address] Care Team Providers Care Counter Supply Worker Name Role Phone Kathy Jang Primary Care Provider [phone] Reason for Visit * Reason Onset Date Comments Med Refill 12/08/2024 Encounter Details Date Type Department Care Team (Late st Contact Info) Description 12/08/2024 Refill [facility] [address] [place] [address] Kathy Jang ANP [address] [place] [address] Benign essential HTN; Vitamin D deficiency; Seasonal [...] Description 12/20/2024 2:15 PM EDT Office Visit [facility] [address] [place] [phone] Kathy Jang ANP [address] [place] [address] documented as of this encounter Visit Diagnoses Diagnosis Benign essential HTN Vitamin D deficiency Seasonal allergies Allergic rhinitis, cause unspecified Iron deficiency anemia, unspecified iron deficiency anemia type Essential hypertension Unspecified essential hypertension documented in this encounter Additional Health Concerns Assessment Noted Time PHQ-9 Depression Total Score: 11 024 3:55 PM EST documented as of this encounter Care Teams Counter Supply Worker Relationship Specialty Start Date End Date Kathy Jang ANP [address] [place] [phone] PCP - General Family Medicine 05/29/21 documented as of this encounter
== END 2024-12-19 15:36 | disposition home or self-care (01) ==
LOC: HO.HPS 15:09
PROVIDERS: PCP Family Medicine; Visit Provider Nurse Practitioner Family
DX: R06.02 Shortness of breath (principal); R06.00 Dyspnea, unspecified; G47.8 Other sleep disorders
CPT/HCPCS: 99214

== ENCOUNTER → 2024-12-19 15:09 | Outpatient (BNVA) | payer MEDICAID, SELFPAY | PROVIDERS: PCP Family Medicine; Visit Provider Nurse Practitioner Family | DX: R06.00 Dyspnea, unspecified (principal); R06.02 Shortness of breath; R05.9 Cough, unspecified; I10 Essential (primary) hypertension; G47.00 Insomnia, unspecified; R53.83 Other fatigue; G47.8 Other sleep disorders | CPT/HCPCS: 99212 ==

== ENCOUNTER 2024-12-28 07:45 | Emergency (ER) | payer MEDICAID, SELFPAY ==
--- NOTE | ~2024-12-28 | XR_ITS ---
EXAMINATION: XR CHEST CLINICAL INFORMATION: cough COMPARISON: August 18, 2024. TECHNIQUE: 2 views of the chest were obtained. FINDINGS: Poor inspiration. No consolidation, pleural effusion or pneumothorax. Cardiomediastinal silhouette size is normal. Multilevel thoracic spondylosis. XR/XR chest 2V IMPRESSION: No acute airspace disease. Stable. Electronically signed by: Humble Olson MD 12/28/2024 08:15 AM EDT
[2024-12-28 07:52] VITALS: BP 150/76; PULSE 70; RESP 19; TEMP 36.6; O2SAT 99; BMI 37.8
--- NOTE | 2024-12-28 08:04 | ED_ITS ---
HPI - URI/Sore Throat General Chief Complaint: Upper Respiratory Symptoms Stated Complaint: Flu Symptoms Time Seen by Provider: 12/28/24 08:01 Source: patient, old records reviewed and asl interpreter Mode of arrival: ambulatory Limitations: no limitations History of Present Illness ED Provider: JAIME AMAYA Narrative: 54 yo female with PMH of HTN, back pain, obesity, anemia, migraines who comes in today with c/o sore throat and runny nose with no fevers, but has dry cough since yesterday. She denies travel or sick contacts. She feels her nose keeps running. She is fully vaccinated. She states her throat hurts a lot. She has no drooling and can swallow. She has not taken any OTC medications for this. MD elicited complaint: cough, sore throat and rhinorrhea Onset (ago): day(s) (1) Consistency: constant Severity: moderate Description of mucous: clear Able to tolerate fluids by mouth: Yes Exacerbating factors: swallowing Relieving factors: nothing Associated symptoms: rhinorrhea, nasal congestion, sore throat and cough Treatments prior to arrival: none Related Data Home Medications ?Medication ?Instructions ?Recorded ?Confirmed cholecalciferol (vitamin D3) 50 50 mcg PO QAM 01/24/22 12/19/24 mcg (2,000 unit) tablet lisinopril 40 mg tablet 40 mg PO BEDTIME 01/24/22 12/19/24 cetirizine 10 mg tablet 10 mg PO DAILY PRN Allergy Symptoms 04/04/22 12/19/24 nortriptyline 50 mg capsule 50 mg PO BEDTIME 04/04/22 08/20/23 acetaminophen 325 mg capsule 650 mg PO Q6H PRN 08/20/23 12/19/24 (Tylenol) ferrous sulfate 325 mg (65 mg 325 mg PO BID 12/07/24 12/19/24 iron) tablet (FeroSul) hydrochlorothiazide 12.5 mg tablet 12.5 mg PO DAILY 12/07/24 12/19/24 Previous Rx's ?Medication ?Instructions ?Recorded methylcellulose (laxative) 500 mg 500 mg PO DAILY #90 tabs 07/15/22 tablet (Citrucel) sucralfate 1 gram tablet 1 g PO BEDTIME #30 tabs 05/31/24 pantoprazole 40 mg tablet,delayed 40 mg PO BID #180 tabs 10/06/24 release sennosides 8.6 mg tablet (senna) 17.2 mg (2 x 8.6 mg) PO BEDTIME 11/07/24 for constipation #180 tabs propranolol 80 mg tablet 80 mg PO BID #60 tabs 11/30/24 pantoprazole 40 mg tablet,delayed 40 mg PO BID #60 tabs 12/12/24 release (Protonix) sucralfate 1 gram tablet 1 g PO TID #90 tabs 12/12/24 tramadol 50 mg tablet 50 mg PO TID PRN pain #20 tabs 12/12/24 benzonatate 100 mg capsule 100 mg PO TID PRN cough #20 caps 12/28/24 Allergies Allergy/AdvReac Type Severity Reaction Status Date / Time No Known Allergies Allergy Verified 12/28/24 07:54 [No Known Allergies*] Review of Systems Review of Systems: Constitutional : No Fever, No Chills, No Fatigue ENT/Mouth : pos sore throat, pos Rhinorrhea Eyes: No Eye Pain, No Swelling, No Redness Cardiovascular : No Chest Pain, No SOB, No Dyspnea on Exertion Respiratory : pos Cough, No Sputum Gastrointestinal : No Nausea, No Vomiting, No Diarrhea, No abdominal Pain Genitourinary : No Dysuria, No Urinary Frequency, No Hematuria, Musculoskeletal : No joint pain, No Myalgias, No Joint Swelling Skin : No Skin Lesions, No rash Neuro : No Weakness, No Numbness, No Dizziness, positive Headache Psych : No Anxiety/Panic, No Depression All other systems reviewed and are negative PMFSH Past Medical History Attestation statement: The following information was validated with the patient. Source: old records reviewed Medical History Helicobacter pylori (H. pylori) Transaminitis Morbid obesity Migraine Anemia HTN (hypertension) Surgical History History of esophagogastroduodenoscopy (EGD) Hx of colonoscopy Hx of cystoscopy Hx of hysterectomy History of cholecystectomy Family History Family History Father Heart disease Mother Heart disease Social History Social History Alcohol intake: never Patient Tobacco Use Status: Never used Tobacco Smoked in Last 30 Days: No Use of substances other than those prescribed or required for medical reasons: No Advance Directives: No Advance Directives Information Provided: Yes Do you have a plan to hurt others: No Plan Patient : No Physical Exam Vital Signs: Vital Signs: Last Vital Signs Temp 98 F 12/28/24 07:52 Pulse 70 12/28/24 07:52 Resp 19 12/28/24 07:52 BP 150/76 H 12/28/24 07:52 Pulse Ox 99 12/28/24 07:52 O2 Del Method Room Air 12/28/24 07:52 BMI result Body Mass Index 37.8 Appearance: Alert. Oriented X3. No acute distress. Eyes: Pupils equal, round and reactive to light. ENT: Pharynx normal. No erythema no exudates uvula is midline no drooling voice is normal Neck: Normal inspection. Neck supple. CVS: Normal heart rate and rhythm. Pulses normal. Respiratory: No respiratory distress. Breath sounds normal. Abdomen: Soft and non-tender. Skin: Skin warm and dry. Normal skin color. Normal skin turgor. Extremities: No lower extremity edema. No calf ttp Neuro: Oriented X 3. No motor deficit. No sensory deficit. CN2-12 intact Medical Decision Making Medical Decision Making MDM Narrative: 54 yo female with PMH of HTN, back pain, obesity, anemia, migraines who comes in today with c/o URI symptoms x 24 hours but no fevers, no hypoxia no distress on exam. Lungs are CTAB she has no signs of NEGOTIATIONS DIRECTOR/abscess her throat is mildly red but she has no distress on exam and I do not suspect epiglottitis. At this time viral panel, strep throat, CXR - overall well appearing Differential Diagnosis Differential Diagnoses: The differential diagnosis associated with the presentation includes URI, viral syndrome. Admission/Observation Consideration of admission/observation: Escalation of care including admissio n/observation considered not toxic clear lungs, no hypoxia can be managed as outpatient Lab Data [facility] Lab Attestation statement: I reviewed the patient's lab results. Labs: Lab Results 12/28/24 12/28/24 Range/Units 08:01 08:02 Influenza Type A (PCR) NEGATIVE (Negative) Influenza Type B (PCR) NEGATIVE (Negative) RSV RNA Qual (PCR) NEGATIVE (Negative) SARS-CoV-2 RNA (RT-PCR) NEGATIVE (Negative) S. pyogenes GrpA BALDEV Negative (Negative) Independent Interpretation I performed an independent interpretation of an: Plain X-Ray (no pneumonia) Radiology Impression Discussion of test interpretation with radiology: I have reviewed the radiologist's reading. External Record Review External record reviewed: Inpatient record and Outpatient record Prescription Management I considered prescription management with: Other Discharge Plan Discharge Clinical Impression: Acute viral syndrome, Acute viral pharyngitis Patient Disposition: Home, Self-Care Instructions: Pharyngitis (ED), Viral Syndrome (ED) Additional Instructions: you can take over the counter tylenol and motrin for pain your chest xray, strep swab, flu, covid, rsv were all normal and reassuring return for worsening symptoms such as increased trouble breathing, fevers that do not respond to over the counter medications, confusion, unable to eat or drink the medication you are being sent home with are toxic to children please keep away Prescriptions: New benzonatate 100 mg capsule 100 mg PO TID PRN (Reason: cough) Qty: 20 0RF No Action sucralfate 1 gram tablet 1 g PO BEDTIME Qty: 30 4RF pantoprazole 40 mg tablet,delayed release (DR/EC) 40 mg PO BID Qty: 180 2RF Rx Instructions: take one tablet half an hour before breakfast sennosides [senna] 8.6 mg tablet 17.2 mg PO BEDTIME Qty: 180 3RF propranolol 80 mg tablet 80 mg PO BID Qty: 60 3RF pantoprazole [Protonix] 40 mg tablet,delayed release (DR/EC) 40 mg PO BID Qty: 60 0RF sucralfate 1 gram tablet 1 g PO TID Qty: 90 0RF tramadol 50 mg tablet 50 mg PO TID PRN (Reason: pain) Qty: 20 0RF cholecalciferol (vitamin D3) 50 mcg (2,000 unit) tablet 50 mcg PO QAM lisinopril 40 mg tablet 40 mg PO BEDTIME nortriptyline 50 mg capsule 50 mg PO BEDTIME cetirizine 10 mg tablet 10 mg PO DAILY PRN (Reason: Allergy Symptoms) Citrucel 500 mg tablet 500 mg PO DAILY Qty: 90 2RF Rx Instructions: take it with full glass of water acetaminophen [Tylenol] 325 mg capsule 650 mg PO Q6H PRN ferrous sulfate [FeroSul] 325 mg (65 mg iron) tablet 325 mg PO BID hydrochlorothiazide 12.5 mg tablet 12.5 mg PO DAILY Print Language: Korean
[2024-12-28 08:18] LABS: IDNOW Serial# 55D5AD1C; Strep A Nucleic Acid Negative (Negative)
[2024-12-28 08:56] LABS: Influenza A PCR NEGATIVE (Negative); Influenza B PCR NEGATIVE (Negative); Resp Syncy Virus RNA Qual PCR NEGATIVE (Negative); SARS COV2 PCR INHOUSE NEGATIVE (Negative)
[2024-12-28] MEDS: Acetaminophen 325 MG TABLET 975 MG PO (09:05)
[2024-12-28] MEDS: Benzonatate 100 MG CAPSULE PO (09:05)
[2024-12-28 09:14] VITALS: BP 135/76; PULSE 71; RESP 14; TEMP 36.8; O2SAT 97
[2024-12-28 09:33] VITALS: BP 135/76; PULSE 71; RESP 14; TEMP 36.8; O2SAT 97
== END 2024-12-28 09:42 | disposition home or self-care (01) ==
PROVIDERS: Emergency Provider Emergency Medicine; PCP Nurse Practitioner Primary Care
DX: B34.9 Viral infection, unspecified (principal); J02.9 Acute pharyngitis, unspecified; R05.9 Cough, unspecified; Z03.818 Encounter for observation for suspected exposure to other biological agents ruled out
CPT/HCPCS: 0241U; 71046; 87651; 99283; 99284

== ENCOUNTER → 2024-12-28 07:55 | Outpatient (BNV) | payer MEDICAID, SELFPAY | PROVIDERS: Emergency Provider Emergency Medicine; PCP Nurse Practitioner Primary Care; Visit Provider Radiology Diagnostic Radiology | DX: R05.9 Cough, unspecified (principal) | CPT/HCPCS: 71046 ==

== ENCOUNTER 2024-12-29 13:26 | Outpatient (REF) | payer MEDICAID, SELFPAY ==
--- OUTSIDE RECORDS SUMMARY | 2024-12-29 16:42 | XMS_ITS | Encounter Summary ---
Author Organization [employer] Address [address] [facility] 7t [place] [address] Care Team Providers Care Hospice Manager Name Role Phone Kathy Jang Primary Care Provider [phone] Reason for Visit * Reason Onset Date Comments Med Refill 12/08/2024 Encounter Details Date Type Department Care Team (Late st Contact Info) Description 12/08/2024 Refill [facility] MED[facility] [address] [place] [address] Kathy Jang ANP [address] [place] [address] Social History Tobacco Use Types Packs/Day Years [...] Female 06/23/2023 3:55 PM EDT Sexual Orientation Straight 12/20/2024 2: 49 PM EDT documented as of this encounter Plan of Treatment Upcoming Encounters Date Type Department Care Team (Late st Contact Info) Description 01/31/2025 2:45 PM EDT Procedure Visit [facility] [address] [place] [address] Darby Blount CNM [address] [place] [address] documented as of this encounter Visit Diagnoses Not on filedocumented in this encounter Additional Health Concerns Assessment Noted Time PHQ-9 Depression Total Score: 11 024 3:55 PM EST documented as of this encounter Care Teams Hospice Manager Relationship Specialty Start Date End Date Kathy Jang ANP [address] [place] [address] PCP - General Family Medicine 05/29/21 documented as of this encounter
--- OUTSIDE RECORDS SUMMARY | 2024-12-29 16:42 | XMS_ITS | Encounter Summary ---
Author Organization [employer] Address [address] [place] [address] 7t [place] [address] Care Team Providers Care Director [employer] Name Role Phone Kathy Jang Primary Care Provider [phone] Encounter Details Date Type Department Care Team (Late st Contact Info) Description 12/01/2022 Orders Only [facility] MED & PEDS [address] [place] [address] Alyson Bautista LPN Social History Tobacco Use [...] Description 01/31/2025 2:45 PM EDT Procedure Visit [facility] MEDICINE [address] [place] [address] Darby Blount CNM [address] [place] [address] documented as of this encounter Visit Diagnoses Not on filedocumented in this encounter Care Teams Director [employer] Relationship Specialty Start Date End Date Kathy Jang ANP [address] [place] [address] PCP - General Family Medicine 05/29/21 documented as of this encounter
--- OUTSIDE RECORDS SUMMARY | 2024-12-29 16:42 | XMS_ITS | Encounter Summary ---
Author Organization [employer] Address [address] [facility] [address] [place] [address] Care Team Providers Care Gold Letterer Name Role Phone Kathy Jang SURINDER Primary Care Provider [phone] Reason for Visit * Reason Onset Date Comments Med Refill 12/09/2024 Encounter Details Date Type Department Care Team (Late st Contact Info) Description 12/09/2024 Refill [facility] [address] [place] [address] Annia Quintero MD [address] [place] [address] Joint pain in fingers of right hand; [...] Description 01/31/2025 2:45 PM EDT Procedure Visit [facility] MEDICINE [address] [place] [address] Darby Blount CNM [address] [place] [address] documented as of this encounter Visit Diagnoses Diagnosis Joint pain in fingers of right hand Pain in both knees, unspecified chronicity documented in this encounter Additional Health Concerns Assessment Noted Time PHQ-9 Depression Total Score: 11 024 3:55 PM EST documented as of this encounter Care Teams Gold Letterer Relationship Specialty Start Date End Date Kathy Jang ANP [address] [place] [address] PCP - General Family Medicine 05/29/21 documented as of this encounter
--- OUTSIDE RECORDS SUMMARY | 2024-12-29 16:42 | XMS_ITS | Encounter Summary ---
Author Organization [employer] Address [address] [facility] 7t [place] [address] Care Team Providers Care Accounts Payable Processor Name Role Phone Kathy Jang Primary Care Provider [phone] Reason for Visit * Reason Onset Date Comments Prior Authorization 12/21/2024 [employer] Encounter Details Date Type Department Care Team ([facility] st Contact Info) Description 12/21/[address] [facility] MEDICINE [address] [place] [address] Kathy Jang ANP [address] [place] [address] Prior Authorization (Zep[employer]) Social History Tobacco Use Types Packs/Day Years [...] PM EDT documented as of this encounter Miscellaneous Notes * Telephone Encounter - Danay John - 12/28/2024 11:49 AM EDT Refaxing to with supporting documentation. * Telephone Encounter - Danay John - 12/27/2024 1:52 PM EDT PA Denial for Zep[employer] received and scanned into media. * Telephone Encounter - Pardeep Ko [place] - 12/22/2024 9:21 AM EDT Form has been signed by the PCP and faxed to [employer]. Form has been sent in to scan. * Telephone Encounter - Danay John - 12/21/2024 11:59 AM EDT PA for Zepbound from [employer] placed on PCP desk for review and signature. * Telephone Encounter - Danay John - 12/21/2024 11:59 AM EDT ----- Message from Kathy Jang sent at 12/20/2024 3:47 PM EDT ----- Please initiate PA for zepbound. Thank you documented in this encounter Plan of Treatment Upcoming Encounters Date Type Department Care Team (Late st Contact Info) Description 01/31/2025 2:45 PM EDT Procedure Visit [facility] MEDICINE [address] [place] [address] Darby Blount CNM [address] [place] [address] documented as of this encounter Visit Diagnoses Not on filedocumented in this encounter Additional Health Concerns Assessment Noted Time PHQ-9 Depression Total Score: 11 12/ 024 3:55 PM EST documented as of this encounter Care Teams Accounts Payable Processor Relationship Specialty Start Date End Date Kathy Jang ANP [address] [place] [address] PCP - General Family Medicine 05/29/21 documented as of this encounter
--- OUTSIDE RECORDS SUMMARY | 2024-12-29 16:42 | XMS_ITS | Encounter Summary ---
Author Organization [employer] Address [address] [place] [address] Care Team Providers Care Winch Truck Operator Name Role Phone Kathy Jang Primary Care Provider [phone] Encounter Details Date Type Department Care Team (Latest Contact Info) Description 12/20/2024 Travel Social History Tobacco Use Types Packs/Day Years [...] Description 01/31/2025 2:45 PM EDT Procedure Visit [facility] MEDICINE [address] [place] [address] Darby Blount CNM [address] [place] [address] documented as of this encounter Visit Diagnoses Not on filedocumented in this encounter Additional Health Concerns Assessment Noted Time PHQ-9 Depression Total Score: 11 024 3:55 PM EST documented as of this encounter Care Teams Winch Truck Operator Relationship Specialty Start Date End Date Kathy Jang ANP [address] [place] [address] PCP - General Family Medicine 05/29/21 documented as of this encounter
--- OUTSIDE RECORDS SUMMARY | 2024-12-29 16:42 | XMS_ITS | Encounter Summary ---
Author Organization [employer] Address [address] [facility] [address] [facility] [address] [place] [address] Care Team Providers Care Programming Manager Name Role Phone Kathy Jang Primary Care Provider [phone] Reason for Visit * Reason Onset Date Comments Med Refill 10/01/2023 Encounter Details Date Type Department Care Team (Late st Contact Info) Description 10/01/2023 Refill [facility] MED & PEDS [address] [place] [address] Kathy Jang ANP [address] [place] [address] Iron deficiency anemia, unspecified iron deficiency anemia [...] Description 01/31/2025 2:45 PM EDT Procedure Visit [facility] MEDICINE [address] [place] [address] Darby Blount CNM [address] [place] [address] documented as of this encounter Visit Diagnoses Diagnosis Iron deficiency anemia, unspecified iron deficiency anemia type documented in this encounter Additional Health Concerns Assessment Noted Time PHQ-9 Depression Total Score: 0 06/25/20 23 2:19 PM EDT documented as of this encounter Care Teams Programming Manager Relationship Specialty Start Date End Date Kathy Jang ANP [address] [place] [address] PCP - General Family Medicine 05/29/21 documented as of this encounter
--- OUTSIDE RECORDS SUMMARY | 2024-12-29 16:42 | XMS_ITS | Encounter Summary ---
Author Organization [employer] Address [address] [facility] [address]t [place] [address] Care Team Providers Care Poultry Husbandry Teacher Name Role Phone Kathy Jang Primary Care Provider [phone] Reason for Visit * Reason Onset Date Comments Med Refill 12/08/2024 Encounter Details Date Type Department Care Team (Late st Contact Info) Description 12/08/2024 Refill [facility] MEDICINE [address] [place] [address] Kathy Jang ANP [address] [place] [address] Benign essential HTN; Vitamin D deficiency; Seasonal [...] Description 01/31/2025 2:45 PM EDT Procedure Visit [facility] MED[facility] [address] [place] [address] Darby Blount CNM [address] [place] [address] documented as of this encounter Visit Diagnoses Diagnosis Benign essential HTN Vitamin D deficiency Seasonal allergies Allergic rhinitis, cause unspecified Iron deficiency anemia, unspecified iron deficiency anemia type Essential hypertension Unspecified essential hypertension documented in this encounter Additional Health Concerns Assessment Noted Time PHQ-9 Depression Total Score: 11 024 3:55 PM EST documented as of this encounter Care Teams Poultry Husbandry Teacher Relationship Specialty Start Date End Date Kathy Jang ANP [address] [place] [address] PCP - General Family Medicine 05/29/21 documented as of this encounter
--- OUTSIDE RECORDS SUMMARY | 2024-12-29 16:42 | XMS_ITS | Encounter Summary ---
Author Organization [employer] Address [address] [facility] [address] [address] [place] [address] Care Team Providers Care Real Estate Services Coordinator Name Role Phone Kathy Jang Primary Care Provider [phone] Reason for Visit * Reason Onset Date Comments Med Refill 10/01/2023 Encounter Details Date Type Department Care Team (Late st Contact Info) Description 10/01/2023 Refill [facility] [address] [place] [address] Kathy Jang ANP [address] [place] [address] Seasonal allergies Social History Tobacco Use Types [...] Description 01/31/2025 2:45 PM EDT Procedure Visit [facility] [address] [place] [address] Darby Blount CNM [address] [place] [address] documented as of this encounter Visit Diagnoses Diagnosis Seasonal allergies Allergic rhinitis, cause unspecified documented in this encounter Additional Health Concerns Assessment Noted Time PHQ-9 Depression Total Score: 0 06/25/20 23 2:19 PM EDT documented as of this encounter Care Teams Real Estate Services Coordinator Relationship Specialty Start Date End Date Kathy Jang ANP [address] [place] [address] PCP - General Family Medicine 05/29/21 documented as of this encounter
--- OUTSIDE RECORDS SUMMARY | 2024-12-29 16:42 | XMS_ITS | Encounter Summary ---
Author Organization [employer] Address [address] [facility] [address] [place] [address] Care Team Providers Care Intake Specialist Name Role Phone Kathy Jang Primary Care Provider [phone] Encounter Details Date Type Department Care Team ([facility] st Contact Info) Description 12/16/2024 Population Health Risk Score [facility] (C[facility]) Department [address] [facility] [address] [place] [id number] Provider, Population Health Generic Social History Tobacco [...] Description 01/31/2025 2:45 PM EDT Procedure Visit [facility] MEDICINE [address] [place] [address] Darby Blount CNM [address] [place] [address] documented as of this encounter Visit Diagnoses Not on filedocumented in this encounter Additional Health Concerns Assessment Noted Time PHQ-9 Depression Total Score: 11 024 3:55 PM EST documented as of this encounter Care Teams Intake Specialist Relationship Specialty Start Date End Date Kathy Jang ANP [address] [place] [address] PCP - General Family Medicine 05/29/21 documented as of this encounter
--- OUTSIDE RECORDS SUMMARY | 2024-12-29 16:42 | XMS_ITS | Encounter Summary ---
Author Organization [employer] Address [address] [facility] [address] [place] [address] Care Team Providers Care Inorganic Chemical Technician Name Role Phone Kathy Jang Primary Care Provider [phone] Reason for Visit * Reason Onset Date Comments Med Refill 10/27/2023 Encounter Details Date Type Department Care Team (Late st Contact Info) Description 10/27/2023 Refill [facility] MEDICINE [address] [place] [address] Kathy Jang ANP [address] [place] [address] Vitamin D deficiency; Seasonal allergies Social History [...] 2:45 PM EDT Procedure Visit [facility] MEDICINE [address] [place] [address] Darby Blount CNM [address] [place] [address] documented as of this encounter Visit Diagnoses Diagnosis Vitamin D deficiency Seasonal allergies Allergic rhinitis, cause unspecified documented in this encounter Additional Health Concerns Assessment Noted Time PHQ-9 Depression Total Score: 0 06/25/20 23 2:19 PM EDT documented as of this encounter Care Teams Inorganic Chemical Technician Relationship Specialty Start Date End Date Kathy Jang ANP [address] [place] [address] PCP - General Family Medicine 05/29/21 documented as of this encounter
--- OUTSIDE RECORDS SUMMARY | 2024-12-29 16:42 | XMS_ITS | Encounter Summary ---
Author Organization [employer] Address [address] [place] [address] [address] [place] [address] Care Team Providers Care Outside Medical Sales Representative Name Role Phone Kathy Jang Primary Care Provider [phone] Encounter Details Date Type Department Care Team (Late st Contact Info) Description 01/02/2023 Orders Only [facility] [address] [place] [address] Alyson Bautista LPN Social History Tobacco Use [...] 01/31/2025 2:45 PM EDT Procedure Visit [facility] [address] [place] [address] Darby Blount CNM [address] [place] [address] documented as of this encounter Visit Diagnoses Not on filedocumented in this encounter Care Teams Outside Medical Sales Representative Relationship Specialty Start Date End Date Kathy Jang ANP [address] [place] [address] PCP - General Family Medicine 05/29/21 documented as of this encounter
--- OUTSIDE RECORDS SUMMARY | 2024-12-29 16:42 | XMS_ITS | Encounter Summary ---
Author Organization [employer] Address [address] [facility] [address] [place] [address] Care Team Providers Care Audiology Doctor Name Role Phone Kathy Jang Primary Care Provider [phone] Reason for Visit * Reason Onset Date Comments Med Refill 09/01/2023 Encounter Details Date Type Department Care Team (Late st Contact Info) Description 09/01/2023 Refill [facility] CH[facility] MED & PEDS [address] [place] [address] Kathy Jang ANP [address] [place] [address] Iron deficiency anemia, unspecified iron deficiency anemia [...] Description 01/31/2025 2:45 PM EDT Procedure Visit [facility] MEDICINE [address] [place] [address] Darby Blount CNM [address] [place] [address] documented as of this encounter Visit Diagnoses Diagnosis Iron deficiency anemia, unspecified iron deficiency anemia type documented in this encounter Additional Health Concerns Assessment Noted Time PHQ-9 Depression Total Score: 0 06/25/20 23 2:19 PM EDT documented as of this encounter Care Teams Audiology Doctor Relationship Specialty Start Date End Date Kathy Jang ANP [address] [place] [address] PCP - General Family Medicine 05/29/21 documented as of this encounter
--- OUTSIDE RECORDS SUMMARY | 2024-12-29 16:42 | XMS_ITS | Encounter Summary ---
Author Organization [employer] Address [address] [facility] [address] 7[address] [place] [address] Care Team Providers Care Net C Developer Name Role Phone Kathy Jang Primary Care Provider [phone] Reason for Visit * Reason Onset Date Comments Med Refill 09/01/2023 Encounter Details Date Type Department Care Team (Late st Contact Info) Description 09/01/2023 Refill [facility] MEDICINE [address] [place] [address] Kathy Jang ANP [address] [place] [address] Seasonal allergies Social History Tobacco Use Types [...] Description 01/31/2025 2:45 PM EDT Procedure Visit [facility] MEDICINE [address] [place] [address] Darby Blount CNM [address] [place] [address] documented as of this encounter Visit Diagnoses Diagnosis Seasonal allergies Allergic rhinitis, cause unspecified documented in this encounter Additional Health Concerns Assessment Noted Time PHQ-9 Depression Total Score: 0 06/25/20 23 2:19 PM EDT documented as of this encounter Care Teams Net C Developer Relationship Specialty Start Date End Date Kathy Jang ANP [address] [place] [address] PCP - General Family Medicine 05/29/21 documented as of this encounter
--- OUTSIDE RECORDS SUMMARY | 2024-12-29 16:42 | XMS_ITS | Encounter Summary ---
Author Organization [employer] Address [address] [facility] [address] [place] [address] Care Team Providers Care Ankle Patch Molder Name Role Phone Myesha Tracy Primary Care Provider [phone] Reason for Visit * Reason Comments Follow-up Encounter Details Date Type Department Care Team (Late st Contact Info) Description 12/20/2024 2:15 PM EDT Office Visit [facility]ICINE [address] [place] [address] Myesha Tracy ANP [address] [place] [address] Essential hypertension (Primary Dx); BARKER (nonalcoholic steatohepatitis); High cholesterol; Insomnia, unspecified type; Migraine without status migrainosus, not intractable, unspecified migraine type; Mixed anxiety and depressive disorder; Class 2 severe obesity with serious comorbidity and body mass index (BMI) of 38.0 to 38.9 in adult, unspecified obesity type (CMS/HCC) Social History Tobacco Use Types Packs/Day Years [...] PM EDT documented as of this encounter Last Filed Vital Signs Vital Sign Reading Time Taken Comments Blood Pressure 117/64 12/20/2024 2:35 PM EDT Pulse 62 12/20/2024 2:35 PM EDT Temperature 36.3 ??C (97.3 ??F) 12/20/2024 2:35 PM ED T Respiratory Rate 16 12/20/2024 2:35 PM EDT Oxygen Saturation 100% 12/20/2024 2:35 PM EDT Inhaled Oxygen Concentration - - Weight 101 kg (222 lb 3.2 oz) 12/20/2024 2:35 PM EDT Height 162.6 cm (5' 4 ) 12/20/2024 2:35 PM EDT Body Mass Index 38.14 12/20/2024 2:35 PM EDT documented in this encounter Progress Notes * SURINDER Underwood - 12/20/2024 2:15 PM EDT Subjective Patient ID: Alisha Santiago is a 54 y.o. female who presents for Follow-up. HPI PMH incl GERD w/ esophagitis, peptic ulcer dz, IBS, transaminitis, HTN, depression/anxiety, hyperlipidemia Follows w/ [facility] w/ UTD EGD Fall 2022 and US 06/2023 suggestive of fatty liver Follows w/ Dr. Castañeda nephrology Dr. Berman Pulmonology [facility] endocrinology. 2024 Mammo upcoming. Had visit yesterday with pulmonology to review home sleep study which revealed moderate АНДРЕЙ, AHI 17, mild nocturnal hypoxemia <88% for 23 minutes, lowest 70%. Plan is to start CPAP therapy with APAP settings 6-16 cm. Weight loss also recommended. Echo was ordered to assess for pulmonary hypertension and cardiac contribution to dyspnea. She continues on Repatha through endocrinology. Saw ED last week for epigastric pain and got protonix renewed BID. Sucralfate also sent but this was already in medbox from GI. Would like to lose weight. Has decreased caloric intake and tried to increase activity as much as possible (she is limited in exercise by chronic right knee pain), and she has not lost weight despitetrying these interventions for greater than 3 months. LMP years ago s/p hysterectomy (supracervical) Due for pap, referred in past to [facility] CONTROL COUNSELOR but did not transpire. would prefer CNM. Non-smoker Has h/o ovarian cyst. US below. Ordering Physician: MYESHA TRACY NP Date of Service: 11/13/23 Procedure(s): US pelvic and transvaginal Accession Number(s): [id number] cc: MYESHA TRACY NP EXAMINATION: US PELVIS COMPLETE CLINICAL INFORMATION: Left ovarian cyst COMPARISON: CT abdomen pelvis 06/22/2023, 10/26/2017 TECHNIQUE: Transabdominal and transvaginal imaging was performed. FINDINGS: Status post supracervical hysterectomy. Nabothian cyst in the cervical stump. The right ovary measures 2.2 x 0.8 x 1.7 cm for a volume of 1.6 mL. The left measures 6.3 x 4.2 x 3.9 cm for a volume of 62.3 mL. The right ovary is remarkable for a 1.3 cm benign simple cyst, no follow-up imaging recommended. The left ovary is remarkable for a 4.2 cm probable cyst, previously 4.2 cm in 2018. There is no pelvic free fluid. US/US pelvic and transvaginal IMPRESSION: 1. Status post supracervical hysterectomy. 2. The left ovary is remarkable for a 4.2 cm nonneoplastic cyst or benign cystic neoplasm able from 2018. Recommend gynecology consult with follow-up imaging if clinically warranted.. 3. The right ovary is remarkable for a 1.3 cm benign simple cyst, no follow-up imaging recommended. Review of Systems Constitutional: Negative for chills and fever. HENT: Negative for sore throat. Respiratory: Negative for cough and shortness of breath. Cardiovascular: Negative for chest pain. Gastrointestinal: Negative for constipation and diarrhea. Endocrine: Negative for polydipsia, polyphagia and polyuria. Genitourinary: Negative for dysuria. Musculoskeletal: Positive for arthralgias. Objective BP 117/64 (BP Location: Left arm, Patient Position: Sitting, BP Cuff Size: Large adult) Pulse 62 Temp 97.3 ??F (36.3 ??C) (Temporal) Resp 16 Ht 5' 4 (1.626 m) Wt 222 lb 3.2 oz (101 kg) SpO2 100% BMI 38.14 kg/m?? Physical Exam Constitutional: General: She is not in acute distress. Appearance: Normal appearance. She is obese. She is not ill-appearing. HENT: Head: Normocephalic and atraumatic. Eyes: General: No scleral icterus. Extraocular Movements: Extraocular movements intact. Pupils: Pupils are equal, round, and reactive to light. Cardiovascular: Rate and Rhythm: Normal rate and regular rhythm. Pulmonary: Effort: Pulmonary effort is normal. No accessory muscle usage or respiratory distress. Neurological: Mental Status: She is alert and oriented to person, place, and time. Psychiatric: Mood and Affect: Mood normal. Behavior: Behavior normal. Assessment/Plan Diagnoses and all orders for this visit: Obesity class II severe with serious comorbidity and BMI 38-38.9 Baseline weight: -given BMI >30kg/m2 or >27kg/m2 with one or more weight related comorbidities pt is a candidate for glucagon-like peptide-1s (GLP-1) to assist with weight loss. -pt has attempted > 3 months of dietary changes and increased physical activity without significant reduction in weight -patient counseled this medication is to be used in combination with reduced calorie diet and increased physical activity -Contraindication to phentermine: history of agitated states (insomnia and anxiety) -Reviewed w/ pt side effects of GLP1 and how to mitigate incl eating small portions and do not eat through sensation of fullness. No personal or family h/o papillary thyroid cancer. No personal h/o pancreatitis. Does not have retinopathy. Refrigerate but do not freeze. -For Zepbound (tirzepatide) Start 2.5mg subcutaneously q week x 1 month, then 5mg subcutaneously q week. May increased by 2.5mgq 4 weeks with max 15mg/wk BMI Readings from Last 3 Encounters: 12/20/24 38.14 kg/m?? 12/08/24 38.79 kg/m?? 09/19/24 39.24 kg/m?? Wt Readings from Last 3 Encounters: 12/20/24 222 lb 3.2 oz (101 kg) 12/08/24 226 lb (103 kg) 09/19/24 228 lb 9.6 oz (104 kg) Understands that weight loss medications must be used as part of a comprehensive lifestyle plan that incorporates daily exercise, adequate protein intake, decreased soda and sugary beverage consumption, decreased caloric intake. Essential hypertension At/near goal today, </= 130/80. Continue to encourage low salt diet, regular exercise, home BP monitoring, compliance with medications. Call clinic if BP is frequently >150/90 Go to ED/call 911 if > 170/100 and having sx such as FIGUEROA, visual changes, chest pain, SOB Last renal function: Lab Results Component Value Date GLUCOSE 121 (H) 12/12/2024 NA 143 12/12/2024 K 4.5 12/12/2024 CO2 21 (L) 12/12/2024 CL 113 (H) 12/12/2024 BUN 26 (H) 12/12/2024 CREATININE 1.06 12/12/2024 EGFR 54 12/12/2024 Lab Results Component Value Date MICROALBCREA 4 06/15/2020 MICROALBCREA 4 06/15/2020 Lab Results Component Value Date MICROALBCREU 5.9 09/30/2023 АНДРЕЙ Starting CPAP via pulmonology BARKER (nonalcoholic steatohepatitis) As below. Would benefit from GLP-1 and weight loss. Lifestyle recommendations to improve heart health & lower cholesterol: be as active as able, ideally exercise 150min moderate intensity or 75min vigorous intensity weekly; increase intake of vegetables, fruits, whole grains, fish. Try to minimize intake of sugary or greasy food and drink. Use olive oil or vegetable, peanut, canola, or similar oil for cooking. High cholesterol Continue Repatha via endocrinology. Not on statin due to transaminitis. Insomnia, unspecified type - nortriptyline (Pamelor) 50 MG capsule; Take 1 capsule (50 mg) by mouth at bedtime. Migraine without status migrainosus, not intractable, unspecified migraine type - nortriptyline (Pamelor) 50 MG capsule; Take 1 capsule (50 mg) by mouth at bedtime. Mixed anxiety and depressive disorder - nortriptyline (Pamelor) 50 MG capsule; Take 1 capsule (50 mg) by mouth at bedtime. Cervical cancer screening To be scheduled with CNM per patient preference. Status post hysterectomy, supracervical. Will continue to consider referral to genetics-patient has family history of breast cancer, uterine cancer and possibly ?Colon cancer Screening mammo Next month. Other orders - Pneumococcal conjugate vaccine 20-valent IM follow-up 3 mo wt check Jesica LOTT provided Indonesian interpretation. documented in this encounter Miscellaneous Notes * Addendum Note - SURINDER Underwood - 12/20/2024 2:15 PM EDTAddended by: MYESHA TRACY on: 12/20/2024 03:48 PM Modules accepted: Orders documented in this encounter Plan of Treatment Upcoming Encounters Date Type Department Care Team (Late st Contact Info) Description 01/31/2025 2:45 PM EDT Procedure Visit [facility] MEDICINE [address] [place] [address] Darby Blount CNM [address] [place] [address] documented as of this encounter Visit Diagnoses Diagnosis Essential hypertension- Primary Unspecified essential hypertension BARKER (nonalcoholic steatohepatitis) Other chronic nonalcoholic liver disease High cholesterol Pure hypercholesterolemia Insomnia, unspecified type Migraine without status migrainosus, not intractable, unspecified migraine type Mixed anxiety and depressive disorder Dysthymic disorder Class 2 severe obesity with serious comorbidity and body mass index (BMI) of 38.0 to 38.9 in adult, unspecified obesity type (CMS/HCC) documented in this encounter Additional Health Concerns Assessment Noted Time PHQ-9 Depression Total Score: 11 09/19/ 024 3:55 PM EST documented as of this encounter Care Teams Ankle Patch Molder Relationship Specialty Start Date End Date Myesha Tracy ANP [address] [place] [address] PCP - General Family Medicine 05/29/21 documented as of this encounter
--- OUTSIDE RECORDS SUMMARY | 2024-12-29 16:42 | XMS_ITS | Encounter Summary ---
Author Organization [employer] Address [address] [facility] 7t [place] [address] Care Team Providers Care Rn Cvicu Name Role Phone Kathy Jang Primary Care Provider [phone] Reason for Visit * Reason Onset Date Comments Med Refill 12/09/2024 Encounter Details Date Type Department Care Team (Late st Contact Info) Description 12/09/2024 Refill [facility] [address] [place] [address] Kathy Jang ANP [address] [place] [address] Vitamin D deficiency; Iron deficiency anemia, unspecified [...] PM EDT Procedure Visit [facility] [address] [place] [address] Darby Blount CNM [address] [place] [address] documented as of this encounter Visit Diagnoses Diagnosis Vitamin D deficiency Iron deficiency anemia, unspecified iron deficiency anemia type Essential hypertension Unspecified essential hypertension documented in this encounter Additional Health Concerns Assessment Noted Time PHQ-9 Depression Total Score: 11 024 3:55 PM EST documented as of this encounter Care Teams Rn Cvicu Relationship Specialty Start Date End Date Kathy Jang ANP [address] [place] [address] PCP - General Family Medicine 05/29/21 documented as of this encounter
--- OUTSIDE RECORDS SUMMARY | 2024-12-29 16:42 | XMS_ITS | Encounter Summary ---
Author Organization [employer] Address [address] [place] [address] [address]t [place] [address] Care Team Providers Care Account Installer Name Role Phone Kathy Jang Primary Care Provider [phone] Encounter Details Date Type Department Care Team (Late st Contact Info) Description 11/04/2022 Orders Only [facility] CHC MED & PEDS [address] [place] [address] Alyson Bautista LPN Social History Tobacco Use [...] Description 01/31/2025 2:45 PM EDT Procedure Visit [facility] MEDICINE [address] [place] [address] Darby Blount CNM [address] [place] [address] documented as of this encounter Visit Diagnoses Not on filedocumented in this encounter Care Teams Account Installer Relationship Specialty Start Date End Date Kathy Jang ANP [address] [place] [address] PCP - General Family Medicine 05/29/21 documented as of this encounter
--- OUTSIDE RECORDS SUMMARY | 2024-12-29 16:42 | XMS_ITS | Encounter Summary ---
Author Organization [employer] Address [address] [facility] [facility] [address] [place] [address] Care Team Providers Care Softball Umpire Name Role Phone Myesha Tracy SURINDER Primary Care Provider [phone] Encounter Details Date Type Department Care Team (Late st Contact Info) Description 12/28/2024 Orders Only [facility] External Provider, [facility] Social History Tobacco Use Types Packs/Day Years [...] 2:45 PM EDT Procedure Visit [facility] MEDICINE [address] [place], [place] [id number] Darby Blount CNM [address] [place] [address] documented as of this encounter Procedures Procedure Name Priority Date/Time Associated Diagnosis Comments SARS COV2/INFLUENZA A/B AND RSV RNA QL NAAT Routine 12/28/2024 8:01 AM EDT XR CHEST 2 VIEWS Routine 12/28/2024 7:55 AM EDT documented in this encounter Results * SARS-CoV-2 RNA, Influenza A/B, and RSV RNA, Ql NAAT (12/28/2024 8:01 AM EDT) Influenza A PCR NEGATIVE Negative [facility] Influenza B PCR NEGATIVE Negative [facility] Resp Syncy Virus RNA Qual PCR NEGATIVE Negative [facility] SARS COV2 PCR NEGATIVE Negative [facility] Comment:All test results mus t be correlated with clinical findings.Negative results do not preclude SARS-CoV2, influenza Avirus, influenza B virus and/or RSV infectionand should not be used as the sole basis for treatment orother patient management decisions. Negative results must becombined with clinical observations, patient history, andepidemiological information.This test has not been evaluated for monitoring treatment ofinfection.This test has been authorized by the FDA under an EmergencyUse Authorization (EUA) for use by authorized laboratories.Testing performed on the [employer] GeneXpert utilizingreal-time RT-PCR.All SARS CoV2 and positive influenza A/B results arereported to [facility]. 12/28/2024 8:01 AM EDT 12/28/2024 8:09 AM EDT us Generic External Data Provider LAB MICROBIOLOGY - GENERAL ORDERABLES Final Result [facility] [address] [place] [phone] * XR Chest 2 Views (12/28/2024 7:55 AM EDT) Anatomical Region Laterality Modality Chest Radiographic Ana ging 12/28/2024 7:55 AM EDT Narrative 12/28/2024 8:18 AM EDT ? [facility] ?[address] ?[place] [address] ?XRay Report ? Signed ? Patient: Jack Mariqumeredith,Alisha ?MR#: ?? [id number] ? : 1970 ?Acct:[id number] ? Age/Sex: 54 / F ?ADM Date: 12/28/24 ? Loc: HO.ED ? Attending Dr: ? Ordering Physician: Karen Abraham DO ?? Date of Service: 12/28/24 ?? Procedure(s): XR chest 2V ?? Accession Number(s): [id number] ? cc: Karen Abraham DO; MYESHA TRACY NP ? EXAMINATION: ?? XR CHEST ? CLINICAL INFORMATION: ?? cough ? COMPARISON: ?? August 18, 2024. ? TECHNIQUE: ?? 2 views of the chest were obtained. ? FINDINGS: ?? Poor inspiration. ?? No consolidation, pleural effusion or pneumothorax. ?? Cardiomediastinal silhouette size is normal. ?? Multilevel thoracic spondylosis. ? XR/XR chest 2V ?? IMPRESSION: ?? No acute airspace disease. Stable. ? Electronically signed by: ??Humble Olson MD ??12/28/2024 08:15 AM ?? EDT RP ? Dictated By: ?Humble Barnett MD ? Signed By: ?<Electronically signed by Humble Kearns MD in OV> ? 12/28/24 0815 ? DD/ 0755 ? TD/TT: 12/28/24 0808 ? Watch Parts Inspector: ? Procedure Note Donag[facility]orubenter, Image - 12/28/[address] [address] XRay Report Signed Patient: Alisha ProctorMR#: [id number] : 1970Acct:[id number] Age/Sex: 54 / FADM Date: 12/28/24 Loc: HO.ED Attending Dr: Ordering Physician: Karen Abraham DO Date of Service: 12/28/24 Procedure(s): XR chest 2V Accession Number(s): [id number] cc: Karen Abraham DO; MYESHA TRACY NP EXAMINATION: XR CHEST CLINICAL INFORMATION: cough COMPARISON: August 18, 2024. TECHNIQUE: 2 views of the chest were obtained. FINDINGS: Poor inspiration. No consolidation, pleural effusion or pneumothorax. Cardiomediastinal silhouette size is normal. Multilevel thoracic spondylosis. XR/XR chest 2V IMPRESSION: No acute airspace disease. Stable. Electronically signed by: Humble Olson MD 12/28/2024 08:15 AM EDT Dictated By: Humble Barnett MD Signed By: <Electronically signed by Humble Kearns MDin OV> 12/28/24 0815 DD/ 0755 TD/TT: 12/28/24 0808 Watch Parts Inspector: [facility] External Provider IMG XR PROCEDURES Edited Result - Final documented in this encounter Visit Diagnoses Not on filedocumented in this encounter Additional Health Concerns Assessment Noted Time PHQ-9 Depression Total Score: 11 09/19/2 024 3:55 PM EST documented as of this encounter Care Teams Softball Umpire Relationship Specialty Start Date End Date Myesha Tracy ANP [address] [place] [address] PCP - General Family Medicine 05/29/21 documented as of this encounter
--- OUTSIDE RECORDS SUMMARY | 2024-12-29 16:43 | XMS_ITS | Encounter Summary ---
Author Organization [employer] Address [address] [place] [address] [address] [place] [address] Care Team Providers Care Checker Name Role Phone Kathy Jang SURINDER Primary Care Provider [phone] Reason for Referral * Consultation (Routine) - Authorized Specialty Diagnoses / Procedures Referred By Caroline t Referred To Contact Hand Surgery Diagnoses Joint pain in fingers of right hand Annia Quintero MD [address] [place] [address] Phone: tel: fax: [facility] [address] [place] [address] Phone: tel: Referral ID Status Reason Start Date Expiration Date Visits Requested Visits Authorized [id number] Authorized Specialty Services Required 12/08/2024 12/08/2025 6 6 * Consultation (Routine) - Closed Specialty Diagnoses / Procedures Referred By Contprecious t Referred To Contact Physical Therapy Diagnoses Pain in both knees, unspecified chronicity Annia Quintero MD [address] [place] [address] Phone: tel: fax: [facility] [place] [address] [place] [address] Phone: tel: fax: Referral ID Status Reason Start Date Expiration Date V isits Requested Visits Authorized [id number] Closed Specialty Services Required 12/08/2024 12/08/2025 20 20 Encounter Details Date Type Department Care Team (Late st Contact Info) Description 12/08/2024 1:00 PM EST Office Visit [facility] [address] [place] [address] Annia Quintero MD [address] [place], [place] [phone] Joint pain in fingers of right hand [...] Description 01/31/2025 2:45 PM EDT Procedure Visit [facility] [address], [place] [phone] Darby Blount CNM [address] [place] [address] Scheduled Referrals Name Type Priority Associated Diagnoses [...] PM EST Narrative 12/08/2024 2:17 PM EST ?[facility] ?[address] ?[place] [address] ?XRay Report ? Signed ? Patient: Jack Caquias,Alisha ?MR#: ?? [id number] ? : 1970 ?Acct:[id number] ? Age/Sex: 53 / F ?ADM Date: 12/08/24 ? Loc: HO.HHCX ? Attending Dr: Annia Quintero MD ? Ordering Physician: Annia Quintero MD ?? Date of Service: 12/08/24 ?? Procedure(s): XR hand RT min 3V ?? Accession Number(s): [id number] ? cc: Annia Quintero MD ? EXAMINATION: [...] Shubham S Hellen, MD in OV> ?12/08/24 1414 ? DD/ 1324 ? TD/TT: 12/08/24 1355 ? Advertising Account Representative: MSM ? Procedure Note Lynn, Angel - 12/08/2024 [facility] [address] [place] [address] XRay Report Signed Patient: Priti ProctorJun#: [id number] : 1970Acct:[id number] Age/Sex: 53 / FADM Date: 12/08/24 Loc: HO.HHCX Attending Dr: Annia Quintero MD Ordering Physician: Annia Quintero MD Date of Service: 12/08/24 Procedure(s): XR hand RT min 3V Accession Number(s): [id number] cc: Annia Quintero MD EXAMINATION: XR HAND, [...] Shubham Macedo MD 12/08/2024 02:14 PM EST Dictated By: Shubham Macedo MD Signed By: <Electronically signed by Shubham Macedo MD in OV> 12/08/24 1414 DD/ 1324 TD/TT: 12/08/24 1355 Advertising Account Representative: WILMER us Annia Quintero MD IMG XR PROCEDURES Final Re sult * XR Knee 3 Views Left (12/08/2024 1:24 PM EST) Anatomical Region Laterality Modality Lower Extremities, Knee Left [facility] 12/08/2024 1:24 PM EST Narrative 12/08/2024 2:16 PM EST ?[facility] ?[address] ?[place] [address] ?XRay Report ? Signed ? Patient: Jack Caquias,Alisha ?MR#: ?? [id number] ? : 1970 ?Acct:[id number] ? Age/Sex: 53 / F ?ADM Date: 03/06/25 ? Loc: HO.HHCX ? Attending Dr: Annia Quintero MD ? Ordering Physician: Annia Quintero MD ?? Date of Service: 12/08/24 ?? Procedure(s): XR knee LT 3V ?? Accession Number(s): [id number] ? cc: Annia Quintero MD ? EXAMINATION: [...] DD/ 1324 ? TD/TT: 12/08/24 1355 ? Advertising Account Representative: MSM ? Procedure Note Angel Bailey - 12/08/[address] [address] XRay Report Signed Patient: Alisha Proctor#: [id number] : 1970Acct:[id number] Age/Sex: 53 / FADM Date: 12/08/24 Loc: HO.HHCX Attending Dr: Annia Quintero MD Ordering Physician: Annia Quintero MD Date of Service: 12/08/24 Procedure(s): XR knee LT 3V Accession Number(s): [id number] cc: Annia Quintero MD EXAMINATION: XR KNEE, LEFT CLINICAL INFORMATION: bilateral knee pain COMPARISON: None available. TECHNIQUE: 3 views of the left knee. FINDINGS: No fracture or joint effusion. Alignment is anatomic. Joint spaces are maintained. No abnormal soft tissue calcification. XR/XR knee LT 3V IMPRESSION: Unremarkable left knee. Electronically signed by: Shubham Macedo MD 12/08/2024 02:13 PM [facility] [place]ictated By: Shubham Macedo MD Signed By: <Electronically signed by Shubham Macedo MD in OV> 12/08/24 1413 DD/ 1324 TD/TT: 12/08/24 1355 Advertising Account Representative: WILMER us Annia Quintero MD IMG XR PROCEDURES Final Re sult * XR Knee 3 Views Right (12/08/2024 1:24 PM EST) Anatomical Region Laterality Modality Lower Extremities, Knee Right Radiogra phic Imaging 12/08/2024 1:24 PM EST Narrative 12/08/2024 2:19 PM EST ?[facility] ?[address] ?[place] [address] ?XRay Report ? Signed ? Patient: Jack Caquias,Alisha ?MR#: ?? [id number] ? : 1970 ?Acct:[id number] ? Age/Sex: 53 / F ?ADM Date: 12/08/24 ? Loc: HO.HHCX ? Attending Dr: Annia Quintero MD ? Ordering Physician: Annia Quintero MD ?? Date of Service: 12/08/24 ?? Procedure(s): XR knee RT 3V ?? Accession Number(s): [id number] ? cc: Annia Quintero MD ? EXAMINATION: [...] DD/ 1324 ? TD/TT: 12/08/24 1355 ? Advertising Account Representative: MSM ? Procedure Note Donotasherter, Image - 12/08/2024 [facility] [address] [place] [address] XRay Report Signed Patient: Alisha ProctorMR#: [id number] : 1970Acct:[id number] Age/Sex: 53 / FADM Date: 12/08/24 Loc: HO.HHCX Attending Dr: Annia Quintero MD Ordering Physician: Annia Quintero MD Date of Service: 12/08/24 Procedure(s): XR knee RT 3V Accession Number(s): [id number] cc: Annia Quintero MD EXAMINATION: XR KNEE, [...] 12/08/24 1416 DD/ 1324 TD/TT: 12/08/24 1355 Advertising Account Representative: WILMER Annia Quintero MD IMG XR PROCEDURES Final Re sult documented in this encounter Visit Diagnoses Diagnosis Joint pain in fingers of right hand- Primary Pain in both knees, unspecified chronicity Encounter for immunization documented in this encounter Additional Health Concerns Assessment Noted Time PHQ-9 Depression Total Score: 11 09/19/ 024 3:55 PM EST documented as of this encounter Care Teams Checker Relationship Specialty Start Date End Date Kathy Jang ANP [address] [place] [address] PCP - General Family Medicine 05/29/21 documented as of this encounter
--- OUTSIDE RECORDS SUMMARY | 2024-12-29 16:43 | XMS_ITS | Clinical Summary ---
Author Organization [facility] Facility Address [address] [place] [address] Care Team Providers Care Java J2Ee Application Developer Name Role Phone Misael Napier SKEIN DYER-C Primary Care Provider Unavailable Allergies No known active allergies Medications ergocalciferol (VITAMIN D-2) 1.25 MG (99123 UT) capsule Take 1 capsule by mouth [...] Additional history exists Insurance [place] Care Teams Java J2Ee Application Developer Relationship Specialty Start Date End Date Misael Napier FNP-C PCP - General Nurse Practitioner 02/13/21
--- OUTSIDE RECORDS SUMMARY | 2024-12-29 16:43 | XMS_ITS | Clinical Summary ---
Author Organization [employer] Address [address] [facility] [address] [place] [address] Care Team Providers Care Vice President Of Software Development Name Role Phone Myesha Tracy SURINDER Primary Care Provider [phone] Allergies Active Allergy Reactions Criticality Noted Date Comments Hydrocodone 01/27/2019 Other reaction(s): nausea, blurry vision, headache Medications lidocaine (Lidoderm) 5 % patchIndication s:Rib pain Apply 1 patch topically Once per day. APPLY 1 PATCH TOPICALLY TO SKIN, LEAVE ON FOR 12 HOURS AND OFF FOR 12 HOURS DIRECTED, as needed for pain 30 patch 5 024 Active cetirizine (ZyrTEC) 10 MG tabletIndicatio ns:Seasonal allergies TAKE 1 TABLET BY MOUTH EVERY DAY NEEDED FOR ALLERGIES 90 tablet 1 024 Active hydroCHLOROthia zide 12.5 MG tabletIndicatio ns:Benign essential HTN Take 1 tablet (12.5 mg) by mouth in the morning. 90 tablet 3 025 Active cholecalciferol VITAMIN D (Vitamin D-3) 50 MCG (2000 UT) tabletIndicatio ns:Vitamin D deficiency Take 1 tablet (50 mcg) by mouth in the morning. 90 tablet 025 Active ferrous sulfate (FeroSul) 325 (65 Fe) MG tabletIndicatio ns:Iron deficiency anemia, unspecified iron deficiency anemia type Take 1 tablet (325 mg) by mouth Once daily. 90 tablet 025 Active lisinopril 40 MG tabletIndicatio ns:Essential hypertension Take 1 tablet (40 mg) by mouth Once daily. 90 tablet 025 Active naproxen (Naprosyn) 500 MG tabletIndicatio ns:Joint pain in fingers of right hand,Pain in both knees, unspecified chronicity Take 1 tablet (500 mg) by mouth with breakfast and with evening meal. 20 tablet 025 2025 Active Repatha SureClick 140 MG/ML injection 025 Active pantoprazole (ProtoNix) 40 MG EC tablet TAKE 1 TABLET BY MOUTH TWICE DAILY IN THE MORNING AND IN THE EVENING Active propranolol (Inderal) 80 MG tablet TAKE 1 TABLET BY MOUTH TWICE DAILY IN THE MORNING AND IN THE EVENING Active nortriptyline (Pamelor) 50 MG capsuleIndicati ons:Insomnia, unspecified type,Migraine without status migrainosus, not intractable, unspecified migraine type,Mixed anxiety and depressive disorder Take 1 capsule (50 mg) by mouth at bedtime. 90 capsule 1 025 Active sucralfate (Carafate) 1 g tablet TAKE 1 TABLET BY MOUTH THREE TIMES DAILY IN THE MORNING, EVENING, AND BEDTIME 025 Active senna (Senokot) 8.6 MG tablet TAKE 2 TABLETS BY MOUTH EVERY DAY AT BEDTIME FOR CONSTIPATION 025 Active Tirzepatide-Prashanth ght Management (Zepbound) 2.5 MG/0.5ML solution auto-injectorIn dications:Class 2 severe obesity with serious comorbidity and body mass index (BMI) of 38.0 to 38.9 in adult, unspecified obesity type (CMS/HCC) Inject 0.5 mL (2.5 mg) under the skin 1 (one) time per week. 2 mL 025 Active hydroCHLOROthia zide (HYDRODiuril) 12.5 MG tabletIndicatio ns:Benign essential HTN TAKE 1 TABLET BY MOUTH EVERY MORNING 90 tablet 3 024 2024 Discontinued(R eorder (will not trigger notification to Pharmacy)) cholecalciferol (Vitamin D-3) 50 MCG (1999 UT) tabletIndicatio ns:Vitamin D deficiency TAKE 1 TABLET BY MOUTH EVERY MORNING 90 tablet 3 024 2024 Discontinued(R eorder (will not trigger notification to Pharmacy)) ferrous sulfate (FeroSul) 325 (65 Fe) MG tabletIndicatio ns:Iron deficiency anemia, unspecified iron deficiency anemia type Take 1 tablet (325 mg) by mouth Once daily. 90 tablet 024 2024 Discontinued(R eorder (will not trigger notification to Pharmacy)) lisinopril 40 MG tabletIndicatio ns:Essential hypertension Take 1 tablet (40 mg) by mouth Once daily. 90 tablet 024 2024 Discontinued(R eorder (will not trigger notification to Pharmacy)) nortriptyline (Pamelor) 50 MG capsule Take 50 mg by mouth at bedtime. 2024 Discontinued(R eorder (will not trigger notification to Pharmacy)) Active Problems Problem Noted Date Diagnosed Date Class 2 severe obesity with serious comorbidity and body mass index (BMI) of 38.0 to 38.9 in adult 12/20/2024 Joint pain in fingers of right hand [...] were not included. Seen by greg at [facility] 12/21/23 (sent d/t very elevated LDL [...] Encounters Date Type Department Care Team Description 12/28/2024 Orders Only [facility] External Provider, [facility] 12/21/2024 Telephone [facility] [address] [place] [phone] Myesha Tracy ANP Prior Authorization (Zepbound) 12/20/2024 2:15 PM EDT Office Visit [address] [address] Myesha Tracy ANP Essential hypertension (Primary Dx); BARKER (nonalcoholic steatohepatitis); High cholesterol; Insomnia, unspecified type; Migraine without status migrainosus, not intractable, unspecified migraine type; Mixed anxiety and depressive disorder; Class 2 severe obesity with serious comorbidity and body mass index (BMI) of 38.0 to 38.9 in adult, unspecified obesity type (CMS/HCC) 12/20/2024 Travel 12/16/2024 Population Health Risk Score [facility] () Department [address] [place] [phone] Provider, Population Health Generic 12/09/2024 Refill [facility] [address] [place] [phone] Myesha Tracy ANP Vitamin D deficiency; Iron deficiency anemia, unspecified iron deficiency anemia type; Essential hypertension 12/09/2024 Refill [facility] [address] [place] [address] [phone] Annia Quintero MD Joint pain in fingers of right hand; Pain in both knees, unspecified chronicity 12/08/2024 1:00 PM EST Office Visit [facility] [address] [place] [address] [phone] Annia Quintero MD Joint pain in fingers of right hand (Primary Dx); Pain in both knees, unspecified chronicity; Encounter for immunization 12/08/2024 Refill [facility] [address] [place] [address] Myesha Tracy ANP 12/08/2024 Refill [facility] [address], [place] [phone] Myesha Tracy ANP Benign essential HTN; Vitamin [...] MMR 12/08/2024 Pfizer Covid-19 Vaccine 12+ 08/12/2024, Pneumococcal Conjugate PCV 20 12/20/2024 Tdap 07/23/2015 Zoster, Recombinant 05/09/2022,02/13/2022 Social History [...] Orientation Straight 12/20/2024 2: 49 PM EDT Last Filed Vital Signs Vital Sign [...] Mass Index 38.14 12/20/2024 2:35 PM EDT Plan of Treatment Upcoming Encounters Date Type Department Care Team (Late st Contact Info) Description 01/31/2025 2:45 PM EDT Procedure Visit [facility] [address] [place] [address] Darby Blount, CNM [address] [place] [address] Health Maintenance Due Date Last Done Comments CT Colonography 1971 FIT DNA/Cologuard 1971 FIT 1971 FOBT 1970 HIV Screening 1970 Sigmoidoscopy 1970 Hepatitis C Screening 12/09/1989 Pap Smear 12/09/1992 Cervical Cancer Screening 12/09/2001 HPV/Cotest 12/09/2001 Depression Monitoring (PHQ-9) 03/20/2025 09/19/2024, 09/19/2024 SDOH Screening 05/31/2025 05/31/2024 DTaP/Tdap/Td Vaccines (2 - Td or Tdap) 07/23/2025 07/23/2015 Alcohol/Substance Use Screening 09/19/2025 09/19/2024 Depression Screening 09/19/2025 09/19/2024, 09/19/20 24 Mammogram 11/16/2025 11/16/2023, 08/21/2021 Tobacco Screening 12/20/2025 12/20/2024 Colonoscopy 12/22/2025 12/22/2022 Colorectal Cancer Screening 12/22/2025 [...] Completed 09/19/2024, , 09/23/2021, Additional history exists Pneumococcal Vaccine: 50+ Years Completed 12/20/2024 HIB Vaccines Aged Out No longer eligi [...] Procedure Name Priority Date/Time Associated Diagnosis Comments STREP A NUCLEIC ACID Routine 12/28/2024 8:02 AM EDT SARS COV2/INFLUENZA A/B AND RSV RNA QL NAAT Routine 12/28/2024 8:01 AM EDT XR CHEST 2 VIEWS Routine 12/28/2024 7:55 AM EDT URINALYSIS WITH REFLEX MICROSCOPIC Routine 12/12/2024 3:24 [...] Recently Relevant to Health Maintenance Results * Strep A Nucleic Acid (12/28/2024 8:02 AM EDT) IDNOW SERIAL# [id number] [facility] Strep A Nucleic Acid Negative Negative [facility] Comment:All test results mus t be correlated with clinical findings.This test has not been evaluated for monitoring treatment ofinfection.Additional follow-up testing using the culture method isrequired if the result is negative and clinical symptomspersist, or in the event of an acute rheumatic feveroutbreak. 12/28/2024 8:02 AM EDT 12/28/2024 8:09 AM EDT Generic External Data Provider LAB MICROBIOLOGY - GENERAL ORDERABLES Final Result [facility] [address] [place] [phone] * SARS-CoV-2 RNA, Influenza A/B, and RSV RNA, Ql NAAT (12/28/2024 8:01 AM EDT) Influenza A PCR NEGATIVE Negative [facility] Influenza B PCR NEGATIVE Negative [facility] Resp Syncy Virus RNA Qual PCR NEGATIVE Negative [facility] SARS COV2 PCR NEGATIVE Negative [facility] Comment:All test results mus t [...] use by authorized laboratories.Testing performed on the [employer] GeneXpert utilizingreal-time RT-PCR.All SARS CoV2 and positive influenza A/B results arereported to [facility]. 12/28/2024 8:01 AM EDT 12/28/2024 8:09 AM EDT us Generic External Data Provider LAB MICROBIOLOGY - GENERAL ORDERABLES Final Result Performing Organization Address City/State/[facility] Co de Phone Number [facility] [address] [place] [phone] * XR Chest 2 Views (12/28/2024 7:55 AM EDT) Anatomical Region Laterality Modality Chest Radiographic Ana ging 12/28/2024 7:55 AM EDT Narrative 12/28/2024 8:18 AM EDT ? [facility] ?[address] ?[place] [address] ?XRay Report ? Signed ? Patient: Jack Caquias,Alisha ?MR#: ?? [id number] ? : 1970 ?Acct:[id number] ? Age/Sex: 54 / F ?ADM Date: 12/28/ ? Loc: HO.ED ? Attending Dr: ? Ordering Physician: Karen Abraham DO ?? Date of Service: 12/28/ ?? Procedure(s): XR chest 2V ?? Accession Number(s): [id number] ? cc: Karen Abraham DO; MYESHA TRACY [...] DD/ 0755 ? TD/TT: 12/28/24 0808 ? Car Mechanic Helper: ? Procedure Note Donchinoter, Image - 12/28/[address] [address] XRay Report Signed Patient: Alisha ProctorMR#: [id number] : 1970Acct:[id number] Age/Sex: 54 / FADM Date: 12/28/24 Loc: HO.ED Attending Dr: Ordering Physician: Karen Abraham DO Date of Service: 12/28/24 Procedure(s): XR chest 2V Accession Number(s): [id number] cc: Karen Abraham DO; MYESHA TRACY NP EXAMINATION: XR CHEST CLINICAL INFORMATION: cough COMPARISON: August 18, 2024. TECHNIQUE: 2 views of the chest were obtained. FINDINGS: Poor inspiration. No consolidation, pleural effusion or pneumothorax. Cardiomediastinal silhouette size is normal. Multilevel thoracic spondylosis. XR/XR chest 2V IMPRESSION: No acute airspace disease. Stable. Electronically signed by: Humble Olson MD 12/28/2024 08:15 AM EDT RP Dictated By: Humble Barnett MD Signed By: <Electronically signed by Humble Kearns MDin OV> 12/28/24 0815 DD/ 0755 TD/TT: 12/28/24 0808 Car Mechanic Helper: [facility] External Provider IMG XR PROCEDURES Edited Result - Final * (ABNORMAL) Urinalysis w/reflex microscopic (12/12/2024 3:24 AM EDT) Color Urine Yellow [facility] Appearance Urine Clear [facility] PH 5.0 5.0 - 9.0 [facility] Glucose Urine UA Negative Negative mg/dL [facility] Urine Blood Negative Negative [facility] Specific Arpin - Urine >=1.030(H) 1.005 - 1.025 [facility] Urine Protein Negative Neg-Trace mg/dL [facility] Urine Ketones Trace Negative mg/dL [facility] Nitrite Urine Negative Negative [facility] Leukocyte Esterase Urine Negative Negative [facility] 12/12/2024 3:24 AM EDT 12/12/2024 3:27 AM EDT Narrative [facility] - 12/12/2024 3:30 AM EDT [id number], Clean Catch us Generic External Data Provider LAB URINE ORDERAB LES Final Result [facility] [address] [place] [phone] * (ABNORMAL) CBC auto differential (12/12/2024 3:20 AM EDT) White Blood Count 13.5(H) 4.8 - 10.8 X10*3/uL [facility] Red Blood Count 4.55 4.20 - 5.50 X10*6/uL [facility] Hemoglobin 12.8 12.0 - 16.0 g/dl [facility] Hematocrit 40.0 37.0 - 47.0 % [facility] Mean Corpuscular Volume 87.9 80.0 - 98.0 fL [facility] Mean Corpuscular Hemoglobin 28.1 27.0 - 33.0 pg [facility] Mean Corpuscular HGB Conc 32.0 31.0 - 35.0 g/dl [facility] Red Cell Distribution Width 13.4 11.0 - 16.0 % [facility] Platelet Count 331 160 - 400 X10*3/uL [facility] Mean Platelet Volume 10.3 9.4 - 12.3 fL [facility] Neutrophils Percent Auto 63.8 45 - 73 % [facility] Imm Gran Pct Auto 0.5(H) 0.0 - 0.4 % [facility] Lymphocytes Percent Auto 25.2 20 - 40 % [facility] Monocytes Percent Auto 6.6 2 - 11 % [facility] Eosinophils Percent Auto 3.5 0 - 4 % [facility] Basophils Percent Auto 0.4 0 - 2 % [facility] NRBC Pct Auto 0.0 0.0 - 0.2 /100WBC [facility] Neutrophils Absolute Auto 8.6(H) 2.0 - 8.3 x10*3/uL [facility] Imm Gran Abs Auto 0.07(H) 0.00 - 0.03 X10*3/uL [facility] Lymphocytes Absolute Auto 3.4 1.2 - 4.9 X10*3/uL [facility] Monocytes Absolute Auto 0.9 0.1 - 1.2 X10*3/uL [facility] Eosinophils Absolute Auto 0.5(H) 0.0 - 0.4 X10*3/uL [facility] Basophils Absolute Auto 0.1 0.0 - 0.2 X10*3/uL [facility] NRBC Abs Auto 0.000 0.0 - 0.012 X10*3/uL [facility] 12/12/2024 3:20 AM EDT 12/12/2024 3:22 AM EDT us Generic External Data Provider LAB BLOOD ORDERAB LES Final Result [facility] [address] [place] [phone] [phone] * Lipase (12/12/2024 3:20 AM EDT) Lipase 33 8 - 78 U/L [facility] 12/12/2024 3:20 AM EDT 12/12/2024 3:22 AM EDT Generic External Data Provider LAB BLOOD ORDERAB LES Final Result Performing Organization Address [facility]/ZIP Co de Phone Number [facility] [address] [place] [phone] * Hepatic Function Panel (12/12/2024 3:20 AM EDT) Pathologist [facility] Bilirubin, Direct <0.2 0.0 - 0.5 mg/dL [facility] 12/12/2024 3:20 AM EDT 12/12/2024 3:22 AM EDT [employer] External Data Provider LAB BLOOD ORDERAB LES Final Result Performing Organization Address [facility] Co de Phone Number [facility] [address] [place] [phone] * (ABNORMAL) Comprehensive Metabolic Panel (12/12/2024 3:20 AM EDT) [facility] Sodium 143 135 - 145 mmol/L [facility] Potassium 4.5 3.3 - 5.1 mmol/L [facility] Chloride 113(H) 96 - 108 mmol/L [facility] Carbon Dioxide 21(L) 22 - 29 mmol/L [facility] Anion Gap 14 12 - 20 [facility] Urea Nitrogen (BUN) 26(H) 9 - 16 mg/dL [facility] Creatinine, Serum 1.06 0.5 - 1.4 mg/dL [facility] Creatinine Clr Calc Pharmacy 71.5 [facility] Comment:Provided height and weight: 162.56 cm,102.5 kg.eGFR (calculated from the MDRD study equation) and eCrCl(calculated from the Cockcroft-Gault equation) are based ondifferent parameters and may not yield comparable results.If eCrCl result is absurd, please check patient'sheight/weight. Estimated Glomerular Filt Rate 54 [facility] Comment:Chronic Kidney Disea se: Estimated GFR < 60 mL/min/1.94b7Mgjdnb Kidney Disease: Estimated GFR < 15 mL/min/1.73m2 Glucose 121(H) 60 - 115 mg/dL [facility] Calcium 10.1 8.4 - 10.2 mg/dL [facility] Bilirubin, Total 0.2 0.0 - 1.0 mg/dL [facility] Aspartate Amino Transferase 35(H) 5 - 31 U/L [facility] Alanine Aminotransferase 81(H) 0 - 31 U/L [facility] Total Protein 8.1(H) 6.5 - 8.0 g/dL [facility] Albumin Level 4.5 3.5 - 5.0 g/dL [facility] Alkaline Phosphatase 97 39 - 117 U/L [facility] 12/12/2024 3:20 AM EDT 12/12/2024 3:22 AM EDT us Generic External Data Provider LAB BLOOD ORDERAB LES Final Result Performing Organization Address [facility]/State/[facility] Co de Phone Number [facility] [address] [place] [phone] * XR Knee 3 Views Right (12/08/2024 1:24 PM EST) Anatomical Region Laterality Modality Lower Extremities, Knee Right Radiogra phic Imaging 12/08/2024 1:24 PM EST Narrative 12/08/2024 2:19 PM EST ?[facility] ?[address] ?[place] [address] ?XRay Report ? Signed ? Patient: Jack Caquias,Alisha ?MR#: ?? [id number] ? : 1970 ?Acct:[id number] ? Age/Sex: 53 / F ?ADM Date: 03/06/25 ? Loc: HO.HHCX ? Attending Dr: Annia Quintero MD ? Ordering Physician: Annia Quintero MD ?? Date of Service: 12/08/24 ?? Procedure(s): XR knee RT 3V ?? Accession Number(s): [id number] ? cc: Annia Quintero MD ? EXAMINATION: [...] DD/ 1324 ? TD/TT: 12/08/24 1355 ? Car Mechanic Helper: MSM ? Procedure Note Angel Bailey - 12/08/[address] [address] XRay Report Signed Patient: Alisha ProctorMR#: [id number] : 1970Acct:[id number] Age/Sex: 53 / FADM Date: 12/08/24 Loc: HO.HHCX Attending Dr: Annia Quintero MD Ordering Physician: Annia Quintero MD Date of Service: 12/08/24 Procedure(s): XR knee RT 3V Accession Number(s): [id number] cc: Annia Quintero MD EXAMINATION: XR KNEE, [...] 12/08/24 1416 DD/ 1324 TD/TT: 12/08/24 1355 Car Mechanic Helper: MSM us Annia Quintero MD IMG XR PROCEDURES Final Re sult * XR Knee 3 Views Left (12/08/2024 1:24 PM EST) Anatomical Region Laterality Modality Lower Extremities, Knee Left Radiogra phic Imaging 12/08/2024 1:24 PM EST Narrative 12/08/2024 2:16 PM EST ?[facility] ?[address] ?[place] [address] ?XRay Report ? Signed ? Patient: Jackkunal Saenz,Alisha ?MR#: ?? [id number] ? : 1970 ?Acct:[id number] ? Age/Sex: 53 / F ?ADM Date: 12/08/24 ? Loc: HO.HHCX ? Attending Dr: Annia Quintero MD ? Ordering Physician: Annia Quintero MD ?? Date of Service: 12/08/24 ?? Procedure(s): XR knee LT 3V ?? Accession Number(s): [id number] ? cc: Annia Quintero MD ? EXAMINATION: [...] DD/ 1324 ? TD/TT: 12/08/24 1355 ? Car Mechanic Helper: MSM ? Procedure Note Lynn, Image - 12/08/2024 [facility] [address] [place] [address] XRay Report Signed Patient: Alisha ProctorMR#: [id number] : 1970Acct:[id number] Age/Sex: 53 / FADM Date: 12/08/24 Loc: .HHCX Attending Dr: Annia Quintero MD Ordering Physician: Annia Quintero MD Date of Service: 12/08/24 Procedure(s): XR knee LT 3V Accession Number(s): [id number] cc: Annia Quintero MD EXAMINATION: XR KNEE, [...] 12/08/24 1413 DD/ 1324 TD/TT: 12/08/24 1355 Car Mechanic Helper: MSM Annia Quintero MD IMG XR PROCEDURES Final Re sult * XR Hand 3+ Views Right (12/08/2024 1:24 PM EST) Anatomical Region Laterality Modality Upper Extremities, Hand Right Radiogra phic Imaging 12/08/2024 1:24 PM EST Narrative 12/08/2024 2:17 PM EST ?[place] [facility] ?[address] ?[place] [address] ?XRay Report ? Signed ? Patient: Jack Caquias,Alisha ?MR#: ?? [id number] ? : 1970 ?Acct:[id number] ? Age/Sex: 53 / F ?ADM Date: 12/08/24 ? Loc: HO.HHCX ? Attending Dr: Annia Quintero MD ? Ordering Physician: Annia Quintero MD ?? Date of Service: 12/08/24 ?? Procedure(s): XR hand RT min 3V ?? Accession Number(s): [id number] ? cc: Annia Quintero MD ? EXAMINATION: [...] DD/ 1324 ? TD/TT: 12/08/24 1355 ? Car Mechanic Helper: MSM ? Procedure Note Lynn, Image - 12/08/2024 [facility] [address] [place] [address] XRay Report Signed Patient: Alisha Proctor#: [id number] : 1970Acct:[id number] Age/Sex: 53 / FADM Date: 12/08/24 Loc: HO.HHCX Attending Dr: Annia Quintero MD Ordering Physician: Annia Quintero MD Date of Service: 12/08/24 Procedure(s): XR hand RT min 3V Accession Number(s): [id number] cc: Annia Quintero MD EXAMINATION: XR HAND, [...] 12/08/24 1414 DD/ 1324 TD/TT: 12/08/24 1355 Car Mechanic Helper: [facility] us Annia Quintero MD IMG XR PROCEDURES Final Re sult * Creatinine, Serum (12/07/2024 3:17 PM EST) Creatinine, Serum 0.77 0.5 - 1.4 mg/dL [facility] Estimated Glomerular Filt Rate >60 [facility] Comment:Chronic Kidney Disea se: Estimated GFR < 60 mL/min/1.86x2Djubzb Kidney Disease: Estimated GFR < 15 mL/min/1.73m2 12/07/2024 3:17 PM EST 12/07/2024 3:17 PM EST us Generic External Data Provider LAB BLOOD ORDERAB LES Final Result [facility] [address] [place] [phone] * BUN (Blood Urea Nitrogen) (12/07/2024 3:17 PM EST) Urea Nitrogen (BUN) 12 9 - 16 mg/dL [facility] 12/07/2024 3:17 PM EST 12/07/2024 3:17 PM EST us Generic External Data Provider LAB BLOOD ORDERAB LES Final Result Performing Organization Address [facility]/ZIP Co de Phone Number [facility] [address] [place] [phone] * (ABNORMAL) Electrolyte Panel (12/07/2024 3:17 PM EST) Sodium 144 135 - 145 mmol/L [facility] Potassium 4.4 3.3 - 5.1 mmol/L [facility] Chloride 109(H) 96 - 108 mmol/L [facility] Carbon Dioxide 28 22 - 29 mmol/L [facility] Anion Gap 11(L) 12 - 20 [facility] 12/07/2024 3:1 7 PM EST 12/07/2024 3:17 PM EST Generic External Data Provider LAB BLOOD ORDERAB LES Final Result Performing Organization Address [facility] de Phone Number [facility] [address] [place] [phone] * Culture, Urine, Routine (12/07/2024 3:15 PM EST) Urine Urine specimen obtained by clean catch procedure / Unknown 12/07/2024 3:15 PM EST 12/07/2024 3:23 PM EST Comment:UACC Narrative [facility] - 12/09/2024 12:09 PM EST Urine Culture Report Result Urine Culture 10,000 to 50,000 cfu/ml Urine Culture Mixed bacterial bruce characteristic of Urine Culture urogenital contamination. Specimen Source: Urine clean catch Generic External Data Provider LAB MICROBIOLOGY - GENERAL ORDERABLES Final Result Performing Organization Address [facility] Co de Phone Number [facility] [address] [place] [phone] * BI Mammogram Screening Tomosynthesis Bilateral (11/16/2023 2:00 PM EST) Anatomical Region Laterality Modality Breast Bilateral Mammography 11/16/2023 2:00 PM EST Narrative 12/03/2023 7:55 PM EST ? [facility] ? [address] ?[place] [address] ? Mammography Report ? Signed ? Patient: Jack Caquias,Alisha ?MR#: ?? [id number] ? : 1970 ?Acct:[id number] ? Age/Sex: 52 / F ?ADM Date: 11/16/23 ? Loc: HO.MAMMO ? Attending Dr: Myesha Tracy DENTAL INTERN ? Ordering Physician: MYESHA TRACY NP ?Results: 1Negative ? Date of Service: 11/16/23 ?Follow Up: 1 Year From Orig ?? inal Mammogram ? Procedure(s): MM tomosynthesis screening BI ?? Accession Number(s): [id number] ? cc: ROSSANA,MYESHA GIL ? EXAMINATION: ?? [...] 12/03/231950 ? DD/ 1400 ? TD/TT: ? Car Mechanic Helper: ? Procedure Note Donmanisha, Image - 12/03/2023 [place] [facility] [address] [place] [address] Mammography Report Signed Patient: Alisha Proctor#: [id number] : 1970Acct:[id number] Age/Sex: 52 / FADM Date: 11/16/23 Loc: HO.MAMMO Attending Dr: Myesha Tracy DENTAL INTERN Ordering Physician: MYESHA TRACYesults: 1Negative Date of Service: 11/16/23Follow Up: 1 Year From Orig inal Mammogram Procedure(s): MM tomosynthesis screening BI Accession Number(s): [id number] cc: MYESHA TRACY NP EXAMINATION: MM SCREENING [...] Cherrie Paez MD in OV> 12/03/231950 DD/ 99 TD/TT: Car Mechanic Helper: us Myesha Tracy ANP IMG BI PROCEDURES Final Result * (ABNORMAL) Lipid Panel, Standard (09/30/2023 11:56 AM EST) Triglycerides 164(H) <150 mg/dL [facility] Comment:Desirable Triglyceri de: less than 150 mg/dLBorderline High Triglyceride 150-199 mg/dLHigh Triglyceride: 200-499 mg/dLVery High Triglyceride: greater than or equal to 5OO mg/dL Cholesterol 287(H) <200 mg/dL [facility] Comment:Desirable Cholestero l: less than 200 mg/dLBorderline High Cholesterol: 200-239 mg/dLHigh Cholesterol: greater than 239 mg/dL LDL Cholesterol Calculated 203(H) <100 mg/dL [facility] Comment:Desirable LDL: less than 100 mg/dLNear Optimal/Above Optimal LDL: 110- 129 mg/dLBorderline High LDL: 130-159 mg/dLHigh LDL: 160-189 mg/dLVery High LDL: greater than or equal to 190 mg/dL HDL Cholesterol 52 >40 mg/dL [facility] Comment:Desirable HDL: great er than 40 mg/dL Note: This HDL assay may give artificially low results in patients with liver disease. Blood Venous blood specimen / Unknown 09/30/2023 11:56 AM EST 09/30/2023 1:39 PM EST us Myesha CADENA [facility] BLOOD ORDERABLES Final Resul t [facility] [address] [place] [address] [phone] * (ABNORMAL) Colonoscopy (12/22/2022) Colonoscopy Abnormal(A ) Normal Kuldeep Pacheco MD HEALTH MAINTENANCE Final Result from Last 3 Months or Most Recently Relevant to Health Maintenance Insurance [facility] C[facility] FULL Care Teams Vice President Of Software Development Relationship Specialty Start Date End Date Myesha Tracy ANP [address] [place] [address] PCP - General Family Medicine 05/29/21
== END 2024-12-29 13:27 | disposition home or self-care (01) ==
LOC: HO.MAMMO 13:26
PROVIDERS: PCP Family Medicine; Visit Provider Nurse Practitioner Primary Care
DX: Z12.31 Encounter for screening mammogram for malignant neoplasm of breast (principal)
CPT/HCPCS: 77063; 77067

== ENCOUNTER → 2024-12-29 13:30 | Outpatient (BNV) | payer MEDICAID, SELFPAY | PROVIDERS: PCP Family Medicine; Visit Provider Internal Medicine | DX: Z12.31 Encounter for screening mammogram for malignant neoplasm of breast (principal) | CPT/HCPCS: 77063; 77067 ==

== ENCOUNTER → 2025-01-06 14:41 | Outpatient (REF) | payer MEDICAID, SELFPAY ==
--- NOTE | 2025-01-06 14:43 | CA_ITS ---
Transthoracic Echocardiogram Patient (Last, First, Middle): Alisha Proctor, Gender: Female Date of : 1970 Age: 54 Procedure Date: 01/06/2025 Procedure Type: Transthoracic Echocardiogram Location: OP Height: 162. cm Weight: 99.34 kg BSA: 2.03 m2 Heart Rate: bpm BP: 118 / 70 mmHg Guide Plant: RENETTA Referring MD: Sandra Stone NP Symptoms: R06.02 - Shortness of breath Study Quality: Adequate ECG Rhythm: Sinus Conclusions: - The left ventricular systolic function is normal. The calculated ejection fraction is 66% by biplane method. - No obvious valvular pathology seen on this study. Findings Left Ventricle Normal left ventricular cavity size. There is normal left ventricular wall thickness. The left ventricular systolic function is normal. The calculated ejection fraction is 66% by biplane method. There is no evidence of regional wall motion abnormalities. Diastolic function is normal for age. Right Ventricle Normal right ventricular cavity size and systolic function. Atria Both atria are normal in size. Aortic Valve There is a normal trileaflet aortic valve. There is no aortic valve stenosis. There is no aortic valve regurgitation. Mitral Valve The mitral valve appears normal. There is trace mitral valve regurgitation. There is no mitral valve stenosis. Pulmonic Valve The pulmonic valve is likely normal. Tricuspid Valve There is trace tricuspid valve regurgitation. There is no evidence of pulmonary hypertension. Great Vessels The asc aorta and aortic arch are normal in size. Venous The inferior vena cava is normal in size and collapses greater than 50% with inspiration. Pericardium/Pleural There is no evidence of pericardial effusion. Prior Study Comparison No significant change compared to prior study dated: 06/19/2022. Recommendations, Care & Conclusions No obvious valvular pathology seen on this study. Measurements 2D Linear Measurements IVSd: 0.90 0.6-0.9/0.6-1.0 cm LVIDd: 4.31 3.9-5.3/4.2-5.9 cm LVIDd Index: 2.12 2.4-3.2/2.2-3.1 cm/m2 LVIDs: 2.63 2.0-3.6 cm LVPWd: 0.99 0.7-1.1 cm Ao Root: 3.20 2.1-3.5 cm LA Diam: 3.30 2.7-3.8/3.0-4.0 cm LAIDs Index: 1.63 1.5-2.3 cm/m2 LV Mass: 165.44 67-162/88-224 g LV Mass Index: 81.50 43-95/49-115 g/m2 LVOT Diam: 1.90 3.0+(-)1.3 cm 2D Systolic Function EF 4C: 70.00 >55% EF 2C: 60.40 >55% EF BiP: 65.50 >55% Mitral Valve MV Pk E: 0.83 MV PK A: 0.88 MV Decel Time: 244.00 E/A: 0.90 E'Lateral: 9.25 E'Medial: 7.94 E/E' Med: 10.50 E/E' Lat: 9.00 PHT: 72.00 MVA PHT: 3.06 Decel Norton: 3.40 Aortic Valve AoV Pk Adam: 1.80 AoV Mn Adam: 1.11 AoV VTI: 0.36 AoV Pk Grad: 13.00 Aov Mn Grad: 6.00 TYRESE Cont.VTI: 2.21 LVOT LVOT Pk Adam: 1.31 LVOT Mn Adam: 0.86 LVOT VTI: 0.28 LVOT Pk Grad: 7.00 LVOT Mn Grad: 4.00 LVOT Diam: 1.90 LVOT Area: 2.84 Diastolic Function MV Pk E: 0.83 MV Pk A: 0.88 E/A: 0.90 E'Medial: 7.94 E/E' Med: 10.50 E' Laterial: 9.25 E/E' Lat: 9.00 Right Ventricle TAPSE (mm): 22.00 TVS' Adam: 13.00 Tricuspid Valve TR Pk Adam: 1.70 TR Pk Grad: 12.00 RA Press: 3.00 RVSP: 15.00 Great Vessels Aorta Ao Root-2D: 3.20 2.0-3.7 cm Ao Asc: 3.20 2.1-3.4 cm Ao Arch: 2.40 Pulmonary Valve PV Pk Adam: 1.18 Peak PV Grad: 6.00 Updated in Other Vendor System with Status of Final Hector Hagen MD electronically signed on 01/07/2025 11:48:42 AM with status of Final
--- OUTSIDE RECORDS SUMMARY | 2025-01-06 16:14 | XMS_ITS | Clinical Summary ---
Author Organization [facility] Facility Address [address] [place] [address] Care Team Providers Care Church History Professor Name Role Phone Misael Napier COUNTER MANAGER-C Primary Care Provider Unavailable Allergies No known active allergies Medications ergocalciferol (VITAMIN D-2) 1.25 MG (50130 UT) capsule Take 1 capsule by mouth [...] Additional history exists Insurance [place]ICAID [place] Care Teams Church History Professor Relationship Specialty Start Date End Date Misael Napier FNP-C PCP - General Nurse Practitioner 02/13/21
--- OUTSIDE RECORDS SUMMARY | 2025-01-06 16:14 | XMS_ITS | Encounter Summary ---
Author Organization [employer] Address [address] [facility] [address] [place] [address] Care Team Providers Care Nonprofit Director Name Role Phone Kathy Jang Primary Care Provider [phone] Reason for Visit * Reason Onset Date Comments Med Refill 09/01/2023 Encounter Details Date Type Department Care Team (Late st Contact Info) Description 09/01/[address] [facility] [address] [place] [address] Kathy Jang ANP [address] [place] [address] Seasonal allergies Social History Tobacco Use Types [...] PM EDT Procedure Visit [facility] [address] [place] [address] Darby Blount CNM [address] [place] [address] documented as of this encounter Visit Diagnoses Diagnosis Seasonal allergies Allergic rhinitis, cause unspecified documented in this encounter Additional Health Concerns Assessment Noted Time PHQ-9 Depression Total Score: 0 06/25/20 23 2:19 PM EDT documented as of this encounter Care Teams Nonprofit Director Relationship Specialty Start Date End Date Kathy Jang ANP [address] [place] [address] PCP - General Family Medicine 05/29/21 documented as of this encounter
--- OUTSIDE RECORDS SUMMARY | 2025-01-06 16:14 | XMS_ITS | Encounter Summary ---
Author Organization [employer] Address [address] [facility] [address] [place] [address] Care Team Providers Care Chair Upholsterer Name Role Phone Kathy Jang Primary Care Provider [phone] Reason for Visit * Reason Onset Date Comments Med Refill 09/01/2023 Encounter Details Date Type Department Care Team (Late st Contact Info) Description 09/01/2023 Refill [facility] [address] [place] [address] Kathy Jang ANP [address] [place] [address] Iron deficiency anemia, unspecified iron deficiency anemia [...] Description 01/31/2025 2:45 PM EDT Procedure Visit [facility] [address] [place] [address] Darby Blount CNM [address] [place] [address] documented as of this encounter Visit Diagnoses Diagnosis Iron deficiency anemia, unspecified iron deficiency anemia type documented in this encounter Additional Health Concerns Assessment Noted Time PHQ-9 Depression Total Score: 0 06/25/20 23 2:19 PM EDT documented as of this encounter Care Teams Chair Upholsterer Relationship Specialty Start Date End Date Kathy Jang ANP [address] [place] [address] PCP - General Family Medicine 05/29/21 documented as of this encounter
--- OUTSIDE RECORDS SUMMARY | 2025-01-06 16:14 | XMS_ITS | Encounter Summary ---
Author Organization [employer] Address [address] [place] [address] [address] [place] [address] Care Team Providers Care Copy Chaser Name Role Phone Kathy Jang Primary Care Provider [phone] Encounter Details Date Type Department Care Team (Late st Contact Info) Description 12/01/2022 Orders Only [facility] [address] [place] [address] Alyson Bautista LPN Social History Tobacco Use [...] Description 01/31/2025 2:45 PM EDT Procedure Visit [facility] [address] [place] [address] Darby Blount CNM [address] [place] [address] documented as of this encounter Visit Diagnoses Not on filedocumented in this encounter Care Teams Copy Chaser Relationship Specialty Start Date End Date Kathy Jang ANP [address] [place] [address] PCP - General Family Medicine 05/29/21 documented as of this encounter
--- OUTSIDE RECORDS SUMMARY | 2025-01-06 16:14 | XMS_ITS | Encounter Summary ---
Author Organization [employer] Address [address] [place] [address] [address] [place] [address] Care Team Providers Care Jump Iron Machine Presser Name Role Phone Kathy Jang Primary Care Provider [phone] Encounter Details Date Type Department Care Team (Late st Contact Info) Description 11/04/2022 Orders Only [facility] [address] [place] [address] Alyson Bautista LPN Social History Tobacco Use [...] Description 01/31/2025 2:45 PM EDT Procedure Visit [facility] [address] [place] [address] Darby Blount CNM [address] [place] [address] documented as of this encounter Visit Diagnoses Not on filedocumented in this encounter Care Teams Jump Iron Machine Presser Relationship Specialty Start Date End Date Kathy Jang ANP [address] [place] [address] PCP - General Family Medicine 05/29/21 documented as of this encounter
--- OUTSIDE RECORDS SUMMARY | 2025-01-06 16:14 | XMS_ITS | Encounter Summary ---
Author Organization [employer] Address [address] [place] [address] [address] [place] [address] Care Team Providers Care Lease Analyst Name Role Phone Kathy Jang Primary Care Provider [phone] Encounter Details Date Type Department Care Team (Late st Contact Info) Description 01/02/2023 Orders Only [facility] [address] [place] [address] Alyson Bautista LPN Social History Tobacco Use [...] Visit [facility] [address] [place] [address] Darby Blount CNM [address] [place] [address] documented as of this encounter Visit Diagnoses Not on filedocumented in this encounter Care Teams Lease Analyst Relationship Specialty Start Date End Date Kathy Jang ANP [address] [place] [address] PCP - General Family Medicine 05/29/21 documented as of this encounter
--- OUTSIDE RECORDS SUMMARY | 2025-01-06 16:14 | XMS_ITS | Encounter Summary ---
Author Organization [employer] Address [address] [facility] [address] [place] [address] Care Team Providers Care Lab Coordinator Name Role Phone Kathy Jang Primary Care Provider [phone] Reason for Visit * Reason Onset Date Comments Med Refill 12/09/2024 Encounter Details Date Type Department Care Team (Late st Contact Info) Description 12/09/2024 Refill [facility] [address] [place] [address] Kathy Jang ANP [address] [place] [address] Vitamin D deficiency; Iron deficiency anemia, unspecified [...] 01/31/2025 2:45 PM EDT Procedure Visit [facility] [address] [place] [address] Darby Blount CNM [address] [place] [address] documented as of this encounter Visit Diagnoses Diagnosis Vitamin D deficiency Iron deficiency anemia, unspecified iron deficiency anemia type Essential hypertension Unspecified essential hypertension documented in this encounter Additional Health Concerns Assessment Noted Time PHQ-9 Depression Total Score: 11 024 3:55 PM EST documented as of this encounter Care Teams Lab Coordinator Relationship Specialty Start Date End Date Kathy Jang ANP [address] [place] [address] PCP - General Family Medicine 05/29/21 documented as of this encounter
--- OUTSIDE RECORDS SUMMARY | 2025-01-06 16:14 | XMS_ITS | Encounter Summary ---
Author Organization [employer] Address [address] [facility] [address] [place] [address] Care Team Providers Care Watch And Clock Repair Clerk Name Role Phone Kathy Jang Primary Care Provider [phone] Reason for Visit * Reason Onset Date Comments Med Refill 12/08/2024 Encounter Details Date Type Department Care Team (Late st Contact Info) Description 12/08/2024 Refill [facility] [address] [place] [address] Kathy Jang ANP [address] [place] [address] Social History Tobacco Use Types Packs/Day Years [...] Description 01/31/2025 2:45 PM EDT Procedure Visit [facility] [address] [place] [address] Darby Blount CNM [address] [place] [address] documented as of this encounter Visit Diagnoses Not on filedocumented in this encounter Additional Health Concerns Assessment Noted Time PHQ-9 Depression Total Score: 11 024 3:55 PM EST documented as of this encounter Care Teams Watch And Clock Repair Clerk Relationship Specialty Start Date End Date Kathy Jang ANP [address] [place] [address] PCP - General Family Medicine 05/29/21 documented as of this encounter
--- OUTSIDE RECORDS SUMMARY | 2025-01-06 16:14 | XMS_ITS | Clinical Summary ---
Author Organization [employer] Address [address] [facility] 7[address] [place] [address] Care Team Providers Care Forest Pathology Professor Name Role Phone Myesha Tracy SURINDER Primary Care Provider [phone] Allergies Active Allergy Reactions Criticality Noted Date [...] were not included. Seen by greg at [facility] 12/21/23 (sent d/t very elevated LDL in [...] Department Care Team Description 12/28/2024 Orders Only [facility] External Provider, [facility] 12/21/2024 Telephone [facility] [address] [place] [phone] Myesha Tracy ANP Prior Authorization (Zepbound) 12/20/2024 2:15 PM EDT Office Visit [address] [address] Myesha Tracy ANP Essential hypertension (Primary Dx); BARKER (nonalcoholic steatohepatitis); High cholesterol; Insomnia, unspecified type; Migraine without status migrainosus, not intractable, unspecified migraine type; Mixed anxiety and depressive disorder; Class 2 severe obesity with serious comorbidity and body mass index (BMI) of 38.0 to 38.9 in adult, unspecified obesity type (CMS/HCC) 12/20/2024 Travel 12/16/2024 Population Health Risk Score [facility] () Department [address] [place] [phone] Provider, Population Health Generic 12/09/2024 Refill [facility] [address] [place] [phone] Myesha Tracy ANP Vitamin D deficiency; Iron deficiency anemia, unspecified iron deficiency anemia type; Essential hypertension 12/09/2024 Refill [facility] [address] [place] [address] [phone] Annia Quintero MD Joint pain in fingers of right hand; Pain in both knees, unspecified chronicity 12/08/2024 1:00 PM EST Office Visit [facility] [address] [place] [address] [phone] Annia Quintero MD Joint pain in fingers of right hand (Primary Dx); Pain in both knees, unspecified chronicity; Encounter for immunization 12/08/2024 Refill [facility] [address] [place] [address] Myesha Tracy ANP 12/08/2024 Refill [facility] [address] [place], [place] [phone] Myesha Tracy ANP Benign essential HTN; Vitamin [...] Description 01/31/2025 2:45 PM EDT Procedure Visit [facility] [address] [place] [address] Darby Blount, CNM [address] [place] [address] Health Maintenance Due Date Last Done Comments [...] Acid (12/28/2024 8:02 AM EDT) IDNOW SERIAL# [id number] [facility] Strep A Nucleic Acid Negative Negative [facility] Comment:All test results mus t [...] LAB MICROBIOLOGY - GENERAL ORDERABLES Final Result [facility] [address] [place] [phone] * SARS-CoV-2 RNA, Influenza A/B, and RSV RNA, Ql NAAT (12/28/2024 8:01 AM EDT) Influenza A PCR NEGATIVE Negative [facility] Influenza B PCR NEGATIVE Negative [facility] Resp Syncy Virus RNA Qual PCR NEGATIVE Negative [facility] SARS COV2 PCR NEGATIVE Negative [facility] Comment:All test results mus t be [...] use by authorized laboratories.Testing performed on the Share[employer] GeneXpert utilizingreal-time RT-PCR.All SARS CoV2 and positive influenza A/B results arereported to [facility]. 12/28/2024 8:01 AM EDT 12/28/2024 8:09 AM EDT us Generic External Data Provider LAB MICROBIOLOGY - GENERAL ORDERABLES Final Result Performing Organization Address City/State/[facility] Co de Phone Number [facility] [address] [place] [phone] [phone] * XR Chest 2 Views (12/28/2024 7:55 AM EDT) Anatomical Region Laterality Modality Chest Radiographic Ana ging 12/28/2024 7:55 AM EDT Narrative 12/28/2024 8:18 AM EDT ? [facility] ?[address] ?[place] [address] ?XRay Report ? Signed ? Patient: Jack Caquias,Alisha ?MR#: ?? [id number] ? : 1970 ?Acct:[id number] ? Age/Sex: 54 / F ?ADM Date: 12/28/ ? Loc: HO.ED ? Attending Dr: ? Ordering Physician: Karen Abraham DO ?? Date of Service: 12/28/ ?? Procedure(s): XR chest 2V ?? Accession Number(s): [id number] ? cc: Karen Abraham DO; MYESHA TRACY [...] 0755 ? TD/TT: 12/28/24 0808 ? Car Body Designer: ? Procedure Note Donchinoter, Image - 12/28/[address] [address] XRay Report Signed Patient: Alisha ProctorMR#: [id number] : 1970Acct:[id number] Age/Sex: 54 / FADM Date: 12/28/24 Loc: HO.ED Attending Dr: Ordering Physician: Karen Abraham DO Date of Service: 12/28/24 Procedure(s): XR chest 2V Accession Number(s): [id number] cc: Karen Abraham DO; MYESHA TRACY NP [...] 0815 DD/ 0755 TD/TT: 12/28/24 0808 Car Body Designer: [facility] External Provider IMG XR PROCEDURES Edited Result - Final * (ABNORMAL) Urinalysis w/reflex microscopic (12/12/2024 3:24 AM EDT) Color Urine Yellow [facility] Appearance Urine Clear [facility] PH 5.0 5.0 - 9.0 [facility] Glucose Urine UA Negative Negative mg/dL [facility] Urine Blood Negative Negative [facility] Specific [place] - Urine >=1.030(H) 1.005 - 1.025 [facility] Urine Protein Negative Neg-Trace mg/dL [facility] Urine Ketones Trace Negative mg/dL [facility] Nitrite Urine Negative Negative [facility] Leukocyte Esterase Urine Negative Negative [facility] 12/12/2024 3:24 AM EDT 12/12/2024 3:27 AM EDT Narrative [facility] - 12/12/2024 3:30 AM EDT [id number], Clean Catch us Generic External Data Provider LAB URINE ORDERAB LES Final Result [facility] [address] [place] [phone] * (ABNORMAL) CBC auto differential (12/12/2024 3:20 AM EDT) White Blood Count 13.5(H) 4.8 - 10.8 X10*3/uL [facility] Red Blood Count 4.55 4.20 - 5.50 X10*6/uL [facility] Hemoglobin 12.8 12.0 - 16.0 g/dl [facility] Hematocrit 40.0 37.0 - 47.0 % [facility] Mean Corpuscular Volume 87.9 80.0 - 98.0 fL [facility] Mean Corpuscular Hemoglobin 28.1 27.0 - 33.0 pg [facility] Mean Corpuscular HGB Conc 32.0 31.0 - 35.0 g/dl [facility] Red Cell Distribution Width 13.4 11.0 - 16.0 % [facility] Platelet Count 331 160 - 400 X10*3/uL [facility] Mean Platelet Volume 10.3 9.4 - 12.3 fL [facility] Neutrophils Percent Auto 63.8 45 - 73 % [facility] Imm Gran Pct Auto 0.5(H) 0.0 - 0.4 % [facility] Lymphocytes Percent Auto 25.2 20 - 40 % [facility] Monocytes Percent Auto 6.6 2 - 11 % [facility] Eosinophils Percent Auto 3.5 0 - 4 % [facility] Basophils Percent Auto 0.4 0 - 2 % [facility] NRBC Pct Auto 0.0 0.0 - 0.2 /100WBC [facility] Neutrophils Absolute Auto 8.6(H) 2.0 - 8.3 x10*3/uL [facility] Imm Gran Abs Auto 0.07(H) 0.00 - 0.03 X10*3/uL [facility] Lymphocytes Absolute Auto 3.4 1.2 - 4.9 X10*3/uL [facility] Monocytes Absolute Auto 0.9 0.1 - 1.2 X10*3/uL [facility] Eosinophils Absolute Auto 0.5(H) 0.0 - 0.4 X10*3/uL [facility] Basophils Absolute Auto 0.1 0.0 - 0.2 X10*3/uL [facility] NRBC Abs Auto 0.000 0.0 - 0.012 X10*3/uL [facility] 12/12/2024 3:20 AM EDT 12/12/2024 3:22 AM EDT us Generic External Data Provider LAB BLOOD ORDERAB LES Final Result [facility] [address] [place] [address] [phone] * Lipase (12/12/2024 3:20 AM EDT) Lipase 33 8 - 78 U/L [facility] 12/12/2024 3:20 AM EDT 12/12/2024 3:22 AM EDT Generic External Data Provider LAB BLOOD ORDERAB LES Final Result Performing Organization Address [facility] [place] [facility]/ZIP Co de Phone Number [facility] [address] [place] [phone] * Hepatic Function Panel (12/12/2024 3:20 AM EDT) Pathologist [facility] Bilirubin, Direct <0.2 0.0 - 0.5 mg/dL [facility] 12/12/2024 3:20 AM EDT 12/12/2024 3:22 AM EDT [employer] External Data Provider LAB BLOOD ORDERAB LES Final Result Performing Organization Address [facility] [place] [facility] Co de Phone Number [facility] [address] [place] [phone] * (ABNORMAL) Comprehensive Metabolic Panel (12/12/2024 3:20 AM EDT) [facility] Sodium 143 135 - 145 mmol/L [facility] Potassium 4.5 3.3 - 5.1 mmol/L [facility] Chloride 113(H) 96 - 108 mmol/L [facility] Carbon Dioxide 21(L) 22 - 29 mmol/L [facility] Anion Gap 14 12 - 20 [facility] Urea Nitrogen (BUN) 26(H) 9 - 16 mg/dL [facility] Creatinine, Serum 1.06 0.5 - 1.4 mg/dL [facility] Creatinine Clr Calc Pharmacy 71.5 [facility] Comment:Provided height and weight: 162.56 cm,102.5 kg.eGFR (calculated from the MDRD study equation) and eCrCl(calculated from the Cockcroft-Gault equation) are based ondifferent parameters and may not yield comparable results.If eCrCl result is absurd, please check patient'sheight/weight. Estimated Glomerular Filt Rate 54 [facility] Comment:Chronic Kidney Disea se: Estimated GFR < 60 mL/min/1.71o0Rotnty Kidney Disease: Estimated GFR < 15 mL/min/1.73m2 Glucose 121(H) 60 - 115 mg/dL [facility] Calcium 10.1 8.4 - 10.2 mg/dL [facility] Bilirubin, Total 0.2 0.0 - 1.0 mg/dL [facility] Aspartate Amino Transferase 35(H) 5 - 31 U/L [facility] Alanine Aminotransferase 81(H) 0 - 31 U/L [facility] Total Protein 8.1(H) 6.5 - 8.0 g/dL [facility] Albumin Level 4.5 3.5 - 5.0 g/dL [facility] Alkaline Phosphatase 97 39 - 117 U/L [facility] 12/12/2024 3:20 AM EDT 12/12/2024 3:22 AM EDT us Generic External Data Provider LAB BLOOD ORDERAB LES Final Result Performing Organization Address [facility]/State/[facility] Co de Phone Number [facility] [address] [place] [phone] * XR Knee 3 Views Right (12/08/2024 1:24 PM EST) Anatomical Region Laterality Modality Lower Extremities, Knee Right Radiogra phic Imaging 12/08/2024 1:24 PM EST Narrative 12/08/2024 2:19 PM EST ?[facility] ?[address] ?[place] [address] ?XRay Report ? Signed ? Patient: Jack Caquias,Alisha ?MR#: ?? [id number] ? : 1970 ?Acct:[id number] ? Age/Sex: 53 / F ?ADM Date: 03/06/25 ? Loc: HO.HHCX ? Attending Dr: Annia Quintero MD ? Ordering Physician: Annia Quintero MD ?? Date of Service: 12/08/24 ?? Procedure(s): XR knee RT 3V ?? Accession Number(s): [id number] ? cc: Annia Quintero MD ? EXAMINATION: [...] 1324 ? TD/TT: 12/08/24 1355 ? Car Body Designer: MSM ? Procedure Note Angel Bailey - 12/08/[address] [address] XRay Report Signed Patient: Alisha ProctorMR#: [id number] : 1970Acct:[id number] Age/Sex: 53 / FADM Date: 12/08/24 Loc: HO.HHCX Attending Dr: Annia Quintero MD Ordering Physician: Annia Quintero MD Date of Service: 12/08/24 Procedure(s): XR knee RT 3V Accession Number(s): [id number] cc: Annia Quintero MD EXAMINATION: XR KNEE, [...] 1416 DD/ 1324 TD/TT: 12/08/24 1355 Car Body Designer: MSM us Annia Quintero MD IMG XR PROCEDURES Final Re sult * XR Knee 3 Views Left (12/08/2024 1:24 PM EST) Anatomical Region Laterality Modality Lower Extremities, Knee Left Radiogra phic Imaging 12/08/2024 1:24 PM EST Narrative 12/08/2024 2:16 PM EST ?[facility] ?[address] ?[place] [address] ?XRay Report ? Signed ? Patient: Jackkunal Saenz,Alisha ?MR#: ?? [id number] ? : 1970 ?Acct:[id number] ? Age/Sex: 53 / F ?ADM Date: 12/08/24 ? Loc: HO.HHCX ? Attending Dr: Annia Quintero MD ? Ordering Physician: Annia Quintero MD ?? Date of Service: 12/08/24 ?? Procedure(s): XR knee LT 3V ?? Accession Number(s): [id number] ? cc: Annia Quintero MD ? EXAMINATION: [...] 1324 ? TD/TT: 12/08/24 1355 ? Car Body Designer: MSM ? Procedure Note Lynn, Image - 12/08/2024 [facility] [address] [place] [address] XRay Report Signed Patient: Alisha ProctorMR#: [id number] : 1970Acct:[id number] Age/Sex: 53 / FADM Date: 12/08/24 Loc: .HHCX Attending Dr: Annia Quintero MD Ordering Physician: Annia Quintero MD Date of Service: 12/08/24 Procedure(s): XR knee LT 3V Accession Number(s): [id number] cc: Annia Quintero MD EXAMINATION: XR KNEE, [...] 1413 DD/ 1324 TD/TT: 12/08/24 1355 Car Body Designer: MSM Annia Quintero MD IMG XR PROCEDURES Final Re sult * XR Hand 3+ Views Right (12/08/2024 1:24 PM EST) Anatomical Region Laterality Modality Upper Extremities, Hand Right Radiogra phic Imaging 12/08/2024 1:24 PM EST Narrative 12/08/2024 2:17 PM EST ?[facility] [facility] ?[address] ?[place] [address] ?XRay Report ? Signed ? Patient: Jack Caquias,Alisha ?MR#: ?? [id number] ? : 1970 ?Acct:[id number] ? Age/Sex: 53 / F ?ADM Date: 12/08/24 ? Loc: HO.HHCX ? Attending Dr: Annia Quintero MD ? Ordering Physician: Annia Quintero MD ?? Date of Service: 12/08/24 ?? Procedure(s): XR hand RT min 3V ?? Accession Number(s): [id number] ? cc: Anina Quintero MD ? EXAMINATION: ?? XR HAND, [...] 1324 ? TD/TT: 12/08/24 1355 ? Car Body Designer: MSM ? Procedure Note Lynn, Image - 12/08/2024 [facility] [address] [place] [address] XRay Report Signed Patient: Alisha Proctor#: [id number] : 1970Acct:[id number] Age/Sex: 53 / FADM Date: 12/08/24 Loc: HO.HHCX Attending Dr: Annia Quintero MD Ordering Physician: Annia Quintero MD Date of Service: 12/08/24 Procedure(s): XR hand RT min 3V Accession Number(s): [id number] cc: Annia Quintero MD EXAMINATION: XR HAND, [...] Macedo MD Signed By: <Electronically signed by Suhbham Macedo MD in OV> 12/08/24 1414 DD/ 1324 TD/TT: 12/08/24 1355 Car Body Designer: [facility] [place] Annia Quintero MD IMG XR PROCEDURES Final Re sult * Creatinine, Serum (12/07/2024 3:17 PM EST) Creatinine, Serum 0.77 0.5 - 1.4 mg/dL [facility] Estimated Glomerular Filt Rate >60 [facility] Comment:Chronic Kidney Disea se: Estimated GFR < 60 mL/min/1.16y6Aeucaq Kidney Disease: Estimated GFR < 15 mL/min/1.73m2 12/07/2024 3:17 PM EST 12/07/2024 3:17 PM EST us Generic External Data Provider LAB BLOOD ORDERAB LES Final Result [facility] [address] [place] [phone] * BUN (Blood Urea Nitrogen) (12/07/2024 3:17 PM EST) Urea Nitrogen (BUN) 12 9 - 16 mg/dL [facility] 12/07/2024 3:17 PM EST 12/07/2024 3:17 PM EST us Generic External Data Provider LAB BLOOD ORDERAB LES Final Result Performing Organization Address [facility] [place] [facility]/ZIP Co de Phone Number [facility] [address] [place] [phone] * (ABNORMAL) Electrolyte Panel (12/07/2024 3:17 PM EST) Sodium 144 135 - 145 mmol/L [facility] Potassium 4.4 3.3 - 5.1 mmol/L [facility] Chloride 109(H) 96 - 108 mmol/L [facility] Carbon Dioxide 28 22 - 29 mmol/L [facility] Anion Gap 11(L) 12 - 20 [facility] 12/07/2024 3:1 7 PM EST 12/07/2024 3:17 PM EST Generic External Data Provider LAB BLOOD ORDERAB LES Final Result Performing Organization Address [facility] de Phone Number [facility] [address] [place] [phone] * Culture, Urine, Routine (12/07/2024 3:15 PM EST) Urine Urine specimen obtained by clean catch procedure / Unknown 12/07/2024 3:15 PM EST 12/07/2024 3:23 PM EST Comment:UACC Narrative [facility] - 12/09/2024 12:09 PM EST Urine Culture Report Result Urine Culture 10,000 to 50,000 cfu/ml Urine Culture Mixed bacterial bruce characteristic of Urine Culture urogenital contamination. Specimen Source: Urine clean catch Generic External Data Provider LAB MICROBIOLOGY - GENERAL ORDERABLES Final Result Performing Organization Address [facility] [place] [facility] Co de Phone Number [facility] [address] [place] [phone] * BI Mammogram Screening Tomosynthesis Bilateral (11/16/2023 2:00 PM EST) Anatomical Region Laterality Modality Breast Bilateral Mammography 11/16/2023 2:00 PM EST Narrative 12/03/2023 7:55 PM EST ? [facility] ? [address] ?[place] [address] ? Mammography Report ? Signed ? Patient: Jack Caquias,Alisha ?MR#: ?? [id number] ? : 1970 ?Acct:[id number] ? Age/Sex: 52 / F ?ADM Date: 11/16/23 ? Loc: HO.MAMMO ? Attending Dr: Myesha Tracy MOVING PICTURE OPERATOR ? Ordering Physician: MYESHA TRACY NP ?Results: 1Negative ? Date of Service: 11/16/23 ?Follow Up: 1 Year From Orig ?? inal Mammogram ? Procedure(s): MM tomosynthesis screening BI ?? Accession Number(s): [id number] ? cc: ROSSANA,MYESHA GIL ? EXAMINATION: ?? [...] ? DD/ 1400 ? TD/TT: ? Car Body Designer: ? Procedure Note Donmanisha, Image - 12/03/2023 [place] [facility] [address] [place] [address] Mammography Report Signed Patient: Alisha Proctor#: [id number] : 1970Acct:[id number] Age/Sex: 52 / FADM Date: 11/16/23 Loc: HO.MAMMO Attending Dr: Myesha Tracy MOVING PICTURE OPERATOR Ordering Physician: MYESHA TRACYesults: 1Negative Date of Service: 11/16/23Follow Up: 1 Year From Orig inal Mammogram Procedure(s): MM tomosynthesis screening BI Accession Number(s): [id number] cc: MYESHA TRACY NP EXAMINATION: MM SCREENING [...] in OV> 12/03/231950 DD/ 99 TD/TT: Car Body Designer: us Myesha Tracy ANP IMG BI PROCEDURES Final Result * (ABNORMAL) Lipid Panel, Standard (09/30/2023 11:56 AM EST) Triglycerides 164(H) <150 mg/dL [facility] Comment:Desirable Triglyceri de: less than 150 mg/dLBorderline High Triglyceride 150-199 mg/dLHigh Triglyceride: 200-499 mg/dLVery High Triglyceride: greater than or equal to 5OO mg/dL Cholesterol 287(H) <200 mg/dL [facility] Comment:Desirable Cholestero l: less than 200 mg/dLBorderline High Cholesterol: 200-239 mg/dLHigh Cholesterol: greater than 239 mg/dL LDL Cholesterol Calculated 203(H) <100 mg/dL [facility] Comment:Desirable LDL: less than 100 mg/dLNear Optimal/Above Optimal LDL: 110- 129 mg/dLBorderline High LDL: 130-159 mg/dLHigh LDL: 160-189 mg/dLVery High LDL: greater than or equal to 190 mg/dL HDL Cholesterol 52 >40 mg/dL [facility] Comment:Desirable HDL: great er than 40 mg/dL Note: This HDL assay may give artificially low results in patients with liver disease. Blood Venous blood specimen / Unknown 09/30/2023 11:56 AM EST 09/30/2023 1:39 PM EST us Myesha CADENA LAB BLOOD ORDERABLES Final Resul t [facility] [address] [place] [phone] * (ABNORMAL) Colonoscopy (12/22/2022) Colonoscopy Abnormal(A ) Normal Kuldeep Pacheco MD HEALTH MAINTENANCE Final Result from Last 3 Months or Most Recently Relevant to Health Maintenance Insurance [facility] C[facility] FULL Care Teams Forest Pathology Professor Relationship Specialty Start Date End Date Myesha Tracy ANP [address] [place] [phone] PCP - General Family Medicine 05/29/21
--- OUTSIDE RECORDS SUMMARY | 2025-01-06 16:14 | XMS_ITS | Encounter Summary ---
Author Organization [employer] Address [address] [place] [address] Care Team Providers Care Systems Integration Manager Name Role Phone Kathy Jang Primary Care Provider [phone] Reason for Visit * Reason Onset Date Comments Med Refill 10/01/2023 Encounter Details Date Type Department Care Team (Late st Contact Info) Description 10/01/2023 Refill [facility] [address] [place] [address] Kathy Jang ANP [address] [place] [address] Seasonal allergies Social History Tobacco Use Types [...] Description 01/31/2025 2:45 PM EDT Procedure Visit [facility] [address] [place] [address] Darby Blount CNM [address] [place] [address] documented as of this encounter Visit Diagnoses Diagnosis Seasonal allergies Allergic rhinitis, cause unspecified documented in this encounter Additional Health Concerns Assessment Noted Time PHQ-9 Depression Total Score: 0 06/25/20 23 2:19 PM EDT documented as of this encounter Care Teams Systems Integration Manager Relationship Specialty Start Date End Date Kathy Jang ANP [address] [place] [address] PCP - General Family Medicine 05/29/21 documented as of this encounter
--- OUTSIDE RECORDS SUMMARY | 2025-01-06 16:14 | XMS_ITS | Encounter Summary ---
Author Organization [employer] Address [address] [facility] [place] [address] Care Team Providers Care Agricultural Equipment Sales Manager Name Role Phone Kathy Jang Primary Care Provider [phone] Reason for Visit * Reason Onset Date Comments Med Refill 10/27/2023 Encounter Details Date Type Department Care Team (Late st Contact Info) Description 10/27/2023 Refill [facility] [address] [place] [address] Kathy Jang ANP [address] [place] [address] Vitamin D deficiency; Seasonal allergies Social History [...] Description 01/31/2025 2:45 PM EDT Procedure Visit [facility] [address] [place] [phone] Darby Blount CNM [address] [place] [address] documented as of this encounter Visit Diagnoses Diagnosis Vitamin D deficiency Seasonal allergies Allergic rhinitis, cause unspecified documented in this encounter Additional Health Concerns Assessment Noted Time PHQ-9 Depression Total Score: 0 06/25/20 23 2:19 PM EDT documented as of this encounter Care Teams Agricultural Equipment Sales Manager Relationship Specialty Start Date End Date Kathy Jang ANP [address] [place] [phone] PCP - General Family Medicine 05/29/21 documented as of this encounter
--- OUTSIDE RECORDS SUMMARY | 2025-01-06 16:14 | XMS_ITS | Encounter Summary ---
Author Organization [email or web address] Address [address] [facility] [address] [place] [address] Care Team Providers Care Bass Viol Repairer Name Role Phone Kathy Jang Primary Care Provider [phone] Reason for Visit * Reason Onset Date Comments Med Refill 10/01/2023 Encounter Details Date Type Department Care Team (Late st Contact Info) Description 10/01/2023 Refill [facility] [address] [place] [address] Kathy Jang ANP [address] [place] [address] Iron deficiency anemia, unspecified iron deficiency anemia [...] Description 01/31/2025 2:45 PM EDT Procedure Visit [facility] [address] [place] [address] Darby Blount CNM [address] [place] [address] documented as of this encounter Visit Diagnoses Diagnosis Iron deficiency anemia, unspecified iron deficiency anemia type documented in this encounter Additional Health Concerns Assessment Noted Time PHQ-9 Depression Total Score: 0 06/25/20 23 2:19 PM EDT documented as of this encounter Care Teams Bass Viol Repairer Relationship Specialty Start Date End Date Kathy Jang ANP [address] [place] [address] PCP - General Family Medicine 05/29/21 documented as of this encounter
--- OUTSIDE RECORDS SUMMARY | 2025-01-06 16:14 | XMS_ITS | Encounter Summary ---
Author Organization [employer] Address [address] [place] [address] Care Team Providers Care Type Caster Name Role Phone Kathy Jang SURINDER Primary Care Provider [phone] Reason for Visit * Reason Onset Date Comments Med Refill 12/09/2024 Encounter Details Date Type Department Care Team (Late st Contact Info) Description 12/09/2024 Refill [facility] [address] [place] [address] Annia Quintero MD [address] [place] [address] Joint pain in fingers of right hand; [...] Description 01/31/2025 2:45 PM EDT Procedure Visit [facility] [address] [place] [address] Darby Blount CNM [address] [place] [address] documented as of this encounter Visit Diagnoses Diagnosis Joint pain in fingers of right hand Pain in both knees, unspecified chronicity documented in this encounter Additional Health Concerns Assessment Noted Time PHQ-9 Depression Total Score: 11 024 3:55 PM EST documented as of this encounter Care Teams Type Caster Relationship Specialty Start Date End Date Kathy Jang ANP [address] [place] [address] PCP - General Family Medicine 05/29/21 documented as of this encounter
== END ==
LOC: HO.CARD 14:41
PROVIDERS: PCP Family Medicine; Visit Provider Nurse Practitioner Family
DX: R06.02 Shortness of breath (principal)
CPT/HCPCS: 93306

== ENCOUNTER → 2025-01-06 14:43 | Outpatient (BNV) | payer MEDICAID, SELFPAY | PROVIDERS: PCP Family Medicine; Visit Provider Internal Medicine | DX: R06.02 Shortness of breath (principal) | CPT/HCPCS: 93306 ==

== ENCOUNTER 2025-01-30 14:39 | Outpatient (REF) | payer MEDICAID, SELFPAY ==
--- NOTE | ~2025-01-30 | XR_ITS ---
EXAMINATION: XR HAND 3 OR MORE VIEWS RIGHT HISTORY: M79.641 - Pain in right hand COMPARISON: Comparison is made with the prior examination dated 12/08/2024. FINDINGS: Three views of the right hand are submitted. Osseous mineralization is normal. There is no fracture or dislocation. There is slight narrowing of the DIP joints of the 4th and 5th fingers. The soft tissues are unremarkable. XR/XR hand RT min 3V IMPRESSION: Mild narrowing of the DIP joints of the 4th and 5th fingers. Electronically signed by: Alberto Benson MD 02/01/2025 02:59 PM EDT
--- OUTSIDE RECORDS SUMMARY | 2025-01-30 17:31 | XMS_ITS | Encounter Summary ---
Author Organization [employer] Address [address] [facility] [facility] [address] [place] [address] Care Team Providers Care Diamond Die Maker Name Role Phone Kathy Jang Primary Care Provider [phone] Reason for Visit * Reason Onset Date Comments Med Refill 12/09/2024 Encounter Details Date Type Department Care Team (Late st Contact Info) Description 12/09/2024 Refill [facility] [address] [place] [address] Kathy Jang ANP [address] [place] [address] Vitamin D deficiency; Iron deficiency anemia, unspecified [...] 01/31/2025 2:45 PM EDT Procedure Visit [facility] [address] [place] [address] Darby Blount CNM [address] [place] [address] documented as of this encounter Visit Diagnoses Diagnosis Vitamin D deficiency Iron deficiency anemia, unspecified iron deficiency anemia type Essential hypertension Unspecified essential hypertension documented in this encounter Additional Health Concerns Assessment Noted Time PHQ-9 Depression Total Score: 11 024 3:55 PM EST documented as of this encounter Care Teams Diamond Die Maker Relationship Specialty Start Date End Date Kathy Jang ANP [address] [place] [address] PCP - General Family Medicine 05/29/21 documented as of this encounter
--- OUTSIDE RECORDS SUMMARY | 2025-01-30 17:31 | XMS_ITS | Clinical Summary ---
Author Organization [employer] Address [address] [place] [address] [address] [place] [address] Care Team Providers Care [employer] Fighter Name Role Phone Myesha Tracy SURINDER Primary Care Provider Allergies Active Allergy Reactions Criticality Noted Date Comments Hydrocodone 01/27/2019 Other reaction(s): nausea, blurry vision, headache Medications lidocaine (Lidoderm) 5 % patchIndications :Rib pain Apply 1 patch topically Once per day. APPLY 1 PATCH TOPICALLY TO SKIN, LEAVE ON FOR 12 HOURS AND OFF FOR 12 HOURS DIRECTED, as needed for pain 30 patch 5 4 Active cetirizine (ZyrTEC) 10 MG tabletIndication s:Seasonal allergies TAKE 1 TABLET BY MOUTH EVERY DAY NEEDED FOR ALLERGIES 90 tablet 1 4 Active hydroCHLOROthiaz danisha 12.5 MG tabletIndication s:Benign essential HTN Take 1 tablet (12.5 mg) by mouth in the morning. 90 tablet 3 5 Active cholecalciferol VITAMIN D (Vitamin D-3) 50 MCG (2000 UT) tabletIndication s:Vitamin D deficiency Take 1 tablet (50 mcg) by mouth in the morning. 90 tablet 5 Active ferrous sulfate (FeroSul) 325 (65 Fe) MG tabletIndication s:Iron deficiency anemia, unspecified iron deficiency anemia type Take 1 tablet (325 mg) by mouth Once daily. 90 tablet 5 Active lisinopril 40 MG tabletIndication s:Essential hypertension Take 1 tablet (40 mg) by mouth Once daily. 90 tablet 5 Active naproxen (Naprosyn) 500 MG tabletIndication s:Joint pain in fingers of right hand,Pain in both knees, unspecified chronicity Take 1 tablet (500 mg) by mouth with breakfast and with evening meal. 20 tablet 5 026 Active Repatha SureClick 140 MG/ML injection 5 Active pantoprazole (ProtoNix) 40 MG EC tablet TAKE 1 TABLET BY MOUTH TWICE DAILY IN THE MORNING AND IN THE EVENING 5 Active propranolol (Inderal) 80 MG tablet TAKE 1 TABLET BY MOUTH TWICE DAILY IN THE MORNING AND IN THE EVENING Active nortriptyline (Pamelor) 50 MG capsuleIndicatio ns:Insomnia, unspecified type,Migraine without status migrainosus, not intractable, unspecified migraine type,Mixed anxiety and depressive disorder Take 1 capsule (50 mg) by mouth at bedtime. 90 capsule 1 5 Active sucralfate (Carafate) 1 g tablet TAKE 1 TABLET BY MOUTH THREE TIMES DAILY IN THE MORNING, EVENING, AND BEDTIME 5 Active senna (Senokot) 8.6 MG tablet TAKE 2 TABLETS BY MOUTH EVERY DAY AT BEDTIME FOR CONSTIPATION 5 Active Tirzepatide-Weig ht Management (Zepbound) 2.5 MG/0.5ML solution auto-injectorInd ications:Class 2 severe obesity with serious comorbidity and body mass index (BMI) of 38.0 to 38.9 in adult, unspecified obesity type (CMS/HCC) Inject 0.5 mL (2.5 mg) under the skin 1 (one) time per week. 2 mL 5 Active Active Problems Problem Noted Date Diagnosed [...] not included. Seen by greg at [facility] 12/21/23 (sent d/t very elevated LDL [...] Encounters Date Type Department Care Team Description 01/29/2025 Refill [facility] [address] [place] [phone] Myesha Tracy ANP Seasonal allergies 01/15/2025 Refill [facility] [address] [place] [address] Myesha Tracy ANP Rib pain 12/28/2024 Orders Only [facility] External Provider, [facility] 12/21/2024 Telephone [facility] [address] [place] [phone] Myesha Tracy ANP Prior Authorization (Zepbound) 12/20/2024 2:15 PM EDT Office Visit [facility] [address] [place] [phone] Myesha Tracy ANP Essential hypertension (Primary Dx); BARKER (nonalcoholic steatohepatitis); High cholesterol; Insomnia, unspecified type; Migraine without status migrainosus, not intractable, unspecified migraine type; Mixed anxiety and depressive disorder; Class 2 severe obesity with serious comorbidity and body mass index (BMI) of 38.0 to 38.9 in adult, unspecified obesity type (CMS/HCC) 12/20/2024 Travel 12/16/2024 Population Health Risk Score [facility] () Department [address] [place] [phone] Provider, Population Health Generic 12/09/2024 Refill [facility] [address] [place] [address] Myesha Tracy ANP Vitamin D deficiency; Iron deficiency anemia, unspecified iron deficiency anemia type; Essential hypertension 12/09/2024 Refill [facility] [address] [place] [phone] Annia Quintero MD Joint pain in fingers of right hand; Pain in both knees, unspecified chronicity 12/08/2024 1:00 PM EST Office Visit [facility] [address] [place] [phone] Annia Quintero MD Joint pain in fingers of right hand (Primary Dx); Pain in both knees, unspecified chronicity; Encounter for immunization 12/08/2024 Refill [facility] [address] [place] [address] Myesha Tracy ANP 12/08/2024 Refill [facility] [address] [place] [phone] Myesha Tracy ANP Benign essential HTN; Vitamin [...] Description 01/31/2025 2:45 PM EDT Procedure Visit [facility] [address] [place], [place] [phone] Darby Blount, GOPAL [address] [place] [address] Health Maintenance Due Date Last Done Comments CT Colonography 1971 FIT DNA/Cologuard 1971 FIT 1971 FOBT 1970 HIV Screening 1970 Sigmoidoscopy 1970 Hepatitis C Screening 12/09/1989 Pap Smear 12/09/1992 Cervical Cancer Screening 12/09/2001 HPV/Cotest 12/09/2001 SDOH Screening 05/31/2025 05/31/2024 DTaP/Tdap/Td Vaccines (2 - Td or Tdap) 07/23/2025 07/23/2015 Alcohol/Substance Use Screening 09/19/2025 09/19/2024 Depression Screening 09/19/2025 09/19/2024, 09/19/20 24 Tobacco Screening 12/20/2025 12/20/2024 Colonoscopy 12/22/2025 12/22/2022 Colorectal Cancer Screening 12/22/2025 Mammogram 12/29/2025 12/29/2024, 11/05, 08/21/2021 Lipid Panel 09/30/2028 09/30/2023, 06/15/2020 RSV Patients [...] Procedure Name Priority Date/Time Associated Diagnosis Comments BI MAMMOGRAM SCREENING TOMOSYNTHESIS BILATERAL Routine 12/29/2024 1:30 PM EDT STREP A NUCLEIC ACID Routine 12/28/2024 8:02 [...] URINE, ROUTINE Routine 12/07/2024 3:15 PM EST LIPID PANEL, STANDARD Routine 09/30/2023 11:56 AM EST Screening, lipid HM COLONOSCOPY Routine 12/22/2022 from Last 3 Months or Most Recently Relevant to Health Maintenance Results * BI Mammogram Screening Tomosynthesis Bilateral (12/29/2024 1:30 PM EDT) Anatomical Region Laterality Modality Breast Bilateral Mammography 12/29/2024 1:30 PM EDT Narrative 01/06/2025 5:41 PM EDT ? [facility] ? [address] ?[place] [address] ?[phone] ? Mammography Report ? Signed ? Patient: Jack Caquias,Alisha ?MR#: ?? [id number] ? : 1970 ?Acct:[id number] ? Age/Sex: 54 / F ?ADM Date: 12/29/24 ? Loc: HO.MAMMO ? Attending Dr: Myesha Tracy CORPORATE ACCOUNTING MANAGER ? Ordering Physician: MYESHA TRACY NP ?Results: 1Negative ? Date of Service: 12/29/24 ?Follow Up: 1 Year From Orig ?? inal Mammogram ? Procedure(s): MM tomosynthesis screening BI ?? Accession Number(s): [id number] ? cc: Annia Quintero MD; MYESHA TRACY NP ? EXAMINATION: ?? MM SCREENING DIGITAL BREAST TOMOSYNTHESIS, BILATERAL ? CLINICAL INFORMATION: ? Screening. Asymptomatic. ? COMPARISON: ?? Mammography: Comparison is made with available priors ? TECHNIQUE: ?? Digital breast mammography with tomosynthesis is performed in both the ?? craniocaudal and mediolateral oblique views along with computer-aided ?? detection (CAD). ? FINDINGS: ?? The breasts are heterogeneously dense, which may obscure small masses ?? (ACR BI-RADS breast composition Category c). ? There are no significant masses, abnormal [...] due date for their next mammogram. ? Electronically signed by: ??Oksana Lyn DO ??01/06/2025 05:38 PM EDT ? Dictated By: ?Oksana Lyn DO ? Signed By: ?<Electronically signed by Oksana Lyn, DO in OV> ? 01/06/25 1738 ? DD/ 1330 ? TD/TT: 12/29/24 1347 ? [facility] Former: ? Procedure Note Donmanisha, Image - 01/06/2025 [facility] [address] [place] [address] Mammography Report Signed Patient: Alisha ProctorMR#: [id number] : 1970Acct:[id number] Age/Sex: 54 / FADM Date: 12/29/24 Loc: HO.MAMMO Attending Dr: Myesha Tracy NP Ordering Physician: MYESHA TRACY NPResults: 1Negative Date of Service: 12/29/24Follow Up: 1 Year From Orig inal Mammogram Procedure(s): MM tomosynthesis screening BI Accession Number(s): [id number] cc: Annia Quintero MD; MYESHA TRACY NP EXAMINATION: MM SCREENING DIGITAL BREAST TOMOSYNTHESIS, BILATERAL CLINICAL INFORMATION: Screening. Asymptomatic. COMPARISON: Mammography: Comparison is made with available priors TECHNIQUE: Digital breast mammography with tomosynthesis is performed in both the craniocaudal and mediolateral oblique views along with computer-aided detection (CAD). FINDINGS: The breasts are heterogeneously dense, which may obscure small masses (ACR BI-RADS breast composition Category c). There are no significant masses, abnormal calcifications, [...] target due date for their next mammogram. Electronically signed by: Oksana Lyn DO 01/06/2025 05:38 PM EDT RP Dictated By: Oksana Lyn DO Signed By: <Electronically signed by Oksana Lyn DO in OV> 01/06/25 1738 DD/ 1330 TD/TT: 12/29/24 1347 Hand [facility] Former: Myesha WHITMAN BI PROCEDURES Final Result * Strep A Nucleic Acid (12/28/2024 8:02 AM EDT) IDNOW SERIAL# [id number] [facility] Strep A Nucleic Acid Negative Negative [facility] Comment:All test results mus t [...] LAB MICROBIOLOGY - GENERAL ORDERABLES Final Result [facility] [address] [place] [phone] * SARS-CoV-2 RNA, Influenza A/B, and RSV RNA, Ql NAAT (12/28/2024 8:01 AM EDT) Influenza A PCR NEGATIVE Negative [facility] Influenza B PCR NEGATIVE Negative [facility] Resp Syncy Virus RNA Qual PCR NEGATIVE Negative [facility] SARS COV2 PCR NEGATIVE Negative [facility] Comment:All test results mus [...] use by authorized laboratories.Testing performed on the Clinical Ink GeneXpert utilizingreal-time RT-PCR.All SARS CoV2 and positive influenza A/B results arereported to [facility]. 12/28/2024 8:01 AM EDT 12/28/2024 8:09 AM EDT us Generic External Data Provider LAB MICROBIOLOGY - GENERAL ORDERABLES Final Result [facility] [address] [place] [phone] * XR Chest 2 Views (12/28/2024 7:55 AM EDT) Anatomical Region Laterality Modality Chest Radiographic Ana ging 12/28/2024 7:55 AM EDT Narrative 12/28/2024 8:18 AM EDT ? [facility] ?[address] ?[place] [address] ?XRay Report ? Signed ? Patient: Jack Caquias,Alisha ?MR#: ?? [id number] ? : 1970 ?Acct:[id number] ? Age/Sex: 54 / F ?ADM Date: 03/26/25 ? Loc: HO.ED ? Attending Dr: ? Ordering Physician: Karen Abraham DO ?? Date of Service: 03/26/25 ?? Procedure(s): XR chest 2V ?? Accession Number(s): [id number] ? cc: Karen Abraham DO; MYESHA TRACY [...] DD/ 0755 ? TD/TT: 12/28/24 0808 ? [facility] [employer] Former: ? Procedure Note Lynn, Image - 12/28/[address] [address] XRay Report Signed Patient: Alisha ProctorMR#: [id number] : 1970Acct:[id number] Age/Sex: 54 / FADM Date: 12/28/24 Loc: HO.ED Attending Dr: Ordering Physician: Karen Abraham DO Date of Service: 12/28/24 Procedure(s): XR chest 2V Accession Number(s): [id number] cc: Karen Abraham DO; MYESHA TRACY NP [...] Humble Kearns MDin OV> 12/28/24 0815 DD/ TD/TT: 12/28/24 0808 [facility] Former: [facility] External Provider IMG XR PROCEDURES Edited Result - Final * (ABNORMAL) Urinalysis w/reflex microscopic (12/12/2024 3:24 AM EDT) Color Urine Yellow [facility] Appearance Urine Clear [facility] PH 5.0 5.0 - 9.0 [facility] Glucose Urine UA Negative Negative mg/dL [facility] Urine Blood Negative Negative [facility] Specific [place] - Urine >=1.030(H) 1.005 - 1.025 [facility] Urine Protein Negative Neg-Trace mg/dL [facility] Urine Ketones Trace Negative mg/dL [facility] Nitrite Urine Negative Negative [facility] Leukocyte Esterase Urine Negative Negative [facility] 12/12/2024 3:24 AM EDT 12/12/2024 3:27 AM EDT Narrative [facility] - 12/12/2024 3:30 AM EDT [id number], Clean Catch us Generic External Data Provider LAB URINE ORDERAB LES Final Result [facility] [address] [place] [phone] * (ABNORMAL) CBC auto differential (12/12/2024 3:20 AM EDT) White Blood Count 13.5(H) 4.8 - 10.8 X10*3/uL [facility] Red Blood Count 4.55 4.20 - 5.50 X10*6/uL [facility] Hemoglobin 12.8 12.0 - 16.0 g/dl [facility] Hematocrit 40.0 37.0 - 47.0 % [facility] Mean Corpuscular Volume 87.9 80.0 - 98.0 fL [facility] Mean Corpuscular Hemoglobin 28.1 27.0 - 33.0 pg [facility] Mean Corpuscular HGB Conc 32.0 31.0 - 35.0 g/dl [facility] Red Cell Distribution Width 13.4 11.0 - 16.0 % [facility] Platelet Count 331 160 - 400 X10*3/uL [facility] Mean Platelet Volume 10.3 9.4 - 12.3 fL [facility] Neutrophils Percent Auto 63.8 45 - 73 % [facility] Imm Gran Pct Auto 0.5(H) 0.0 - 0.4 % [facility] Lymphocytes Percent Auto 25.2 20 - 40 % [facility] Monocytes Percent Auto 6.6 2 - 11 % [facility] Eosinophils Percent Auto 3.5 0 - 4 % [facility] Basophils Percent Auto 0.4 0 - 2 % [facility] NRBC Pct Auto 0.0 0.0 - 0.2 /100WBC [facility] Neutrophils Absolute Auto 8.6(H) 2.0 - 8.3 x10*3/uL [facility] Imm Gran Abs Auto 0.07(H) 0.00 - 0.03 X10*3/uL [facility] Lymphocytes Absolute Auto 3.4 1.2 - 4.9 X10*3/uL [facility] Monocytes Absolute Auto 0.9 0.1 - 1.2 X10*3/uL [facility] Eosinophils Absolute Auto 0.5(H) 0.0 - 0.4 X10*3/uL [facility] Basophils Absolute Auto 0.1 0.0 - 0.2 X10*3/uL [facility] NRBC Abs Auto 0.000 0.0 - 0.012 X10*3/uL [facility] 12/12/2024 3:20 AM EDT 12/12/2024 3:22 AM EDT us Generic External Data Provider LAB BLOOD ORDERAB LES Final Result [facility] [address] [place] [phone] * Lipase (12/12/2024 3:20 AM EDT) Lipase 33 8 - 78 U/L [facility] 12/12/2024 3:20 AM EDT 12/12/2024 3:22 AM EDT Generic External Data Provider LAB BLOOD ORDERAB LES Final Result Performing Organization Address [facility]/ZIP Co de Phone Number [facility] [address] [place] [phone] * Hepatic Function Panel (12/12/2024 3:20 AM EDT) Pathologist [facility] Bilirubin, Direct <0.2 0.0 - 0.5 mg/dL [facility] 12/12/2024 3:20 AM EDT 12/12/2024 3:22 AM EDT [employer] External Data Provider LAB BLOOD ORDERAB LES Final Result Performing Organization Address [facility] Co de Phone Number [facility] [address] [place] [phone] * (ABNORMAL) Comprehensive Metabolic Panel (12/12/2024 3:20 AM EDT) [facility] Sodium 143 135 - 145 mmol/L [facility] Potassium 4.5 3.3 - 5.1 mmol/L [facility] Chloride 113(H) 96 - 108 mmol/L [facility] Carbon Dioxide 21(L) 22 - 29 mmol/L [facility] Anion Gap 14 12 - 20 [facility] Urea Nitrogen (BUN) 26(H) 9 - 16 mg/dL [facility] Creatinine, Serum 1.06 0.5 - 1.4 mg/dL [facility] Creatinine Clr Calc Pharmacy 71.5 [facility] Comment:Provided height and weight: 162.56 cm,102.5 kg.eGFR (calculated from the MDRD study equation) and eCrCl(calculated from the Cockcroft-Gault equation) are based ondifferent parameters and may not yield comparable results.If eCrCl result is absurd, please check patient'sheight/weight. Estimated Glomerular Filt Rate 54 [facility] Comment:Chronic Kidney Disea se: Estimated GFR < 60 mL/min/1.55q7Ngggje Kidney Disease: Estimated GFR < 15 mL/min/1.73m2 Glucose 121(H) 60 - 115 mg/dL [facility] Calcium 10.1 8.4 - 10.2 mg/dL [facility] Bilirubin, Total 0.2 0.0 - 1.0 mg/dL [facility] Aspartate Amino Transferase 35(H) 5 - 31 U/L [facility] Alanine Aminotransferase 81(H) 0 - 31 U/L [facility] Total Protein 8.1(H) 6.5 - 8.0 g/dL [facility] Albumin Level 4.5 3.5 - 5.0 g/dL [facility] Alkaline Phosphatase 97 39 - 117 U/L [facility] 12/12/2024 3:20 AM EDT 12/12/2024 3:22 AM EDT us Generic External Data Provider LAB BLOOD ORDERAB LES Final Result Performing Organization Address [facility] Co de Phone Number [facility] [address] [place] [phone] * XR Knee 3 Views Right (12/08/2024 1:24 PM EST) Anatomical Region Laterality Modality Lower Extremities, Knee Right Radiogra phic Imaging 12/08/2024 1:24 PM EST Narrative 12/08/2024 2:19 PM EST ?[facility] ?[address] ?[place] [address] ?XRay Report ? Signed ? Patient: Jack Caquias,Alisha ?MR#: ?? [id number] ? : 1970 ?Acct:[id number] ? Age/Sex: 53 / F ?ADM Date: //25 ? Loc: HO.HHCX ? Attending Dr: Annia Quintero MD ? Ordering Physician: Annia Quintero MD ?? Date of Service: 12/08/24 ?? Procedure(s): XR knee RT 3V ?? Accession Number(s): [id number] ? cc: Annia Quintero MD ? EXAMINATION: [...] DD/ 1324 ? TD/TT: 12/08/24 1355 ? Hand Spring Former: [facility] ? Procedure Note Angel Bailey - 12/08/[address] [address] XRay Report Signed Patient: Alisha Proctor#: [id number] : 1970Acct:[id number] Age/Sex: 53 / FADM Date: 12/08/24 Loc: HO.HHCX Attending Dr: Annia Quintero MD Ordering Physician: Annia Quintero MD Date of Service: 12/08/24 Procedure(s): XR knee RT 3V Accession Number(s): [id number] cc: Annia Quintero MD EXAMINATION: XR KNEE, [...] 12/08/24 1416 DD/ 1324 TD/TT: 12/08/24 1355 [employer] Former: WILMER us Annia Quintero MD IMG XR PROCEDURES Final Re sult * XR Knee 3 Views Left (12/08/2024 1:24 PM EST) Anatomical Region Laterality Modality Lower Extremities, Knee Left Radiogra phic Imaging 12/08/2024 1:24 PM EST Narrative 12/08/2024 2:16 PM EST ?[facility] ?[address] ?[place] [address] ?XRay Report ? Signed ? Patient: Jack Saenz,Alisha ?MR#: ?? [id number] ? : 1970 ?Acct:[id number] ? Age/Sex: 53 / F ?ADM Date: 12/08/24 ? Loc: HO.HHCX ? Attending Dr: Annia Quintero MD ? Ordering Physician: Annia Quintero MD ?? Date of Service: 12/08/24 ?? Procedure(s): XR knee LT 3V ?? Accession Number(s): [id number] ? cc: Annia Quintero MD ? EXAMINATION: [...] DD/ 1324 ? TD/TT: 12/08/24 1355 ? [employer] Former: [facility] ? Procedure Note Donotuseinterpreter, Image - 12/08/[address] [address] XRay Report Signed Patient: Alisha ProctorMR#: [id number] : 1970Acct:[id number] Age/Sex: 53 / FADM Date: 12/08/24 Loc: HO.HHCX Attending Dr: Annia Quintero MD Ordering Physician: Annia Quintero MD Date of Service: 12/08/24 Procedure(s): XR knee LT 3V Accession Number(s): [id number] cc: Annia Quintero MD EXAMINATION: XR KNEE, [...] 12/08/24 1413 DD/ 1324 TD/TT: 12/08/24 1355 [employer] Former: [facility] Annia Quintero MD IMG XR PROCEDURES Final Re sult * XR Hand 3+ Views Right (12/08/2024 1:24 PM EST) Anatomical Region Laterality Modality Upper Extremities, Hand Right Radiogra phic Imaging 12/08/2024 1:24 PM EST Narrative 12/08/2024 2:17 PM EST ?[facility] ?[address] ?[place] [address] ?XRay Report ? Signed ? Patient: Jack Caquias,Alisha ?MR#: ?? [id number] ? : 1970 ?Acct:[id number] ? Age/Sex: 53 / F ?ADM Date: 12/08/24 ? Loc: HO.HHCX ? Attending Dr: Annia Quintero MD ? Ordering Physician: Annia Quintero MD ?? Date of Service: 12/08/24 ?? Procedure(s): XR hand RT min 3V ?? Accession Number(s): [id number] ? cc: Annia Quintero MD ? EXAMINATION: [...] DD/ 1324 ? TD/TT: 12/08/24 1355 ? Hand Spring Former: [facility] ? Procedure Note Donchinoter, Image - 12/08/2024 [facility] [address] [place] [address] XRay Report Signed Patient: Alisha Proctor#: [id number] : 1970Acct:[id number] Age/Sex: 53 / FADM Date: 12/08/24 Loc: HO.HHCX Attending Dr: Annia Quintero MD Ordering Physician: Annia Quintero MD Date of Service: 12/08/24 Procedure(s): XR hand RT min 3V Accession Number(s): [id number] cc: Annia Quintero MD EXAMINATION: XR HAND, [...] 12/08/24 1414 DD/ 1324 TD/TT: 12/08/24 1355 [employer] Former: MSM Annia Quintero MD IMG XR PROCEDURES Final Re sult * Creatinine, Serum (12/07/2024 3:17 PM EST) Creatinine, Serum 0.77 0.5 - 1.4 mg/dL [facility] Estimated Glomerular Filt Rate >60 [facility] Comment:Chronic Kidney Disea se: Estimated GFR < 60 mL/min/1.05b7Owqciu Kidney Disease: Estimated GFR < 15 mL/min/1.73m2 12/07/2024 3:17 PM EST 12/07/2024 3:17 PM EST us Generic External Data Provider LAB BLOOD ORDERAB LES Final Result [facility] [address] [place] [phone] * BUN (Blood Urea Nitrogen) (12/07/2024 3:17 PM EST) Urea Nitrogen (BUN) 12 9 - 16 mg/dL [facility] 12/07/2024 3:17 PM EST 12/07/2024 3:17 PM EST us Generic External Data Provider LAB BLOOD ORDERAB LES Final Result Performing Organization Address [facility]/ZIP Co de Phone Number [facility] [address] [place] [phone] * (ABNORMAL) Electrolyte Panel (12/07/2024 3:17 PM EST) Sodium 144 135 - 145 mmol/L [facility] Potassium 4.4 3.3 - 5.1 mmol/L [facility] Chloride 109(H) 96 - 108 mmol/L [facility] Carbon Dioxide 28 22 - 29 mmol/L [facility] Anion Gap 11(L) 12 - 20 [facility] 12/07/2024 3:17 PM EST 12/07/2024 3:17 PM EST us Generic External Data Provider LAB BLOOD ORDERAB LES Final Result Performing Organization Address [facility] de Phone Number [facility] [address] [place] [phone] * Culture, Urine, Routine (12/07/2024 3:15 PM EST) Urine Urine specimen obtained by clean catch procedure / Unknown 12/07/2024 3:15 PM EST 12/07/2024 3:23 PM EST Comment:CC Narrative [facility] - 12/09/2024 12:09 PM EST Urine Culture Report Result Urine Culture 10,000 to 50,000 cfu/ml Urine Culture Mixed bacterial bruce characteristic of Urine Culture urogenital contamination. Specimen Source: Urine clean catch Generic External Data Provider LAB MICROBIOLOGY - GENERAL ORDERABLES Final Result Performing Organization Address [facility] Co de Phone Number [facility] [address] [place] [phone] * (ABNORMAL) Lipid Panel, Standard (09/30/2023 11:56 AM EST) Triglycerides 164(H) <150 mg/dL [facility] Comment:Desirable Triglyceri de: less than 150 mg/dLBorderline High Triglyceride 150-199 mg/dLHigh Triglyceride: 200-499 mg/dLVery High Triglyceride: greater than or equal to 5OO mg/dL Cholesterol 287(H) <200 mg/dL [facility] Comment:Desirable Cholestero l: less than 200 mg/dLBorderline High Cholesterol: 200-239 mg/dLHigh Cholesterol: greater than 239 mg/dL LDL Cholesterol Calculated 203(H) <100 mg/dL [facility] Comment:Desirable LDL: less than 100 mg/dLNear Optimal/Above Optimal LDL: 110- 129 mg/dLBorderline High LDL: 130-159 mg/dLHigh LDL: 160-189 mg/dLVery High LDL: greater than or equal to 190 mg/dL HDL Cholesterol 52 >40 mg/dL [facility] Comment:Desirable HDL: great er than 40 mg/dL Note: This HDL assay may give artificially low results in patients with liver disease. Blood Venous blood specimen / Unknown 09/30/2023 11:56 AM EST 09/30/2023 1:39 PM EST us Myesha CADENA [facility] BLOOD ORDERABLES Final Resul t [facility] [address] [place] [address] [phone] * (ABNORMAL) Hm Colonoscopy (12/22/2022) Colonoscopy Abnormal(A ) Normal Kuldeep Pacheco MD HEALTH MAINTENANCE Final Result from Last 3 Months or Most Recently Relevant to Health Maintenance [place] [address] [place] [address] C3 HSN FULL Care Teams Wildland Fire Fighter Relationship Specialty Start Date End Date Myesha Tracy ANP [address] [place] [id number] PCP - General Family Medicine 05/29/21
--- OUTSIDE RECORDS SUMMARY | 2025-01-30 17:31 | XMS_ITS | Encounter Summary ---
Author Organization [employer] Address [address] 7t [place] [address] Care Team Providers Care Division Superintendent Name Role Phone Kathy Jang SURINDER Primary Care Provider [phone] Reason for Visit * Reason Onset Date Comments Med Refill 12/09/2024 Encounter Details Date Type Department Care Team (Late st Contact Info) Description 12/09/2024 Refill [facility] [address] [place] [address] Annia Quintero MD [address] [place] [address] Joint pain in fingers of right hand; [...] Description 01/31/2025 2:45 PM EDT Procedure Visit [facility] [address] [place] [address] Darby Blount CNM [address] [place] [address] documented as of this encounter Visit Diagnoses Diagnosis Joint pain in fingers of right hand Pain in both knees, unspecified chronicity documented in this encounter Additional Health Concerns Assessment Noted Time PHQ-9 Depression Total Score: 11 024 3:55 PM EST documented as of this encounter Care Teams Division Superintendent Relationship Specialty Start Date End Date Kathy Jang ANP [address] [place] [address] PCP - General Family Medicine 05/29/21 documented as of this encounter
--- OUTSIDE RECORDS SUMMARY | 2025-01-30 17:31 | XMS_ITS | Encounter Summary ---
Author Organization [employer] Address [address] [place] [address] 7t [place] [address] Care Team Providers Care Active Directory Engineer Name Role Phone Kathy Jang Primary Care Provider [phone] Encounter Details Date Type Department Care Team (Late st Contact Info) Description 12/01/2022 Orders Only [facility] [address] [place] [address] Alyson Bautista LPN Social History Tobacco Use [...] Procedure Visit [facility] [address] [place] [address] Darby Blount CNM [address] [place] [address] documented as of this encounter Visit Diagnoses Not on filedocumented in this encounter Care Teams Active Directory Engineer Relationship Specialty Start Date End Date Kathy Jang ANP [address] [place] [address] PCP - General Family Medicine 05/29/21 documented as of this encounter
--- OUTSIDE RECORDS SUMMARY | 2025-01-30 17:31 | XMS_ITS | Encounter Summary ---
Author Organization [employer] Address [address] [facility] 7t [place] [address] Care Team Providers Care Review Trainer Name Role Phone Kathy Jang Primary Care Provider [phone] Reason for Visit * Reason Onset Date Comments Med Refill 01/15/2025 Encounter Details Date Type Department Care Team (Late st Contact Info) Description 01/15/2025 Refill [facility] [address] [place] [address] Kathy Jang ANP [address] [place] [address] Rib pain Social History Tobacco Use Types Packs/Day Years [...] Procedure Visit [facility] [address] [place] [address] Darby Blount CNM [address] [place] [address] documented as of this encounter Visit Diagnoses Diagnosis Rib pain Unspecified chest pain documented in this encounter Additional Health Concerns Assessment Noted Time PHQ-9 Depression Total Score: 11 024 3:55 PM EST documented as of this encounter Care Teams Review Trainer Relationship Specialty Start Date End Date Kathy Jang ANP [address] [place] [address] PCP - General Family Medicine 05/29/21 documented as of this encounter
--- OUTSIDE RECORDS SUMMARY | 2025-01-30 17:31 | XMS_ITS | Encounter Summary ---
Author Organization [employer] Address [address] [facility] 7t [place] [address] Care Team Providers Care Damage Assessor Name Role Phone Kathy Jang Primary Care Provider [phone] Reason for Visit * Reason Comments Med Refill Encounter Details Date Type Department Care Team (Late st Contact Info) Description 01/29/2025 Refill [facility] [address] [place] [address] Kathy Jang ANP [address] [place] [address] Seasonal allergies Social History Tobacco Use Types [...] 01/31/2025 2:45 PM EDT Procedure Visit [facility] [address] [place] [address] Darby Blount CNM [address] [place] [address] documented as of this encounter Visit Diagnoses Diagnosis Seasonal allergies Allergic rhinitis, cause unspecified documented in this encounter Additional Health Concerns Assessment Noted Time PHQ-9 Depression Total Score: 11 024 3:55 PM EST documented as of this encounter Care Teams Damage Assessor Relationship Specialty Start Date End Date Kathy Jang ANP [address] [place] [address] PCP - General Family Medicine 05/29/21 documented as of this encounter
--- OUTSIDE RECORDS SUMMARY | 2025-01-30 17:31 | XMS_ITS | Encounter Summary ---
Author Organization [employer] Address [address] 7[address] [place] [address] Care Team Providers Care Client Relationship Consultant Name Role Phone Kathy Jang Primary Care Provider [phone] Reason for Visit * Reason Onset Date Comments Med Refill 10/01/2023 Encounter Details Date Type Department Care Team (Late st Contact Info) Description 10/01/[address] [facility] [address] [place] [address] Kathy Jang ANP [address] [place] [address] Iron deficiency anemia, unspecified iron deficiency anemia [...] Description 01/31/2025 2:45 PM EDT Procedure Visit [facility] [address] [place] [address] Darby Blount CNM [address] [place] [address] documented as of this encounter Visit Diagnoses Diagnosis Iron deficiency anemia, unspecified iron deficiency anemia type documented in this encounter Additional Health Concerns Assessment Noted Time PHQ-9 Depression Total Score: 0 06/25/20 23 2:19 PM EDT documented as of this encounter Care Teams Client Relationship Consultant Relationship Specialty Start Date End Date Kathy Jang ANP [address] [place] [address] PCP - General Family Medicine 05/29/21 documented as of this encounter
--- OUTSIDE RECORDS SUMMARY | 2025-01-30 17:31 | XMS_ITS | Encounter Summary ---
Author Organization [employer] Address [address] [place] [address] 7t [place] [address] Care Team Providers Care Fire Department Battalion Chief Name Role Phone Kathy Jang Primary Care Provider [phone] Encounter Details Date Type Department Care Team (Late st Contact Info) Description 01/02/2023 Orders Only [facility] [address] [place] [address] Alyson Bautista LPN Social History Tobacco Use [...] Description 01/31/2025 2:45 PM EDT Procedure Visit [facility] [address] [place] [address] Darby Blount CNM [address] [place] [address] documented as of this encounter Visit Diagnoses Not on filedocumented in this encounter Care Teams Fire Department Battalion Chief Relationship Specialty Start Date End Date Kathy Jang ANP [address] [place] [address] PCP - General Family Medicine 05/29/21 documented as of this encounter
--- OUTSIDE RECORDS SUMMARY | 2025-01-30 17:31 | XMS_ITS | Encounter Summary ---
Author Organization [employer] Address [address] [facility] [address] [facility] [address] 7[address] [place] [address] Care Team Providers Care Motorcycle Police Name Role Phone Kathy Jang Primary Care Provider [phone] Reason for Visit * Reason Onset Date Comments Med Refill 09/01/2023 Encounter Details Date Type Department Care Team (Late st Contact Info) Description 09/01/2023 Refill [facility] [address] [place] [address] Kathy Jang ANP [address] [place] [address] Iron deficiency anemia, unspecified iron deficiency anemia [...] Description 01/31/2025 2:45 PM EDT Procedure Visit [facility] [address] [place] [address] Darby Blount CNM [address] [place] [address] documented as of this encounter Visit Diagnoses Diagnosis Iron deficiency anemia, unspecified iron deficiency anemia type documented in this encounter Additional Health Concerns Assessment Noted Time PHQ-9 Depression Total Score: 0 06/25/20 23 2:19 PM EDT documented as of this encounter Care Teams Motorcycle Police Relationship Specialty Start Date End Date Kathy Jang ANP [address] [place] [address] PCP - General Family Medicine 05/29/21 documented as of this encounter
--- OUTSIDE RECORDS SUMMARY | 2025-01-30 17:31 | XMS_ITS | Encounter Summary ---
Author Organization [employer] Address [address] [place] [address] 7t [place] [address] Care Team Providers Care Social Work Therapist Name Role Phone Kathy Jang Primary Care Provider [phone] Encounter Details Date Type Department Care Team (Late st Contact Info) Description 11/04/2022 Orders Only [facility] [address] [place] [address] Alyson Bautista LPN Social History Tobacco Use [...] 01/31/2025 2:45 PM EDT Procedure Visit [facility] [address] [place] [address] Darby Blount CNM [address] [place] [address] documented as of this encounter Visit Diagnoses Not on filedocumented in this encounter Care Teams Social Work Therapist Relationship Specialty Start Date End Date Kathy Jang ANP [address] [place] [address] PCP - General Family Medicine 05/29/21 documented as of this encounter
--- OUTSIDE RECORDS SUMMARY | 2025-01-30 17:31 | XMS_ITS | Encounter Summary ---
Author Organization [employer] Address [address] [facility] 7t [place] [address] Care Team Providers Care Hardware Installation Coordinator Name Role Phone Kathy Jang Primary Care Provider [phone] Reason for Visit * Reason Onset Date Comments Med Refill 12/08/2024 Encounter Details Date Type Department Care Team (Late st Contact Info) Description 12/08/2024 Refill [facility] [address] [place] [address] Kathy Jang ANP [address] [place] [address] Social History Tobacco Use Types Packs/Day Years [...] Description 01/31/2025 2:45 PM EDT Procedure Visit [facility] [address] [place] [address] Darby Blount CNM [address] [place] [address] documented as of this encounter Visit Diagnoses Not on filedocumented in this encounter Additional Health Concerns Assessment Noted Time PHQ-9 Depression Total Score: 11 024 3:55 PM EST documented as of this encounter Care Teams Hardware Installation Coordinator Relationship Specialty Start Date End Date Kathy Jang ANP [address] [place] [address] PCP - General Family Medicine 05/29/21 documented as of this encounter
--- OUTSIDE RECORDS SUMMARY | 2025-01-30 17:31 | XMS_ITS | Clinical Summary ---
Author Organization [facility] Address [address] [place] [address] Care Team Providers Care Management Internship Name Role Phone Misael Napier MOVING VAN DRIVER-C Primary Care Provider Unavailable Allergies No known active allergies Medications ergocalciferol (VITAMIN D-2) 1.25 MG (05559 UT) capsule Take 1 capsule by mouth [...] Last Done Comments Breast Cancer Screening 1970 Hepatitis B Vaccine (1 of 3 - 19+ 3-dose series) 12/09/1990 09/04/2016, 11/30/2015, 10/01/2015 Pneumococcal Vaccine: 50+ Ye ars (1 of 2 - PCV) 12/09/1990 Colorectal Cancer Screening: Annual FOBT 12/09/2020 Colorectal Cancer Screening: Colonoscopy 12/09/2020 Colorectal Cancer Screening: Sigmoidoscopy 12/09/2020 Influenza Vaccine Completed 09/19/2024, , 09/23/2021, Additional history exists Insurance Medicaid [place] Medicaid [place] Care Teams Management Internship Relationship Specialty Start Date End Date Miasel Napier FNP-C PCP - General Nurse Practitioner 02/13/21
--- OUTSIDE RECORDS SUMMARY | 2025-01-30 17:31 | XMS_ITS | Encounter Summary ---
Author Organization [employer] Address [address] [facility] [address] 7[address] [place] [address] Care Team Providers Care Change Number Operator Name Role Phone Kathy Jang Primary Care Provider [phone] Reason for Visit * Reason Onset Date Comments Med Refill 09/01/2023 Encounter Details Date Type Department Care Team (Late st Contact Info) Description 09/01/2023 Refill [facility] [address] [place] [address] Kathy Jang ANP [address] [place] [address] Seasonal allergies Social History Tobacco Use Types [...] PM EDT Procedure Visit [facility] [address] [place] [address] Darby Blount CNM [address] [place] [address] documented as of this encounter Visit Diagnoses Diagnosis Seasonal allergies Allergic rhinitis, cause unspecified documented in this encounter Additional Health Concerns Assessment Noted Time PHQ-9 Depression Total Score: 0 06/25/20 23 2:19 PM EDT documented as of this encounter Care Teams Change Number Operator Relationship Specialty Start Date End Date Kathy Jang ANP [address] [place] [address] PCP - General Family Medicine 05/29/21 documented as of this encounter
--- OUTSIDE RECORDS SUMMARY | 2025-01-30 17:31 | XMS_ITS | Encounter Summary ---
Author Organization [employer] Address [address] [address] [facility] [address] [facility] [address] [place] [address] Care Team Providers Care Heavy Equipment Sales Associate Name Role Phone Kathy Jang Primary Care Provider [phone] Reason for Visit * Reason Onset Date Comments Med Refill 10/01/2023 Encounter Details Date Type Department Care Team (Late st Contact Info) Description 10/01/2023 Refill [facility] [address] [place] [address] Kathy Jang ANP [address] [place] [address] Seasonal allergies Social History Tobacco Use Types [...] Description 01/31/2025 2:45 PM EDT Procedure Visit [facility] [address] [place] [address] Darby Blount CNM [address] [place] [address] documented as of this encounter Visit Diagnoses Diagnosis Seasonal allergies Allergic rhinitis, cause unspecified documented in this encounter Additional Health Concerns Assessment Noted Time PHQ-9 Depression Total Score: 0 06/25/20 23 2:19 PM EDT documented as of this encounter Care Teams Heavy Equipment Sales Associate Relationship Specialty Start Date End Date Kathy Jang ANP [address] [place] [address] PCP - General Family Medicine 05/29/21 documented as of this encounter
--- OUTSIDE RECORDS SUMMARY | 2025-01-30 17:31 | XMS_ITS | Encounter Summary ---
Author Organization [employer] Address [address] 7[address] [place] [address] Care Team Providers Care Risk Management Specialist Name Role Phone Kathy Jang Primary Care Provider [phone] Reason for Visit * Reason Onset Date Comments Med Refill 10/27/2023 Encounter Details Date Type Department Care Team (Late st Contact Info) Description 10/27/2023 Refill [facility] [address] [place] [address] Kathy Jang ANP [address] [place] [address] Vitamin D deficiency; Seasonal allergies Social History [...] Description 01/31/2025 2:45 PM EDT Procedure Visit [facility] [address] [place] [address] Darby Blount CNM [address] [place] [address] documented as of this encounter Visit Diagnoses Diagnosis Vitamin D deficiency Seasonal allergies Allergic rhinitis, cause unspecified documented in this encounter Additional Health Concerns Assessment Noted Time PHQ-9 Depression Total Score: 0 06/25/20 23 2:19 PM EDT documented as of this encounter Care Teams Risk Management Specialist Relationship Specialty Start Date End Date Kathy Jang ANP [address] [place] [address] PCP - General Family Medicine 05/29/21 documented as of this encounter
== END 2025-01-30 14:40 | disposition home or self-care (01) ==
LOC: HO.HOSX 14:39
DX: M79.641 Pain in right hand (principal); M25.641 Stiffness of right hand, not elsewhere classified
CPT/HCPCS: 20550; 73130; 99212; J1100; J2003

== ENCOUNTER 2025-01-30 15:30 | Outpatient (AMB) | payer MEDICAID, SELFPAY ==
[2025-01-30 15:46] VITALS: BMI 37.8
--- NOTE | 2025-01-30 15:46 | A.OFFVIS_ITS ---
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 States pain is on her MCP of her 3rd and 4th of her dorsum aspect of hand that started about 2 months ago and has not improved. She is limited ROM, swelling and hand weakness. No injury she can recall. She is also having CTS at least 1-2 times a week especially at night time. Félix O.T or injection. 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 States pain is on her MCP of her 3rd and 4th of her dorsum aspect of hand that started about 2 months ago and has not improved. She is limited ROM, swelling and hand weakness. No injury she can recall. She is also having CTS at least 1-2 times a week especially at night time. Félix O.T or injection. [facility] Medical History Helicobacter pylori (H. pylori) Transaminitis Morbid obesity Migraine Anemia HTN (hypertension) Surgical History History of esophagogastroduodenoscopy (EGD) Hx of colonoscopy Hx of cystoscopy Hx of hysterectomy History of cholecystectomy Family History Father Heart disease Mother Heart disease Social History Alcohol intake: never Patient Tobacco Use Status: Never used Tobacco Physical Exam Vital Signs: BMI result Body Mass Index 37.8 Extrem Other: Patient is alert, oriented, and in no acute distress. Neuro: Normal sensation of the tips of all digits of the right hand at this time Vascular: Cap refill brisk Pain: No tenderness to palpation about the right hand or wrist Patient does report discomfort when making a closed fist in the MCP joints of the right hand, particularly the 3rd and 4th ROM: Patient is able to make a closed fist and extend all digits of the right hand fully, but reports discomfort in the right hand when doing so Skin: No lacerations or abrasions. General: No ecchymosis, erythema, or evidence of infection. Psych: Appears grossly normal Affect normal Attitude cooperative Results Reviewed Results Reviewed: X-rays obtained in the office today and independently reviewed by me, Ganesh Schaffer PA-C, demonstrate no fracture or acute bony abnormality of the right hand. Assessment & Plan Assessment & Plan (1) Stiffness of right hand joint: Code(s): M25.641 - Stiffness of right hand, not elsewhere classified Category: Medical Plan 1. Stiffness of right hand Patient is educated about this condition Patient is educated about the typical treatment course OT referral placed for range of motion and strengthening of the right hand in the setting of stiffness of the right hand Patient is amenable to this plan Follow-up as needed Orders: Orders OT Evaluation and Treatment Today M25.641 - Stiffness of right hand, not elsewhere classified XR hand RT min 3V 01/30/25 M79.641 - Pain in right hand Coding Level of Care Code New Pt Level 3 (61279) Diagnoses Stiffness of right hand joint M25.641
--- OUTSIDE RECORDS SUMMARY | 2025-01-30 18:17 | XMS_ITS | Clinical Summary ---
Author Organization [facility] Address [address] [place] [address] Care Team Providers Care Echocardiography Technologist Name Role Phone Misael Napier ELECTRICAL MANUFACTURING TECHNICIAN-C Primary Care Provider Unavailable Allergies No known active allergies Medications ergocalciferol (VITAMIN D-2) 1.25 MG (31855 UT) capsule Take 1 capsule by mouth [...] Insurance Medicaid [place] Care Teams Echocardiography Technologist Relationship Specialty Start Date End Date Misael Napier FNP-C PCP - General Nurse Practitioner 02/13/21
--- OUTSIDE RECORDS SUMMARY | 2025-01-30 18:17 | XMS_ITS | Encounter Summary ---
Author Organization [employer] Address [address] [facility] 7t [place] [address] Care Team Providers Care Premium Cancellation Clerk Name Role Phone Kathy Jang Primary Care Provider [phone] Reason for Visit * Reason Onset Date Comments Med Refill 01/15/2025 Encounter Details Date Type Department Care Team (Late st Contact Info) Description 01/15/2025 Refill [facility] [address] [place] [address] Kathy Jang ANP [address] [place] [address] Rib pain Social History Tobacco Use Types [...] your housing situation today? I have dina cmcormick 08/10/[address] you li [...] Visit [facility] [address] [place] [address] Darby Blount CNM [address] [place] [address] documented as of this encounter Visit Diagnoses Diagnosis Rib pain Unspecified chest pain documented in this encounter Additional Health Concerns Assessment Noted Time PHQ-9 Depression Total Score: 11 024 3:55 PM EST documented as of this encounter Care Teams Premium Cancellation Clerk Relationship Specialty Start Date End Date Kathy Jang ANP [address] [place] [address] PCP - General Family Medicine 05/29/21 documented as of this encounter
--- OUTSIDE RECORDS SUMMARY | 2025-01-30 18:17 | XMS_ITS | Clinical Summary ---
Author Organization [employer] Address [address] [place] [address] [address] [place] [address] Care Team Providers Care Jewelry Consultant Name Role Phone Myesha Tracy SURINDER Primary Care Provider [phone] Allergies Active Allergy Reactions Criticality Noted Date [...] were not included. Seen by greg at [facility] 12/21/23 (sent d/t very elevated LDL in [...] Type Department Care Team Description 01/29/2025 Refill [facility] [address] [place] [address] Myesha Tracy ANP Seasonal allergies 01/15/2025 Refill [facility] [address] [place] [address] Myesha Tracy ANP Rib pain 12/28/2024 Orders Only [facility] External Provider, [facility] 12/21/2024 Telephone [facility] [address] [place] [address] Myesha Tracy ANP Prior Authorization ([employer]) 12/20/2024 2:15 PM EDT Office Visit [facility] [address] [place] [phone] Myesha Tracy ANP Essential hypertension (Primary Dx); BARKER (nonalcoholic steatohepatitis); High cholesterol; Insomnia, unspecified type; Migraine without status migrainosus, not intractable, unspecified migraine type; Mixed anxiety and depressive disorder; Class 2 severe obesity with serious comorbidity and body mass index (BMI) of 38.0 to 38.9 in adult, unspecified obesity type (CMS/HCC) 12/20/2024 Travel 12/16/2024 Population Health Risk Score [facility] () Department [address] [place] [phone] Provider, Population Health Generic 12/09/2024 Refill [facility] [address] [place] [address] Myesha Tracy ANP Vitamin D deficiency; Iron deficiency anemia, unspecified iron deficiency anemia type; Essential hypertension 12/09/2024 Refill [facility] [address] [place] [phone] Annia Quintero MD Joint pain in fingers of right hand; Pain in both knees, unspecified chronicity 12/08/2024 1:00 PM EST Office Visit [facility] [address] [place] [phone] Annia Quintero MD Joint pain in fingers of right hand (Primary Dx); Pain in both knees, unspecified chronicity; Encounter for immunization 12/08/2024 Refill [facility] [address] [place] [address] Myesha Tracy ANP 12/08/2024 Refill [facility] [address] [place] [address] Myesha Tracy ANP Benign essential HTN; Vitamin [...] Description 01/31/2025 2:45 PM EDT Procedure Visit [facility] [address] [place], [place] [phone] Darby Blount, GOPAL [address] [place] [address] Health Maintenance Due Date Last Done Comments [...] EDT Narrative 01/06/2025 5:41 PM EDT ? [facility] ? [address] ?[place] [address] ?[phone] ? Mammography Report ? Signed ? Patient: Jack Caquias,Alisha ?MR#: ?? [id number] ? : 1970 ?Acct:[id number] ? Age/Sex: 54 / F ?ADM Date: 12/29/24 ? Loc: HO.MAMMO ? Attending Dr: Myesha Tracy BARGE HAND ? Ordering Physician: MYESHA TRACY NP ?Results: 1Negative ? Date of Service: 12/29/24 ?Follow Up: 1 Year From Orig ?? inal Mammogram ? Procedure(s): MM tomosynthesis screening BI ?? Accession Number(s): [id number] ? cc: Annia Quintero MD; MYESHA TRACY [...] DD/ 1330 ? TD/TT: 12/29/24 1347 ? Cigarette Making Examiner: ? Procedure Note Donmanisha, Image - 01/06/2025 Philipp [facility] [address] [place] [address] Mammography Report Signed Patient: Alisha ProctorMR#: [id number] : 1970Acct:[id number] Age/Sex: 54 / FADM Date: 12/29/24 Loc: HO.MAMMO Attending Dr: Myesha Tracy NP Ordering Physician: MYESHA TRACY NPResults: 1Negative Date of Service: 12/29/24Follow Up: 1 Year From Orig inal Mammogram Procedure(s): MM tomosynthesis screening BI Accession Number(s): [id number] cc: Annia Quintero MD; MYESHA TRACY NP [...] 01/06/25 1738 DD/ 1330 TD/TT: 12/29/24 1347 Cigarette Making Examiner: Myesha WHITMAN BI PROCEDURES Final Result * Strep A Nucleic Acid (12/28/2024 8:02 AM EDT) IDNOW SERIAL# [id number] [facility] Strep A Nucleic Acid Negative Negative [facility] Comment:All test results mus t be correlated with clinical findings.This test has not been evaluated for monitoring treatment ofinfection.Additional follow-up testing using the culture method isrequired if the result is negative and clinical symptomspersist, or in the event of an acute rheumatic feveroutbreak. 12/28/2024 8:02 AM EDT 12/28/2024 8:09 AM EDT Generic External Data Provider LAB MICROBIOLOGY - GENERAL ORDERABLES Final Result [facility] [address] [place] [phone] * SARS-CoV-2 RNA, Influenza A/B, and RSV RNA, Ql NAAT (12/28/2024 8:01 AM EDT) Influenza A PCR NEGATIVE Negative [facility] Influenza B PCR NEGATIVE Negative [facility] Resp Syncy Virus RNA Qual PCR NEGATIVE Negative [facility] SARS COV2 PCR NEGATIVE Negative [facility] [...] use by authorized laboratories.Testing performed on the [employer] GeneXpert utilizingreal-time RT-PCR.All SARS CoV2 and positive influenza A/B results arereported to [facility]. 12/28/2024 8:01 AM EDT 12/28/2024 8:09 AM EDT us Generic External Data Provider LAB MICROBIOLOGY - GENERAL ORDERABLES Final Result [facility] [address] [place] [address] [phone] * XR Chest 2 Views (12/28/2024 7:55 AM EDT) Anatomical Region Laterality Modality Chest Radiographic Ana ging 12/28/2024 7:55 AM EDT Narrative 12/28/2024 8:18 AM EDT ? [facility] ?[address] ?[place] [address] ?XRay Report ? Signed ? Patient: Jack Caquias,Alisha ?MR#: ?? [id number] ? : 1970 ?Acct:[id number] ? Age/Sex: 54 / F ?ADM Date: 03/26/25 ? Loc: HO.ED ? Attending Dr: ? Ordering Physician: Karen Abraham DO ?? Date of Service: 03/26/25 ?? Procedure(s): XR chest 2V ?? Accession Number(s): [id number] ? cc: Karen Abraham DO; MYESHA TRACY [...] DD/ 0755 ? TD/TT: 12/28/24 0808 ? Cigarette Making Examiner: ? Procedure Note Lynn, Image - 12/28/[address] [address] XRay Report Signed Patient: Alisha ProctorMR#: [id number] : 1970Acct:[id number] Age/Sex: 54 / FADM Date: 12/28/24 Loc: HO.ED Attending Dr: Ordering Physician: Karen Abraham DO Date of Service: 12/28/24 Procedure(s): XR chest 2V Accession Number(s): [id number] cc: Karen Abraham DO; MYESHA TRACY NP [...] OV> 12/28/24 0815 DD/ TD/TT: 12/28/24 0808 Cigarette Making Examiner: [facility] External Provider IMG XR PROCEDURES Edited Result - Final * (ABNORMAL) Urinalysis w/reflex microscopic (12/12/2024 3:24 AM EDT) Color Urine Yellow [facility] Appearance Urine Clear [facility] PH 5.0 5.0 - 9.0 [facility] Glucose Urine UA Negative Negative mg/dL [facility] Urine Blood Negative Negative [facility] Specific [place] - Urine >=1.030(H) 1.005 - 1.025 [facility] Urine Protein Negative Neg-Trace mg/dL [facility] Urine Ketones Trace Negative mg/dL [facility] Nitrite Urine Negative Negative [facility] Leukocyte Esterase Urine Negative Negative [facility] 12/12/2024 3:24 AM EDT 12/12/2024 3:27 AM EDT Narrative [facility] - 12/12/2024 3:30 AM EDT [id number], Clean Catch us Generic External Data Provider LAB URINE ORDERAB LES Final Result [facility] [address] [place] [phone] * (ABNORMAL) CBC auto differential (12/12/2024 3:20 AM EDT) White Blood Count 13.5(H) 4.8 - 10.8 X10*3/uL [facility] Red Blood Count 4.55 4.20 - 5.50 X10*6/uL [facility] Hemoglobin 12.8 12.0 - 16.0 g/dl [facility] Hematocrit 40.0 37.0 - 47.0 % [facility] Mean Corpuscular Volume 87.9 80.0 - 98.0 fL [facility] Mean Corpuscular Hemoglobin 28.1 27.0 - 33.0 pg [facility] Mean Corpuscular HGB Conc 32.0 31.0 - 35.0 g/dl [facility] Red Cell Distribution Width 13.4 11.0 - 16.0 % [facility] Platelet Count 331 160 - 400 X10*3/uL [facility] Mean Platelet Volume 10.3 9.4 - 12.3 fL [facility] Neutrophils Percent Auto 63.8 45 - 73 % [facility] Imm Gran Pct Auto 0.5(H) 0.0 - 0.4 % [facility] Lymphocytes Percent Auto 25.2 20 - 40 % [facility] Monocytes Percent Auto 6.6 2 - 11 % [facility] Eosinophils Percent Auto 3.5 0 - 4 % [facility] Basophils Percent Auto 0.4 0 - 2 % [facility] NRBC Pct Auto 0.0 0.0 - 0.2 /100WBC [facility] Neutrophils Absolute Auto 8.6(H) 2.0 - 8.3 x10*3/uL [facility] Imm Gran Abs Auto 0.07(H) 0.00 - 0.03 X10*3/uL [facility] Lymphocytes Absolute Auto 3.4 1.2 - 4.9 X10*3/uL [facility] Monocytes Absolute Auto 0.9 0.1 - 1.2 X10*3/uL [facility] Eosinophils Absolute Auto 0.5(H) 0.0 - 0.4 X10*3/uL [facility] Basophils Absolute Auto 0.1 0.0 - 0.2 X10*3/uL [facility] NRBC Abs Auto 0.000 0.0 - 0.012 X10*3/uL [facility] 12/12/2024 3:20 AM EDT 12/12/2024 3:22 AM EDT us Generic External Data Provider LAB BLOOD ORDERAB LES Final Result [facility] [address] [place] [address] [phone] * Lipase (12/12/2024 3:20 AM EDT) Lipase 33 8 - 78 U/L [facility] 12/12/2024 3:20 AM EDT 12/12/2024 3:22 AM EDT Generic External Data Provider LAB BLOOD ORDERAB LES Final Result Performing Organization Address [facility]/ZIP Co de Phone Number [facility] [address] [place] [phone] * Hepatic Function Panel (12/12/2024 3:20 AM EDT) Pathologist [facility] Bilirubin, Direct <0.2 0.0 - 0.5 mg/dL [facility] 12/12/2024 3:20 AM EDT 12/12/2024 3:22 AM EDT [employer] External Data Provider LAB BLOOD ORDERAB LES Final Result Performing Organization Address [facility] Co de Phone Number [facility] [address] [place] [phone] * (ABNORMAL) Comprehensive Metabolic Panel (12/12/2024 3:20 AM EDT) [facility] Sodium 143 135 - 145 mmol/L [facility] Potassium 4.5 3.3 - 5.1 mmol/L [facility] Chloride 113(H) 96 - 108 mmol/L [facility] Carbon Dioxide 21(L) 22 - 29 mmol/L [facility] Anion Gap 14 12 - 20 [facility] Urea Nitrogen (BUN) 26(H) 9 - 16 mg/dL [facility] Creatinine, Serum 1.06 0.5 - 1.4 mg/dL [facility] Creatinine Clr Calc Pharmacy 71.5 [facility] Comment:Provided height and weight: 162.56 cm,102.5 kg.eGFR (calculated from the MDRD study equation) and eCrCl(calculated from the Cockcroft-Gault equation) are based ondifferent parameters and may not yield comparable results.If eCrCl result is absurd, please check patient'sheight/weight. Estimated Glomerular Filt Rate 54 [facility] Comment:Chronic Kidney Disea se: Estimated GFR < 60 mL/min/1.62w6Yklxxb Kidney Disease: Estimated GFR < 15 mL/min/1.73m2 Glucose 121(H) 60 - 115 mg/dL [facility] Calcium 10.1 8.4 - 10.2 mg/dL [facility] Bilirubin, Total 0.2 0.0 - 1.0 mg/dL [facility] Aspartate Amino Transferase 35(H) 5 - 31 U/L [facility] Alanine Aminotransferase 81(H) 0 - 31 U/L [facility] Total Protein 8.1(H) 6.5 - 8.0 g/dL [facility] Albumin Level 4.5 3.5 - 5.0 g/dL [facility] Alkaline Phosphatase 97 39 - 117 U/L [facility] 12/12/2024 3:20 AM EDT 12/12/2024 3:22 AM EDT us Generic External Data Provider LAB BLOOD ORDERAB LES Final Result Performing Organization Address [facility] Co de Phone Number [facility] [address] [place] [phone] * XR Knee 3 Views Right (12/08/2024 1:24 PM EST) Anatomical Region Laterality Modality Lower Extremities, Knee Right Radiogra phic Imaging 12/08/2024 1:24 PM EST Narrative 12/08/2024 2:19 PM EST ?[facility] ?[address] ?[place] [address] ?XRay Report ? Signed ? Patient: Jack Caquias,Alisha ?MR#: ?? [id number] ? : 1970 ?Acct:[id number] ? Age/Sex: 53 / F ?ADM Date: //25 ? Loc: HO.HHCX ? Attending Dr: Annia Quintero MD ? Ordering Physician: Annia Quintero MD ?? Date of Service: 12/08/24 ?? Procedure(s): XR knee RT 3V ?? Accession Number(s): [id number] ? cc: Annia Quintero MD ? EXAMINATION: [...] and patellofemoral compartment. ? Electronically signed by: ??Suhbham Macedo MD ??12/08/2024 02:16 PM EST RP ? Dictated By: ?Shubham Macedo MD ? Signed By: ?<Electronically signed by Shubham Macedo MD in OV> ?12/08/24 1416 ? DD/ 1324 ? TD/TT: 12/08/24 1355 ? Cigarette Making Examiner: MSM ? Procedure Note Angel Bailey - 12/08/[address] [address] XRay Report Signed Patient: Alisha Proctor#: [id number] : 1970Acct:[id number] Age/Sex: 53 / FADM Date: 12/08/24 Loc: HO.HHCX Attending Dr: Annia Quintero MD Ordering Physician: Annia Quintero MD Date of Service: 12/08/24 Procedure(s): XR knee RT 3V Accession Number(s): [id number] cc: Annia Quintero MD EXAMINATION: XR KNEE, [...] 12/08/24 1416 DD/ 1324 TD/TT: 12/08/24 1355 Cigarette Making Examiner: WILMER us Annia Quintero MD IMG XR PROCEDURES Final Re sult * XR Knee 3 Views Left (12/08/2024 1:24 PM EST) Anatomical Region Laterality Modality Lower Extremities, Knee Left Radiogra phic Imaging 12/08/2024 1:24 PM EST Narrative 12/08/2024 2:16 PM EST ?[facility] ?[address] ?[place] [address] ?XRay Report ? Signed ? Patient: Jack Saenz,Alisha ?MR#: ?? [id number] ? : 1970 ?Acct:[id number] ? Age/Sex: 53 / F ?ADM Date: 12/08/24 ? Loc: HO.HHCX ? Attending Dr: Annia Quintero MD ? Ordering Physician: Annia Quintero MD ?? Date of Service: 12/08/24 ?? Procedure(s): XR knee LT 3V ?? Accession Number(s): [id number] ? cc: Annia Quintero MD ? EXAMINATION: [...] DD/ 1324 ? TD/TT: 12/08/24 1355 ? Cigarette Making Examiner: MSM ? Procedure Note Donotuseinterpreter, Image - 12/08/[address] [address] XRay Report Signed Patient: Alisha ProctorMR#: [id number] : 1970Acct:[id number] Age/Sex: 53 / FADM Date: 12/08/24 Loc: HO.HHCX Attending Dr: Annia Quintero MD Ordering Physician: Annia Quintero MD Date of Service: 12/08/24 Procedure(s): XR knee LT 3V Accession Number(s): [id number] cc: Annia Quintero MD EXAMINATION: XR KNEE, [...] 12/08/24 1413 DD/ 1324 TD/TT: 12/08/24 1355 Cigarette Making Examiner: MSM Annia Quintero MD IMG XR PROCEDURES Final Re sult * XR Hand 3+ Views Right (12/08/2024 1:24 PM EST) Anatomical Region Laterality Modality Upper Extremities, Hand Right Radiogra phic Imaging 12/08/2024 1:24 PM EST Narrative 12/08/2024 2:17 PM EST ?[facility] ?[address] ?[place] [address] ?XRay Report ? Signed ? Patient: Jack Caquias,Alisha ?MR#: ?? [id number] ? : 1970 ?Acct:[id number] ? Age/Sex: 53 / F ?ADM Date: 12/08/24 ? Loc: HO.HHCX ? Attending Dr: Annia Quintero MD ? Ordering Physician: Annia Quintero MD ?? Date of Service: 12/08/24 ?? Procedure(s): XR hand RT min 3V ?? Accession Number(s): [id number] ? cc: Annia Quintero MD ? EXAMINATION: [...] DD/ 1324 ? TD/TT: 12/08/24 1355 ? Cigarette Making Examiner: MSM ? Procedure Note Donchinoter, Image - 12/08/2024 [facility] [address] [place] [address] XRay Report Signed Patient: Alisha Proctor#: [id number] : 1970Acct:[id number] Age/Sex: 53 / FADM Date: 12/08/24 Loc: HO.HHCX Attending Dr: Annia Quintero MD Ordering Physician: Annia Quintero MD Date of Service: 12/08/24 Procedure(s): XR hand RT min 3V Accession Number(s): [id number] cc: Annia Quintero MD EXAMINATION: XR HAND, [...] 12/08/24 1414 DD/ 1324 TD/TT: 12/08/24 1355 Cigarette Making Examiner: MSM Annia Quintero MD IMG XR PROCEDURES Final Re sult * Creatinine, Serum (12/07/2024 3:17 PM EST) Creatinine, Serum 0.77 0.5 - 1.4 mg/dL [facility] Estimated Glomerular Filt Rate >60 [facility] Comment:Chronic Kidney Disea se: Estimated GFR < 60 mL/min/1.26o5Auqsfw Kidney Disease: Estimated GFR < 15 mL/min/1.73m2 12/07/2024 3:17 PM EST 12/07/2024 3:17 PM EST us Generic External Data Provider LAB BLOOD ORDERAB LES Final Result [facility] [address] [place] [phone] * BUN (Blood Urea Nitrogen) (12/07/2024 3:17 PM EST) Urea Nitrogen (BUN) 12 9 - 16 mg/dL [facility] 12/07/2024 3:17 PM EST 12/07/2024 3:17 PM EST us Generic External Data Provider LAB BLOOD ORDERAB LES Final Result Performing Organization Address [facility]/ZIP Co de Phone Number [facility] [address] [place] [address] [phone] * (ABNORMAL) Electrolyte Panel (12/07/2024 3:17 PM EST) Sodium 144 135 - 145 mmol/L [facility] Potassium 4.4 3.3 - 5.1 mmol/L [facility] Chloride 109(H) 96 - 108 mmol/L [facility] Carbon Dioxide 28 22 - 29 mmol/L [facility] Anion Gap 11(L) 12 - 20 [facility] 12/07/2024 3:17 PM EST 12/07/2024 3:17 PM EST us Generic External Data Provider LAB BLOOD ORDERAB LES Final Result Performing Organization Address [facility] de Phone Number [facility] [address] [place] [phone] * Culture, Urine, Routine (12/07/2024 3:15 PM EST) Urine Urine specimen obtained by clean catch procedure / Unknown 12/07/2024 3:15 PM EST 12/07/2024 3:23 PM EST Comment:CC Narrative [facility] - 12/09/2024 12:09 PM EST Urine Culture Report Result Urine Culture 10,000 to 50,000 cfu/ml Urine Culture Mixed bacterial bruce characteristic of Urine Culture urogenital contamination. Specimen Source: Urine clean catch Generic External Data Provider LAB MICROBIOLOGY - GENERAL ORDERABLES Final Result Performing Organization Address [facility] Co de Phone Number [facility] [address] [place] [address] [phone] * (ABNORMAL) Lipid Panel, Standard (09/30/2023 11:56 AM EST) Triglycerides 164(H) <150 mg/dL [facility] Comment:Desirable Triglyceri de: less than 150 mg/dLBorderline High Triglyceride 150-199 mg/dLHigh Triglyceride: 200-499 mg/dLVery High Triglyceride: greater than or equal to 5OO mg/dL Cholesterol 287(H) <200 mg/dL [facility] Comment:Desirable Cholestero l: less than 200 mg/dLBorderline High Cholesterol: 200-239 mg/dLHigh Cholesterol: greater than 239 mg/dL LDL Cholesterol Calculated 203(H) <100 mg/dL [facility] Comment:Desirable LDL: less than 100 mg/dLNear Optimal/Above Optimal LDL: 110- 129 mg/dLBorderline High LDL: 130-159 mg/dLHigh LDL: 160-189 mg/dLVery High LDL: greater than or equal to 190 mg/dL HDL Cholesterol 52 >40 mg/dL [facility] Comment:Desirable HDL: great er than 40 mg/dL Note: This HDL assay may give artificially low results in patients with liver disease. Blood Venous blood specimen / Unknown 09/30/2023 11:56 AM EST 09/30/2023 1:39 PM EST us Myesha CADENA LAB BLOOD ORDERABLES Final Resul t [facility] [address] [place] [address] [phone] * (ABNORMAL) Hm Colonoscopy (12/22/2022) Colonoscopy Abnormal(A ) Normal Kuldeep Pacehco MD HEALTH MAINTENANCE Final Result from Last 3 Months or Most Recently Relevant to Health Maintenance [place] [address] [place] [address] C3 HSN FULL Care Teams Jewelry Consultant Relationship Specialty Start Date End Date Myesha Tracy ANP [address] [place] [phone] PCP - General Family Medicine 05/29/21
--- OUTSIDE RECORDS SUMMARY | 2025-01-30 18:17 | XMS_ITS | Encounter Summary ---
Author Organization [employer] Address [address] [facility] [address] [place] [address] Care Team Providers Care Degreasing Wheel Operator Name Role Phone Kathy Jang Primary Care Provider [phone] Reason for Visit * Reason Onset Date Comments Med Refill 10/01/2023 Encounter Details Date Type Department Care Team (Late st Contact Info) Description 10/01/2023 Refill [facility] [address] [place] [address] Kathy Jang ANP [address] [place] [address] Iron deficiency anemia, unspecified iron deficiency anemia [...] Description 01/31/2025 2:45 PM EDT Procedure Visit [facility] MEDICINE [address] [place] [address] Darby Blount CNM [address] [place] [address] documented as of this encounter Visit Diagnoses Diagnosis Iron deficiency anemia, unspecified iron deficiency anemia type documented in this encounter Additional Health Concerns Assessment Noted Time PHQ-9 Depression Total Score: 0 06/25/20 23 2:19 PM EDT documented as of this encounter Care Teams Degreasing Wheel Operator Relationship Specialty Start Date End Date Kathy Jang ANP [address] [place] [address] PCP - General Family Medicine 05/29/21 documented as of this encounter
--- OUTSIDE RECORDS SUMMARY | 2025-01-30 18:17 | XMS_ITS | Encounter Summary ---
Author Organization [employer] Address [address] [place] [address] [address] [place] [address] Care Team Providers Care Newspaper Stuffer Name Role Phone Kathy Jang Primary Care Provider [phone] Encounter Details Date Type Department Care Team (Late st Contact Info) Description 11/04/2022 Orders Only [facility] MED & PEDS [address] [place] [address] Alyson Bautista LPN Social History Tobacco Use [...] Description 01/31/2025 2:45 PM EDT Procedure Visit [facility] MEDICINE [address] [place] [address] Darby Blount CNM [address] [place] [address] documented as of this encounter Visit Diagnoses Not on filedocumented in this encounter Care Teams Newspaper Stuffer Relationship Specialty Start Date End Date Kathy Jang ANP [address] [place] [address] PCP - General Family Medicine 05/29/21 documented as of this encounter
--- OUTSIDE RECORDS SUMMARY | 2025-01-30 18:17 | XMS_ITS | Encounter Summary ---
Author Organization [employer] Address [address] [place] [address] 7[address] [place] [address] Care Team Providers Care Outsole Tacker Name Role Phone Kathy Jang Primary Care Provider [phone] Encounter Details Date Type Department Care Team (Late st Contact Info) Description 12/01/2022 Orders Only [facility] CH[facility] MED & PEDS [address] [place] [address] Alyson Bautista LPN Social History Tobacco Use [...] Description 01/31/2025 2:45 PM EDT Procedure Visit [facility] MEDICINE [address] [place] [address] Darby Blount CNM [address] [place] [address] documented as of this encounter Visit Diagnoses Not on filedocumented in this encounter Care Teams Outsole Tacker Relationship Specialty Start Date End Date Kathy Jang ANP [address] [place] [address] PCP - General Family Medicine 05/29/21 documented as of this encounter
--- OUTSIDE RECORDS SUMMARY | 2025-01-30 18:17 | XMS_ITS | Encounter Summary ---
Author Organization [email or web address] Address [address] [facility] [address] 7t [place] [address] Care Team Providers Care Environmental Field Professional Name Role Phone Kathy Jang Primary Care Provider [phone] Reason for Visit * Reason Onset Date Comments Med Refill 10/27/2023 Encounter Details Date Type Department Care Team (Late st Contact Info) Description 10/27/2023 Refill [facility] MEDICINE [address] [place] [address] Kathy Jang ANP 230 [place] [address] Vitamin D deficiency; Seasonal allergies Social History [...] 2:45 PM EDT Procedure Visit [facility] MEDICINE [address] [place] [address] Darby Blount CNM [address] [place] [address] documented as of this encounter Visit Diagnoses Diagnosis Vitamin D deficiency Seasonal allergies Allergic rhinitis, cause unspecified documented in this encounter Additional Health Concerns Assessment Noted Time PHQ-9 Depression Total Score: 0 06/25/20 23 2:19 PM EDT documented as of this encounter Care Teams Environmental Field Professional Relationship Specialty Start Date End Date Kathy Jang ANP [address] [place] [address] PCP - General Family Medicine 05/29/21 documented as of this encounter
--- OUTSIDE RECORDS SUMMARY | 2025-01-30 18:17 | XMS_ITS | Encounter Summary ---
Author Organization [employer] Address [address] [facility] 7t [place] [address] Care Team Providers Care Steward/Stewardess Club Car Name Role Phone Kathy Jang Primary Care Provider [phone] Reason for Visit * Reason Onset Date Comments Med Refill 12/09/2024 Encounter Details Date Type Department Care Team (Late st Contact Info) Description 12/09/2024 Refill [facility] MEDICINE 230 [place] [address] Kathy Jang ANP [address] [place] [address] Vitamin D deficiency; Iron deficiency anemia, unspecified [...] 01/31/2025 2:45 PM EDT Procedure Visit [facility] MEDICINE [address] [place] [address] Darby Blount CNM 230 [place] [address] documented as of this encounter Visit Diagnoses Diagnosis Vitamin D deficiency Iron deficiency anemia, unspecified iron deficiency anemia type Essential hypertension Unspecified essential hypertension documented in this encounter Additional Health Concerns Assessment Noted Time PHQ-9 Depression Total Score: 11 024 3:55 PM EST documented as of this encounter Care Teams Steward/Stewardess Club Car Relationship Specialty Start Date End Date Kathy Jang ANP [address] [place] [address] PCP - General Family Medicine 05/29/21 documented as of this encounter
--- OUTSIDE RECORDS SUMMARY | 2025-01-30 18:17 | XMS_ITS | Encounter Summary ---
Author Organization [employer] Address [address] [facility] 7t [place] [address] Care Team Providers Care Retail Department Manager Name Role Phone Kathy Jang Primary Care Provider [phone] Reason for Visit * Reason Comments Med Refill Encounter Details Date Type Department Care Team (Late st Contact Info) Description 01/29/2025 Refill [facility] MEDICINE 230 [place] [address] Kathy Jang ANP [address] [place] [address] Seasonal allergies Social History Tobacco Use Types [...] 01/31/2025 2:45 PM EDT Procedure Visit [facility] MEDICINE 230 [place] [address] Darby Blount CNM 230 [place] [address] documented as of this encounter Visit Diagnoses Diagnosis Seasonal allergies Allergic rhinitis, cause unspecified documented in this encounter Additional Health Concerns Assessment Noted Time PHQ-9 Depression Total Score: 11 024 3:55 PM EST documented as of this encounter Care Teams Retail Department Manager Relationship Specialty Start Date End Date Kathy Jang ANP 230 [place] [address] PCP - General Family Medicine 05/29/21 documented as of this encounter
--- OUTSIDE RECORDS SUMMARY | 2025-01-30 18:17 | XMS_ITS | Encounter Summary ---
Author Organization [employer] Address [address] [facility] [address] 7[address] [place] [address] Care Team Providers Care Channeling Machine Runner Name Role Phone Kathy Jang SURINDER Primary Care Provider [phone] Reason for Visit * Reason Onset Date Comments Med Refill 12/09/2024 Encounter Details Date Type Department Care Team (Late st Contact Info) Description 12/09/2024 Refill [facility] 230 [place] [address] Annia Quintero MD 230 [place] [address] Joint pain in fingers of right hand; [...] Description 01/31/2025 2:45 PM EDT Procedure Visit [facility] MEDICINE [address] [place] [address] Darby Blount CNM [address] [place] [address] documented as of this encounter Visit Diagnoses Diagnosis Joint pain in fingers of right hand Pain in both knees, unspecified chronicity documented in this encounter Additional Health Concerns Assessment Noted Time PHQ-9 Depression Total Score: 11 024 3:55 PM EST documented as of this encounter Care Teams Channeling Machine Runner Relationship Specialty Start Date End Date Kathy Jang ANP 230 [place] [address] PCP - General Family Medicine 05/29/21 documented as of this encounter
--- OUTSIDE RECORDS SUMMARY | 2025-01-30 18:17 | XMS_ITS | Encounter Summary ---
Author Organization [employer] Address [address] [facility] [address] 7[address] [place] [address] Care Team Providers Care Medical Practice Assistant Name Role Phone Kathy Jang Primary Care Provider [phone] Reason for Visit * Reason Onset Date Comments Med Refill 09/01/2023 Encounter Details Date Type Department Care Team (Late st Contact Info) Description 09/01/2023 Refill [facility] MED & PEDS [address] [place] [address] Kathy Jang ANP 230 [place] [address] Iron deficiency anemia, unspecified iron deficiency anemia [...] EDT Procedure Visit [facility] MEDICINE [address] [place] [address] Darby Blount CNM [address] [place] [address] documented as of this encounter Visit Diagnoses Diagnosis Iron deficiency anemia, unspecified iron deficiency anemia type documented in this encounter Additional Health Concerns Assessment Noted Time PHQ-9 Depression Total Score: 0 06/25/20 23 2:19 PM EDT documented as of this encounter Care Teams Medical Practice Assistant Relationship Specialty Start Date End Date Kathy Jang ANP 230 [place] [address] PCP - General Family Medicine 05/29/21 documented as of this encounter
--- OUTSIDE RECORDS SUMMARY | 2025-01-30 18:17 | XMS_ITS | Encounter Summary ---
Author Organization [employer] Address [address] [facility] 7t [place] [address] Care Team Providers Care Patient Access Specialist Name Role Phone Kathy Jang Primary Care Provider [phone] Reason for Visit * Reason Onset Date Comments Med Refill 12/08/2024 Encounter Details Date Type Department Care Team (Late st Contact Info) Description 12/08/2024 Refill [facility] MEDICINE 230 [place] [address] Kathy Jang ANP 230 [place] [address] Social History Tobacco Use Types Packs/Day Years [...] 01/31/2025 2:45 PM EDT Procedure Visit [facility] MEDICINE [address] [place] [address] Darby Blount CNM 230 [place] [address] documented as of this encounter Visit Diagnoses Not on filedocumented in this encounter Additional Health Concerns Assessment Noted Time PHQ-9 Depression Total Score: 11 024 3:55 PM EST documented as of this encounter Care Teams Patient Access Specialist Relationship Specialty Start Date End Date Kathy Jang ANP 230 [place] [address] PCP - General Family Medicine 05/29/21 documented as of this encounter
--- OUTSIDE RECORDS SUMMARY | 2025-01-30 18:17 | XMS_ITS | Encounter Summary ---
Author Organization [employer] Address [address] [facility] [address] 7t [place] [address] Care Team Providers Care Software Testing Specialist Name Role Phone Kathy Jang Primary Care Provider [phone] Reason for Visit * Reason Onset Date Comments Med Refill 09/01/2023 Encounter Details Date Type Department Care Team (Late st Contact Info) Description 09/01/2023 Refill [facility] MEDICINE 230 [place] [address] Kathy Jang ANP [address] [place] [address] Seasonal allergies Social History Tobacco Use Types [...] Description 01/31/2025 2:45 PM EDT Procedure Visit [facility] MEDICINE 230 [place] [address] Darby Blount CNM 230 [place] [address] documented as of this encounter Visit Diagnoses Diagnosis Seasonal allergies Allergic rhinitis, cause unspecified documented in this encounter Additional Health Concerns Assessment Noted Time PHQ-9 Depression Total Score: 0 06/25/20 23 2:19 PM EDT documented as of this encounter Care Teams Software Testing Specialist Relationship Specialty Start Date End Date Kathy Jang ANP [address] [place] [address] PCP - General Family Medicine 05/29/21 documented as of this encounter
--- OUTSIDE RECORDS SUMMARY | 2025-01-30 18:17 | XMS_ITS | Encounter Summary ---
Author Organization [employer] Address [address] [place] [address] 7t [place] [address] Care Team Providers Care Lapidarist Name Role Phone Kathy Jang Primary Care Provider [phone] Encounter Details Date Type Department Care Team (Late st Contact Info) Description 01/02/2023 Orders Only [facility] MED & PEDS [address] [place] [address] Alyson Bautista LPN Social History Tobacco Use [...] 01/31/2025 2:45 PM EDT Procedure Visit [facility] MEDICINE [address] [place] [address] Darby Blount CNM [address] [place] [address] documented as of this encounter Visit Diagnoses Not on filedocumented in this encounter Care Teams Lapidarist Relationship Specialty Start Date End Date Kathy Jang ANP 230 [place] [address] PCP - General Family Medicine 05/29/21 documented as of this encounter
--- OUTSIDE RECORDS SUMMARY | 2025-01-30 18:17 | XMS_ITS | Encounter Summary ---
Author Organization [employer] Address [address] [facility] [address] 7t [place] [address] Care Team Providers Care Cable Operator Name Role Phone Kathy Jang Primary Care Provider [phone] Reason for Visit * Reason Onset Date Comments Med Refill 10/01/2023 Encounter Details Date Type Department Care Team (Late st Contact Info) Description 10/01/2023 Refill [facility] MEDICINE [address] [place] [address] Kathy Jang ANP 230 [place] [address] Seasonal allergies Social History Tobacco Use Types [...] 2:45 PM EDT Procedure Visit [facility] MEDICINE [address] [place] [address] Darby Blount CNM [address] [place] [address] documented as of this encounter Visit Diagnoses Diagnosis Seasonal allergies Allergic rhinitis, cause unspecified documented in this encounter Additional Health Concerns Assessment Noted Time PHQ-9 Depression Total Score: 0 06/25/20 23 2:19 PM EDT documented as of this encounter Care Teams Cable Operator Relationship Specialty Start Date End Date Kathy Jang ANP 230 [place] [address] PCP - General Family Medicine 05/29/21 documented as of this encounter
== END 2025-01-30 16:19 | disposition home or self-care (01) ==
LOC: HO.HOS 15:31
DX: M25.641 Stiffness of right hand, not elsewhere classified (principal)
CPT/HCPCS: 20550; 99203

== ENCOUNTER → 2025-01-30 15:34 | Outpatient (BNV) | payer MEDICAID, SELFPAY | PROVIDERS: Visit Provider Radiology Diagnostic Radiology | DX: M79.641 Pain in right hand (principal) | CPT/HCPCS: 73130 ==

== ENCOUNTER 2025-01-31 16:26 | Outpatient (REF) | payer MEDICAID, SELFPAY ==
--- OUTSIDE RECORDS SUMMARY | 2025-01-31 18:32 | XMS_ITS | Encounter Summary ---
Author Organization [employer] Address [address] [facility] 7t [place] [address] Care Team Providers Care Half Backer Name Role Phone Kathy Jang Primary Care Provider [phone] Reason for Visit * Reason Onset Date Comments Med Refill 01/15/2025 Encounter Details Date Type Department Care Team (Late st Contact Info) Description 01/15/2025 Refill [facility] MEDICINE 230 [place] [address] Kathy Jang ANP 230 [place] [address] Rib pain Social History Tobacco Use Types [...] as of this encounter Plan of Treatment Not on file documented as of this encounter Visit Diagnoses Diagnosis Rib pain Unspecified chest pain documented in this encounter Additional Health Concerns Assessment Noted Time PHQ-9 Depression Total Score: 11 024 3:55 PM EST documented as of this encounter Care Teams Half Backer Relationship Specialty Start Date End Date Kathy Jang ANP [address] [place] [address] PCP - General Family Medicine 05/29/21 documented as of this encounter
--- OUTSIDE RECORDS SUMMARY | 2025-01-31 18:32 | XMS_ITS | Clinical Summary ---
Author Organization [facility] Address [address] [place] [address] Care Team Providers Care Aircraft Launch And Recovery Technician Name Role Phone Misael Napier BUTTON STATION WORKER-C Primary Care Provider Unavailable Allergies No known active allergies Medications ergocalciferol (VITAMIN D-2) 1.25 MG (44664 UT) capsule Take 1 capsule by mouth [...] Insurance Medicaid [place] Care Teams Aircraft Launch And Recovery Technician Relationship Specialty Start Date End Date Misael Napier FNP-C PCP - General Nurse Practitioner 02/13/21
--- OUTSIDE RECORDS SUMMARY | 2025-01-31 18:32 | XMS_ITS | Encounter Summary ---
Author Organization [employer] Address 75 [facility] 7t [place] [address] Care Team Providers Care Batter Scaler Name Role Phone Kathy Jang Primary Care Provider [phone] Reason for Visit * Reason Onset Date Comments Med Refill 12/09/2024 Encounter Details Date Type Department Care Team (Late st Contact Info) Description 12/09/2024 Refill [facility] MEDICINE 230 [place] [address] Kathy Jang ANP 230 [place] [address] Vitamin D deficiency; Iron deficiency anemia, unspecified [...] documented as of this encounter Care Teams Batter Scaler Relationship Specialty Start Date End Date Kathy Jang ANP [address] [place] [address] PCP - General Family Medicine 05/29/21 documented as of this encounter
--- OUTSIDE RECORDS SUMMARY | 2025-01-31 18:32 | XMS_ITS | Encounter Summary ---
Author Organization [employer] Address [address] [facility] 7t [place] [address] Care Team Providers Care Termite Control Representative Name Role Phone Kathy Jang Primary Care Provider [phone] Encounter Details Date Type Department Care Team (Latest Contact Info) Description 01/31/2025 Travel Social History Tobacco Use Types Packs/Day [...] Access Q2 Not on file 06/06/2024 Comments No Sex and Gender Information Value Date Recorded [...] documented as of this encounter Care Teams Termite Control Representative Relationship Specialty Start Date End Date Kathy Jang ANP [address] [place] [address] PCP - General Family Medicine 05/29/21 documented as of this encounter
--- OUTSIDE RECORDS SUMMARY | 2025-01-31 18:32 | XMS_ITS | Encounter Summary ---
Author Organization [employer] Address 75 [facility] 7t [place] [address] Care Team Providers Care Welder Gas Name Role Phone Kathy Jang Primary Care Provider [phone] Reason for Visit * Reason Onset Date Comments Med Refill 12/08/2024 Encounter Details Date Type Department Care Team (Late st Contact Info) Description 12/08/2024 Refill [facility] MEDICINE 230 [place] [address] Kathy Jang ANP 230 [place] [address] Social History Tobacco Use Types Packs/Day Years [...] documented as of this encounter Care Teams Welder Gas Relationship Specialty Start Date End Date Kathy Jang ANP 230 [place] [address] PCP - General Family Medicine 05/29/21 documented as of this encounter
--- OUTSIDE RECORDS SUMMARY | 2025-01-31 18:32 | XMS_ITS | Encounter Summary ---
Author Organization [employer] Address 75 [facility] 7t [place] [address] Care Team Providers Care Air Sealing Technician Name Role Phone Kathy Jang Primary Care Provider [phone] Reason for Visit * Reason Comments Med Refill Encounter Details Date Type Department Care Team (Late st Contact Info) Description 01/29/2025 Refill [facility] MEDICINE 230 [place] [address] Kathy Jang ANP [address] [place] [address] Seasonal allergies Social History Tobacco Use Types [...] documented as of this encounter Care Teams Air Sealing Technician Relationship Specialty Start Date End Date Kathy Jang ANP [address] [place] [address] PCP - General Family Medicine 05/29/21 documented as of this encounter
--- OUTSIDE RECORDS SUMMARY | 2025-01-31 18:32 | XMS_ITS | Encounter Summary ---
Author Organization [employer] Address [address] [facility] 7t [place] [address] Care Team Providers Care Berry Grower Name Role Phone Kathy Jang Primary Care Provider [phone] Reason for Visit * Reason Onset Date Comments Med Refill 10/01/2023 Encounter Details Date Type Department Care Team (Late st Contact Info) Description 10/01/2023 Refill [facility] MEDICINE 230 [place] [address] Kathy Jang ANP 230 [place] [address] Seasonal allergies Social History Tobacco Use Types [...] documented as of this encounter Care Teams Berry Grower Relationship Specialty Start Date End Date Kathy Jang ANP [address] [place] [address] PCP - General Family Medicine 05/29/21 documented as of this encounter
--- OUTSIDE RECORDS SUMMARY | 2025-01-31 18:32 | XMS_ITS | Encounter Summary ---
Author Organization [employer] Address 75 [facility] 7t [place] [address] Care Team Providers Care Hoop Bending Machine Operator Name Role Phone Kathy Jang Primary Care Provider [phone] Reason for Visit * Reason Onset Date Comments Med Refill 10/01/2023 Encounter Details Date Type Department Care Team (Late st Contact Info) Description 10/01/2023 Refill [facility] MED & PEDS [address] [place] [address] Kathy Jang ANP 230 [place] [address] Iron deficiency anemia, unspecified iron deficiency anemia [...] documented as of this encounter Care Teams Hoop Bending Machine Operator Relationship Specialty Start Date End Date Kathy Jang ANP [address] [place] [address] PCP - General Family Medicine 05/29/21 documented as of this encounter
--- OUTSIDE RECORDS SUMMARY | 2025-01-31 18:32 | XMS_ITS | Encounter Summary ---
Author Organization [employer] Address 75 [facility] 7t [place] [address] Care Team Providers Care Garden Labourer Name Role Phone Kathy Jang Primary Care Provider [phone] Encounter Details Date Type Department Care Team (Late st Contact Info) Description 01/02/2023 Orders Only [facility] MED & PEDS [address] [place] [address] Alyson Bautista LPN Social History Tobacco Use [...] on filedocumented in this encounter Care Teams Garden Labourer Relationship Specialty Start Date End Date Kathy Jang ANP [address] [place] [address] PCP - General Family Medicine 05/29/21 documented as of this encounter
--- OUTSIDE RECORDS SUMMARY | 2025-01-31 18:32 | XMS_ITS | Encounter Summary ---
Author Organization [employer] Address 75 [facility] 7t [place] [address] Care Team Providers Care Pocket Builder Name Role Phone Kathy Jang Primary Care Provider [phone] Reason for Visit * Reason Onset Date Comments Med Refill 10/27/2023 Encounter Details Date Type Department Care Team (Late st Contact Info) Description 10/27/2023 Refill [facility] MEDICINE [address] [place] [address] Kathy Jang ANP 230 [place] [address] Vitamin D deficiency; Seasonal allergies Social History [...] documented as of this encounter Care Teams Pocket Builder Relationship Specialty Start Date End Date Kathy Jnag ANP [address] [place] [address] PCP - General Family Medicine 05/29/21 documented as of this encounter
--- OUTSIDE RECORDS SUMMARY | 2025-01-31 18:32 | XMS_ITS | Encounter Summary ---
Author Organization [employer] Address 75 [facility] 7t [place] [address] Care Team Providers Care Director Industrial Museum Name Role Phone Kathy Jang SURINDER Primary Care Provider [phone] Reason for Visit * Reason Onset Date Comments Med Refill 12/09/2024 Encounter Details Date Type Department Care Team (Late st Contact Info) Description 12/09/2024 Refill [facility] [address] [place] [address] Annia Quintero MD 230 [place] [address] Joint pain in fingers of right hand; [...] documented as of this encounter Care Teams Director Industrial Museum Relationship Specialty Start Date End Date Kathy Jang ANP [address] [place] [address] PCP - General Family Medicine 05/29/21 documented as of this encounter
--- OUTSIDE RECORDS SUMMARY | 2025-01-31 18:32 | XMS_ITS | Encounter Summary ---
Author Organization [facility] [employer] Address [address] [place] [address] [address] [place] [address] Care Team Providers Care Rehabilitation Tech Name Role Phone Kathy Jang SURINDER Primary Care Provider [phone] Reason for Referral * Imaging (Urgent) - Authorized Specialty Diagnoses / Procedures Referred By Contac t Referred To Contact Radiology Diagnoses Left ovarian cyst Pelvic pain Procedures Us Pelvis complete Darby Blount CNM [address] [place] [address] Phone: tel: fax: [address] Phone: tel: fax: Referral ID Status Reason Start Date Expiration Date V isits Requested Visits Authorized [id number] Authorized 01/31/2025 01/31/2026 1 1 * Imaging (Urgent) - Authorized Specialty Diagnoses / Procedures Referred By Contac t Referred To Contact Radiology Diagnoses Left ovarian cyst Pelvic pain Procedures US Pelvis Transvaginal Darby Blount CNM [address] [place] [address] Phone: tel: fax: [address] Phone: tel: fax: Referral ID Status Reason Start Date Expiration Date V isits Requested Visits Authorized [id number] Authorized 01/31/2025 01/31/2026 1 1 Reason for Visit * Reason Comments Gynecologic Exam Encounter Details Date Type Department Care Team (Latest Contact Info) Description 01/31/2025 2:45 PM EDT Procedure Visit [facility] [address] [place], [place] [id number] Darby Blount CNM [address] [place] [address] Cervical cancer screening (Primary Dx); Left ovarian cyst; Pelvic pain Social History Tobacco Use Types Packs/Day [...] Sign Reading Time Taken Comments Blood Pressure 131/81 01/31/2025 2:58 PM EDT Pulse 81 01/31/2025 2:58 PM EDT Temperature 36.8 ??C (98.2 ??F) 01/31/2025 2:58 PM ED T Respiratory Rate 20 01/31/2025 2:58 PM EDT Oxygen Saturation 98% 01/31/2025 2:58 PM EDT Inhaled Oxygen Concentration - - Weight 100 kg (220 lb 9.6 oz) 01/31/2025 2:58 PM EDT Height 162.6 cm (5' 4 ) 01/31/2025 2:58 PM EDT Body Mass Index 37.87 01/31/2025 2:58 PM EDT documented in this encounter Progress Notes * Darby Blount CNM - 01/31/2025 2:45 PM EDT Subjective Patient ID: Alisha Santiago is a 54 y.o. female who presents for pap Mammogram BIRADS 1, cat c 12/2024. No pap on file. Supracervical hysterectomy for fibroids. She doesn't think she had abnormal pap, last pap years ago. Pelvic ultrasound from 2023: The left ovary is remarkable for a 4.2 cm nonneoplastic cyst or benigncystic neoplasm able from 2018. Recommend gynecology consult with follow-up imaging if clinically warranted. 3. The right ovary is remarkable for a 1.3 cm benign simple cyst, no follow-up imaging recommended. She hasn't had followup imaging yet. Notes occasional pelvic pain. No vaginal or urinary symptoms. 1 AMAB partner x 30y, no safety concerns. Occasional vasomotor symptoms, manageable. Review of Systems Genitourinary: Positive for pelvic pain. Negative for dyspareunia, dysuria, frequency, genital sores, hematuria, menstrual problem, urgency, vaginal bleeding, vaginal discharge and vaginal pain. No abnormal pap, no abnormal bleeding, no breast pain, no breast mass, no nipple discharge Objective BP 131/81 (BP Location: Left arm, Patient Position: Sitting, BP Cuff Size: Large adult) Pulse 81 Temp 98.2 ??F (36.8 ??C) (Temporal) Resp 20 Ht 5' 4 (1.626 m) Wt 220 lb 9.6 oz (100 kg) SpO2 98% BMI 37.87 kg/m?? Physical Exam Constitutional: Appearance: Normal appearance. Chest: Breasts: Right: Normal. No swelling, bleeding, inverted nipple, mass, nipple discharge, skin change or tenderness. Left: Normal. No swelling, bleeding, inverted nipple, mass, nipple discharge, skin change or tenderness. Abdominal: General: A surgical scar is present. Comments: Some tenderness LLQ Genitourinary: General: Normal vulva. Labia: Right: No rash, tenderness, lesion or injury. Left: No rash, tenderness, lesion or injury. Vagina: Normal. No signs of injury and foreign body. No vaginal discharge, erythema, tenderness, bleeding or lesions. Cervix: No cervical motion tenderness, discharge, friability, lesion, erythema, cervical bleeding or eversion. Uterus: Absent. Not enlarged and not tender. Adnexa: Right adnexa normal. Right: No mass, tenderness or fullness. Left: Tenderness present. No mass or fullness. Comments: Epidermal cyst right lower aspect. Some tenderness along surgical scar, left aspect Lymphadenopathy: Upper Body: Right upper body: No supraclavicular or axillary adenopathy. Left upper body: No supraclavicular or axillary adenopathy. Neurological: Mental Status: She is alert. Psychiatric: Mood and Affect: Mood normal. Behavior: Behavior normal. Assessment/Plan Diagnoses and all orders for this visit: Cervical cancer screening - Pap Smear Pap 3 years/co-test 5 years. Routine mammography. Report bleeding. Bone density at 65, sooner if new risk factors Let me know if vasomotor symptoms more bothersome. Left ovarian cyst Ultrasound ordered. Will contact with results and plan, refer to [facility] if indicated. Pelvic pain Ultrasound ordered. Poor tone with Kegels, mild cystocele with Valsalva. May benefit from pelvic floor PT. Will await ultrasound results first. documented in this encounter Plan of Treatment Scheduled Orders Name Type Priority Associated Diagnoses Order Schedule Pap Smear Pathology and Cytology Routine Cervical cancer screening Ordered: 01/31/2025 US Pelvis Transvaginal Imaging Urgent Left ovarian cyst Pelvic pain Expected: 01/31/2025, Expires: 01/31/2026 Us Pelvis complete Imaging Urgent Left ovarian cyst Pelvic pain Expected: 01/31/2025, Expires: 01/31/2026 documented as of this encounter Visit Diagnoses Diagnosis Cervical cancer screening- Primary Screening for malignant neoplasm of the cervix Left ovarian cyst Other and unspecified ovarian cyst Pelvic pain documented in this encounter Additional Health Concerns Assessment Noted Time PHQ-9 Depression Total Score: 11 09/19/ 024 3:55 PM EST documented as of this encounter Care Teams Rehabilitation Tech Relationship Specialty Start Date End Date Kathy Jang ANP [address] [place] [id number] PCP - General Family Medicine 05/29/21 documented as of this encounter
--- OUTSIDE RECORDS SUMMARY | 2025-01-31 18:32 | XMS_ITS | Encounter Summary ---
Author Organization [facility] [employer] Address [address] [facility] [address] [place] [address] Care Team Providers Care Bus And Sys Integration Senior Manager Name Role Phone Kathy Jang Primary Care Provider [phone] Reason for Visit * Reason Onset Date Comments Med Refill 09/01/2023 Encounter Details Date Type Department Care Team (Late st Contact Info) Description 09/01/2023 Refill [facility] [address] [place] [address] Kathy Jang ANP [address] [place] [address] Seasonal allergies Social History Tobacco Use Types [...] documented as of this encounter Care Teams Bus And Sys Integration Senior Manager Relationship Specialty Start Date End Date Kathy Jang ANP [address] [place] [id number] PCP - General Family Medicine 05/29/21 documented as of this encounter
--- OUTSIDE RECORDS SUMMARY | 2025-01-31 18:32 | XMS_ITS | Clinical Summary ---
Author Organization [employer] Address [address] [place] [address] [address] [place] [address] Care Team Providers Care Nurse Practitioner Manager Name Role Phone Myesha Tracy SURINDER Primary Care Provider [phone] Allergies Active Allergy Reactions Criticality Noted Date Comments Hydrocodone 01/27/2019 Other reaction(s): nausea, blurry vision, headache Medications lidocaine (Lidoderm) 5 % patchIndication s:Rib pain Apply 1 patch topically Once per day. APPLY 1 PATCH TOPICALLY TO SKIN, LEAVE ON FOR 12 HOURS AND OFF FOR 12 HOURS DIRECTED, as needed for pain 30 patch 5 08/15/20 24 Active hydroCHLOROthia zide 12.5 MG [...] with evening meal. 20 tablet 12/09/19 25 2025 Active Repatha SureClick 140 MG/ML injection 11/29/19 Active pantoprazole (ProtoNix) 40 MG EC tablet TAKE 1 TABLET BY MOUTH TWICE DAILY IN THE MORNING AND IN THE EVENING 11/07/19 Active propranolol (Inderal) 80 MG tablet TAKE 1 TABLET BY MOUTH TWICE DAILY IN THE MORNING AND IN THE EVENING Active nortriptyline (Pamelor) 50 MG capsuleIndicati ons:Insomnia, unspecified type,Migraine without status migrainosus, not intractable, unspecified migraine type,Mixed anxiety and depressive disorder Take 1 capsule (50 mg) by mouth at bedtime. 90 capsule 1 12/21/19 Active sucralfate (Carafate) 1 g tablet TAKE 1 TABLET BY MOUTH THREE TIMES DAILY IN THE MORNING, EVENING, AND BEDTIME 12/13/19 Active senna (Senokot) 8.6 MG tablet TAKE 2 TABLETS BY MOUTH EVERY DAY AT BEDTIME FOR CONSTIPATION 11/07/19 Active Tirzepatide-Prashanth ght Management (Zepbound) 2.5 MG/0.5ML solution auto-injectorIn dications:Class 2 severe obesity with serious comorbidity and body mass index (BMI) of 38.0 to 38.9 in adult, unspecified obesity type (CMS/HCC) Inject 0.5 mL (2.5 mg) under the skin 1 (one) time per week. 2 mL 12/21/19 Active cetirizine (ZyrTEC) 10 MG tabletIndicatio ns:Seasonal allergies TAKE 1 TABLET BY MOUTH EVERY DAY NEEDED FOR ALLERGIES 90 tablet 1 02/01/20 25 Active cetirizine (ZyrTEC) 10 MG tabletIndicatio ns:Seasonal allergies TAKE 1 TABLET BY MOUTH EVERY DAY NEEDED FOR ALLERGIES 90 tablet 1 08/15/20 24 2024 Discontinued Active Problems Problem Noted Date Diagnosed Date [...] were not included. Seen by greg at [facility] 12/21/23 (sent d/t very elevated LDL [...] Encounters Date Type Department Care Team Description 01/31/2025 2:45 PM EDT Procedure Visit [facility] [address], [place] [phone] Darby Blount CNM Cervical cancer screening (Primary Dx); Left ovarian cyst; Pelvic pain 01/31/2025 Travel 01/29/2025 Refill [facility] [address], [place] [phone] Myesha Tracy ANP Seasonal allergies 01/15/2025 Refill [facility] [address] [place] [phone] Myesha Tracy ANP Rib pain 12/28/2024 Orders Only [facility] External Provider, [facility] 12/21/2024 Telephone [facility] [address] [place] [phone] Myesha Tracy ANP Prior Authorization (Zepbound) 12/20/2024 2:15 PM EDT Office Visit [address] [address] Myesha Tracy ANP Essential hypertension (Primary Dx); BARKER (nonalcoholic steatohepatitis); High cholesterol; Insomnia, unspecified type; Migraine without status migrainosus, not intractable, unspecified migraine type; Mixed anxiety and depressive disorder; Class 2 severe obesity with serious comorbidity and body mass index (BMI) of 38.0 to 38.9 in adult, unspecified obesity type (CMS/HCC) 12/20/2024 Travel 12/16/2024 Population Health Risk Score [facility] () [address] [phone] Provider, Population Health Generic 12/09/2024 Refill [facility] [address] [place] [phone] Myesha Tracy ANP Vitamin D deficiency; Iron deficiency anemia, unspecified iron deficiency anemia type; Essential hypertension 12/09/2024 Refill [facility] [address] [place] [phone] Annia Quintero MD Joint pain in fingers of right hand; Pain in both knees, unspecified chronicity 12/08/2024 1:00 PM EST Office Visit [facility] [address] [address] Annia Quintero MD Joint pain in fingers of right hand (Primary Dx); Pain in both knees, unspecified chronicity; Encounter for immunization 12/08/2024 Refill [facility] [address] [place] [phone] Myesha Tracy ANP 12/08/2024 Refill [facility] [address] [place] [phone] Myesha Tracy ANP Benign essential HTN; Vitamin [...] 20 12/20/2024 Tdap 07/23/2015 Zoster, Recombinant 05/09/2022,02/13/2022 Family History Medical History Relation Name Comments Brain cancer Father Ovarian cancer Father's Sister Relation Name Status Comments Father Father's Sister Social History Tobacco Use Types Packs/Day Years [...] Mass Index 37.87 01/31/2025 2:58 PM EDT Plan of Treatment Health Maintenance Due Date Last Done Comments CT Colonography 1971 FIT DNA/Cologuard 1971 FIT 1971 FOBT 1970 HIV Screening 1970 Sigmoidoscopy 1970 Hepatitis C Screening 12/09/1989 SDOH Screening 05/31/2025 05/31/2024 DTaP/Tdap/Td Vaccines (2 - Td or Tdap) 07/23/2025 07/23/2015 Alcohol/Substance Use Screening 09/19/2025 09/19/2024 Depression Screening 09/19/2025 09/19/2024, 09/19/20 24 Colonoscopy 12/22/2025 12/22/2022 Colorectal Cancer Screening 12/22/2025 Mammogram 12/29/2025 12/29/2024, 11/05, 08/21/2021 Tobacco Screening 01/31/2026 01/31/2025 Lipid Panel 09/30/2028 09/30/2023, 06/15/2020 RSV Patients [...] EDT Narrative 01/06/2025 5:41 PM EDT ? [place] [facility] ? [address] ?[place] [address] ?[phone] ? Mammography Report ? Signed ? Patient: Jack Caquias,Alisha ?MR#: ?? [id number] ? : 1970 ?Acct:[id number] ? Age/Sex: 54 / F ?ADM Date: 12/29/24 ? Loc: HO.MAMMO ? Attending : Myesha Tracy BELT CHANGER ? Ordering Physician: MYESHA TRACY NP ?Results: 1Negative ? Date of Service: 12/29/24 ?Follow Up: 1 Year From Orig ?? inal Mammogram ? Procedure(s): MM tomosynthesis screening BI ?? Accession Number(s): [id number] ? cc: Annia Quintero MD; MYESHA TRACY [...] by Oksana Lyn, DO in OV> ? 01/06/258 ? DD/ 1330 ? TD/TT: 12/29/24 1347 ? Chute Builder: ? Procedure Note Lynn, Image - 01/06/2025 [place] [facility] [address] [place] [address] Mammography Report Signed Patient: Maciel Proctor#: [id number] : 1970Acct:[id number] Age/Sex: 54 / FADM Date: 12/29/24 Loc: HO.MAMMO Attending Dr: Myesha Tracy BELT CHANGER Ordering Physician: MYESHA TRACY NPResults: 1Negative Date of Service: 12/29/24Follow Up: 1 Year From Orig inal Mammogram Procedure(s): MM tomosynthesis screening BI Accession Number(s): [id number] cc: Annia Quintero MD; MYESHA TRACY NP [...] 01/06/25 1738 DD/ 1330 TD/TT: 12/29/24 1347 Chute Builder: us Myesha CADENA IMG BI PROCEDURES Final Result * Strep A Nucleic Acid (12/28/2024 8:02 AM EDT) IDNOW SERIAL# [id number] [facility] Strep A Nucleic Acid Negative Negative [facility] Comment:All test results mus t [...] LAB MICROBIOLOGY - GENERAL ORDERABLES Final Result [facility] [address] [place] [phone] [phone] * SARS-CoV-2 RNA, Influenza A/B, and RSV RNA, Ql NAAT (12/28/2024 8:01 AM EDT) Influenza A PCR NEGATIVE Negative [facility] Influenza B PCR NEGATIVE Negative [facility] Resp Syncy Virus RNA Qual PCR NEGATIVE Negative [facility] SARS COV2 PCR NEGATIVE Negative [facility] Comment:All test [...] use by authorized laboratories.Testing performed on the [employer] GeneXpert utilizingreal-time RT-PCR.All SARS CoV2 and positive influenza A/B results arereported to [facility]. 12/28/2024 8:01 AM EDT 12/28/2024 8:09 AM EDT us Generic External Data Provider LAB MICROBIOLOGY - GENERAL ORDERABLES Final Result [facility] [address] [place] [address] [phone] * XR Chest 2 Views (12/28/2024 7:55 AM EDT) Anatomical Region Laterality Modality Chest Radiographic Ana ging 12/28/2024 7:55 AM EDT Narrative 12/28/2024 8:18 AM EDT ? [facility] ?[address] ?[place] [address] ?XRay Report ? Signed ? Patient: Jack Caquias,Alisha ?MR#: ?? [id number] ? : 1970 ?Acct:[id number] ? Age/Sex: 54 / F ?ADM Date: 03/26/25 ? Loc: HO.ED ? Attending Dr: ? Ordering Physician: Karen Abraham DO ?? Date of Service: 12/28/24 ?? Procedure(s): XR chest 2V ?? Accession Number(s): [id number] ? cc: Karen Abraham DO; MYESHA TRACY BELT CHANGER ? EXAMINATION: ?? XR CHEST ? CLINICAL [...] DD/ 0755 ? TD/TT: 12/28/24 0808 ? Chute Builder: ? Procedure Note Donagustohugorubenter, Image - 12/28/[address] [address] XRay Report Signed Patient: Alisha ProctorMR#: [id number] : 1970Acct:[id number] Age/Sex: 54 / FADM Date: 12/28/24 Loc: HO.ED Attending Dr: Ordering Physician: Karen Abraham DO Date of Service: 12/28/24 Procedure(s): XR chest 2V Accession Number(s): [id number] cc: Karen Abraham DO; MYESHA TRACY NP [...] 12/28/24 0815 DD/ 0755 TD/TT: 12/28/24 0808 Chute Builder: [facility] External Provider IMG XR PROCEDURES Edited Result - Final * (ABNORMAL) Urinalysis w/reflex microscopic (12/12/2024 3:24 AM EDT) Color Urine Yellow [facility] Appearance Urine Clear [facility] PH 5.0 5.0 - 9.0 [facility] Glucose Urine UA Negative Negative mg/dL [facility] Urine Blood Negative Negative [facility] Specific [place] - Urine >=1.030(H) 1.005 - 1.025 [facility] Urine Protein Negative Neg-Trace mg/dL [facility] Urine Ketones Trace Negative mg/dL [facility] Nitrite Urine Negative Negative [facility] Leukocyte Esterase Urine Negative Negative [facility] 12/12/2024 3:24 AM EDT 12/12/2024 3:27 AM EDT Narrative [facility] - 12/12/2024 3:30 AM EDT [id number], Clean Catch Generic External Data Provider LAB URINE ORDERAB LES Final Result [facility] [address] [place] [phone] * (ABNORMAL) CBC auto differential (12/12/2024 3:20 AM EDT) White Blood Count 13.5(H) 4.8 - 10.8 X10*3/uL [facility] Red Blood Count 4.55 4.20 - 5.50 X10*6/uL [facility] Hemoglobin 12.8 12.0 - 16.0 g/dl [facility] Hematocrit 40.0 37.0 - 47.0 % [facility] Mean Corpuscular Volume 87.9 80.0 - 98.0 fL [facility] Mean Corpuscular Hemoglobin 28.1 27.0 - 33.0 pg [facility] Mean Corpuscular HGB Conc 32.0 31.0 - 35.0 g/dl [facility] Red Cell Distribution Width 13.4 11.0 - 16.0 % [facility] Platelet Count 331 160 - 400 X10*3/uL [facility] Mean Platelet Volume 10.3 9.4 - 12.3 fL [facility] Neutrophils Percent Auto 63.8 45 - 73 % [facility] Imm Gran Pct Auto 0.5(H) 0.0 - 0.4 % [facility] Lymphocytes Percent Auto 25.2 20 - 40 % [facility] Monocytes Percent Auto 6.6 2 - 11 % [facility] Eosinophils Percent Auto 3.5 0 - 4 % [facility] Basophils Percent Auto 0.4 0 - 2 % [facility] NRBC Pct Auto 0.0 0.0 - 0.2 /100WBC [facility] Neutrophils Absolute Auto 8.6(H) 2.0 - 8.3 x10*3/uL [facility] Imm Gran Abs Auto 0.07(H) 0.00 - 0.03 X10*3/uL [facility] Lymphocytes Absolute Auto 3.4 1.2 - 4.9 X10*3/uL [facility] Monocytes Absolute Auto 0.9 0.1 - 1.2 X10*3/uL [facility] Eosinophils Absolute Auto 0.5(H) 0.0 - 0.4 X10*3/uL [facility] Basophils Absolute Auto 0.1 0.0 - 0.2 X10*3/uL [facility] NRBC Abs Auto 0.000 0.0 - 0.012 X10*3/uL [facility] 12/12/2024 3:20 AM EDT 12/12/2024 3:22 AM EDT us Generic External Data Provider LAB BLOOD ORDERAB LES Final Result [facility] [address] [place] [phone] [phone] * Lipase (12/12/2024 3:20 AM EDT) Pathologist [facility] Lipase 33 8 - 78 U/L [facility] 12/12/2024 3:20 AM EDT 12/12/2024 3:22 AM EDT Generic External Data Provider LAB BLOOD ORDERAB LES Final Result Performing Organization Address [facility] Co de Phone Number [facility] [address] [place] [address] [phone] * Hepatic Function Panel (12/12/2024 3:20 AM EDT) Pathologist [facility] Bilirubin, Direct <0.2 0.0 - 0.5 mg/dL [facility] 12/12/2024 3:20 AM EDT 12/12/2024 3:22 AM EDT Generic External Data Provider LAB BLOOD ORDERAB LES Final Result Performing Organization Address [facility] Co de Phone Number [facility] [address] [place] [phone] * (ABNORMAL) Comprehensive Metabolic Panel (12/12/2024 3:20 AM EDT) Pathologist [facility] Sodium 143 135 - 145 mmol/L [facility] Potassium 4.5 3.3 - 5.1 mmol/L [facility] Chloride 113(H) 96 - 108 mmol/L [facility] Carbon Dioxide 21(L) 22 - 29 mmol/L [facility] Anion Gap 14 12 - 20 [facility] Urea Nitrogen (BUN) 26(H) 9 - 16 mg/dL [facility] Creatinine, Serum 1.06 0.5 - 1.4 mg/dL [facility] Creatinine Clr Calc Pharmacy 71.5 [facility] Comment:Provided height and weight: 162.56 cm,102.5 kg.eGFR (calculated from the MDRD study equation) and eCrCl(calculated from the Cockcroft-Gault equation) are based ondifferent parameters and may not yield comparable results.If eCrCl result is absurd, please check patient'sheight/weight. Estimated Glomerular Filt Rate 54 [facility] Comment:Chronic Kidney Disea se: Estimated GFR < 60 mL/min/1.17q4Gejits Kidney Disease: Estimated GFR < 15 mL/min/1.73m2 Glucose 121(H) 60 - 115 mg/dL [facility] Calcium 10.1 8.4 - 10.2 mg/dL [facility] Bilirubin, Total 0.2 0.0 - 1.0 mg/dL [facility] Aspartate Amino Transferase 35(H) 5 - 31 U/L [facility] Alanine Aminotransferase 81(H) 0 - 31 U/L [facility] Total Protein 8.1(H) 6.5 - 8.0 g/dL [facility] Albumin Level 4.5 3.5 - 5.0 g/dL [facility] Alkaline Phosphatase 97 39 - 117 U/L [facility] 12/12/2024 3:20 AM EDT 12/12/2024 3:22 AM EDT us Generic External Data Provider LAB BLOOD ORDERAB LES Final Result Performing Organization Address [facility]/State/[facility] Co de Phone Number [facility] [address] [place] [phone] * XR Knee 3 Views Right (12/08/2024 1:24 PM EST) Anatomical Region Laterality Modality Lower Extremities, Knee Right Radiogra phic Imaging 12/08/2024 1:24 PM EST Narrative 12/08/2024 2:19 PM EST ?[place] [facility] ?[address] ?[place] [address] ?XRay Report ? Signed ? Patient: Jack Caquias,Alisha ?MR#: ?? [id number] ? : 1970 ?Acct:[id number] ? Age/Sex: 53 / F ?ADM Date: 12/08/24 ? Loc: HO.HHCX ? Attending Dr: Annia Quintero MD ? Ordering Physician: Annia Quintero MD ?? Date of Service: 12/08/24 ?? Procedure(s): XR knee RT 3V ?? Accession Number(s): [id number] ? cc: Annia Quintero MD ? EXAMINATION: [...] DD/ 1324 ? TD/TT: 12/08/24 1355 ? Chute Builder: MSM ? Procedure Note Lynn, Image - 12/08/[address] [address] XRay Report Signed Patient: Alisha Proctor#: [id number] : 1970Acct:[id number] Age/Sex: 53 / FADM Date: 12/08/24 Loc: HO.HHCX Attending Dr: Annia Quintero MD Ordering Physician: Annia Quintero MD Date of Service: 12/08/24 Procedure(s): XR knee RT 3V Accession Number(s): [id number] cc: Annia Quintero MD EXAMINATION: XR KNEE, [...] 12/08/24 1416 DD/ 1324 TD/TT: 12/08/24 1355 Chute Builder: WILMER us Annia Quintero MD IMG XR PROCEDURES Final Re sult * XR Knee 3 Views Left (12/08/2024 1:24 PM EST) Anatomical Region Laterality Modality Lower Extremities, Knee Left Radiogra phic Imaging 12/08/2024 1:24 PM EST Narrative 12/08/2024 2:16 PM EST ?[facility] ?[address] ?[place] [address] ?XRay Report ? Signed ? Patient: Jack Caquias,Alisha ?MR#: ?? [id number] ? : 1970 ?Acct:[id number] ? Age/Sex: 53 / F ?ADM Date: 12/08/24 ? Loc: HO.HHCX ? Attending Dr: Annia Quintero MD ? Ordering Physician: Annia Quintero MD ?? Date of Service: 12/08/24 ?? Procedure(s): XR knee LT 3V ?? Accession Number(s): [id number] ? cc: Annia Quintero MD ? EXAMINATION: [...] DD/ 1324 ? TD/TT: 12/08/24 1355 ? Chute Builder: MSM ? Procedure Note Donmanisha, Image - 12/08/[address] [facility] [address] [place] [address] XRay Report Signed Patient: Maciel Proctor#: [id number] : 1970Acct:[id number] Age/Sex: 53 / FADM Date: 12/08/24 Loc: HO.HHCX Attending Dr: Annia Quintero MD Ordering Physician: Annia Quintero MD Date of Service: 12/08/24 Procedure(s): XR knee LT 3V Accession Number(s): [id number] cc: Annia Quintero MD EXAMINATION: XR KNEE, [...] 12/08/24 1413 DD/ 1324 TD/TT: 12/08/24 1355 Chute Builder: MSM Annia Quintero MD IMG XR PROCEDURES Final Re sult * XR Hand 3+ Views Right (12/08/2024 1:24 PM EST) Anatomical Region Laterality Modality Upper Extremities, Hand Right Radiogra phic Imaging 12/08/2024 1:24 PM EST Narrative 12/08/2024 2:17 PM EST ?[facility] ?[address] ?[place], [place] [address] ?XRay Report ? Signed ? Patient: Jack Caquias,Alisha ?MR#: ?? [id number] ? : 1970 ?Acct:[id number] ? Age/Sex: 53 / F ?ADM Date: 12/08/24 ? Loc: HO.HHCX ? Attending Dr: Annia Quintero MD ? Ordering Physician: Annia Quintero MD ?? Date of Service: 12/08/24 ?? Procedure(s): XR hand RT min 3V ?? Accession Number(s): [id number] ? cc: Annia Quintero MD ? EXAMINATION: [...] DD/ 1324 ? TD/TT: 12/08/24 1355 ? Chute Builder: MSM ? Procedure Note Lynn, Angel - 12/08/[address] [address] XRay Report Signed Patient: Alisha ProctorMR#: [id number] : 1970Acct:[id number] Age/Sex: 53 / FADM Date: 12/08/24 Loc: HO.HHCX Attending Dr: Annia Quintero MD Ordering Physician: Annia Quintero MD Date of Service: 12/08/24 Procedure(s): XR hand RT min 3V Accession Number(s): [id number] cc: Annia Quintero MD EXAMINATION: XR HAND, [...] 12/08/24 1414 DD/ 1324 TD/TT: 12/08/24 1355 Chute Builder: MSM us Annia Quintero MD IMG XR PROCEDURES Final Re sult * Creatinine, Serum (12/07/2024 3:17 PM EST) Creatinine, Serum 0.77 0.5 - 1.4 mg/dL [facility] Estimated Glomerular Filt Rate >60 [facility] Comment:Chronic Kidney Disea se: Estimated GFR < 60 mL/min/1.97f7Fieczo Kidney Disease: Estimated GFR < 15 mL/min/1.73m2 12/07/2024 3:17 PM EST 12/07/2024 3:17 PM EST us Generic External Data Provider LAB BLOOD ORDERAB LES Final Result [facility] [address] [place] [phone] * BUN (Blood Urea Nitrogen) (12/07/2024 3:17 PM EST) Urea Nitrogen (BUN) 12 9 - 16 mg/dL [facility] 12/07/2024 3:17 PM EST 12/07/2024 3:17 PM EST us Generic External Data Provider LAB BLOOD ORDERAB LES Final Result Performing Organization Address [facility] Co de Phone Number [facility] [address] [place] [phone] * (ABNORMAL) Electrolyte Panel (12/07/2024 3:17 PM EST) Sodium 144 135 - 145 mmol/L [facility] Potassium 4.4 3.3 - 5.1 mmol/L [facility] Chloride 109(H) 96 - 108 mmol/L [facility] Carbon Dioxide 28 22 - 29 mmol/L [facility] Anion Gap 11(L) 12 - 20 [facility] 12/07/2024 3:17 PM EST 12/07/2024 3:17 PM EST us Generic External Data Provider LAB BLOOD ORDERAB LES Final Result Performing Organization Address [facility] de Phone Number [facility] [address] [place] [phone] * Culture, Urine, Routine (12/07/2024 3:15 PM EST) Urine Urine specimen obtained by clean catch procedure / Unknown 12/07/2024 3:15 PM EST 12/07/2024 3:23 PM EST Comment:UACC Narrative [facility] - 12/09/2024 12:09 PM EST Urine Culture Report Result Urine Culture 10,000 to 50,000 cfu/ml Urine Culture Mixed bacterial bruce characteristic of Urine Culture urogenital contamination. Specimen Source: Urine clean catch Generic External Data Provider LAB MICROBIOLOGY - GENERAL ORDERABLES Final Result [facility] [address] [place] [address] [phone] * (ABNORMAL) Lipid Panel, Standard (09/30/2023 11:56 AM EST) Triglycerides 164(H) <150 mg/dL [facility] Comment:Desirable Triglyceri de: less than 150 mg/dLBorderline High Triglyceride 150-199 mg/dLHigh Triglyceride: 200-499 mg/dLVery High Triglyceride: greater than or equal to 5OO mg/dL Cholesterol 287(H) <200 mg/dL [facility] Comment:Desirable Cholestero l: less than 200 mg/dLBorderline High Cholesterol: 200-239 mg/dLHigh Cholesterol: greater than 239 mg/dL LDL Cholesterol Calculated 203(H) <100 mg/dL [facility] Comment:Desirable LDL: less than 100 mg/dLNear Optimal/Above Optimal LDL: 110- 129 mg/dLBorderline High LDL: 130-159 mg/dLHigh LDL: 160-189 mg/dLVery High LDL: greater than or equal to 190 mg/dL HDL Cholesterol 52 >40 mg/dL [facility] Comment:Desirable HDL: great er than 40 mg/dL Note: This HDL assay may give artificially low results in patients with liver disease. Blood Venous blood specimen / Unknown 09/30/2023 11:56 AM EST 09/30/2023 1:39 PM EST Myesha Tracy [facility] LAB BLOOD ORDERABLES Final Resul t [facility] [address] [place] [address] [phone] * (ABNORMAL) Hm Colonoscopy (12/22/2022) Colonoscopy Abnormal(A ) Normal us Kuldeep Pacheco MD HEALTH MAINTENANCE Final Result from Last 3 Months or Most Recently Relevant to Health Maintenance Insurance [facility] C3 HSN FULL Care Teams Nurse Practitioner Manager Relationship Specialty Start Date End Date Myesha Trayc ANP [address] [place] [phone] PCP - General Family Medicine 05/29/21
--- OUTSIDE RECORDS SUMMARY | 2025-01-31 18:32 | XMS_ITS | Encounter Summary ---
Author Organization [employer] Address [address] [facility] [address] [place] [address] Care Team Providers Care Nursing Informatics Specialist Name Role Phone Kathy Jang Primary Care Provider [phone] Reason for Visit * Reason Onset Date Comments Med Refill 09/01/2023 Encounter Details Date Type Department Care Team (Late st Contact Info) Description 09/01/2023 Refill [facility] [address] [place] [address] Kathy Jang ANP [address] [place] [address] Iron deficiency anemia, unspecified iron deficiency anemia [...] documented as of this encounter Care Teams Nursing Informatics Specialist Relationship Specialty Start Date End Date Kathy Jang ANP [address] [place] [address] PCP - General Family Medicine 05/29/21 documented as of this encounter
--- OUTSIDE RECORDS SUMMARY | 2025-01-31 18:32 | XMS_ITS | Encounter Summary ---
Author Organization [employer] Address [address] [facility] 7t [place] [address] Care Team Providers Care Church History Teacher Name Role Phone Kathy Jang Primary Care Provider [phone] Encounter Details Date Type Department Care Team (Late st Contact Info) Description 11/04/2022 Orders Only [facility] MED & PEDS [address] [place] [address] Alyson Bautista LPN Social History Tobacco Use [...] on filedocumented in this encounter Care Teams Church History Teacher Relationship Specialty Start Date End Date Kathy Jang ANP [address] [place] [id number] PCP - General Family Medicine 05/29/21 documented as of this encounter
--- OUTSIDE RECORDS SUMMARY | 2025-01-31 18:32 | XMS_ITS | Encounter Summary ---
Author Organization [employer] Address 75 [facility] 7t [place] [address] Care Team Providers Care Supervisor Soldering Name Role Phone Kathy Jang Primary Care Provider [phone] Encounter Details Date Type Department Care Team (Late st Contact Info) Description 12/01/2022 Orders Only [facility] CHC MED & PEDS [address] [place] [address] Alyson Bautista LPN Social History Tobacco Use [...] on filedocumented in this encounter Care Teams Supervisor Soldering Relationship Specialty Start Date End Date Kathy Jang ANP [address] [place] [id number] PCP - General Family Medicine 05/29/21 documented as of this encounter
[2025-02-03 13:40] LABS: HPV Genotype 16 Negative (Negative); HPV Genotype 18 Negative (Negative); HPV High Risk Negative (Negative)
== END 2025-01-31 16:27 | disposition home or self-care (01) ==
LOC: HO.HHCLNP 16:26
PROVIDERS: Visit Provider Advanced Practice Midwife
DX: Z12.4 Encounter for screening for malignant neoplasm of cervix (principal); Z11.51 Encounter for screening for human papillomavirus (HPV)
CPT/HCPCS: 87626; 88175

== ENCOUNTER 2025-02-10 12:47 | Outpatient (REF) | payer MEDICAID, SELFPAY ==
--- NOTE | ~2025-02-10 | US_ITS ---
EXAMINATION: US PELVIS CLINICAL INFORMATION: Follow-up left ovarian cyst. Prior hysterectomy. COMPARISON: November 13, 2023. TECHNIQUE: Ultrasound of the pelvis is performed using both transabdominal and transvaginal transducers along with Doppler. Transvaginal imaging is performed due to inadequate visualization transabdominally. FINDINGS: Uterus: Status post hysterectomy. Right ovary measures 2 x 2 x 1 cm. Volume: 2 cc. There is a 1 cm anechoic lesion. There is flow on color Doppler interrogation to the right ovary. Left ovary measures 7 x 6 x 6 cm. Volume: 127 cc. There is a well-defined 6 cm anechoic lesion without septations or flow on color Doppler interrogation. No nodular components. There is flow on color Doppler interrogation to the left ovary. No free fluid in the cul-de-sac.. US/US pelvic and transvaginal IMPRESSION: 6 cm simple cystic lesion, left ovary. No ovarian torsion. 1 cm cyst, right ovary. Electronically signed by: Humble Olson MD 02/10/2025 01:31 PM EDT
--- OUTSIDE RECORDS SUMMARY | 2025-02-10 12:51 | XMS_ITS | Clinical Summary ---
Author Organization [facility] Facility Address [address] [place] [address] Care Team Providers Care Extension Service Specialist Name Role Phone Misael Napier GOLF SHOE SPIKE ASSEMBLER-C Primary Care Provider Unavailable Allergies No known active allergies Medications ergocalciferol (VITAMIN D-2) 1.25 MG (05727 UT) capsule Take 1 capsule by mouth [...] Insurance Medicaid [place] Care Teams Extension Service Specialist Relationship Specialty Start Date End Date Misael Napier FNP-C PCP - General Nurse Practitioner 02/13/21
== END 2025-02-10 12:48 | disposition home or self-care (01) ==
LOC: HO.US 12:47
PROVIDERS: PCP Nurse Practitioner Primary Care; Visit Provider Advanced Practice Midwife
DX: R10.2 Pelvic and perineal pain (principal); N83.202 Unspecified ovarian cyst, left side
CPT/HCPCS: 76830; 76856

== ENCOUNTER → 2025-02-10 12:49 | Outpatient (BNV) | payer MEDICAID, SELFPAY | PROVIDERS: PCP Nurse Practitioner Primary Care; Visit Provider Radiology Diagnostic Radiology | DX: N83.201 Unspecified ovarian cyst, right side (principal); N83.202 Unspecified ovarian cyst, left side | CPT/HCPCS: 76830; 76856 ==

== ENCOUNTER 2025-02-15 08:36 | Outpatient (RCR) | payer MEDICAID, SELFPAY | END 2025-07-28 14:37 | disposition home or self-care (01) | LOC: HO.PT 08:36 | PROVIDERS: PCP Nurse Practitioner Primary Care; Visit Provider Family Medicine | DX: M25.641 Stiffness of right hand, not elsewhere classified (principal) ==

== ENCOUNTER 2025-03-06 14:10 | Outpatient (AMB) | payer MEDICAID, SELFPAY ==
[2025-03-06 14:13] VITALS: BP 120/68; PULSE 82; O2SAT 97; BMI 38.8
--- NOTE | 2025-03-06 14:13 | A.OFFVIS_ITS ---
Vital Signs 03/06/25 14:13 Height 5 ft 4 in Weight 225 lb 15.581 oz BMI 38.8 BP 120/68 Blood Pressure Location Lt brachial Position Sitting Pulse 82 Pulse Source Pulse Oximeter Pulse Oximetry (%) 97 Oxygen Delivery Method Room Air Intake Visit Reasons: Shortness of breath Nurse Practitioner Physicians Assistant Required: Yes Nurse Practitioner Physicians Assistant Language: Mineral Resources Inspector Name: Annia Richards OA Allergies No Known Allergies [No Known Allergies*] Allergy (Verified 03/06/25 14:18) HPI HPI Shortness of breath: Details: Alisha is a pleasant 54 year old female, never smoker, with underlying HTN and anemia. She continues to report dyspnea with moderate exertion, denies cough, wheezing or chest tightness. Prior PFT unremarkable. Recent CXR 12/2024 negative for any acute findings. She also reported paroxsymal nocturnal dyspnea, insomnia, nonrestorative sleep, and daytime fatigue, home sleep study revealed moderate АНДРЕЙ and CPAP order placed. Unfortunately never received by [facility]. Today she presents to review echo results. She denies any visits to urgent care or hospitalizations related to respiratory distress since the last visit. [facility] Medical History Helicobacter pylori (H. pylori) Transaminitis Morbid obesity Migraine Anemia HTN (hypertension) Surgical History History of esophagogastroduodenoscopy (EGD) Hx of colonoscopy Hx of cystoscopy Hx of hysterectomy History of cholecystectomy Family History Father Heart disease Mother Heart disease Social History Alcohol intake: never Patient Tobacco Use Status: Never used Tobacco Review of Systems Const Denies chills, Denies excessive sweating, Denies fever(s), Denies headache(s) and Denies night sweats Eyes Denies dry eyes, Denies irritation and Denies itchy eyes ENT Reports Normal hearing present, Denies headache(s), Denies nasal congestion, Denies nasal discharge, Denies post nasal drip and Denies sore throat Card Denies chest pain, Denies chest pain at rest, Denies chest pain with activity, Denies claudication, Denies leg edema, Denies orthopnea and Denies paroxysmal nocturnal dyspnea Resp Denies chest congestion, Denies cough, Denies excessive phlegm production, Denies pain on inspiration, Denies pain with cough, Denies stridor and Denies wheezing Musc Denies myalgias Neuro Reports Normal hearing present and Denies headache(s) Endo Denies excessive sweating Angel/Lymph Denies lymphadenopathy Aller/Immun Denies itchy eyes, Denies seasonal rhinorrhea and Denies wheezing Physical Exam Vital Signs: Last Vital Signs Pulse 82 03/06/25 14:13 BP 120/68 03/06/25 14:13 Pulse Ox 97 03/06/25 14:13 Oxygen Delivery Method Room Air 03/06/25 14:13 BMI result Body Mass Index 38.8 Const General: cooperative, healthy appearing, comfortable, no acute distress, well developed and alert Nutritional Appearance: obese Orientation/consciousness: patient oriented x3 Limitations: no limitations HEENT Head: Yes normal to inspection, Yes normocephalic and Yes atraumatic Ears: hearing grossly normal bilaterally and external ears normal Eyes General: appearance normal, both eyes and all related structures Eyelids: Yes eyelids normal Sclerae: sclerae normal EOM: EOMs intact bilaterally Neck Neck: Yes normal visual inspection and Yes no lymphadenopathy Lymphatic: no lymphadenopathy noted Chest Chest palpation & inspection: normal inspection of the chest Resp Effort & Inspection: normal respiratory effort, able to speak in complete sentences, no audible wheezes, no cough, no stridor, not tachypneic, no tripod positioning and no use of accessory muscles Auscultation: clear to auscultation bilaterally Cardio Jugular venous distension: no JVD Rate: regular rate Rhythm: regular rhythm Skin Other: warm, dry General skin exam: no rashes or lesions noted Neuro General: patient oriented x3 Cranial nerves: Yes Normal hearing present Cognition (Neuro): normal cognition Gait exam (Neuro): Normal gait present Extrem General: Yes normal to inspection, Yes capillary refill normal, Yes no clubbing, cyanosis or edema and Yes no pedal edema Psych Appearance: grossly normal and well kempt Speech and movement: Normal speech and movement present and Clear speech present Affect: normal affect Attitude: cooperative Thought process: Normal thought process present Thought content: Normal thought content present Insight: Good insight present (Psych) Judgement: Good judgement present (Psych) Assessment & Plan Assessment & Plan (1) Shortness of breath: Code(s): R06.02 - Shortness of breath Category: Medical (2) Paroxysmal nocturnal dyspnea: Code(s): R06.00 - Dyspnea, unspecified Category: Medical (3) Non-restorative sleep: Code(s): G47.8 - Other sleep disorders Category: Medical Plan Reviewed home sleep study results which revealed moderate АНДРЕЙ, AHI 17, with mild nocturnal hypoxemia <88% for 23 minutes, lowest 70%. Since patient is quite symptomatic, will start CPAP therapy. Will send in prescription for APAP mode and pressure settings of 6-16 cm with close monitoring for compliance and benefits. Sleep hygiene education reviewed. She is aware if there are any issues with the mask or CPAP machine, she will call the [facility] or our office office. Reviewed PFT which revealed no obstructive or restrictive ventilatory defect. No bronchodilator response. Decreased expiratory reserve volume suggests extrathoracic restriction likely secondary to abdominal obesity. Importance of weight loss discussed. DLCO normal. Reviewed echo to assess for possible cardiac contribution/pulmonary HTN for dyspnea, echo in 2021 which revealed LVEF 60-65% and RVSP 34, which was unremarkable, RVSP now 15. All questions were answered and patient is in agreement of plan. Will follow up in 8-12 weeks or sooner if needed. Coding Level of Care Code Est Pt Level 4 (69209) Diagnoses Shortness of breath R06.02 Paroxysmal nocturnal dyspnea R06.00 Non-restorative sleep G47.8
--- OUTSIDE RECORDS SUMMARY | 2025-03-06 15:25 | XMS_ITS | Clinical Summary ---
Author Organization [facility] Facility Address [address] [place] [address] Care Team Providers Care Forensic Anthropologist Name Role Phone Misael Napier STATION MECHANIC APPRENTICE-C Primary Care Provider Unavailable Allergies No known active allergies Medications ergocalciferol (VITAMIN D-2) 1.25 MG (00981 UT) capsule Take 1 capsule by mouth [...] Insurance Medicaid [place] Care Teams Forensic Anthropologist Relationship Specialty Start Date End Date Misael Napier FNP-C PCP - General Nurse Practitioner 02/13/21
== END 2025-03-06 15:05 | disposition home or self-care (01) ==
LOC: HO.HPS 14:10
PROVIDERS: PCP Family Medicine; Visit Provider Nurse Practitioner Family
DX: R06.02 Shortness of breath (principal); R06.00 Dyspnea, unspecified; G47.8 Other sleep disorders
CPT/HCPCS: 99214

== ENCOUNTER → 2025-03-06 14:10 | Outpatient (BNVA) | payer MEDICAID, SELFPAY | PROVIDERS: PCP Family Medicine; Visit Provider Nurse Practitioner Family | DX: R06.00 Dyspnea, unspecified (principal); R53.83 Other fatigue; G47.33 Obstructive sleep apnea (adult) (pediatric); R06.02 Shortness of breath | CPT/HCPCS: 99212 ==

== ENCOUNTER 2025-05-15 14:01 | Outpatient (AMB) | payer MEDICAID, SELFPAY ==
--- NOTE | 2025-05-15 14:03 | A.OFFVIS_ITS ---
Vital Signs 05/15/25 14:04 Height 5 ft 4 in Weight 228 lb 2.855 oz BMI 39.2 BP 130/82 Blood Pressure Location Rt brachial Position Sitting Pulse 74 Pulse Source Pulse Oximeter Pulse Oximetry (%) 98 Oxygen Delivery Method Room Air Intake Visit Reasons: Shortness of breath Medical Cost Consultant Required: Yes Medical Cost Consultant Language: Deputy Sheriff Bailiff Services: Medical Cost Consultant Present Medical Cost Consultant Name: Annia Richards LM Allergies No Known Allergies (No Known Allergies*) Allergy (Verified 05/15/25 14:07) HPI HPI Shortness of breath: Details: Alisha is a pleasant 54 year old female, never smoker, with underlying moderate АНДРЕЙ, HTN and anemia. Home sleep study revealed moderate АНДРЕЙ, AHI 17, with mild nocturnal hypoxemia <88% for 23 minutes, lowest 70%. She was started on CPAP therapy for APAP mode and pressure settings of 6-16 cmH2O. DME is [facility]. Today she presents to review compliance report. She reports overall improvement in dyspnea and daytime fatigue since initiating CPAP therapy however does report difficulties with nasal mask and leaking, noting the nasal these is quite flimsy. She has not trialed alternate masks. She denies any visits to urgent care or hospitalizations related to respiratory distress since last visit. [facility] Medical History Helicobacter pylori (H. pylori) Transaminitis Morbid obesity Migraine Anemia HTN (hypertension) Surgical History History of esophagogastroduodenoscopy (EGD) Hx of colonoscopy Hx of cystoscopy Hx of hysterectomy History of cholecystectomy Family History Father Heart disease Mother Heart disease Social History Alcohol intake: never Patient Tobacco Use Status: Never used Tobacco Review of Systems Const Denies chills, Denies excessive sweating, Denies fever(s), Denies headache(s) and Denies night sweats Eyes Denies dry eyes, Denies irritation and Denies itchy eyes ENT Reports Normal hearing present, Denies headache(s), Denies nasal congestion, Denies nasal discharge, Denies post nasal drip and Denies sore throat Card Denies chest pain, Denies chest pain at rest, Denies chest pain with activity, Denies claudication, Denies leg edema, Denies dyspnea, Denies dyspnea on exertion, Denies orthopnea and Denies paroxysmal nocturnal dyspnea Resp Denies chest congestion, Denies cough, Denies excessive phlegm production, Denies pain on inspiration, Denies pain with cough, Denies dyspnea, Denies dyspnea on exertion, Denies stridor and Denies wheezing Musc Denies myalgias Neuro Reports Normal hearing present and Denies headache(s) Endo Denies excessive sweating Angel/Lymph Denies lymphadenopathy Aller/Immun Denies itchy eyes, Denies seasonal rhinorrhea and Denies wheezing Physical Exam Vital Signs: Last Vital Signs Pulse 74 05/15/25 14:04 BP 130/82 05/15/25 14:04 Pulse Ox 98 05/15/25 14:04 Oxygen Delivery Method Room Air 05/15/25 14:04 BMI result Body Mass Index 39.2 Const General: cooperative, healthy appearing, comfortable, no acute distress, well developed and alert Nutritional Appearance: obese Orientation/consciousness: patient oriented x3 Limitations: no limitations HEENT Head: Yes normal to inspection, Yes normocephalic and Yes atraumatic Ears: hearing grossly normal bilaterally and external ears normal Eyes General: appearance normal, both eyes and all related structures Eyelids: Yes eyelids normal Sclerae: sclerae normal EOM: EOMs intact bilaterally Neck Neck: Yes normal visual inspection and Yes no lymphadenopathy Lymphatic: no lymphadenopathy noted Chest Chest palpation & inspection: normal inspection of the chest Resp Effort & Inspection: normal respiratory effort, able to speak in complete sentences, no audible wheezes, no cough, no stridor, not tachypneic, no tripod positioning and no use of accessory muscles Auscultation: clear to auscultation bilaterally Cardio Jugular venous distension: no JVD Rate: regular rate Rhythm: regular rhythm Skin Other: warm, dry General skin exam: no rashes or lesions noted Neuro General: patient oriented x3 Cranial nerves: Yes Normal hearing present Cognition (Neuro): normal cognition Gait exam (Neuro): Normal gait present Extrem General: Yes normal to inspection, Yes capillary refill normal, Yes no clubbing, cyanosis or edema and Yes no pedal edema Psych Appearance: grossly normal and well kempt Speech and movement: Normal speech and movement present and Clear speech present Affect: normal affect Attitude: cooperative Thought process: Normal thought process present Thought content: Normal thought content present Insight: Good insight present (Psych) Judgement: Good judgement present (Psych) Assessment & Plan Assessment & Plan (1) Moderate obstructive sleep apnea: Code(s): G47.33 - Obstructive sleep apnea (adult) (pediatric) Category: Medical (2) Nocturnal hypoxemia: Code(s): G47.34 - Idiopathic sleep related nonobstructive alveolar hypoventilation Category: Medical Plan Reviewed compliance report for the last 30 days revealing 57% compliance >4 hours, AHI 2 with significant leaking. Discussed importance of increasing nightly use to achieve atleast 70% compliance which she is motivated to do. Reviewed significant leaking which is likely due to poorly fitting mask. Encouraged patient to tighten mask vs trial different masks. She was agreeable to reach out to [employer] to trial. At this time she denies any respiratory symptoms and is aware to call if symptoms change. Once patient established on CPAP therapy with good compliance and decrease in leaking, will send for overnight oximetry to ensure resolution of nocturnal hypoxemia. All questions were answered and patient is in agreement of plan. Will follow up in 8-12 weeks or sooner if needed. Coding Level of Care Code Est Pt Level 4 (66118) Diagnoses Moderate obstructive sleep apnea G47.33 Nocturnal hypoxemia G47.34
[2025-05-15 14:04] VITALS: BP 130/82; PULSE 74; O2SAT 98; BMI 39.2
--- OUTSIDE RECORDS SUMMARY | 2025-05-15 14:30 | XMS_ITS | Clinical Summary ---
Author Organization [facility] Facility Address [address] [place] [address] Care Team Providers Care Wheat Farmer Name Role Phone Misael Napier LETTER SORTING MACHINE OPERATOR-C Primary Care Provider Unavailable Allergies No known active allergies Medications ergocalciferol (VITAMIN D-2) 1.25 MG (05420 UT) capsule Take 1 capsule by mouth [...] Colorectal Cancer Screening: Sigmoidoscopy 12/09/2020 Influenza Vaccine (#1) 2025 4, 09/30/2023, 09/23/2021, Additional history exists Insurance Medicaid [place] Medicaid [place] Care Teams Wheat Farmer Relationship Specialty Start Date End Date Misael Napier FNP-C PCP - General Nurse Practitioner 02/13/21
--- OUTSIDE RECORDS SUMMARY | 2025-05-15 14:30 | XMS_ITS | Encounter Summary ---
Author Organization [employer] Address [address] [facility] 7t [place] [address] Care Team Providers Care White Sourer Name Role Phone Kathy Jang Primary Care Provider [phone] Reason for Visit * Reason Onset Date Comments Med Refill 12/08/2024 Encounter Details Date Type Department Care Team (Late st Contact Info) Description 12/08/2024 Refill [facility] MEDICINE [address] [place] [address] Kathy Jang ANP [address] [place] [address] Social History Tobacco Use Types Packs/Day Years [...] documented as of this encounter Care Teams White Sourer Relationship Specialty Start Date End Date Kathy Jang ANP [address] [place] [address] PCP - General Family Medicine 05/29/21 documented as of this encounter
== END 2025-05-15 14:26 | disposition home or self-care (01) ==
LOC: HO.HPS 14:02
PROVIDERS: PCP Family Medicine; Visit Provider Nurse Practitioner Family
DX: G47.33 Obstructive sleep apnea (adult) (pediatric) (principal); G47.34 Idiopathic sleep related nonobstructive alveolar hypoventilation
CPT/HCPCS: 99214

== ENCOUNTER → 2025-05-15 14:01 | Outpatient (BNVA) | payer MEDICAID, SELFPAY | PROVIDERS: PCP Family Medicine; Visit Provider Nurse Practitioner Family | DX: G47.33 Obstructive sleep apnea (adult) (pediatric) (principal); G47.34 Idiopathic sleep related nonobstructive alveolar hypoventilation; R06.02 Shortness of breath; Z99.89 Dependence on other enabling machines and devices | CPT/HCPCS: 99212 ==

== ENCOUNTER 2025-07-05 14:09 | Outpatient (AMB) | payer MEDICAID, SELFPAY ==
--- NOTE | 2025-07-05 14:28 | HO.NEPHOV_ITS ---
Vital Signs 07/05/25 14:29 Height 5 ft 4 in Weight 233 lb BMI 40.0 BP 94/70 Blood Pressure Location Rt brachial Position Sitting Pulse 83 Pulse Source Pulse Oximeter Pulse Oximetry (%) 97 Oxygen Delivery Method Room Air Intake Visit Reasons: R/S 06/19/2025-Voicemail not set Ammonia Still Operator Required: Yes Ammonia Still Operator Language: Nutrition Representative Services: Ammonia Still Operator Present Ammonia Still Operator Name: Isiah [id number] Information Interpreted: clinical only Accompanied by: Self / Same As Patient Allergies No Known Allergies (No Known Allergies*) Allergy (Verified 07/05/25 14:28) HPI Comments Details: Alisha was seen in follow-up for hypertension. She is 54 years of age who has pre diabetes mellitus but has history of hypertension for long time. She denies history of retinopathy, neuropathy or LVH . She does not have any nausea, vomiting, diarrhea, shortness of breath, proximal nocturnal dyspnea, orthopnea, pedal edema, hematuria, renal stones, coronary artery disease, congestive heart failure, carotid stenosis, peripheral arterial disease, renal artery stenosis, new bone or back pain. She never had any history of high serum calcium. She denies any history of hepatitis or HIV. She does not get any recurrent sore throat, epistaxis, hemoptysis, photosensitivity, skin rashes. She has no sensorineural hearing deficits. Her renal functions are normal. She has been having intermittent orthostatic symptoms. ON LICENSE OF [facility] Medical History Helicobacter pylori (H. pylori) Transaminitis Morbid obesity Migraine Anemia HTN (hypertension) Surgical History History of esophagogastroduodenoscopy (EGD) Hx of colonoscopy Hx of cystoscopy Hx of hysterectomy History of cholecystectomy Family History Father Heart disease Mother Heart disease Social History Alcohol intake: never Patient Tobacco Use Status: Never used Tobacco Review of Systems Const All systems reviewed & are unremarkable except as noted in HPI and below Physical Exam Vital Signs: Last Vital Signs Pulse 83 07/05/25 14:29 BP 94/70 07/05/25 14:29 Pulse Ox 97 07/05/25 14:29 Oxygen Delivery Method Room Air 07/05/25 14:29 BMI result Body Mass Index 40.0 Const General: comfortable and no acute distress Orientation/consciousness: patient oriented x3 HEENT Head: Yes normocephalic Mouth: Normal oral and palatal mucosa present Eyes EOM: EOMs intact bilaterally Neck Neck: Yes supple Resp Auscultation: clear to auscultation bilaterally Cardio Jugular venous distension: no JVD Rate: regular rate GI Palpation (GI): Soft to palpation Auscultation: normal bowel sounds General: Yes no CVA tenderness Back/Spine/Pelvis Back: no CVA tenderness Skin General skin exam: no rashes or lesions noted Neuro General: patient oriented x3 and moves all extremities Extrem General: Yes no pedal edema Assessment & Plan Assessment & Plan (1) HTN (hypertension): Code(s): I10 - Essential (primary) hypertension Category: Medical Qualifiers: Hypertension type: primary hypertension Qualified Code(s): I10 - Essential (primary) hypertension Plan Alisha has longstanding hypertension. She is on propranolol and lisinopril. I D/Germán HCTZ given orthostatic symptoms. She has no microscopic hematuria and proteinuria. Her 24 urine for protein, urine protein creatinine ratio as well as urinalysis were normal. She clearly needs to lose some significant weight. All questions answered .follow-up given Orders: Orders Protein Creatinine Ratio, Ur 6 Months I10 - Essential (primary) hypertension Hemoglobin A1c 6 Months I10 - Essential (primary) hypertension Electrolytes 6 Months I10 - Essential (primary) hypertension Blood Urea Nitrogen 6 Months I10 - Essential (primary) hypertension Creatinine 6 Months I10 - Essential (primary) hypertension Calcium 6 Months I10 - Essential (primary) hypertension Coding Level of Care Code Est Pt Level 4 (10319) Diagnoses Primary hypertension I10 Hypertension type: primary hypertension
[2025-07-05 14:29] VITALS: BP 94/70; PULSE 83; O2SAT 97; BMI 40.0
--- OUTSIDE RECORDS SUMMARY | 2025-07-05 15:21 | XMS_ITS | Encounter Summary ---
Author Organization [employer] Address 75 [facility] 7t [place] [address] Care Team Providers Care Bacon De Rinder Name Role Phone Kathy Jang Primary Care Provider [phone] Reason for Visit * Reason Onset Date Comments Med Refill 12/09/2024 Encounter Details Date Type Department Care Team (Late st Contact Info) Description 12/09/2024 Refill [facility] MEDICINE [address] [place] [address] Kathy Jang ANP [address] [place] [address] Vitamin D deficiency; Iron deficiency anemia, unspecified [...] documented as of this encounter Care Teams Bacon De Rinder Relationship Specialty Start Date End Date Kathy Jang ANP [address] [place] [id number] PCP - General Family Medicine 05/29/21 documented as of this encounter
--- OUTSIDE RECORDS SUMMARY | 2025-07-05 15:21 | XMS_ITS | Encounter Summary ---
Author Organization [employer] Address 75 [facility] 7t [place] [address] Care Team Providers Care Armor Reconnaissance Specialist Name Role Phone Kathy Jang SURINDER Primary Care Provider [phone] Reason for Visit * Reason Onset Date Comments Med Refill 12/09/2024 Encounter Details Date Type Department Care Team (Late st Contact Info) Description 12/09/2024 Refill [facility] [address] [place] [address] Annia Quintero MD [address] [place] [address] Joint pain in fingers of right hand; [...] documented as of this encounter Care Teams Armor Reconnaissance Specialist Relationship Specialty Start Date End Date Kathy Jang ANP [address] [place] [address] PCP - General Family Medicine 05/29/21 documented as of this encounter
--- OUTSIDE RECORDS SUMMARY | 2025-07-05 15:21 | XMS_ITS | Encounter Summary ---
Author Organization [employer] Address [address] [facility] 7t [place] [address] Care Team Providers Care Professor Of Business Administration Name Role Phone Kathy Jang Primary Care Provider [phone] Reason for Visit * Reason Onset Date Comments Med Refill 12/08/2024 Encounter Details Date Type Department Care Team (Late st Contact Info) Description 12/08/2024 Refill [facility] MEDICINE [address] [place] [address] Kathy Jang ANP [address] [place] [address] Social History Tobacco Use Types Packs/Day Years [...] documented as of this encounter Care Teams Professor Of Business Administration Relationship Specialty Start Date End Date Kathy Jang ANP [address] [place] [address] PCP - General Family Medicine 05/29/21 documented as of this encounter
--- OUTSIDE RECORDS SUMMARY | 2025-07-05 15:21 | XMS_ITS | Encounter Summary ---
Author Organization [employer] Address 75 [facility] 7t [place] [address] Care Team Providers Care Chrome Plater Helper Name Role Phone Kathy Jang Primary Care Provider [phone] Reason for Visit * Reason Onset Date Comments Med Refill 10/01/2023 Encounter Details Date Type Department Care Team (Late st Contact Info) Description 10/01/2023 Refill [facility] MED & PEDS [address] [place] [address] Kathy Jang ANP [address] [place] [address] Iron deficiency anemia, unspecified iron deficiency anemia [...] enough money to get more: Never True 11/ 03/2023 Transportation Answer Date Recorded In the [...] documented as of this encounter Care Teams Chrome Plater Helper Relationship Specialty Start Date End Date Kathy Jang ANP [address] [place] [address] PCP - General Family Medicine 05/29/21 documented as of this encounter
--- OUTSIDE RECORDS SUMMARY | 2025-07-05 15:21 | XMS_ITS | Encounter Summary ---
Author Organization [employer] Address 75 [facility] 7t [place] [address] Care Team Providers Care Business Banking Sales Assistant Name Role Phone Kathy Jang Primary Care Provider [phone] Encounter Details Date Type Department Care Team (Late st Contact Info) Description 12/01/2022 Orders Only [facility] MED & PEDS [address] [place] [address] Alyson Bautista LPN Social History Tobacco Use [...] on filedocumented in this encounter Care Teams Business Banking Sales Assistant Relationship Specialty Start Date End Date Kathy Jang ANP [address] [place] [address] PCP - General Family Medicine 05/29/21 documented as of this encounter
--- OUTSIDE RECORDS SUMMARY | 2025-07-05 15:21 | XMS_ITS | Encounter Summary ---
Author Organization [employer] Address 75 [facility] 7t [place] [address] Care Team Providers Care Fountain Pen Nibs Inspector Name Role Phone Kathy Jang Primary Care Provider [phone] Reason for Visit * Reason Onset Date Comments Med Refill 10/27/2023 Encounter Details Date Type Department Care Team (Late st Contact Info) Description 10/27/2023 Refill [facility] MEDICINE [address] [place] [address] Kathy Jang ANP [address] [place] [address] Vitamin D deficiency; Seasonal allergies Social History [...] documented as of this encounter Care Teams Fountain Pen Nibs Inspector Relationship Specialty Start Date End Date Kathy Jang ANP [address] [place] [address] PCP - General Family Medicine 05/29/21 documented as of this encounter
--- OUTSIDE RECORDS SUMMARY | 2025-07-05 15:21 | XMS_ITS | Encounter Summary ---
Author Organization [employer] Address 75 [facility] 7t [place] [address] Care Team Providers Care Drop Board Man Name Role Phone Kathy Jang Primary Care Provider [phone] Reason for Visit * Reason Onset Date Comments Med Refill 01/15/2025 Encounter Details Date Type Department Care Team (Late st Contact Info) Description 01/15/2025 Refill [facility] MEDICINE [address] [place] [address] Kathy Jang ANP [address] [place] [address] Rib pain Social History Tobacco Use Types [...] documented as of this encounter Care Teams Drop Board Man Relationship Specialty Start Date End Date Kathy Jang ANP [address] [place] [address] PCP - General Family Medicine 05/29/21 documented as of this encounter
--- OUTSIDE RECORDS SUMMARY | 2025-07-05 15:22 | XMS_ITS | Encounter Summary ---
Author Organization [employer] Address [address] [facility] 7t [place] [address] Care Team Providers Care Photographic Processor Name Role Phone Kathy Jang Primary Care Provider [phone] Encounter Details Date Type Department Care Team (Late st Contact Info) Description 11/04/2022 Orders Only [facility] CHC MED & PEDS [address] [place] [address] Alyson Bautista LPN Social History Tobacco Use [...] on filedocumented in this encounter Care Teams Photographic Processor Relationship Specialty Start Date End Date Kathy Jang ANP [address] [place] [address] PCP - General Family Medicine 05/29/21 documented as of this encounter
--- OUTSIDE RECORDS SUMMARY | 2025-07-05 15:22 | XMS_ITS | Encounter Summary ---
Author Organization [employer] Address [address] [facility] 7t [place] [address] Care Team Providers Care Power Truck Driver Name Role Phone Kathy Jang Primary Care Provider [phone] Encounter Details Date Type Department Care Team (Late st Contact Info) Description 01/02/2023 Orders Only [facility] CHC MED & PEDS [address] [place] [address] Alyson Bautista LPN Social History Tobacco Use [...] on filedocumented in this encounter Care Teams Power Truck Driver Relationship Specialty Start Date End Date Kathy Jang ANP [address] [place] [address] PCP - General Family Medicine 05/29/21 documented as of this encounter
--- OUTSIDE RECORDS SUMMARY | 2025-07-05 15:22 | XMS_ITS | Encounter Summary ---
Author Organization [employer] Address [address] [facility] [address]t [place] [address] Care Team Providers Care Outdoor Illuminating Engineer Name Role Phone Kathy Jang Primary Care Provider [phone] Reason for Visit * Reason Onset Date Comments Med Refill 09/01/2023 Encounter Details Date Type Department Care Team (Late st Contact Info) Description 09/01/2023 Refill [facility] MEDICINE [address] [place] [address] Kathy Jang ANP [address] [place] [address] Seasonal allergies Social History Tobacco Use Types [...] documented as of this encounter Care Teams Outdoor Illuminating Engineer Relationship Specialty Start Date End Date Kathy Jang ANP [address] [place] [address] PCP - General Family Medicine 05/29/21 documented as of this encounter
--- OUTSIDE RECORDS SUMMARY | 2025-07-05 15:22 | XMS_ITS | Encounter Summary ---
Author Organization [employer] Address 75 [facility] [address]t [place] [address] Care Team Providers Care Solar Energy Sales Specialist Name Role Phone Kathy Jang Primary Care Provider [phone] Reason for Visit * Reason Onset Date Comments Med Refill 10/01/2023 Encounter Details Date Type Department Care Team (Late st Contact Info) Description 10/01/2023 Refill [facility] MEDICINE [address] [place] [address] Kathy Jang ANP [address] [place] [address] Seasonal allergies Social History Tobacco Use Types [...] documented as of this encounter Care Teams Solar Energy Sales Specialist Relationship Specialty Start Date End Date Kathy Jang ANP [address] [place] [address] PCP - General Family Medicine 05/29/21 documented as of this encounter
--- OUTSIDE RECORDS SUMMARY | 2025-07-05 15:22 | XMS_ITS | Clinical Summary ---
Author Organization [employer] Address [address] [place] [address] 7t [place] [address] Care Team Providers Care Cook Sauce Name Role Phone Myesha Tracy SURINDER Primary Care Provider [phone] Allergies Active Allergy Reactions Criticality Noted Date Comments Hydrocodone 01/27/2019 Other reaction(s): nausea, blurry vision, headache Medications hydroCHLOROthia zide 12.5 MG tabletIndicatio ns:Benign essential HTN Take 1 tablet (12.5 mg) by mouth in the morning. 90 tablet 3 12/09/19 25 Active naproxen (Naprosyn) 500 MG tabletIndicatio ns:Joint pain in fingers of right hand,Pain in both knees, unspecified chronicity Take 1 tablet (500 mg) by mouth with breakfast and with evening meal. 20 tablet 12/09/19 25 2025 Active Repatha SureClick 140 MG/ML injection 11/29/19 25 Active pantoprazole (ProtoNix) 40 MG EC tablet TAKE 1 TABLET BY MOUTH TWICE DAILY IN THE MORNING AND IN THE EVENING 11/07/19 25 Active propranolol (Inderal) 80 MG tablet TAKE 1 TABLET BY MOUTH TWICE DAILY IN THE MORNING AND IN THE EVENING Active sucralfate (Carafate) 1 g tablet TAKE 1 TABLET BY MOUTH THREE TIMES DAILY IN THE MORNING, EVENING, AND BEDTIME 12/13/19 25 Active senna (Senokot) 8.6 MG tablet TAKE 2 TABLETS BY MOUTH EVERY DAY AT BEDTIME FOR CONSTIPATION 11/07/19 25 Active Tirzepatide-Prashanth ght Management (Zepbound) 2.5 MG/0.5ML solution auto-injectorIn dications:Class 2 severe obesity with serious comorbidity and body mass index (BMI) of 38.0 to 38.9 in adult, unspecified obesity type Inject 0.5 mL (2.5 mg) under the skin 1 (one) time per week. 2 mL 12/21/19 25 Active cetirizine (ZyrTEC) 10 MG tabletIndicatio ns:Seasonal allergies TAKE 1 TABLET BY MOUTH EVERY DAY NEEDED FOR ALLERGIES 90 tablet 1 02/01/20 25 Active lidocaine (Lidoderm) 5 % patchIndication s:Rib pain Apply 1 patch topically Once per day. APPLY 1 PATCH TOPICALLY TO SKIN, LEAVE ON FOR 12 HOURS AND OFF FOR 12 HOURS DIRECTED, as needed for pain 30 patch 5 03/28/20 25 Active cholecalciferol VITAMIN D (Vitamin D-3) 50 MCG (2000 UT) tabletIndicatio ns:Vitamin D deficiency TAKE 1 TABLET BY MOUTH EVERY MORNING 90 tablet 03/28/20 25 Active Ferrous Sulfate (iron) 325 (65 Fe) MG tabletIndicatio ns:Iron deficiency anemia, unspecified iron deficiency anemia type TAKE 1 TABLET BY MOUTH EVERY MORNING 90 tablet 04/18/20 25 Active lisinopril 40 MG tabletIndicatio ns:Essential hypertension TAKE 1 TABLET BY MOUTH EVERY DAY 90 tablet 1 06/01/20 25 Active nortriptyline (Pamelor) 50 MG capsuleIndicati ons:Insomnia, unspecified type,Migraine without status migrainosus, not intractable, unspecified migraine type,Mixed anxiety and depressive disorder TAKE 1 CAPSULE BY MOUTH AT BEDTIME 90 capsule 1 06/08/20 25 Active nortriptyline (Pamelor) 50 MG capsuleIndicati ons:Insomnia, unspecified type,Migraine without status migrainosus, not intractable, unspecified migraine type,Mixed anxiety and depressive disorder Take 1 capsule (50 mg) by mouth at bedtime. 90 capsule 1 12/21/19 25 2024 Discontinued Active Problems Problem Noted Date [...] were not included. Seen by greg at [facility] 12/21/23 (sent d/t very elevated LDL [...] Encounters Date Type Department Care Team Description 06/07/2025 Refill [facility] MEDICINE [address] [place] [address] Myesha Tracy ANP Insomnia, unspecified type; Migraine without status migrainosus, not intractable, unspecified migraine type; Mixed anxiety and depressive disorder 05/31/2025 Refill [facility] MEDICINE [address] [place] [address] Myesha Tracy ANP Insomnia, unspecified type; Migraine without status migrainosus, not intractable, unspecified migraine type; Mixed anxiety and depressive disorder; Seasonal allergies; Essential hypertension; Vitamin D deficiency; Iron deficiency anemia, unspecified iron deficiency anemia type 04/18/2025 [place] [address] Myesha Tracy ANP Iron deficiency anemia, unspecified iron deficiency anemia type from Last 3 Months Immunizations Immunization Administration Dates Next Due Hep A, Adult [...] 81 01/31/2025 2:58 PM EDT Temperature 36.8 C (98.2 F) 01/31/2025 2:58 PM EDT Respiratory Rate 20 01/31/2025 2:58 PM EDT [...] FOBT 1970 HIV Screening 1970 Sigmoidoscopy 1970 Disability Screening 1970 Hepatitis C Screening 12/09/1989 Depression Monitoring 03/20/2025 09/19/2024, 024 SDOH Screening 05/31/2025 05/31/2024 Influenza Vaccine (#1) 2025 , 09/30/2023, 09/23/2021, Additional history exists DTaP/Tdap/Td Vaccines (2 - Td or Tdap) 07/23/2025 07/23/2015 Alcohol/Substance Use Screening 09/19/2025 09/19/2024 Colonoscopy 12/22/2025 12/22/2022 Colorectal Cancer Screening 12/22/2025 Mammogram 12/29/2025 12/29/2024, 11/05, 08/21/2021 Tobacco Screening 01/31/2026 01/31/2025 Lipid Panel 09/30/2028 09/30/2023, 06/15/2020 HPV/Cotest 01/31/2030 01/31/2025 Pap Smear 01/31/2030 01/31/2025 RSV Patients and Patients Aged 60 years or older (1 - 1-dose 75+ series) 12/09/2046 Hepatitis B Vaccines Completed 09/04/2016, 11/30/2015, 10/01/2015 Hepatitis A Vaccines Completed 06/05/2021, 10/01/20 15 Zoster Vaccines Completed 05/09/2022, 02/13/2022 COVID-19 Vaccine Completed 08/12/2024, 11/2023, 05/09/2022, Additional history exists Pneumococcal Vaccine: 50+ Years Completed 12/20/2024 HIB Vaccines Aged Out No longer eligi ble based on patient's age to complete this topic HPV Vaccines Aged Out No longer eligi ble based on patient's age to complete this topic IPV Vaccines Aged Out No longer eligi ble based on patient's age to complete this topic Meningococcal B Vaccine Aged Out No l onger eligible based on patient's age to complete [...] Procedure Name Priority Date/Time Associated Diagnosis Comments HPV DNA, LOW/HIGH RISK Routine 2:59 PM EDT PAP SMEAR Routine 01/31/2025 2:59 PM EDT Cervical cancer screening BI MAMMOGRAM SCREENING TOMOSYNTHESIS BILATERAL Routine 12/29/2024 1:30 PM EDT LIPID PANEL, STANDARD Routine 09/30/2023 11:56 AM EST Screening, lipid HM COLONOSCOPY Routine 12/22/2022 from Last 3 Months or Most Recently Relevant to Health Maintenance Results * HPV DNA, Low/High Risk (01/31/2025 2:59 PM EDT) HPV High Risk Negative Negative [facility] HPV Genotype 16 Negative Negative [facility] HPV Genotype 18 Negative Negative [facility] Comment:HPV testing performe d at [facility] (CLIA#[id number]), [address] [place] [address].Testing for HPV was performed using the [employer] ANIL 6800system. The presence of HPV in the female genital tract isassociated with a number of diseases, including cervicalcarcinoma. The HPV DNA high risk pool tests for HPV 31, 33,35, 39, 45, 51, 52, 56, 58, 59, 66 and 68. The testing forHPV 16 and 18 genotypes has also been performed. A positiveresult indicates detection of nucleic acid sequences fromone or more subtypes, whereas a negative result indicatessuch sequences were not detected. 01/31/2025 2:59 PM EDT 02/01/2025 5:50 AM EDT us Rosalie Vann CNM LAB BLOOD ORDERABLES La l Result [facility] [address] [place] [phone] * Pap Smear (01/31/2025 2:59 PM EDT) Swab Cervix uteri structure / Unknown 01/31/2025 2:59 PM EDT 02/01/2025 5:50 AM EDT [facility] - 02/03/2025 9:58 AM EDT ----- ------- Name: Jack SaenzAlisha Age/Sex: 54/F : 1970 Unit#: [id number] Attend Dr: ROSALIE VANN CNM Re01/31/25 Status: DEP REF Location: HO.HHCLNP Disch: ----- ------- SPEC : [id number] RECD: 02/01/25-549 STATUS: KIRILL ALVAREZ NUM: [id number] RUTHIE: 01/31/25-1459 [facility] DR: ROSALIE VANN CNM ENTERED: 02/01/25 SP TYPE: Pap Smr OT : ORDERED: Pap Smear Interpretation Satisfactory for evaluation. Negative for intraepithelial lesion or malignancy. No endocervical cells seen. HPV High Risk: Negative HPV Genotyping 16: Negative HPV Genotyping 18: Negative Clinical Information LMP:Unknown date Previous PAP test:Unknown date/findings Material Received ThinPrep-Cervical ----- ------- Signed (signature on file) ELENA Olson ([facility]) 02/03/25 0958 ----- ------- END OF REPORT Rosalie Vann [facility] LAB CYTOLOGY ORDERABLES F ina Result [facility] [address] [place] [phone] * BI Mammogram Screening Tomosynthesis Bilateral (12/29/2024 1:30 PM EDT) Anatomical Region Laterality Modality Breast Bilateral Mammography 12/29/2024 1:30 PM EDT Narrative 01/06/2025 5:41 PM EDT [facility] [address] [place] [address] Mammography Report Signed Patient: Alisha Proctor MR#: [id number] : 1970 Acct:[id number] Age/Sex: 54 / F ADM Date: 12/29/24 Loc: [facility] Attending Dr: Myesha Tracy NP Ordering Physician: MYESHA TRACY NP Results: 1Negative Date of Service: 12/29/24 Follow Up: 1 Year From Orig inal Mammogram Procedure(s): MM tomosynthesis screening BI Accession Number(s): [id number] cc: Annia Quintero MD; MYESHA TRACY NP [...] 01/06/25 1738 DD/ 1330 TD/TT: 12/29/24 1347 Non Emergency Services Ambulance Driver: Procedure Note Donotuseinterpreter, Image - [facility] [address] [place] [address] Mammography Report Signed Patient: Alisha Proctor#: [id number] : 1970Acct:[id number] Age/Sex: 54 / FADM Date: 12/29/24 Loc: HO.MAMMO Attending Dr: Myesha Tracy NP Ordering Physician: MYESHA TRACY NPResults: 1Negative Date of Service: 12/29/24Follow Up: 1 Year From Orig inal Mammogram Procedure(s): MM tomosynthesis screening BI Accession Number(s): [id number] cc: Annia Quintero MD; MYSEHA TRACY NP EXAMINATION: MM SCREENING DIGITAL BREAST [...] Oksana Lyn DO 01/06/2025 05:38 PM EDT Dictated By: Oksana Lyn DO Signed By: <Electronically signed by Oksana Lyn DO in OV> 01/06/25 1738 DD/ 1330 TD/TT: 12/29/24 1347 Non Emergency Services Ambulance Driver: us Myesha Tracy ANP IMG BI PROCEDURES Final Result * (ABNORMAL) Lipid Panel, Standard (09/30/2023 11:56 AM EST) Triglycerides 164(H) <150 mg/dL [facility] Comment:Desirable Triglyceri de: less than 150 mg/dLBorderline High Triglyceride 150-199 mg/dLHigh Triglyceride: 200-499 mg/dLVery High Triglyceride: greater than or equal to 5OO mg/dL Cholesterol 287(H) <200 mg/dL [facility] Comment:Desirable Cholestero l: less than 200 mg/dLBorderline High Cholesterol: 200-239 mg/dLHigh Cholesterol: greater than 239 mg/dL LDL Cholesterol Calculated 203(H) <100 mg/dL [facility] Comment:Desirable LDL: less than 100 mg/dLNear Optimal/Above Optimal LDL: 110- 129 mg/dLBorderline High LDL: 130-159 mg/dLHigh LDL: 160-189 mg/dLVery High LDL: greater than or equal to 190 mg/dL HDL Cholesterol 52 >40 mg/dL [facility] Comment:Desirable HDL: great er than 40 mg/dL Note: This HDL assay may give artificially low results in patients with liver disease. Blood Venous blood specimen / Unknown 09/30/2023 11:56 AM EST 09/30/2023 1:39 PM EST us Myesha CADENA LAB BLOOD ORDERABLES Final Resul t [facility] [address] [place] [address] [phone] * (ABNORMAL) Colonoscopy (12/22/2022) Colonoscopy Abnormal(A ) Normal us Kuldeep Pacheco MD HEALTH MAINTENANCE Final Result from Last 3 Months or Most Recently Relevant to Health Maintenance Insurance [facility] C[facility] FULL Care Teams Cook Sauce Relationship Specialty Start Date End Date Myesha Tracy ANP [address] [place] [phone] PCP - General Family Medicine 05/29/21
--- OUTSIDE RECORDS SUMMARY | 2025-07-05 15:22 | XMS_ITS | Encounter Summary ---
Author Organization [employer] Address [address] [facility] [address]t [place] [address] Care Team Providers Care Addressograph Operator Name Role Phone Kathy Jang Primary Care Provider [phone] Reason for Visit * Reason Onset Date Comments Med Refill 09/01/2023 Encounter Details Date Type Department Care Team (Late st Contact Info) Description 09/01/2023 Refill [facility] CHC MED & PEDS [address] [place] [address] Kathy Jang ANP [address] [place] [address] Iron deficiency anemia, unspecified iron deficiency anemia [...] documented as of this encounter Care Teams Addressograph Operator Relationship Specialty Start Date End Date Kathy Jang ANP [address] [place] [address] PCP - General Family Medicine 05/29/21 documented as of this encounter
== END 2025-07-05 14:40 | disposition home or self-care (01) ==
LOC: HO.HKA 14:10
PROVIDERS: PCP Nurse Practitioner Primary Care; Visit Provider Internal Medicine Nephrology
DX: I10 Essential (primary) hypertension (principal)
CPT/HCPCS: 99214

== ENCOUNTER → 2025-07-05 14:09 | Outpatient (BNVA) | payer MEDICAID, SELFPAY | PROVIDERS: PCP Nurse Practitioner Primary Care; Visit Provider Internal Medicine Nephrology | DX: I10 Essential (primary) hypertension (principal) | CPT/HCPCS: 99212 ==